=== PATIENT | female | born 1940 | race Caucasian/White ===

== ENCOUNTER 2016-12-06 16:47 | Inpatient (IN) | payer OTHER ==
[~2016-12-06] VITALS: Ht 152.4 cm; Wt 56.4 kg
[~2016-12-06 16:47] MED LIST: AMLO5TAB2 PO; AMLO5TAB4 PO; ASPI81TA28 PO; B-CO1CAP17 PO; CHOL2000 PO; CLON0.5T3 PO; DONE10TA12 PO; EZET10TA47 PO; FURO-85 PO; LAMO100T PO; LINA1CAP PO; OMEG5CAP PO; SNM/25100 PO; SRQ/100 PO; VITA400C3 PO; [UNRECOGNIZED DRUG - CODE] PO
[2016-12-06] MEDS ORDERED: SODIUM CHLORIDE 0.9% 500ML 500 ML IV STA (17:18)
--- NOTE | 2016-12-06 17:20 | EMERGENCY ROOM VISIT NOTE ---
History Report prepared by Sarah: Ky Lugo Under the Supervision of: Dr. Mathew Ramey M.D. First contact with patient: 16:59 Chief Complaint: RECTAL BLEEDING Stated Complaint: RECTAL BLEED History of Present Illness The patient is a 76 year old white female with a past medical history of a rectal prolapse surgery a couple of months ago, Parkinson's, hyperlipidemia, hypertension, and dementia who presents to the ED with a cc of rectal beginning this morning. Positive hematochezia. Negative falls, trauma, loss of consciousness, vomiting, lightheadedness, and dizziness. She had a small amount of bleeding this morning, but it worsened throughout the day. She does not take any blood thinners. She also had a colonoscopy in the past. She denies any recent medication changes. Dr. Forde is her colorectal surgeon. Source of History: patient Onset: this morning Position: other (Rectum) Symptom Intensity: moderate Quality: other (Bleeding) Timing: intermittent Modifying Factors (Worsening): other (Bowel movement) Associated Symptoms: No LOC, No vomiting Review of Systems See HPI for pertinent positives and negatives. A total of ten systems were reviewed and were otherwise negative. Past Medical & Surgical Medical Problems: (1) Anemia (2) Bipolar 1 disorder (3) Hemorrhoids (4) Hypertension (5) Rectal bleeding (6) Stomach problems Family History Hypertension Lung disease Social History Smoking Status: Never Smoker Smokeless Tobacco Use: No Alcohol Use: none Drug Use: none Marital Status: Housing Status: lives with family Occupation Status: retired Current/Historical Medications Scheduled Amlodipine Besylate (Norvasc), 5 MG PO QAM Bimatoprost (Lumigan), 1 DROP OPB HS Brimonidine Tartrate (Alphagan P Oph), 1 DROP OPB BID Carvedilol (Carvedilol), 1 TAB PO BID Clonazepam (Klonopin), 0.5 MG PO AMPM Donepezil Hydrochloride (Aricept), 10 MG PO HS Ezetimibe (Zetia), 10 MG PO HS Furosemide (Lasix), 1 TAB PO DAILY Lamotrigine (Lamictal), 200 MG PO DAILY Levodopa/Carbidopa (Sinemet 25MG/100MG), 1 TAB PO TID Potassium Chloride Microencaps (Klor-Con M15), 30 MEQ PO DAILY Quetiapine Fumarate (Seroquel), 100 MG PO HS Allergies Coded Allergies: [place] (Verified Allergy, Severe, SYSTEM TOXICITY, 03/26/16) Uncoded Allergies: YELLOW SQUASH (Allergy, Severe, ANAPHYLAXIS, 03/13/15) Physical Exam Vital Signs Date Time Temp Pulse Resp B/P (MAP) Pulse Ox O2 Delivery O2 Flow Rate FiO2 12/06/16 19:22 69 18 166/83 98 12/06/16 17:58 65 22 150/87 98 Room Air 12/06/16 17:06 96 Room Air 12/06/16 16:55 36.9 68 20 168/85 98 Room Air 12/06/16 16:53 66 Physical Exam GENERAL: Awake, alert, well-appearing, NAD, no pallor noted HENT: Normocephalic, atraumatic. EYES: Normal conjunctiva. Sclera non-icteric. NECK: Supple. No nuchal rigidity. FROM. RESPIRATORY: CTAB, no rhonchi, wheezing, crackles CARDIAC: RRR, no MRG ABDOMEN: Soft but harness felt over the anterior abdomen consistent with previous hernia repair, NTND, BS+, no guarding or rebound. RECTAL: Single hemorrhoid, no gross blood, no masses, tracely positive Hemoccult. MSK: No chest wall TTP, no LE edema NEURO: GCS 15, CN 2-12 intact, moves all 4s on command SKIN: No rash or jaundice noted. Medical Decision & Procedures Laboratory Results 12/06/16 17:00 Red Blood Count 4.30, Mean Corpuscular Volume 79.1, Mean Corpuscular Hemoglobin 25.6, Mean Corpuscular Hemoglobin Concent 32.4, Mean Platelet Volume 8.9, Neutrophils (%) (Auto) 63.9, Lymphocytes (%) (Auto) 25.9, Monocytes (%) (Auto) 7.9, Eosinophils (%) (Auto) 1.9, Basophils (%) (Auto) 0.3, Neutrophils # (Auto) 4.42, Lymphocytes # (Auto) 1.79, Monocytes # (Auto) 0.55, Eosinophils # (Auto) 0.13, Basophils # (Auto) 0.02 12/06/16 17:00 Test 12/06/16 17:00 12/06/16 17:39 12/06/16 18:45 White Blood Count 6.92 K/uL (4.8-10.8) Red Blood Count 4.30 M/uL (4.2-5.4) Hemoglobin 11.0 g/dL (12.0-16.0) Hematocrit 34.0 % (37-47) Mean Corpuscular Volume 79.1 fL (80-100) Mean Corpuscular Hemoglobin 25.6 pg (25-34) Mean Corpuscular Hemoglobin Concent 32.4 g/dl (32-36) Platelet Count 314 K/uL (130-400) Mean Platelet Volume 8.9 fL (7.4-10.4) Neutrophils (%) (Auto) 63.9 % Lymphocytes (%) (Auto) 25.9 % Monocytes (%) (Auto) 7.9 % Eosinophils (%) (Auto) 1.9 % Basophils (%) (Auto) 0.3 % Neutrophils # (Auto) 4.42 K/uL (1.4-6.5) Lymphocytes # (Auto) 1.79 K/uL (1.2-3.4) Monocytes # (Auto) 0.55 K/uL (0.11-0.59) Eosinophils # (Auto) 0.13 K/uL (0-0.5) Basophils # (Auto) 0.02 K/uL (0-0.2) RDW Standard Deviation 48.4 fL (36.4-46.3) RDW Coefficient of Variation 16.8 % (11.5-14.5) Immature Granulocyte % (Auto) 0.1 % Immature Granulocyte # (Auto) 0.01 K/uL (0.00-0.02) Anion Gap 5.0 mmol/L (3-11) Estimated GFR () 64.8 Estimated GFR (Non- 55.9 BUN/Creatinine Ratio 24.0 (10-20) Calcium Level 8.7 mg/dl (8.5-10.1) Total Bilirubin 0.3 mg/dl (0.2-1) Direct Bilirubin < 0.1 mg/dl (0-0.2) Aspartate Amino Transf (AST/SGOT) 13 U/L (15-37) Alanine Aminotransferase (ALT/SGPT) 14 U/L (12-78) Alkaline Phosphatase 100 U/L (45-117) Total Protein 6.8 gm/dl (6.4-8.2) Albumin 3.1 gm/dl (3.4-5.0) Lipase 160 U/L (73-393) Prothrombin Time 10.0 SECONDS (9.0-12.0) Prothromb Time International Ratio 0.9 (0.9-1.1) Activated Partial Thromboplast Time 23.6 SECONDS (21.0-31.0) Partial Thromboplastin Ratio 0.9 Venous Blood pH 7.39 (7.36-7.41) Venous Blood Partial Pressure CO2 45 mmHg (38.0-50.0) Venous Blood Partial Pressure O2 37 mmHg Venous Blood HCO3 26 mmol/L Venous Blood Oxygen Saturation 67.5 % Venous Blood Base Excess 0.9 mEq/L Urine Color YELLOW Urine Appearance CLEAR (CLEAR) Urine pH 7.0 (4.5-7.5) Urine Specific [place] 1.017 (1.000-1.030) Urine Protein NEG (NEG) Urine Glucose (UA) NEG (NEG) Urine Ketones NEG (NEG) Urine Occult Blood NEG (NEG) Urine Nitrite POS (NEG) Urine Bilirubin NEG (NEG) Urine Urobilinogen NEG (NEG) Urine Leukocyte Esterase SMALL (NEG) Urine WBC (Auto) 10-30 /hpf (0-5) Urine RBC (Auto) 0-4 /hpf (0-4) Urine Hyaline Casts (Auto) 0 /lpf (0-5) Urine Epithelial Cells (Auto) 10-20 /lpf (0-5) Urine Bacteria (Auto) 2+ (NEG) Laboratory results reviewed by me Medications Administered Medications (Trade) Dose Ordered Sig/Naeem Route Start Time Stop Time Status Last Admin Dose Admin Sodium Chloride 500 ml @ 500 mls/hr Q1H STAT IV 12/06/16 17:18 12/06/16 18:17 DC 12/06/16 17:18 500 MLS/HR ECG Indication: other (Rectal bleeding) Rate (beats per minute): 62 Rhythm: sinus rhythm Findings: 1st degree AV block, other (Prolonged ND, normal QRS, no STS changes or t-wave inversions) ED Course 1658: The patient was evaluated in room B04B. A complete history and physical exam was performed. 1811: I spoke with Dr. Duran of the [facility] at this time. They will be evaluating the patient for further management and care. Medical Decision The patient is a 76 year old white female with a past medical history of a rectal prolapse surgery a couple of months ago, Parkinson's, hyperlipidemia, hypertension, and dementia who presents to the ED with a cc of rectal beginning this morning. Positive hematochezia. Negative falls, trauma, loss of consciousness, vomiting, lightheadedness, and dizziness. Triage Nursing notes reviewed. The patient's presentation and history were concerning for diverticulosis, AVM, coagulopathy, colitis, inflammatory bowel disease, malignancy, Martha-Fl[place] tear, esophagitis, peptic ulcer disease, variceal bleed, gastritis, epistaxis, fissure, hemorrhoids, as well as others were entertained.. Patient was feeling fairly well however they were concerned given the worsening bleeding over the last day. It was more scant this morning and worsened throughout the day. Patient denies any presyncope or syncopal type symptoms. No dizziness. She does not take any aspirin, Plavix, or Coumadin. She denies taking any blood thinning medications. Patient denies any trauma. Patient does see a colorectal surgeon Dr. Weems with [facility]. She states that she may be able to see him next week. Patient's blood work was fairly unremarkable although she has had a 2 g hemoglobin drop in the last 8 months. She has had mild microcytic anemia. Patient does not take any iron. I spoke with the family made her more comfortable having her worked up as an inpatient. Given her age even with lacking her symptoms is appropriate especially given her 2 g drop in hemoglobin. I spoke with the medicine team and agreed and the patient was admitted. Medication Reconcilliation Current Medication List: was personally reviewed by me Blood Pressure Screening Patient's blood pressure: Elevated blood pressure Blood pressure disposition: Referred to PCP Consults Time Called: 1809 Consulting Physician: Dr. Renee HANSON Returned Call: 1811 Discussed the patient's case. The patient will be evaluated for further treatment and disposition. Impression Primary Impression: Lower GI bleed Additional Impressions: Rectal bleed Microcytic anemia Scribe Attestation The scribe's documentation has been prepared under my direction and personally reviewed by me in its entirety. I confirm that the note above accurately reflects all work, treatment, procedures, and medical decision making performed by me. Departure Information Dispostion Being Evaluated By Hospitalist Referrals Anais Bullard D.O. (PCP) Patient Instructions My [facility] Problem Qualifiers
[2016-12-06 17:31] LABS: BASO % 0.3 %; BASO ABS # 0.02 K/uL (0-0.2); COMPLETE YES; EOS % 1.9 %; IG% 0.1 %; LYMPH % 25.9 %; LYMPH ABS # 1.79 K/uL (1.2-3.4); MEAN CELL VOLUME 79.1 fL (80-100); MEAN CORPUSCULAR HEMOGLOBIN 25.6 pg (25-34); MEAN CORPUSCULAR HGB CONC 32.4 g/dl (32-36); MEAN PLATELET VOLUME 8.9 fL (7.4-10.4); MONO % 7.9 %; NEUT % 63.9 %; PLATELET COUNT 314 K/uL (130-400); WHITE BLOOD COUNT 6.92 K/uL (4.8-10.8)
[2016-12-06 17:38] LABS: ALT/SGPT 14 U/L (12-78); AST/SGOT 13 U/L (15-37); BLOOD UREA NITROGEN 23 mg/dl (7-18); CALCIUM 8.7 mg/dl (8.5-10.1); CARBON DIOXIDE 25 mmol/L (21-32); CHLORIDE 111 mmol/L (98-107); CREATININE 0.97 mg/dl (0.60-1.20); GLUCOSE 101 mg/dl (70-99); POTASSIUM 4.1 mmol/L (3.5-5.1); SODIUM 141 mmol/L (136-145)
[2016-12-06 17:41] LABS: ALKALINE PHOSPHATASE 100 U/L (45-117)
[2016-12-06 17:54] LABS: VEN BLD GAS O2 SATURATION 67.5 %; VEN BLOOD GAS BASE EXCESS 0.9 mEq/L
[2016-12-06 18:02] LABS: INR 0.9 (0.9-1.1); PARTIAL THROMBOPLASTIN RATIO 0.9
[2016-12-06] MEDS ORDERED: BIMA0.01 OPB (18:07)
[2016-12-06] MEDS ORDERED: BRIM0.1S OPB (18:07)
[2016-12-06] MEDS ORDERED: FURO40TA3 PO (18:07)
[2016-12-06] MEDS ORDERED: CRG3125 PO (18:07)
[2016-12-06] MEDS ORDERED: ONDANSETRON INJ 2 MG/ML 2 ML VIAL IV PRN (18:45)
[2016-12-06] MEDS ORDERED: POLYETHYLENE (MIRALAX) 17 GM PACK PO PRN (18:45)
[2016-12-06] MEDS ORDERED: ACETAMINOPHEN 325 MG TAB PO PRN (18:45)
[2016-12-06] MEDS ORDERED: MAGNESIUM HYDROXIDE SUSP 30 ML UDC PO PRN (18:45)
[2016-12-06] MEDS ORDERED: ALUMINUM/MAGNESIUM/SIMETH (MAALOX MAX) 30 ML UDC PO PRN (18:45)
--- NOTE | 2016-12-06 19:09 | History and Physical ---
History & Physical Date & Time of Service: Dec 06, 2016 at 18:47 Chief Complaint: Rectal Bleed Primary Care Physician: Anais Bullard D.O. History of Present Illness Source: patient, family (daughter and at bedside), clinic records, hospital records Patient is a pleasant 76 y/o female, with PMHx of rectal prolapse s/p repair in April 2016, h/o hemorrhoids, Parkinson's disease, dementia, bipolar disorder, and HTN, who presented to the ED because of complaints of rectal bleeding beginning around 11AM on 12/06. History largely came from /daughter present secondary to patient's dementia. According to patient, bright red bleeding occurred this AM with a movement. Bleeding continued throughout the day w/out BMs. Per , bleeding has been on/off since last week. Patient saw her colorectal surgeon today, Dr. Weems, who recommended she come to ED for further workup. Per daughter, prior to her surgery in April, she experienced frequent rectal bleeding. She has had colonoscopies in the past- patient/family cannot recall when- per daughter, she thinks it was prior to the surgery; only recalls benign polyps. Per , has had an unremarkable EGD in the past. Denies h/o PUD. Denies excessive coffee use, NSAID use, or the use of blood thinners. Patient was on Nexium in the past, but states this was for difficulty with swallowing and not GERD. Patient was Hemoccult positive in ED. + diffuse abdominal pain- per /daughter, this has been an ongoing issue for 3+ years. Patient denies any fever, chills, sweats, lightheadedness, dizziness, vision changes, CP, palpitations, edema, SOB, wheezing, cough, nausea , vomiting, diarrhea, urinary symptoms, melena, numbness/tingling, weakness, muscle/joint pain, anxiety/depression, or new skin discoloration/changes. Past Medical/Surgical History Medical Problems: rectal prolapse s/p repair in April 2016 h/o hemorrhoids Parkinson's disease dementia bipolar disorder HTN Surgical history: rectal prolapse surgery hernia repair tonsillectomy hysterectomy colonoscopy EGD Family History Hypertension Lung disease Social History Smoking Status: Never Smoker Smokeless Tobacco Use: No Alcohol Use: none Drug Use: none Marital Status: Housing status: lives with significant other Occupational Status: retired Allergies Coded Allergies: [place] (Verified Allergy, Severe, SYSTEM TOXICITY, 03/26/16) Uncoded Allergies: YELLOW SQUASH (Allergy, Severe, ANAPHYLAXIS, 03/13/15) Home Medications Scheduled Amlodipine Besylate (Norvasc), 5 MG PO QAM Bimatoprost (Lumigan), 1 DROP OPB HS Brimonidine Tartrate (Alphagan P Oph), 1 DROP OPB BID Carvedilol (Carvedilol), 1 TAB PO BID Clonazepam (Klonopin), 0.5 MG PO AMPM Donepezil Hydrochloride (Aricept), 10 MG PO HS Ezetimibe (Zetia), 10 MG PO HS Furosemide (Lasix), 1 TAB PO DAILY Lamotrigine (Lamictal), 200 MG PO DAILY Levodopa/Carbidopa (Sinemet 25MG/100MG), 1 TAB PO TID Potassium Chloride Microencaps (Klor-Con M15), 30 MEQ PO DAILY Quetiapine Fumarate (Seroquel), 100 MG PO HS Physical Exam Vital Signs Date Time Temp Pulse Resp B/P (MAP) Pulse Ox O2 Delivery O2 Flow Rate FiO2 12/06/16 17:58 65 22 150/87 98 Room Air 12/06/16 17:06 96 Room Air 12/06/16 16:55 36.9 68 20 168/85 98 Room Air General Appearance: no apparent distress Eyes: normal inspection, PERRL ENT: hearing grossly normal Neck: supple Respiratory/Chest: lungs clear, no respiratory distress, no accessory muscle use Cardiovascular: regular rate, rhythm, + systolic murmur Abdomen/GI: normal bowel sounds, non tender, soft Back: normal inspection Extremities/Musculoskelatal: no calf tenderness, no pedal edema Neurologic/Psych: alert, normal mood/affect Skin: warm/dry, no rash, + pallor Diagnostics Laboratory Results Results Past 24 Hours Test 12/06/16 17:00 12/06/16 17:39 Range/Units White Blood Count 6.92 4.8-10.8 K/uL Red Blood Count 4.30 4.2-5.4 M/uL Hemoglobin 11.0 12.0-16.0 g/dL Hematocrit 34.0 37-47 % Mean Corpuscular Volume 79.1 80-100 fL Mean Corpuscular Hemoglobin 25.6 25-34 pg Mean Corpuscular Hemoglobin Concent 32.4 32-36 g/dl Platelet Count 314 130-400 K/uL Mean Platelet Volume 8.9 7.4-10.4 fL Neutrophils (%) (Auto) 63.9 % Lymphocytes (%) (Auto) 25.9 % Monocytes (%) (Auto) 7.9 % Eosinophils (%) (Auto) 1.9 % Basophils (%) (Auto) 0.3 % Neutrophils # (Auto) 4.42 1.4-6.5 K/uL Lymphocytes # (Auto) 1.79 1.2-3.4 K/uL Monocytes # (Auto) 0.55 0.11-0.59 K/uL Eosinophils # (Auto) 0.13 0-0.5 K/uL Basophils # (Auto) 0.02 0-0.2 K/uL RDW Standard Deviation 48.4 36.4-46.3 fL RDW Coefficient of Variation 16.8 11.5-14.5 % Immature Granulocyte % (Auto) 0.1 % Immature Granulocyte # (Auto) 0.01 0.00-0.02 K/uL Sodium Level 141 136-145 mmol/L Potassium Level 4.1 3.5-5.1 mmol/L Chloride Level 111 98-107 mmol/L Carbon Dioxide Level 25 21-32 mmol/L Anion Gap 5.0 3-11 mmol/L Blood Urea Nitrogen 23 7-18 mg/dl Creatinine 0.97 0.60-1.20 mg/dl Estimated GFR () 64.8 Estimated GFR (Non- 55.9 BUN/Creatinine Ratio 24.0 10-20 Random Glucose 101 70-99 mg/dl Calcium Level 8.7 8.5-10.1 mg/dl Total Bilirubin 0.3 0.2-1 mg/dl Direct Bilirubin < 0.1 0-0.2 mg/dl Aspartate Amino Transf (AST/SGOT) 13 15-37 U/L Alanine Aminotransferase (ALT/SGPT) 14 12-78 U/L Alkaline Phosphatase 100 45-117 U/L Total Protein 6.8 6.4-8.2 gm/dl Albumin 3.1 3.4-5.0 gm/dl Lipase 160 73-393 U/L Prothrombin Time 10.0 9.0-12.0 SECONDS Prothromb Time International Ratio 0.9 0.9-1.1 Activated Partial Thromboplast Time 23.6 21.0-31.0 SECONDS Partial Thromboplastin Ratio 0.9 Venous Blood pH 7.39 7.36-7.41 Venous Blood Partial Pressure CO2 45 38.0-50.0 mmHg Venous Blood Partial Pressure O2 37 mmHg Venous Blood HCO3 26 mmol/L Venous Blood Oxygen Saturation 67.5 % Venous Blood Base Excess 0.9 mEq/L EKG [place] ID:[id number] 06-DEC-2016 16:58:11 [facility] Sinus rhythm with 1st degree A-V block Otherwise normal ECG No previous ECGs available 25mm/s 10mm/mV 150Hz 8.0 SP2 12SL 241 NATALIA: 0 Referred by: ED Unconfirmed Vent. rate 62 BPM MT interval 212 ms QRS duration 88 ms QT/QTc 410/416 ms P-R-T axes 54 -27 46 1940 (76 yr) Female Room:[facility] Loc:15 Site Administrator:DUY Venegas ind: Impression Assessment and Plan Patient is a pleasant 76 y/o female, with PMHx of rectal prolapse s/p repair in April 2016, h/o hemorrhoids, Parkinson's disease, dementia, bipolar disorder, dyslipidemia, and HTN, who presented to the ED because of complaints of rectal bleeding beginning around 11AM on 12/06. Microcytic anemia w/ rectal bleeding, h/o rectal prolapse s/p repair in April 2016, hemorrhoids: - Admit to med/surg - Follow H&H q6 hrs- initial hgb stable at 11.0 - IV Protonix BID - IV NSS @ 100 ml/hr - NPO after midnight pending GI consultation and ?procedure - Type & screen - Iron panel - Consult GI, appreciate recommendations HTN: Norvasc 5 mg QAM, Carvedilol 3.125 mg BID Dyslipidemia: Zetia 10 mg HS Bilateral lower extremity swelling: Hold Lasix due to acute anemia w/ rectal bleeding and IVF Parkinson disease, dementia: Aricept 10 mg HS, Sinemet 1 tab TID Bipolar disorder: Lamictal 200 mg daily, Seroquel 100 mg HS, Klonopin 0.5 mg BID Difficulty w/ swallowing- ongoing issue: - Aspiration precautions - Mechanical soft diet - Crush pills GI Prophylaxis: Protonix DVT prophylaxis: TEDs/SCDs; chemical anticoagulation contraindicated secondary to rectal bleeding/anemia Code Status: LEVEL V, DNR Dispo: From home, lives w/ - PT/OT and group social worker consulted i personally examined pt and verified all hammond points w Zoila Granados PAC rectal bleeding - ongoing for a few days then worsened - came to ER. not lightheaded/weak/dizzy. confirms DNR vitals noted nad breathing unlabored no pallor or icterus rectal bleeding -anemia likely more chronic from ongoing blood loss than acute blood loss related but will have to continue to follow -not on anticoagulant or antiplatelet. -follow Hgb -GI eval otherwise as above Level of Care Med/Surg Resuscitation Status DO NOT RESUSCITATE VTE Prophylaxis VTE Risk Assessment Done? Y/N: Yes Risk Level: Moderate Given or contraindicated: T.E.D. Stockings, SCD's, Contraindicated
[2016-12-06 19:10] LABS: URINE APPEARANCE CLEAR (CLEAR); URINE BILIRUBIN NEG (NEG); URINE COLOR YELLOW; URINE NITRITE POS (NEG); URINE SPECIFIC GRAVITY 1.017 (1.000-1.030); UROBILINOGEN NEG (NEG); ZZUR CULT IF INDIC CLEAN CATCH YES
[2016-12-06 19:12] LABS: MANUAL MICROSCOPIC REQUIRED? NO; REVIEW REQ? NO
[2016-12-06 20:00] VITALS: BP 186/90; PULSE 74; TEMP 36.9; O2SAT 96; Ht 152.4 cm; Wt 56.4 kg
[2016-12-06 21:28] VITALS: BP 157/79
[2016-12-06] MEDS: SODIUM CHLORIDE 0.9% 1000ML 1,000 ML IV SCH (22:37)
[2016-12-06] MEDS: PANTOprazole INJ 40 MG in SYRINGE 0 ML IV SCH (22:38)
[2016-12-06] MEDS: BIMATOPROST 0.01% OP SOLN 2.5 ML BTL OPB SCH (22:41)
[2016-12-06] MEDS: CLONAZEPAM 0.5 MG TAB PO SCH (22:44)
[2016-12-06] MEDS: DONEPEZIL HCL 10 MG TAB PO SCH (22:44)
[2016-12-06] MEDS: CARVEDILOL 3.125 MG TAB PO SCH (22:44)
[2016-12-06] MEDS: CARBIDOPA/LEVODOPA 25/100MG TAB PO SCH (22:45)
[2016-12-06] MEDS: QUETIAPINE FUMARATE 100 MG TAB PO SCH (22:45)
[2016-12-06] MEDS: EZETIMIBE 10MG TAB PO SCH (22:45)
[2016-12-06 22:58] VITALS: BP 165/80; PULSE 75; TEMP 36.5; O2SAT 97
[2016-12-07] VITALS (9 sets, daily range): BP systolic 102–169; BP diastolic 51–82; PULSE 58–64; TEMP 36.3–36.8; O2SAT 93–97
[2016-12-07] MEDS: SODIUM CHLORIDE 0.9% 1000ML 1,000 ML IV SCH ×3 (05:53→23:48)
[2016-12-07 07:44] LABS: HEMATOCRIT 35.4 % (37-47); MEAN CELL VOLUME 80.3 fL (80-100); MEAN CORPUSCULAR HEMOGLOBIN 25.6 pg (25-34); MEAN CORPUSCULAR HGB CONC 31.9 g/dl (32-36); MEAN PLATELET VOLUME 8.9 fL (7.4-10.4); PLATELET COUNT 282 K/uL (130-400); RED BLOOD COUNT 4.41 M/uL (4.2-5.4); WHITE BLOOD COUNT 5.74 K/uL (4.8-10.8)
[2016-12-07 08:23] LABS: BUN/CREATININE RATIO 19.4 (10-20); CALCIUM 8.8 mg/dl (8.5-10.1); CREATININE 0.8 mg/dl (0.60-1.20); FERRITIN 7.5 ng/ml (8.0-388.0); POTASSIUM 3.9 mmol/L (3.5-5.1)
[2016-12-07] MEDS ORDERED: FUROSEMIDE 40 MG TAB PO SCH (09:00)
[2016-12-07] MEDS: PANTOprazole INJ 40 MG in SYRINGE 0 ML IV SCH ×2 (09:21→21:46)
[2016-12-07] MEDS: CARVEDILOL 3.125 MG TAB PO SCH ×2 (09:21→20:25)
[2016-12-07] MEDS: POTASSIUM CHLORIDE 10 MEQ TABCR PO SCH (09:23)
[2016-12-07] MEDS: CLONAZEPAM 0.5 MG TAB PO SCH ×2 (09:23→20:25)
[2016-12-07] MEDS: CARBIDOPA/LEVODOPA 25/100MG TAB PO SCH ×3 (09:24→20:25)
[2016-12-07] MEDS: AMLODIPINE BESYLATE 5 MG TAB PO SCH (09:24)
[2016-12-07] MEDS ORDERED: CEFTRIAXONE SOD INJ 1 GM in DEXTROSE 5% ADD-VANTAGE 50ML 50 ML IV SCH (10:00)
[2016-12-07 12:28] LABS: HEMATOCRIT 31.8 % (37-47)
--- NOTE | 2016-12-07 13:59 | Gastrointestinal Consultation ---
Gastrointestinal Consultation Date of Consultation: Dec 07, 2016 Attending Physician: Zoltan Wells Consulting Physician: Jorge Parra Reason for Consultation: GI bleeding, anemia History of Present Illness Patient is a 76 year old female with chief complaint of abdominal pain. History mainly from as patient has dementia. Pt apparently with chronic generalized abdominal pain for 3 or more years. Also with chronic rectal bleeding thought from rectal prolapse improved post surgery 04/2016. Over the last few weeks will have up to a couple days of rectal bleeding. Yesterday had bleeding and apparently told the colorectal surgeon at an appointment so directed to ER. In ER patient had no gross blood but trace heme positive on rectal. Hgb 11 on admit with last 10.3 at 1217 today. Scant amounts of brown stool overnight and this am with trace red blood mixed. Also patient unable to swallow anything but beyond soft foods. Apparently had EGD and colonoscopy in [place] couple years ago with [place] results. No n/v, no wt change, no fever, no gerd. Past Medical/Surgical History Medical Problems: (1) Abdominal pain Status: Acute (2) Bleeding internal hemorrhoids Status: Acute (3) Lower GI bleed Status: Acute (4) Microcytic anemia Status: Acute (5) Rectal bleed Status: Acute (6) Rectal prolapse Status: Acute Family History Hypertension Lung disease Social History Smoking Status: Never Smoker Alcohol Use: none Drug Use: none Marital Status: Housing Status: lives with family Occupation Status: retired Allergies Coded Allergies: [place] (Verified Allergy, Severe, SYSTEM TOXICITY, 03/26/16) Uncoded Allergies: YELLOW [place]QU[place] (Allergy, Severe, ANAPHYLAXIS, 03/13/15) Current Medications Home Meds and Scripts Medications Dose Route/Sig Max Daily Dose Days Date Category Carvedilol 3.125 Mg Tab 1 Tab PO BID 12/06/16 Reported Lumigan (Bimatoprost) 0.01 % Krysta 1 Drop OPB HS 12/06/16 Reported Alphagan P Oph (Brimonidine Tartrate) 0.1 % Krysta 1 Drop OPB BID 12/06/16 Reported Lasix (Furosemide) 40 Mg Tab 1 Tab PO DAILY 30 12/06/16 Reported Lamictal (Lamotrigine) 100 Mg Tab 200 Mg PO DAILY 03/13/15 Reported Zetia (Ezetimibe) 10 Mg Tab 10 Mg PO HS 11/28/15 Reported Sinemet 25MG/100MG (Carbidopa/Levodopa) 1 Ea Tab 1 Tab PO TID 03/13/15 Reported Klor-Con M15 (Potassium Chloride Microencaps) 15 Meq Tab 30 Meq PO DAILY 03/13/15 Reported Klonopin (Clonazepam) 0.5 Mg Tab 0.5 Mg PO AMPM 03/13/15 Reported Seroquel (Quetiapine Fumarate) 100 Mg Tab 100 Mg PO HS 03/13/15 Reported Norvasc (Amlodipine Besylate) 5 Mg Tab 5 Mg PO QAM 03/13/15 Reported Aricept (Donepezil Hydrochloride) 10 Mg Tab 10 Mg PO HS 03/13/15 Reported Review of Systems 10 point review of systems negative. Physical Exam Date Time Temp Pulse Resp B/P (MAP) Pulse Ox O2 Delivery O2 Flow Rate FiO2 12/07/16 09:19 64 12/07/16 08:19 36.5 58 20 161/78 (105) 97 Room Air 12/07/16 08:15 97 Room Air 12/07/16 06:43 36.8 62 16 169/71 (103) 93 Room Air 12/07/16 01:00 102/51 (68) 12/07/16 01:00 Room Air 12/06/16 22:58 36.5 75 16 165/80 (108) 97 Room Air 12/06/16 21:28 157/79 (105) 12/06/16 20:00 36.9 74 16 186/90 96 Room Air 12/06/16 19:22 69 18 166/83 98 12/06/16 17:58 65 22 150/87 98 Room Air 12/06/16 17:06 96 Room Air 12/06/16 16:55 36.9 68 20 168/85 98 Room Air 12/06/16 16:53 66 General Appearance: WD/WN, no apparent distress Eyes: normal inspection, PERRL ENT: normal ENT inspection, hearing grossly normal Neck: supple, no adenopathy Respiratory/Chest: lungs clear, normal breath sounds Cardiovascular: regular rate, rhythm, no edema Abdomen: normal bowel sounds, non tender, soft, no organomegaly, + pertinent finding (complains of diffuse pain but soft with no guarding nor rebound. 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, no motor/sensory deficits, alert Skin: normal color, no jaundice Laboratory Results Last 24 Hours Test 12/06/16 17:00 12/06/16 17:39 12/06/16 18:45 12/06/16 22:42 White Blood Count 6.92 K/uL Red Blood Count 4.30 M/uL Hemoglobin 11.0 g/dL 10.9 g/dL Hematocrit 34.0 % 33.0 % Mean Corpuscular Volume 79.1 fL Mean Corpuscular Hemoglobin 25.6 pg Mean Corpuscular Hemoglobin Concent 32.4 g/dl Platelet Count 314 K/uL Mean Platelet Volume 8.9 fL Neutrophils (%) (Auto) 63.9 % Lymphocytes (%) (Auto) 25.9 % Monocytes (%) (Auto) 7.9 % Eosinophils (%) (Auto) 1.9 % Basophils (%) (Auto) 0.3 % Neutrophils # (Auto) 4.42 K/uL Lymphocytes # (Auto) 1.79 K/uL Monocytes # (Auto) 0.55 K/uL Eosinophils # (Auto) 0.13 K/uL Basophils # (Auto) 0.02 K/uL RDW Standard Deviation 48.4 fL RDW Coefficient of Variation 16.8 % Immature Granulocyte % (Auto) 0.1 % Immature Granulocyte # (Auto) 0.01 K/uL Sodium Level 141 mmol/L Potassium Level 4.1 mmol/L Chloride Level 111 mmol/L Carbon Dioxide Level 25 mmol/L Anion Gap 5.0 mmol/L Blood Urea Nitrogen 23 mg/dl Creatinine 0.97 mg/dl Estimated GFR () 64.8 Estimated GFR (Non- 55.9 BUN/Creatinine Ratio 24.0 Random Glucose 101 mg/dl Calcium Level 8.7 mg/dl Total Bilirubin 0.3 mg/dl Direct Bilirubin < 0.1 mg/dl Aspartate Amino Transf (AST/SGOT) 13 U/L Alanine Aminotransferase (ALT/SGPT) 14 U/L Alkaline Phosphatase 100 U/L Total Protein 6.8 gm/dl Albumin 3.1 gm/dl Lipase 160 U/L Prothrombin Time 10.0 SECONDS Prothromb Time International Ratio 0.9 Activated Partial Thromboplast Time 23.6 SECONDS Partial Thromboplastin Ratio 0.9 Venous Blood pH 7.39 Venous Blood Partial Pressure CO2 45 mmHg Venous Blood Partial Pressure O2 37 mmHg Venous Blood HCO3 26 mmol/L Venous Blood Oxygen Saturation 67.5 % Venous Blood Base Excess 0.9 mEq/L Urine Color YELLOW Urine Appearance CLEAR Urine pH 7.0 Urine Specific [place] 1.017 Urine Protein NEG Urine Glucose (UA) NEG Urine Ketones NEG Urine Occult Blood NEG Urine Nitrite POS Urine Bilirubin NEG Urine Urobilinogen NEG Urine Leukocyte Esterase SMALL Urine WBC (Auto) 10-30 /hpf Urine RBC (Auto) 0-4 /hpf Urine Hyaline Casts (Auto) 0 /lpf Urine Epithelial Cells (Auto) 10-20 /lpf Urine Bacteria (Auto) 2+ Test 12/07/16 07:15 12/07/16 12:17 White Blood Count 5.74 K/uL Red Blood Count 4.41 M/uL Hemoglobin 11.3 g/dL 10.3 g/dL Hematocrit 35.4 % 31.8 % Mean Corpuscular Volume 80.3 fL Mean Corpuscular Hemoglobin 25.6 pg Mean Corpuscular Hemoglobin Concent 31.9 g/dl RDW Standard Deviation 49.5 fL RDW Coefficient of Variation 16.9 % Platelet Count 282 K/uL Mean Platelet Volume 8.9 fL Sodium Level 142 mmol/L Potassium Level 3.9 mmol/L Chloride Level 111 mmol/L Carbon Dioxide Level 25 mmol/L Anion Gap 6.0 mmol/L Blood Urea Nitrogen 16 mg/dl Creatinine 0.80 mg/dl Est Creatinine Clear Calc Drug Dose 45.6 ml/min Estimated GFR () 81.8 Estimated GFR (Non- 70.6 BUN/Creatinine Ratio 19.4 Random Glucose 75 mg/dl Calcium Level 8.8 mg/dl Iron Level 53 mcg/dl Total Iron Binding Capacity 424 mcg/dl Transferrin 321 mg/dl Transferrin % Saturation 12 % Ferritin 7.5 ng/ml Impression A/P Rectal bleeding-- desires colonoscopy for evaluation. Dysphagia-- would like this evaluated also so plan EGD with prn dilation abdominal pain--- check A/P CT Tentative EGD with dilatation and colonoscopy tomorrow by DR Ortega. Procedures and risks explained to patients which include but not limited to medication reaction, bleeding, perforation, aspiration, and missed lesions. Clear liquids today then NPO post MN.
--- NOTE | 2016-12-07 14:56 | Hospitalist Progress Note ---
Hospitalist Progress Note Date of Service Dec 07, 2016. (Hetal Latham ., IMER) Subjective Pt evaluation today including: conversation w/ patient, physical exam, chart review, lab review, review of inpatient medication list Unable to obtain reliable ROS from patient due to dementia. No family at bedside. In between ramblings, patient does complain of trouble swallowing and abdominal pain. Upon review of admission H&P, these are chronic issues. Additional Comments: Unable to obtain reliable ROS from patient due to dementia. (Hetal Latham PA-C) Objective Vital Signs Date Time Temp Pulse Resp B/P (MAP) Pulse Ox O2 Delivery O2 Flow Rate FiO2 12/07/16 09:19 64 12/07/16 08:19 36.5 58 20 161/78 (105) 97 Room Air 12/07/16 08:15 97 Room Air 12/07/16 06:43 36.8 62 16 169/71 (103) 93 Room Air 12/07/16 01:00 102/51 (68) 12/07/16 01:00 Room Air 12/06/16 22:58 36.5 75 16 165/80 (108) 97 Room Air 12/06/16 21:28 157/79 (105) 12/06/16 20:00 36.9 74 16 186/90 96 Room Air 12/06/16 19:22 69 18 166/83 98 12/06/16 17:58 65 22 150/87 98 Room Air 12/06/16 17:06 96 Room Air 12/06/16 16:55 36.9 68 20 168/85 98 Room Air 12/06/16 16:53 66 (Hetal Latham PA-C) Physical Exam Notes: General appearance: Well-developed, well-nourished, no apparent distress Head: Normocephalic, atraumatic Eyes: Normal inspection, PERRL, EOMI ENT: Normal ENT inspection, hearing grossly normal, pharynx normal Neck: Supple, no JVD, trachea midline Respiratory/Chest: Lungs clear to auscultation, normal breath sounds, no respiratory distress Cardiovascular: +Systolic murmur. Regular rate & rhythm, no gallop Abdomen/GI: +Mild diffuse tenderness. Normal bowel sounds, soft Extremities/Musculoskeletal: Normal inspection, no calf tenderness, no pedal edema Neurological/Psych: +Dementia. Pt fixated on her eye drops during visit, could not obtain reliable ROS. Pt began to ramble nonsensical things but did answer orientation questions appropriately. Alert, normal mood/affect, oriented x 3 Skin: Normal color, warm/dry, no rash (Hetal Latham ., IMER) Laboratory Results Last 24 Hours Test 12/06/16 17:00 12/06/16 17:39 12/06/16 18:45 12/06/16 22:42 White Blood Count 6.92 K/uL Red Blood Count 4.30 M/uL Hemoglobin 11.0 g/dL 10.9 g/dL Hematocrit 34.0 % 33.0 % Mean Corpuscular Volume 79.1 fL Mean Corpuscular Hemoglobin 25.6 pg Mean Corpuscular Hemoglobin Concent 32.4 g/dl Platelet Count 314 K/uL Mean Platelet Volume 8.9 fL Neutrophils (%) (Auto) 63.9 % Lymphocytes (%) (Auto) 25.9 % Monocytes (%) (Auto) 7.9 % Eosinophils (%) (Auto) 1.9 % Basophils (%) (Auto) 0.3 % Neutrophils # (Auto) 4.42 K/uL Lymphocytes # (Auto) 1.79 K/uL Monocytes # (Auto) 0.55 K/uL Eosinophils # (Auto) 0.13 K/uL Basophils # (Auto) 0.02 K/uL RDW Standard Deviation 48.4 fL RDW Coefficient of Variation 16.8 % Immature Granulocyte % (Auto) 0.1 % Immature Granulocyte # (Auto) 0.01 K/uL Sodium Level 141 mmol/L Potassium Level 4.1 mmol/L Chloride Level 111 mmol/L Carbon Dioxide Level 25 mmol/L Anion Gap 5.0 mmol/L Blood Urea Nitrogen 23 mg/dl Creatinine 0.97 mg/dl Estimated GFR () 64.8 Estimated GFR (Non- 55.9 BUN/Creatinine Ratio 24.0 Random Glucose 101 mg/dl Calcium Level 8.7 mg/dl Total Bilirubin 0.3 mg/dl Direct Bilirubin < 0.1 mg/dl Aspartate Amino Transf (AST/SGOT) 13 U/L Alanine Aminotransferase (ALT/SGPT) 14 U/L Alkaline Phosphatase 100 U/L Total Protein 6.8 gm/dl Albumin 3.1 gm/dl Lipase 160 U/L Prothrombin Time 10.0 SECONDS Prothromb Time International Ratio 0.9 Activated Partial Thromboplast Time 23.6 SECONDS Partial Thromboplastin Ratio 0.9 Venous Blood pH 7.39 Venous Blood Partial Pressure CO2 45 mmHg Venous Blood Partial Pressure O2 37 mmHg Venous Blood HCO3 26 mmol/L Venous Blood Oxygen Saturation 67.5 % Venous Blood Base Excess 0.9 mEq/L Urine Color YELLOW Urine Appearance CLEAR Urine pH 7.0 Urine Specific [place] 1.017 Urine Protein NEG Urine Glucose (UA) NEG Urine Ketones NEG Urine Occult Blood NEG Urine Nitrite POS Urine Bilirubin NEG Urine Urobilinogen NEG Urine Leukocyte Esterase SMALL Urine WBC (Auto) 10-30 /hpf Urine RBC (Auto) 0-4 /hpf Urine Hyaline Casts (Auto) 0 /lpf Urine Epithelial Cells (Auto) 10-20 /lpf Urine Bacteria (Auto) 2+ Test 12/07/16 07:15 12/07/16 12:17 White Blood Count 5.74 K/uL Red Blood Count 4.41 M/uL Hemoglobin 11.3 g/dL 10.3 g/dL Hematocrit 35.4 % 31.8 % Mean Corpuscular Volume 80.3 fL Mean Corpuscular Hemoglobin 25.6 pg Mean Corpuscular Hemoglobin Concent 31.9 g/dl RDW Standard Deviation 49.5 fL RDW Coefficient of Variation 16.9 % Platelet Count 282 K/uL Mean Platelet Volume 8.9 fL Sodium Level 142 mmol/L Potassium Level 3.9 mmol/L Chloride Level 111 mmol/L Carbon Dioxide Level 25 mmol/L Anion Gap 6.0 mmol/L Blood Urea Nitrogen 16 mg/dl Creatinine 0.80 mg/dl Est Creatinine Clear Calc Drug Dose 45.6 ml/min Estimated GFR () 81.8 Estimated GFR (Non- 70.6 BUN/Creatinine Ratio 19.4 Random Glucose 75 mg/dl Calcium Level 8.8 mg/dl Iron Level 53 mcg/dl Total Iron Binding Capacity 424 mcg/dl Transferrin 321 mg/dl Transferrin % Saturation 12 % Ferritin 7.5 ng/ml (Hetal Latham ., FREDERICC) Assessment and Plan 76 y/o female with a history of rectal prolapse s/p repair in April 2016, h/o hemorrhoids, Parkinson's disease, dementia, bipolar disorder, dyslipidemia, and HTN who presented to the ED because of complaints of rectal bleeding beginning around 11AM on 12/06. Microcytic anemia w/ rectal bleeding, h/o rectal prolapse s/p repair in April 2016, hemorrhoids--stable - Admit to med/surg - Hgb has largely remained stable around 11; however, last hgb down to 10.3 - Transfuse prn Hgb <8 - IV Protonix BID - IV NSS @ 100 ml/hr - GI consulted, appreciate recs: EGD with dilation and colonoscopy tomorrow with Dr. Ortega. Clear liquid diet today w/bowel prep. NPO after midnight. Obtain CT of abdomen/pelvis - Iron studies show low ferritin and transferrin % sat. Will start iron supplementation after procedures tomorrow. HTN--stable -Continue Norvasc 5 mg PO QAM, Carvedilol 3.125 mg PO BID Dyslipidemia -Continue Zetia 10 mg PO HS Bilateral lower extremity swelling -Hold Lasix due to acute anemia w/ rectal bleeding and IVF Parkinson disease, dementia -Continue Aricept 10 mg PO HS, Sinemet 25/100 mg PO TID Bipolar disorder -Continue Lamictal 200 mg PO qd, Seroquel 100 mg PO HS, Klonopin 0.5 mg PO BID Difficulty w/ swallowing- ongoing issue: - Aspiration precautions - Mechanical soft diet - Crush pills - EGD with possible dilation tomorrow DVT prophylaxis -Hold chemical prophylaxis due to bleeding and procedure tomorrow Code Status -Level V, DO NOT RESUSCITATE (Hetal Latham ., PATulioC) Attending Attestation: Pt seen/examined, chart reviewed, care plan d/w GERDA Latham. I agree w/ the hammond components of her documentation. at bedside during my visit. He confirms that she had NOT been taking any iron supplementation in the last year. I explained that her ferritin was <10 suggesting chronic Fe Deficiency. He reports her abdominal pain is chronic, and that she has suffered from alternating constipation/diarrhea "for years". VSS, no fever gen - nad heart - RRR lungs - CTA b/l abd - soft, NT, mild distension, appears to have a hernia vs simple protuberance upper abdomen, BS+ ext - no edema, pulses 2+ b/l A/P: 1. probable chronic iron deficiency 2. acute blood loss anemia 2nd to rectal bleeding 3. chronic abdominal pain 4. h/o rectal prolapse s/p surgery 04/[address] abd/pelvis today with severe constipation and diverticulosis certainly #2 could be diverticular in origin EGD/colonoscopy tomorrow will need Fe replacement at time of d/c rose WELLS MD (Zoltan Wells MD)
[2016-12-07] MEDS: LAVAGE SOLUTION 4000ML PO SCH (16:25)
--- NOTE | 2016-12-07 16:26 | DIAGNOSTIC IMAGING REPORT ---
CT SCAN OF THE ABDOMEN AND PELVIS WITHOUT IV CONTRAST CLINICAL HISTORY: Generalized abdominal pain. Hematochezia. COMPARISON STUDY: Abdominal radiograph dated 03/26/2016. TECHNIQUE: CT scan of the abdomen and pelvis is performed from the lung bases to the proximal femora. Images are reviewed in the axial, sagittal, and coronal planes. IV contrast was not administered for this examination as per the referring clinician. Note that the examination was performed in suboptimal fashion without IV contrast. Oral contrast was utilized. Automated dose control exposure was utilized. A dose lowering technique was utilized adhering to the principles of ALARA. CT DOSE: 248.19 mGy.cm FINDINGS: Lung bases: The heart is normal in size and without pericardial effusion. The lung bases are clear. There is a small hiatal hernia. Liver: The unenhanced liver is normal in size, contour, and attenuation. There is no intrahepatic biliary ductal dilatation. Gallbladder: Unremarkable. Spleen: Normal in size and attenuation. Pancreas: Atrophic and grossly unremarkable. Adrenal glands: Unremarkable. Kidneys: The unenhanced kidneys are atrophic and without hydronephrosis. There are no renal calculi identified. A 2.2 cm cyst is noted on the left. Abdominal vasculature: The abdominal aorta is normal in course and caliber noting advanced atherosclerotic calcification. Bowel: No bowel obstruction is seen. There is advanced diverticulosis of the left colon without CT evidence of acute diverticulitis. Moderate to severe constipation is observed. The appendix is well-visualized and normal. Peritoneum: There is no intraperitoneal free air or abdominal ascites. There is diastases of the rectus musculature. Lymphadenopathy: None. Pelvic viscera: The bladder is normal as visualized. The uterus is surgically absent. No adnexal lesion is seen. Findings suggest pelvic floor prolapse. Skeletal structures: The skeletal structures are osteopenic. There is moderate lumbosacral spondylosis as well as scoliosis. Mild age indeterminant superior end plate compression deformity is noted in L1 and L3. No lytic or blastic lesions are seen. Scattered bone islands are present in the pelvis. IMPRESSION: 1. Suboptimal examination without IV contrast 2. There are no acute infectious or inflammatory findings in the abdomen or pelvis. 3. Moderate to severe constipation. No bowel obstruction is seen. 4. Advanced diverticulosis of the left colon without CT evidence of acute diverticulitis. 5. Additional findings as above. Electronically signed by: Sreedhar Goff M.D. 12/07/2016 4:25 PM Dictated Date/Time: 12/07/2016 4:16 PM
[2016-12-07] MEDS: BRIMONIDINE TARTRATE 0.1% OPH SOLN OPB SCH ×2 (17:32→20:24)
[2016-12-07] MEDS: DONEPEZIL HCL 10 MG TAB PO SCH (20:24)
[2016-12-07] MEDS: BIMATOPROST 0.01% OP SOLN 2.5 ML BTL OPB SCH (20:24)
[2016-12-07] MEDS: EZETIMIBE 10MG TAB PO SCH (20:24)
[2016-12-07] MEDS: QUETIAPINE FUMARATE 100 MG TAB PO SCH (20:25)
[2016-12-08] MEDS: LAVAGE SOLUTION 4000ML PO SCH (04:50)
[2016-12-08 06:58] VITALS: BP 165/89; PULSE 62; TEMP 36.4; O2SAT 98
[2016-12-08 07:52] LABS: HEMATOCRIT 34.3 % (37-47); MEAN CELL VOLUME 79.8 fL (80-100); MEAN CORPUSCULAR HEMOGLOBIN 25.3 pg (25-34); MEAN CORPUSCULAR HGB CONC 31.8 g/dl (32-36); PLATELET COUNT 271 K/uL (130-400)
--- NOTE | 2016-12-08 08:11 | Gastroenterology Progress Note ---
Progress Note Date of Service: Dec 08, 2016 Subjective Pt evaluation today including: conversation w/ patient, physical exam, chart review, lab review, review of studies, review of inpatient medication list CC f/u gi bleed, abd pain HPI--Per nursing patient drank all of prep last pm. There is a small volume of golyteley left in jug. Per nursing good stool output and stool just witnessed mostly clear with some yellow. When asked about abd pain she states she hurts "everywhere" but cannot be more specific. Review of Systems Respiratory: No shortness of breath Cardiac: No chest pain Medications Current Inpatient Medications Medications (Trade) Dose Ordered Sig/Naeem Route Start Time Stop Time Status Last Admin Dose Admin Acetaminophen (Tylenol Tab) 650 mg Q4H PRN PO 12/06/16 18:45 01/05/17 18:44 Al Hydrox/Mg Hydrox/Simethicone (Maalox Max Susp) 15 ml Q4H PRN PO 12/06/16 18:45 01/05/17 18:44 Magnesium Hydroxide (Milk Of Magnesia Susp) 30 ml Q6H PRN PO 12/06/16 18:45 01/05/17 18:44 Polyethylene (Miralax Powder Packet) 17 gm DAILY PRN PO 12/06/16 18:45 01/05/17 18:44 Ondansetron HCl (Zofran Inj) 4 mg Q6H PRN IV 12/06/16 18:45 01/05/17 18:44 Sodium Chloride 1,000 ml @ 100 mls/hr Q10H IV 12/06/16 18:45 01/05/17 18:44 12/07/16 23:48 100 MLS/HR Amlodipine Besylate (Norvasc Tab) 5 mg QAM PO 12/07/16 09:00 01/06/17 08:59 12/07/16 09:24 5 MG Carvedilol (Coreg Tab) 3.125 mg BID PO 12/06/16 21:00 01/05/17 20:59 12/07/16 20:25 3.125 MG Clonazepam (Klonopin Tab) 0.5 mg BID PO 12/06/16 21:00 01/05/17 20:59 12/07/16 20:25 0.5 MG Donepezil HCl (Aricept Tab) 10 mg HS PO 12/06/16 21:00 01/05/17 20:59 12/07/16 20:24 10 MG EZETIMIBE (Zetia Tab) 10 mg HS PO 12/06/16 21:00 01/05/17 20:59 12/07/16 20:24 10 MG Lamotrigine (Lamictal Tab) 200 mg DAILY PO 12/07/16 09:00 01/06/17 08:59 12/07/16 09:24 200 MG Carbidopa/Levodopa (Sinemet 25/ 100MG Tab) 1 tab TID PO 12/06/16 21:00 01/05/17 20:59 12/07/16 20:25 1 TAB Quetiapine Fumarate (seroQUEL TAB) 100 mg HS PO 12/06/16 21:00 01/05/17 20:59 12/07/16 20:25 100 MG Bimatoprost (Lumigan 0.01%) 1 drops HS OPB 12/06/16 21:00 01/05/17 20:59 12/07/16 20:24 1 DROPS Potassium Chloride (Klor-Con M10) 30 meq DAILY PO 12/07/16 09:00 01/06/17 08:59 12/07/16 09:23 30 MEQ Pantoprazole Sodium 40 mg/ Syringe 10 ml @ 5 mls/min DAILY@ IV 12/06/16 21:00 01/05/17 20:59 12/07/16 21:46 5 MLS/MIN Ceftriaxone Sodium 1 gm/ Dextrose 50 ml @ 100 mls/hr Q24H IV 12/07/16 10:00 12/12/16 09:59 12/07/16 10:35 100 MLS/HR Brimonidine Tartrate (Alphagan-P 0.1% Oph Solution) 1 drop BID OPB 12/07/16 21:00 01/06/17 20:59 12/07/16 20:24 1 DROP Objective Vital Signs Date Time Temp Pulse Resp B/P (MAP) Pulse Ox O2 Delivery O2 Flow Rate FiO2 12/08/16 06:58 36.4 62 18 165/89 (114) 98 Room Air 12/07/16 23:59 Room Air 12/07/16 23:00 36.3 58 14 110/59 (76) 95 Room Air 12/07/16 20:08 64 162/82 (108) 97 Room Air 12/07/16 15:45 97 Room Air 12/07/16 15:21 36.6 60 16 165/78 (107) 97 Room Air 12/07/16 09:19 64 12/07/16 08:19 36.5 58 20 161/78 (105) 97 Room Air 12/07/16 08:15 97 Room Air Physical Exam General Appearance: WD/WN, no apparent distress Respiratory/Chest: lungs clear, no respiratory distress Cardiovascular: no murmur Abdomen: normal bowel sounds, soft, no organomegaly, + pertinent finding (no guarding nor rebound) Laboratory Results Last 24 Hours Test 12/07/16 12:17 12/08/16 07:23 Hemoglobin 10.3 g/dL 10.9 g/dL Hematocrit 31.8 % 34.3 % White Blood Count 5.20 K/uL Red Blood Count 4.30 M/uL Mean Corpuscular Volume 79.8 fL Mean Corpuscular Hemoglobin 25.3 pg Mean Corpuscular Hemoglobin Concent 31.8 g/dl RDW Standard Deviation 48.8 fL RDW Coefficient of Variation 16.8 % Platelet Count 271 K/uL Mean Platelet Volume 9.0 fL Assessment and Plan Rectal bleeding--colonoscopy today by DR Ortega Dysphagia--EGD with prn dilatation today by DR Ortega Anemia--stable constipation on CT Diverticulosis on CT abdominal pain--- no acute process on A/P CT--perhaps from constipation
[2016-12-08 08:18] LABS: BUN/CREATININE RATIO 11.2 (10-20); CALCIUM 8.6 mg/dl (8.5-10.1); CREATININE 0.69 mg/dl (0.60-1.20); POTASSIUM 3.6 mmol/L (3.5-5.1)
[2016-12-08 08:21] LABS: ALB/GLOB RATIO 0.9 (0.9-2)
[2016-12-08] MEDS: CLONAZEPAM 0.5 MG TAB PO SCH ×2 (09:00→20:58)
[2016-12-08] MEDS: AMOXICILLIN 500 MG CAP PO SCH ×3 (09:00→20:54)
[2016-12-08] MEDS: BRIMONIDINE TARTRATE 0.1% OPH SOLN OPB SCH ×2 (09:38→20:54)
[2016-12-08] MEDS: PANTOprazole INJ 40 MG in SYRINGE 0 ML IV SCH (09:38)
[2016-12-08] MEDS: AMLODIPINE BESYLATE 5 MG TAB PO SCH (09:44)
[2016-12-08] MEDS: CARVEDILOL 3.125 MG TAB PO SCH ×2 (09:44→20:54)
[2016-12-08] MEDS: CARBIDOPA/LEVODOPA 25/100MG TAB PO SCH ×3 (10:13→20:54)
[2016-12-08] MEDS: SODIUM CHLORIDE 0.9% 1000ML 1,000 ML IV SCH (10:28)
--- NOTE | 2016-12-08 11:15 | Hospitalist Progress Note ---
Hospitalist Progress Note Date of Service Dec 08, 2016. (Hetal Latham ., FREDERICC) Subjective Pt evaluation today including: conversation w/ patient, conversation w/ family ( at bedside), physical exam, chart review, lab review, review of inpatient medication list Unable to obtain reliable ROS from patient due to dementia. Additional Comments: Unable to obtain reliable ROS from patient due to dementia. (Hetal Latham, IMER) Objective Vital Signs Date Time Temp Pulse Resp B/P (MAP) Pulse Ox O2 Delivery O2 Flow Rate FiO2 12/08/16 07:25 Room Air 12/08/16 06:58 36.4 62 18 165/89 (114) 98 Room Air 12/07/16 23:59 Room Air 12/07/16 23:00 36.3 58 14 110/59 (76) 95 Room Air 12/07/16 20:08 64 162/82 (108) 97 Room Air 12/07/16 15:45 97 Room Air 12/07/16 15:21 36.6 60 16 165/78 (107) 97 Room Air (Hetal Latham, GERDA-Keke) Physical Exam Notes: General appearance: Well-developed, well-nourished, no apparent distress Head: Normocephalic, atraumatic Eyes: Normal inspection, PERRL, EOMI ENT: Normal ENT inspection, hearing grossly normal, pharynx normal Neck: Supple, no JVD, trachea midline Respiratory/Chest: Lungs clear to auscultation, normal breath sounds, no respiratory distress Cardiovascular: +Systolic murmur. Regular rate & rhythm, no gallop Abdomen/GI: Normal bowel sounds, non-tender, soft Extremities/Musculoskeletal: Normal inspection, no calf tenderness, no pedal edema Neurological/Psych: +Dementia. Pt still fixated on her eye drops, could not obtain reliable ROS. Pt began to ramble nonsensical things but did answer orientation questions appropriately. Alert, normal mood/affect, oriented x 3 Skin: Normal color, warm/dry, no rash (Hetal Latham, GERDA-C) Laboratory Results Last 24 Hours Test 12/07/16 12:17 12/08/16 07:23 Hemoglobin 10.3 g/dL 10.9 g/dL Hematocrit 31.8 % 34.3 % White Blood Count 5.20 K/uL Red Blood Count 4.30 M/uL Mean Corpuscular Volume 79.8 fL Mean Corpuscular Hemoglobin 25.3 pg Mean Corpuscular Hemoglobin Concent 31.8 g/dl RDW Standard Deviation 48.8 fL RDW Coefficient of Variation 16.8 % Platelet Count 271 K/uL Mean Platelet Volume 9.0 fL Sodium Level 143 mmol/L Potassium Level 3.6 mmol/L Chloride Level 110 mmol/L Carbon Dioxide Level 26 mmol/L Anion Gap 7.0 mmol/L Blood Urea Nitrogen 8 mg/dl Creatinine 0.69 mg/dl Est Creatinine Clear Calc Drug Dose 52.9 ml/min Estimated GFR () 96.6 Estimated GFR (Non- 83.4 BUN/Creatinine Ratio 11.2 Random Glucose 74 mg/dl Calcium Level 8.6 mg/dl Total Bilirubin 0.4 mg/dl Aspartate Amino Transf (AST/SGOT) 15 U/L Alanine Aminotransferase (ALT/SGPT) 7 U/L Alkaline Phosphatase 88 U/L Total Protein 6.1 gm/dl Albumin 2.9 gm/dl Globulin 3.2 gm/dl Albumin/Globulin Ratio 0.9 (Hetal Latham PA-C) Diagnostic Results Reviewed the following studies and agree with interpretation as follows: Patient Name: CASA MOON Unit Number: [id number] Dictated: 12/07/161615 Transcribed: 12/07/161615 EV Printed Date/Time: [~ rep prt dt]/[~ rep prt tm] [~ rep ct labl] - [~ rep ct ivnm] [facility] [place] [address] Dictated: 12/07/161615 Transcribed: 12/07/161615 EV Printed Date/Time: [~ rep prt dt]/[~ rep prt tm] [~ rep ct labl] - [~ rep ct ivnm] Patient: CASA MOON Address1: [address] [place] [address] Rec: [id number] Address2: [place] [address] Acct ID: [id number] [facility] Zip: [place] [address] Date: 1940 Sex: F Room/Bed: [facility] Ref Phy: Anais Bullard D.O. SC: C.MSN Att Phy: Zoltan Wells MD Report #: [id number] Yolanda Phy: Anais Bullard D.O. Test: APWOR Admit Phy: Michael Duran D.O. Manager Analysis: PRASHANTH Interpreting Phy: Sreedhar Goff M.D. Diagnosis: ANEMIA, RECTAL BLEED Ordering Phy: Jorge Parra M.D. Service Date: 12/07/16 Admit Date: 12/07/1707/23/17 MNE: [id number] CONF: DICTATED BY: Sreedhar Goff M.D.]] CC: Jorge Parra M.D. Ignatius, Nicole D. D.O. Siuta, Jonathan R., MD Endcc: [~ rep ct add3]] CT SCAN OF THE ABDOMEN AND PELVIS WITHOUT IV CONTRAST CLINICAL HISTORY: Generalized abdominal pain. Hematochezia. COMPARISON STUDY: Abdominal radiograph dated 03/26/2016. TECHNIQUE: CT scan of the abdomen and pelvis is performed from the lung bases to the proximal femora. Images are reviewed in the axial, sagittal, and coronal planes. IV contrast was not administered for this examination as per the referring clinician. Note that the examination was performed in suboptimal fashion without IV contrast. Oral contrast was utilized. Automated dose control exposure was utilized. A dose lowering technique was utilized adhering to the principles of ALARA. CT DOSE: 248.19 mGy.cm FINDINGS: Lung bases: The heart is normal in size and without pericardial effusion. The lung bases are clear. There is a small hiatal hernia. Liver: The unenhanced liver is normal in size, contour, and attenuation. There is no intrahepatic biliary ductal dilatation. Gallbladder: Unremarkable. Spleen: Normal in size and attenuation. Pancreas: Atrophic and grossly unremarkable. Adrenal glands: Unremarkable. Kidneys: The unenhanced kidneys are atrophic and without hydronephrosis. There are no renal calculi identified. A 2.2 cm cyst is noted on the left. Abdominal vasculature: The abdominal aorta is normal in course and caliber noting advanced atherosclerotic calcification. Bowel: No bowel obstruction is seen. There is advanced diverticulosis of the left colon without CT evidence of acute diverticulitis. Moderate to severe constipation is observed. The appendix is well-visualized and normal. Peritoneum: There is no intraperitoneal free air or abdominal ascites. There is diastases of the rectus musculature. Lymphadenopathy: None. Pelvic viscera: The bladder is normal as visualized. The uterus is surgically absent. No adnexal lesion is seen. Findings suggest pelvic floor prolapse. Skeletal structures: The skeletal structures are osteopenic. There is moderate lumbosacral spondylosis as well as scoliosis. Mild age indeterminant superior end plate compression deformity is noted in L1 and L3. No lytic or blastic lesions are seen. Scattered bone islands are present in the pelvis. IMPRESSION: 1. Suboptimal examination without IV contrast 2. There are no acute infectious or inflammatory findings in the abdomen or pelvis. 3. Moderate to severe constipation. No bowel obstruction is seen. 4. Advanced diverticulosis of the left colon without CT evidence of acute diverticulitis. 5. Additional findings as above. Electronically signed by: Sreedhar Goff M.D. 12/07/2016 4:25 PM Dictated Date/Time: 12/07/2016 4:16 PM The status of this report is Signed. Draft = Not yet reviewed or approved by Radiologist. Signed = Reviewed and approved by Radiologist. <AttendingPhy>Zoltan Wells MD</AttendingPhy> <FamilyPhy>Anais uBllard D.O.</FamilyPhy> <PrimaryPhy>nAais Bullard D.O.</PrimaryPhy> <UnitNumber >[id number]</UnitNumber> <VisitNumber>[id number]</VisitNumber> <PatientName> CASA MOON Ruslan</PatientName> <DateOfBirth>1940</DateOfBirth> <Location> [facility]</Location> <ServiceDate>12/06/16</ServiceDate> <MNE>ESINDI</MNE> < OrderingPhy>Jorge Parra M.D.</OrderingPhy> <OrderingPhyMNE>f rep ord dr wesley </OrderingPhyMNE> <DictatingPhyMNE>f rep dict dr wesley</DictatingPhyMNE> < CCListMNE>f rep ct mne</CCListMNE> <AdmittingPhyMNE>f pt admit dr wesley</ AdmittingPhyMNE> <AttendingPhyMNE>f pt attend dr wesley</AttendingPhyMNE> <ConsultingPhyMNE>f pt consult dr wesley</ConsultingPhyMNE> <FamilyPhyMNE>f pt fam dr wesley</FamilyPhyMNE> <OtherPhyMNE>f pt other dr wesley</OtherPhyMNE> < PrimaryPhyMNE>f pt prim care dr wesley</PrimaryPhyMNE> <ReferringPhyMNE>f pt referring dr wesley</ReferringPhyMNE> (Hetal Latham ., PAKimberly) Assessment and Plan 76 y/o female with a history of rectal prolapse s/p repair in April 2016, h/o hemorrhoids, Parkinson's disease, dementia, bipolar disorder, dyslipidemia, and HTN who presented to the ED because of complaints of rectal bleeding beginning around 11AM on 12/06. Microcytic anemia w/ rectal bleeding, h/o rectal prolapse s/p repair in April 2016, hemorrhoids--stable - Admit to med/surg - Hgb remains stable at 10.9 on 12/08 - Transfuse prn Hgb <8 - IV Protonix BID - IV NSS @ 100 ml/hr - GI consulted, appreciate recs: EGD with dilation and colonoscopy today - Iron studies show low ferritin and transferrin % sat. Will start iron supplementation after procedures - CT abdomen/pelvis shows no acute infection or inflammation. Moderate to severe constipation. Diverticulosis. Pelvic floor prolapse. UTI POA -Urine culture positive for villalba-sensitive E. coli -Rocephin d/c'd -Amoxicillin 500 mg PO TID HTN--stable -Continue Norvasc 5 mg PO QAM, Carvedilol 3.125 mg PO BID Dyslipidemia -Continue Zetia 10 mg PO HS Bilateral lower extremity swelling -Hold Lasix due to acute anemia w/ rectal bleeding and IVF Parkinson disease, dementia -Continue Aricept 10 mg PO HS, Sinemet 25/100 mg PO TID Bipolar disorder -Continue Lamictal 200 mg PO qd, Seroquel 100 mg PO HS, Klonopin 0.5 mg PO BID Difficulty w/ swallowing- ongoing issue: - Aspiration precautions - Mechanical soft diet - Crush pills - EGD with prn dilation DVT prophylaxis -Hold chemical prophylaxis due to bleeding and procedure Code Status -Level V, DO NOT RESUSCITATE (Hetal Latham ., PAKimberly) Attending Attestation: Pt seen/examined, chart reviewed, care plan d/w GERDA Latham. I agree w/ the hammond components of her documentation. at bedside during my visit once again. I saw her following her EGD/colonoscopy and she was resting comfortably w/o complaints. I went over EGD/colon results with . VSS, no fever gen - nad heart - RRR lungs - CTA b/l abd - soft, NT, ND, BS+ ext - no edema, pulses 2+ b/l A/P: 1. probable chronic iron deficiency 2. acute blood loss anemia 2nd to rectal bleeding - latter felt to be from an area of irritation found in the rectum itself (see Dr. gu's procedure note) ; biopsies taken 3. chronic abdominal pain - likely from chronic constipation (CT abd/pelvis with severe constipation) 4. h/o rectal prolapse s/p surgery 04/2016 5. dementia 6. sigmoid diverticulosis as seen on colonoscopy today but felt not to be source of bleeding 7. hiatal hernia - asymptomatic d/c fluids allow diet CBC in am if cbc is stable and PT/OT clear for home she can d/c home with on Sunday await biopsies from colonoscopy - these will be back next week at d/c recommend iron twice daily, fiber supplement with miralax every day for diverticulosis/constipation, f/u with PCP next week and GI within 1-2 weeks Luis Eduardo WELLS MD (Zoltan Wells MD)
[2016-12-08] MEDS ORDERED: PROPOFOL IV EMULSION 10 MG/ML 20 ML VIAL IV ONE (12:22)
[2016-12-08] MEDS ORDERED: LIDOCAINE HCL 2% 2 ML VIAL (20MG/ML) ONE (12:22)
--- NOTE | 2016-12-08 13:30 | Endo History and Physical ---
History & Physical Date of Service: Dec 08, 2016. Chief Complaint: rectal bleeding Referring Physician: Dr Grimm History of Present Illness For EGD and colonoscopy Past Surgical History Hx Cardiac Surgery: No Hx Abdominal Surgery: Yes Hx Post-Op Nausea and Vomiting: No Hx Cancer Surgery: No Hx Thoracic Surgery: No Hx Orthopedic: No Hx Urinary Tract Surgery: No Social History Smoking Status: Never Smoker Smokeless Tobacco Use: No Hx Substance Use: No Hx Alcohol Use: No Allergies Coded Allergies: [place] (Verified Allergy, Severe, SYSTEM TOXICITY, 03/26/16) Uncoded Allergies: YELLOW SQUASH (Allergy, Severe, ANAPHYLAXIS, 03/13/15) Current Medications Reported Home Medications Medications Dose Route/Sig Max Daily Dose Days Date Category Carvedilol 3.125 Mg Tab 1 Tab PO BID 12/06/16 Reported Lumigan (Bimatoprost) 0.01 % Krysta 1 Drop OPB HS 12/06/16 Reported Alphagan P Oph (Brimonidine Tartrate) 0.1 % Krysta 1 Drop OPB BID 12/06/16 Reported Lasix (Furosemide) 40 Mg Tab 1 Tab PO DAILY 30 12/06/16 Reported Lamictal (Lamotrigine) 100 Mg Tab 200 Mg PO DAILY 03/13/15 Reported Zetia (Ezetimibe) 10 Mg Tab 10 Mg PO HS 03/13/15 Reported Sinemet 25MG/100MG (Carbidopa/Levodopa) 1 Ea Tab 1 Tab PO TID 03/13/15 Reported Klor-Con M15 (Potassium Chloride Microencaps) 15 Meq Tab 30 Meq PO DAILY 03/13/15 Reported Klonopin (Clonazepam) 0.5 Mg Tab 0.5 Mg PO AMPM 03/13/15 Reported Seroquel (Quetiapine Fumarate) 100 Mg Tab 100 Mg PO HS 03/13/15 Reported Norvasc (Amlodipine Besylate) 5 Mg Tab 5 Mg PO QAM 03/13/15 Reported Aricept (Donepezil Hydrochloride) 10 Mg Tab 10 Mg PO HS 03/13/15 Reported Vital Signs Weight (Kilograms): 56.400 Height (Feet): 5 Height (Inches): 0.00 Date Time Temp Pulse Resp B/P (MAP) Pulse Ox O2 Delivery O2 Flow Rate FiO2 12/08/16 12:26 36.8 59 20 155/75 (101) 99 Room Air 12/08/16 07:25 Room Air 12/08/16 06:58 36.4 62 18 165/89 (114) 98 Room Air 12/07/16 23:59 Room Air 12/07/16 23:00 36.3 58 14 110/59 (76) 95 Room Air 12/07/16 20:08 64 162/82 (108) 97 Room Air 12/07/16 15:45 97 Room Air 12/07/16 15:21 36.6 60 16 165/78 (107) 97 Room Air Physical Exam General Appearance: WD/WN, + pertinent finding (mild dementia) Respiratory/Chest: Respiratory effort: no dyspnea Cardiovascular: Heart Auscultation: RRR Abdomen: Inspection & Palpation: soft Assessment and Plan Rectal bleeding for EGD and colonoscopy
--- NOTE | 2016-12-08 13:59 | Discharge Instructions ---
Endoscopy Patient Instructions Date / Procedure(s) Performed Dec 08, 2016. Colonoscopy, EGD Allergy Information Coded Allergies: [place] (Verified Allergy, Severe, SYSTEM TOXICITY, 03/26/16) Uncoded Allergies: YELLOW SQUASH (Allergy, Severe, ANAPHYLAXIS, 03/13/15) Discharge Date / Findings Dec 08, 2016. polyps, diverticulosis, rectal erythema Medication Instructions Restart Stopped Medication(s): resume meds Current Inpatient Medications Medications (Trade) Dose Ordered Sig/Naeem Route Start Time Stop Time Status Last Admin Dose Admin Acetaminophen (Tylenol Tab) 650 mg Q4H PRN PO 12/06/16 18:45 01/05/17 18:44 Al Hydrox/Mg Hydrox/Simethicone (Maalox Max Susp) 15 ml Q4H PRN PO 12/06/16 18:45 01/05/17 18:44 Magnesium Hydroxide (Milk Of Magnesia Susp) 30 ml Q6H PRN PO 12/06/16 18:45 01/05/17 18:44 Polyethylene (Miralax Powder Packet) 17 gm DAILY PRN PO 12/06/16 18:45 01/05/17 18:44 Ondansetron HCl (Zofran Inj) 4 mg Q6H PRN IV 12/06/16 18:45 01/05/17 18:44 Sodium Chloride 1,000 ml @ 100 mls/hr Q10H IV 12/06/16 18:45 01/05/17 18:44 12/08/16 10:28 100 MLS/HR Amlodipine Besylate (Norvasc Tab) 5 mg QAM PO 12/07/16 09:00 01/06/17 08:59 12/08/16 09:44 5 MG Carvedilol (Coreg Tab) 3.125 mg BID PO 12/06/16 21:00 01/05/17 20:59 12/08/16 09:44 3.125 MG Clonazepam (Klonopin Tab) 0.5 mg BID PO 12/06/16 21:00 01/05/17 20:59 12/07/16 20:25 0.5 MG Donepezil HCl (Aricept Tab) 10 mg HS PO 12/06/16 21:00 01/05/17 20:59 12/07/16 20:24 10 MG EZETIMIBE (Zetia Tab) 10 mg HS PO 12/06/16 21:00 01/05/17 20:59 12/07/16 20:24 10 MG Lamotrigine (Lamictal Tab) 200 mg DAILY PO 12/07/16 09:00 01/06/17 08:59 12/08/16 10:13 200 MG Carbidopa/Levodopa (Sinemet 25/ 100MG Tab) 1 tab TID PO 12/06/16 21:00 01/05/17 20:59 12/08/16 10:13 1 TAB Quetiapine Fumarate (seroQUEL TAB) 100 mg HS PO 12/06/16 21:00 01/05/17 20:59 12/07/16 20:25 100 MG Bimatoprost (Lumigan 0.01%) 1 drops HS OPB 12/06/16 21:00 01/05/17 20:59 12/07/16 20:24 1 DROPS Potassium Chloride (Klor-Con M10) 30 meq DAILY PO 12/07/16 09:00 01/06/17 08:59 12/07/16 09:23 30 MEQ Pantoprazole Sodium 40 mg/ Syringe 10 ml @ 5 mls/min DAILY@,21 IV 12/06/16 21:00 01/05/17 20:59 12/08/16 09:38 5 MLS/MIN Brimonidine Tartrate (Alphagan-P 0.1% Oph Solution) 1 drop BID OPB 12/07/16 21:00 01/06/17 20:59 12/08/16 09:38 1 DROP Amoxicillin (Amoxil Cap) 500 mg TID PO 12/08/16 09:00 12/13/16 08:59 Provider Instructions Activity Restrictions - No exercising or heavy lifting for 24 hours. - Do not drink alcohol the day of the procedure. - Do not drive a car or operate machinery until the day after the procedure. - Do not make any important decisions or sign important papers in 24 hours after the procedure. Following Day: - Return to full activity which may include returning to work/school. Diet Start your diet with liquids and light foods (jello, soup, juice, toast). Then eat your usual diet if not nauseated. Treatment For Common After Affects For mild abdominal pain, bloating, or excessive gas: - Rest - Eat lightly - Lie on right side Follow-Up Information Follow-up with as scheduled Anesthesia Information What You Should Know You have had a procedure that required some medicine to reduce anxiety and discomfort. This treatment is called moderate sedation. After receiving the treatment, you may be sleepy, but you will be able to breathe on your own. The effects of the treatment may last for several hours. Follow these instructions along with Activity/Diet recommendations noted above: * Do NOT do anything where dizziness or clumsiness would be dangerous. * Rest quietly at home today, then you can be up and about tomorrow. * Have a responsible person stay with you the rest of today. * You may have had an I.V. today. If so, you may take the dressing off later today. Recommendations Call your doctor if: * Trouble breathing * Continuous vomiting for more than 24 hours * Temperature above 101 degrees * Severe abdominal pain or bloating * Pain not relieved by pain medicine ordered * There is increased drainage or redness from any incision * A large amount of rectal bleeding greater than 2-3 tablespoons. (If you had a polyp/s removed or have hemorrhoids, a small amount of blood - from the rectum is to be expected.) * You have any unanswered questions or concerns. IN THE EVENT OF A SERIOUS EMERGENCY, GO TO THE NEAREST EMERGENCY ROOM Your discharge instructions were prepared by provider Alf Ortega. Patient Instructions Signature Page Shari Urbina Patient (or Guardian) Signature/Date: I have read and understand the instructions given to me by my caregivers. Caregiver/RN/Doctor Signature/Date: The above-named patient and/or guardian has received patient instructions on this date. + Original Patient Signature Page (only) stays with chart. Please make copy for patient.
--- NOTE | 2016-12-08 14:13 | Anesthesiology Progress Note ---
Anesthesia Post Op Note Date & Time Dec 08, 2016 at 14:12 Vital Signs Pain Intensity: 0 Vital Signs Past 12 Hours Date Time Temp Pulse Resp B/P (MAP) Pulse Ox O2 Delivery O2 Flow Rate FiO2 12/08/16 14:01 56 20 132/69 (90) 98 Room Air 12/08/16 12:26 36.8 59 20 155/75 (101) 99 Room Air 12/08/16 07:25 Room Air 12/08/16 06:58 36.4 62 18 165/89 (114) 98 Room Air Notes Mental Status: alert / awake / arousable, participated in evaluation Pt Amnestic to Procedure: Yes Nausea / Vomiting: adequately controlled Pain: adequately controlled Airway Patency, RR, SpO2: stable & adequate BP & HR: stable & adequate Hydration State: stable & adequate Anesthetic Complications: no major complications apparent
--- NOTE | 2016-12-08 14:33 | GASTROENTEROLOGY PROGRESS NOTE ---
DATE: 12/08/2016 DATE: 12/08/2016 The patient presented for EGD and colonoscopy today for rectal bleeding, previously had a rectal prolapse repair in April 2016. Her upper endoscopy was negative except for a moderate sized hiatal hernia. Colonoscopy was carried into the terminal ileum. There was no blood seen throughout the GI tract. She had multiple sigmoid diverticula. There was a small transverse colon polyp that was not removed and a 10 mm semi-pedunculated polyp at 30 cm in the sigmoid which was removed with hot cautery. She also had in the mid rectum a band of erythematous tissue, probably in the area where her rectal prolapse repair was performed, this is most likely the source of her bleeding and biopsies from this area were obtained for pathology.
[2016-12-08 15:06] VITALS: BP 153/79; PULSE 57; TEMP 36.6; O2SAT 97
[2016-12-08] MEDS: POTASSIUM CHLORIDE 10 MEQ TABCR PO SCH (15:27)
[2016-12-08 15:45] VITALS: O2SAT 97
--- NOTE | 2016-12-08 16:09 | GI REPORT ---
Procedure Date: 12/08/2016 1:03 PM Procedure: Upper GI endoscopy Indications: Recent gastrointestinal bleeding Medicines: Propofol total dose 100 mg IV, Lidocaine 40 mg IV Complications: No immediate complications. Estimated Blood Loss: Estimated blood loss: none. Estimated blood loss: none. Procedure: Pre-Anesthesia Assessment: - Prior to the procedure, a History and Physical was performed, and patient medications, allergies and sensitivities were reviewed. The patient's tolerance of previous anesthesia was reviewed. - The risks and benefits of the procedure and the sedation options and risks were discussed with the patient. All questions were answered and informed consent was obtained. After obtaining informed consent, the endoscope was passed under direct vision. Throughout the procedure, the patient's blood pressure, pulse, and oxygen saturations were monitored continuously. The scope was introduced through the mouth, and advanced to the second part of duodenum. The upper GI endoscopy was accomplished without difficulty. The patient tolerated the procedure well. Findings: The esophagus was normal. The stomach was normal. The examined duodenum was normal. A medium-sized hiatus hernia was present. Impression: - Normal esophagus. - Normal stomach. - Normal examined duodenum. - No specimens collected. - Hiatus hernia. Recommendation: - [facility]. - Continue present medications. Alf Ortega M.D. Alf Ortega MD 12/08/2016 2:03:00 PM This report has been signed electronically. Note Initiated On: 12/08/2016 1:03 PM I attest to the content of the Intraoperative Record and orders documented therein, exceptions below
--- NOTE | 2016-12-08 16:09 | GI REPORT ---
Procedure Date: 12/08/2016 1:02 PM Procedure: Colonoscopy Indications: Rectal bleeding Medicines: Propofol total dose 100 mg IV, Lidocaine 40 mg IV Complications: No immediate complications. Estimated Blood Loss: Estimated blood loss: none. Procedure: Pre-Anesthesia Assessment: - Prior to the procedure, a History and Physical was performed, and patient medications, allergies and sensitivities were reviewed. The patient's tolerance of previous anesthesia was reviewed. - The risks and benefits of the procedure and the sedation options and risks were discussed with the patient. All questions were answered and informed consent was obtained. After I obtained informed consent, the scope was passed under direct vision. Throughout the procedure, the patient's blood pressure, pulse, and oxygen saturations were monitored continuously. The On-site loaner was introduced through the anus and advanced to the terminal ileum. The colonoscopy was performed without difficulty. The patient tolerated the procedure well. The quality of the bowel preparation was good. Findings: Multiple diverticula were found in the sigmoid colon. A 4 mm polyp was found in the transverse colon. The polyp was sessile. A 10 mm polyp was found in the sigmoid colon. The polyp was semi-pedunculated. The polyp was removed with a hot snare. Resection and retrieval were complete. Estimated blood loss: none. A localized area of moderately erythematous mucosa was found in the mid rectum. This was biopsied with a cold forceps for histology. Estimated blood loss was minimal. Impression: - Diverticulosis in the sigmoid colon. - One 4 mm polyp in the transverse colon. - One 10 mm polyp in the sigmoid colon, removed with a hot snare. Resected and retrieved. - Erythematous mucosa in the mid rectum. Biopsied. Recommendation: - [facility]. - Await pathology results. Alf Ortega M.D. Alf Ortega MD 12/08/2016 2:06:11 PM This report has been signed electronically. Note Initiated On: 12/08/2016 1:02 PM I attest to the content of the Intraoperative Record and orders documented therein, exceptions below
[2016-12-08] MEDS: FERROUS SULFATE 325 MG TAB PO SCH (17:56)
[2016-12-08] MEDS: EZETIMIBE 10MG TAB PO SCH (20:54)
[2016-12-08] MEDS: BIMATOPROST 0.01% OP SOLN 2.5 ML BTL OPB SCH (20:54)
[2016-12-08] MEDS: DONEPEZIL HCL 10 MG TAB PO SCH (20:54)
[2016-12-08] MEDS: QUETIAPINE FUMARATE 100 MG TAB PO SCH (20:54)
[2016-12-08 23:23] VITALS: BP 119/69; PULSE 56; TEMP 36.4; O2SAT 95
[2016-12-09 03:39] VITALS: BP 168/78; PULSE 56; TEMP 36.4; O2SAT 98
[2016-12-09 07:11] VITALS: BP 180/86; PULSE 62; TEMP 36.4; O2SAT 95
[2016-12-09 08:02] LABS: HEMATOCRIT 35.3 % (37-47); MEAN CELL VOLUME 79.1 fL (80-100); MEAN CORPUSCULAR HEMOGLOBIN 24.9 pg (25-34); MEAN CORPUSCULAR HGB CONC 31.4 g/dl (32-36); MEAN PLATELET VOLUME 8.6 fL (7.4-10.4); PLATELET COUNT 279 K/uL (130-400); RED BLOOD COUNT 4.46 M/uL (4.2-5.4)
[2016-12-09 08:35] LABS: BUN/CREATININE RATIO 7.7 (10-20); CALCIUM 9.2 mg/dl (8.5-10.1); CREATININE 0.75 mg/dl (0.60-1.20); POTASSIUM 3.6 mmol/L (3.5-5.1)
[2016-12-09 08:42] VITALS: BP 202/91
[2016-12-09] MEDS: AMOXICILLIN 500 MG CAP PO SCH ×2 (08:51→15:43)
[2016-12-09] MEDS: FERROUS SULFATE 325 MG TAB PO SCH (08:51)
[2016-12-09] MEDS: AMLODIPINE BESYLATE 5 MG TAB PO SCH (08:52)
[2016-12-09] MEDS: CARVEDILOL 3.125 MG TAB PO SCH (08:52)
[2016-12-09] MEDS: CARBIDOPA/LEVODOPA 25/100MG TAB PO SCH ×2 (08:52→15:42)
[2016-12-09 09:45] VITALS: BP 127/74; PULSE 73
[2016-12-09] MEDS: CLONAZEPAM 0.5 MG TAB PO SCH (10:38)
[2016-12-09] MEDS: POTASSIUM CHLORIDE 10 MEQ TABCR PO SCH (10:39)
[2016-12-09] MEDS: BRIMONIDINE TARTRATE 0.1% OPH SOLN OPB SCH (10:41)
--- NOTE | 2016-12-09 14:02 | Gastroenterology Progress Note ---
Progress Note Date of Service: Dec 09, 2016 Subjective Pt evaluation today including: conversation w/ patient, conversation w/ family () CC f/u rectal bleeding HPI No mention of rectal bleeding in care trends. Pt with chronic abd pain per pts . Tolerating liquid diet Review of Systems Respiratory: No shortness of breath Cardiac: No chest pain Medications Current Inpatient Medications Medications (Trade) Dose Ordered Sig/Naeem Route Start Time Stop Time Status Last Admin Dose Admin Acetaminophen (Tylenol Tab) 650 mg Q4H PRN PO 12/06/16 18:45 01/05/17 18:44 Al Hydrox/Mg Hydrox/Simethicone (Maalox Max Susp) 15 ml Q4H PRN PO 12/06/16 18:45 01/05/17 18:44 Magnesium Hydroxide (Milk Of Magnesia Susp) 30 ml Q6H PRN PO 12/06/16 18:45 01/05/17 18:44 12/09/16 06:13 30 ML Polyethylene (Miralax Powder Packet) 17 gm DAILY PRN PO 12/06/16 18:45 01/05/17 18:44 Ondansetron HCl (Zofran Inj) 4 mg Q6H PRN IV 12/06/16 18:45 01/05/17 18:44 Amlodipine Besylate (Norvasc Tab) 5 mg QAM PO 12/07/16 09:00 01/06/17 08:59 12/09/16 08:52 5 MG Carvedilol (Coreg Tab) 3.125 mg BID PO 12/06/16 21:00 01/05/17 20:59 12/09/16 08:52 3.125 MG Clonazepam (Klonopin Tab) 0.5 mg BID PO 12/06/16 21:00 01/05/17 20:59 12/09/16 10:38 0.5 MG Donepezil HCl (Aricept Tab) 10 mg HS PO 12/06/16 21:00 01/05/17 20:59 12/08/16 20:54 10 MG EZETIMIBE (Zetia Tab) 10 mg HS PO 12/06/16 21:00 01/05/17 20:59 12/08/16 20:54 10 MG Lamotrigine (Lamictal Tab) 200 mg DAILY PO 12/07/16 09:00 01/06/17 08:59 12/09/16 08:53 200 MG Carbidopa/Levodopa (Sinemet 25/ 100MG Tab) 1 tab TID PO 12/06/16 21:00 01/05/17 20:59 12/09/16 08:52 1 TAB Quetiapine Fumarate (seroQUEL TAB) 100 mg HS PO 12/06/16 21:00 01/05/17 20:59 12/08/16 20:54 100 MG Bimatoprost (Lumigan 0.01%) 1 drops HS OPB 12/06/16 21:00 01/05/17 20:59 12/08/16 20:54 1 DROPS Potassium Chloride (Klor-Con M10) 30 meq DAILY PO 12/07/16 09:00 01/06/17 08:59 12/09/16 10:39 30 MEQ Brimonidine Tartrate (Alphagan-P 0.1% Oph Solution) 1 drop BID OPB 12/07/16 21:00 01/06/17 20:59 12/09/16 10:41 1 DROP Amoxicillin (Amoxil Cap) 500 mg TID PO 12/08/16 09:00 12/13/16 08:59 12/09/16 08:51 500 MG Ferrous Sulfate (Feosol Tab) 325 mg BIDM PO 12/08/16 17:45 01/07/17 17:44 12/09/16 08:51 325 MG Objective Vital Signs Date Time Temp Pulse Resp B/P (MAP) Pulse Ox O2 Delivery O2 Flow Rate FiO2 12/09/16 09:45 73 127/74 (91) 12/09/16 08:42 202/91 (128) 12/09/16 07:11 36.4 62 16 180/86 (117) 95 Room Air 12/09/16 03:39 36.4 56 16 168/78 (108) 98 Room Air 12/08/16 23:25 Room Air 12/08/16 23:23 36.4 56 16 119/69 (86) 95 Room Air 12/08/16 15:45 97 Room Air 12/08/16 15:06 36.6 57 16 153/79 (103) 97 Room Air 12/08/16 14:31 58 20 145/79 (101) 97 Room Air 12/08/16 14:16 62 20 139/72 (94) 97 Room Air 12/08/16 14:01 56 20 132/69 (90) 98 Room Air Physical Exam General Appearance: WD/WN, no apparent distress Cardiovascular: regular rate, rhythm, no murmur Abdomen: normal bowel sounds, non tender, soft, no organomegaly Laboratory Results Last 24 Hours Test 12/09/16 07:44 White Blood Count 4.70 K/uL Red Blood Count 4.46 M/uL Hemoglobin 11.1 g/dL Hematocrit 35.3 % Mean Corpuscular Volume 79.1 fL Mean Corpuscular Hemoglobin 24.9 pg Mean Corpuscular Hemoglobin Concent 31.4 g/dl RDW Standard Deviation 47.9 fL RDW Coefficient of Variation 16.5 % Platelet Count 279 K/uL Mean Platelet Volume 8.6 fL Sodium Level 141 mmol/L Potassium Level 3.6 mmol/L Chloride Level 108 mmol/L Carbon Dioxide Level 27 mmol/L Anion Gap 6.0 mmol/L Blood Urea Nitrogen 6 mg/dl Creatinine 0.75 mg/dl Est Creatinine Clear Calc Drug Dose 48.7 ml/min Estimated GFR () 88.5 Estimated GFR (Non- 76.3 BUN/Creatinine Ratio 7.7 Random Glucose 98 mg/dl Calcium Level 9.2 mg/dl Magnesium Level 2.0 mg/dl Assessment and Plan Rectal bleeding--colonoscopy showing erythema at surgical site likely source, resolved Dysphagia--EGD no obstruction, 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 Anemia--stable constipation on CT Diverticulosis on CT abdominal pain--- no acute process on A/P CT--perhaps from constipation recommend miralax daily Ok for DC from GI standpoint. Will sign off.
[2016-12-09 15:00] VITALS: BP 143/66; PULSE 77; TEMP 36.6; O2SAT 92
[2016-12-09] MEDS ORDERED: FRRS300 PO (16:41)
[2016-12-09] MEDS ORDERED: AMPI250C11 PO (16:41)
--- NOTE | 2016-12-09 16:48 | Discharge Instructions ---
Discharge Instructions Date of Service Dec 09, 2016. Admission Reason for Admission: 1. Lower GI bleed at surgical site of rectal prolapse repair. 2. Iron deficiency anemia. Discharge Discharge Diagnosis / Problem: 1. Lower GI bleed at surgical site of rectal prolapse repair. Discharge Goals Goal(s): Decrease discomfort, Improve function, Improve disease control, Therapeutic intervention, Prevent Disease Progression Activity Recommendations Activity Limitations: resume your previous activity Lifting Limitations: none Exercise/Sports Limitations: none May Resume Sexual Activity: when tolerated Shower/Bathe: no limitations . Instructions / Follow-Up Instructions / Follow-Up -- Follow up with your primary care physician in the next 1 to 2 weeks. -- Recheck CBC with differential and Iron studies in 2 - 3 months. Current Hospital Diet Patient's current hospital diet: AHA Diet (Heart Healthy) Discharge Diet Recommended Diet: Regular Diet Fluid Restriction: None Procedures Procedures Performed: EGD, Colonoscopy with polypectomy and biopsy Pending Studies Studies pending at discharge: no Laboratory Results Test 12/06/16 17:00 12/06/16 17:39 12/06/16 18:45 12/07/16 07:15 Immature Granulocyte % (Auto) 0.1 White Blood Count 6.92 Red Blood Count 4.30 Hemoglobin 11.0 Hematocrit 34.0 Mean Corpuscular Volume 79.1 Mean Corpuscular Hemoglobin 25.6 Mean Corpuscular Hemoglobin Concent 32.4 Platelet Count 314 Mean Platelet Volume 8.9 Neutrophils (%) (Auto) 63.9 Lymphocytes (%) (Auto) 25.9 Monocytes (%) (Auto) 7.9 Eosinophils (%) (Auto) 1.9 Basophils (%) (Auto) 0.3 Neutrophils # (Auto) 4.42 Lymphocytes # (Auto) 1.79 Monocytes # (Auto) 0.55 Eosinophils # (Auto) 0.13 Basophils # (Auto) 0.02 Immature Granulocyte # (Auto) 0.01 Total Bilirubin 0.3 Direct Bilirubin < 0.1 Aspartate Amino Transferase (AST) 13 Alanine Aminotransferase (ALT) 14 Alkaline Phosphatase 100 Total Protein 6.8 Albumin 3.1 Lipase 160 Prothrombin Time 10.0 Prothrombin Time INR 0.9 PTT 23.6 Partial Thromboplastin Ratio 0.9 Venous Blood pH 7.39 Venous Blood Partial Pressure CO2 45 Venous Blood Partial Pressure O2 37 Venous Blood HCO3 26 Venous Blood Oxygen Saturation 67.5 Venous Blood Base Excess 0.9 Urine Color YELLOW Urine Appearance CLEAR Urine pH 7.0 Urine Specific [place] 1.017 Urine Protein NEG Urine Glucose (UA) NEG Urine Ketones NEG Urine Occult Blood NEG Urine Nitrite POS Urine Bilirubin NEG Urine Urobilinogen NEG Urine Leukocyte Esterase SMALL Urine WBC (Auto) 10-30 Urine RBC (Auto) 0-4 Urine Hyaline Casts (Auto) 0 Urine Epithelial Cells (Auto) 10-20 Urine Bacteria (Auto) 2+ Iron Level 53 Total Iron Binding Capacity 424 Transferrin 321 Transferrin % Saturation 12 Ferritin 7.5 Test 12/08/16 07:23 12/09/16 07:44 White Blood Count 5.20 4.70 Red Blood Count 4.30 4.46 Hemoglobin 10.9 11.1 Hematocrit 34.3 35.3 Mean Corpuscular Volume 79.8 79.1 Mean Corpuscular Hemoglobin 25.3 24.9 Mean Corpuscular Hemoglobin Concent 31.8 31.4 RDW Standard Deviation 48.8 47.9 RDW Coefficient of Variation 16.8 16.5 Platelet Count 271 279 Mean Platelet Volume 9.0 8.6 Sodium Level 143 141 Potassium Level 3.6 3.6 Chloride Level 110 108 Carbon Dioxide Level 26 27 Anion Gap 7.0 6.0 Blood Urea Nitrogen 8 6 Creatinine 0.69 0.75 Est Creatinine Clear Calc Drug Dose 52.9 48.7 Estimated GFR () 96.6 88.5 Estimated GFR (Non- 83.4 76.3 BUN/Creatinine Ratio 11.2 7.7 Random Glucose 74 98 Calcium Level 8.6 9.2 Total Bilirubin 0.4 Aspartate Amino Transferase (AST) 15 Alanine Aminotransferase (ALT) 7 Alkaline Phosphatase 88 Total Protein 6.1 Albumin 2.9 Globulin 3.2 Albumin/Globulin Ratio 0.9 Magnesium Level 2.0 Work Instructions Lifting Limitations: none Medical Emergencies . Who to Call and When: Medical Emergencies: If at any time you feel your situation is an emergency, please call 911 immediately. . Non-Emergent Contact Non-Emergency issues call your: Primary Care Provider Call Non-Emergent contact if: you have a fever, you have any medication questions Any recurrent bleeding. . . "Provider Documentation" section prepared by Fitz Herrera. . VTE Core Measure Inpt VTE Proph given/why not?: T.E.D. Stockings, SCD's, Contraindicated
[2016-12-09 16:58] VITALS: BP 143/66; PULSE 77; TEMP 36.6; O2SAT 92
[2016-12-10] MEDS ORDERED: POLYETHYLENE (MIRALAX) 17 GM PACK PO SCH (09:00)
--- NOTE | 2016-12-19 17:11 | EDITING REQUIRED CODING QUERY ---
ANEMIA Dear Dr. Wells, To promote full compliance with coding requirements relating to patient care, physician participation is requested in all cases of blocker metal base uncertainty. Please assist us with the question(s) below: Coding Question(s): Type of anemia Please specify the known or suspected type of anemia by placing an "X" within the parenthesis (x). If other, please document type. Examples are: (x ) Acute blood loss anemia (x ) Present on admission ( ) Not present on admission ( ) Unable to determine ( ) Acute Postoperative blood loss anemia ( ) Present on admission ( ) Not present on admission ( ) Unable to determine ( ) Acute postoperative anemia due to dilutional fluids ( ) Present on admission ( ) Not present on admission ( ) Unable to determine ( ) Chronic blood loss anemia ( ) Present on admission ( ) Not present on admission ( ) Unable to determine ( ) Anemia of chronic disease ( ) Present on admission ( ) Not present on admission ( ) Unable to determine (x ) Iron deficient anemia ( x ) Present on admission ( ) Not present on admission ( ) Unable to determine ( ) Anemia, unspecified or other ( ) Present on admission ( ) Not present on admission ( ) Unable to determine ( ) Other: (please specify) ( ) Unable to determine Thank you for your time. Cristy Mendoza, TAKE AWAY WORKER
--- NOTE | 2016-12-22 10:29 | Discharge Summary ---
Discharge Summary Date of Service Dec 08, 2016. Discharge Summary Admission Date: Dec 06, 2016 at 18:47 Discharge Date: Dec 09, 2016 Discharge Disposition: Home Principal Diagnosis: acute blood loss anemia in setting of chronic iron deficiency anemia Problems/Secondary Diagnoses: 1. rectal irritation in area of previous rectal prolapse repair as potential cause of rectal bleeding 2. chronic constipation 3. h/o rectal prolapse s/p repair 4. dementia 5. e. coli UTI 6. parkinson's disease 7. bipolar disorder 8. HTN 9. chronic abdominal pain Procedures: 1. EGD - Alf Ortega MD - Normal esophagus. - Normal stomach. - Normal examined duodenum. - No specimens collected. - Hiatus hernia. 2. Colonoscopy - Alf Ortega MD - Diverticulosis in the sigmoid colon. - One 4 mm polyp in the transverse colon. - One 10 mm polyp in the sigmoid colon, removed with a hot snare. Resected and retrieved. - Erythematous mucosa in the mid rectum. Biopsied. 3. CT abd/pelvis - IMPRESSION: 1. Suboptimal examination without IV contrast 2. There are no acute infectious or inflammatory findings in the abdomen or pelvis. 3. Moderate to severe constipation. No bowel obstruction is seen. 4. Advanced diverticulosis of the left colon without CT evidence of acute diverticulitis. Consultations: gastroenterology - Alf Ortega MD / Paulino Mobley MD PT, OT Medication Reconciliation New Medications: Ferrous Sulfate (Ferrous Sulfate) 325 Mg Tab 325 MG PO BIDM for 30 Days, #60 TAB 11 Refills Continued Medications: Amlodipine Besylate (Norvasc) 5 Mg Tab 5 MG PO QAM, TAB Bimatoprost (Lumigan) 0.01 % Krysta 1 DROP OPB HS, #13 Brimonidine Tartrate (Alphagan P Oph) 0.1 % Krysta 1 DROP OPB BID, #30 Carvedilol (Carvedilol) 3.125 Mg Tab 1 TAB PO BID, #180 Clonazepam (Klonopin) 0.5 Mg Tab 0.5 MG PO AMPM, TAB Donepezil Hydrochloride (Aricept) 10 Mg Tab 10 MG PO HS, TAB Ezetimibe (Zetia) 10 Mg Tab 10 MG PO HS, TAB Furosemide (Lasix) 40 Mg Tab 1 TAB PO DAILY for 30 Days, #30 TAB 5 Refills Lamotrigine (Lamictal) 100 Mg Tab 200 MG PO DAILY, TAB Levodopa/Carbidopa (Sinemet 25MG/100MG) 1 Ea Tab 1 TAB PO TID, TAB Potassium Chloride Microencaps (Klor-Con M15) 15 Meq Tab 30 MEQ PO DAILY Quetiapine Fumarate (Seroquel) 100 Mg Tab 100 MG PO HS, TAB Discharge Exam Physical Exam: General Appearance: no apparent distress ENT: pharynx normal Neck: no JVD Respiratory/Chest: lungs clear, no respiratory distress, no accessory muscle use Cardiovascular: regular rate, rhythm, no gallop, no murmur, normal peripheral pulses Abdomen / GI: normal bowel sounds, non tender, soft, no organomegaly Extremities: no pedal edema Neurologic/Psychiatric: alert, + disoriented Skin: no rash Hospital Course HISTORY OF PRESENT ILLNESS: Patient is a pleasant 76 y/o female, with PMHx of rectal prolapse s/p repair in April 2016, h/o hemorrhoids, Parkinson's disease, dementia, bipolar disorder, and HTN, who presented to the ED because of complaints of rectal bleeding beginning around 11AM on 12/06. History largely came from /daughter present secondary to patient's dementia. According to patient, bright red bleeding occurred this AM with a movement. Bleeding continued throughout the day w/out BMs. Per , bleeding has been on/off since last week. Patient saw her colorectal surgeon today, Dr. Weems, who recommended she come to ED for further workup. Per daughter, prior to her surgery in April, she experienced frequent rectal bleeding. She has had colonoscopies in the past- patient/family cannot recall when- per daughter, she thinks it was prior to the surgery; only recalls benign polyps. Per , has had an unremarkable EGD in the past. Denies h/o PUD. Denies excessive coffee use, NSAID use, or the use of blood thinners. Patient was on Nexium in the past, but states this was for difficulty with swallowing and not GERD. Patient was Hemoccult positive in ED. + diffuse abdominal pain- per /daughter, this has been an ongoing issue for 3+ years. Patient denies any fever, chills, sweats, lightheadedness, dizziness, vision changes, CP, palpitations, edema, SOB, wheezing, cough, nausea , vomiting, diarrhea, urinary symptoms, melena, numbness/tingling, weakness, muscle/joint pain, anxiety/depression, or new skin discoloration/changes. HOSPITAL COURSE: Following admission the patient had no further rectal bleeding. Hemoglobin remained relatively stable in the 10-11 hemoglobin range. Iron studies were suggestive of iron deficiency. Thus, some of her anemia was chronic in nature. She underwent CT abd/pelvis due to intermittent complaints of abdominal pain. This was normal except for evidence of significant constipation as well as diverticulosis. Due to the iron deficiency as well as acute blood loss anemia from rectal bleeding she underwent EGD & colonoscopy by Dr. Alf Ortega. The EGD was entirely normal. The colonoscopy showed several polyps, diverticulosis (nonbleeding), as well as an area of rectal irritation/erythema in the region of her previous rectal prolapse repair. Biopsy was taken to exclude proctitis and other pathology. She was also treated for e. coli UTI during her stay. Following her EGD/colonoscopy she was placed back on a diet and tolerated such without difficulty. She was seen by PT/OT who cleared her for home with her . At discharge she will need several months of iron replacement as well as an aggressive bowel regimen for her chronic constipation. She should follow-up with her PCP and [facility] for ongoing surveillance of the anemia and other medical issues. Total Time Spent: Greater than 30 minutes This includes examination of the patient, discharge planning, medication reconciliation, and communication with other providers. Discharge Instructions Please refer to the electronic Patient Visit Report (Discharge Instructions) for additional information. Follow-Up 1. see PCP within 1-2 weeks 2. see [facility] within 1-2 weeks Additional Copies To Terrance Weems D.O.; Alf Ortega M.D.; Anais Bullard D.O.
== END 2016-12-09 17:05 | disposition home or self-care (01) | DRG 378 ==
LOC: EDBD 16:47 → C.EDB 16:50 → C.MSN 18:47 → ENRESERV 19:03 → C.MSN 12-08 19:49
PROVIDERS: ADMIT Family Medicine; ATTEND Internal Medicine
PROC: 0DJ08ZZ Inspection of Upper Intestinal Tract, Via Natural or Artificial Opening Endoscopic (ICD-10-PCS; principal; 2016-12-08 12:18)
PROC: 0DBP8ZX Excision of Rectum, Via Natural or Artificial Opening Endoscopic, Diagnostic (ICD-10-PCS; 2016-12-08 12:18)
PROC: 0DBN8ZX Excision of Sigmoid Colon, Via Natural or Artificial Opening Endoscopic, Diagnostic (ICD-10-PCS; 2016-12-08 12:18)
DX: K62.5 Hemorrhage of anus and rectum (principal); D62 Acute posthemorrhagic anemia; N39.0 Urinary tract infection, site not specified; I10 Essential (primary) hypertension; R13.10 Dysphagia, unspecified; D50.9 Iron deficiency anemia, unspecified; K59.00 Constipation, unspecified; B96.20 Unspecified Escherichia coli [E. coli] as the cause of diseases classified elsewhere; E78.5 Hyperlipidemia, unspecified; G20 Parkinson's disease; F03.90 Unspecified dementia, unspecified severity, without behavioral disturbance, psychotic disturbance, mood disturbance, and anxiety; F31.9 Bipolar disorder, unspecified; Z66 Do not resuscitate; R01.1 Cardiac murmur, unspecified; K57.31 Diverticulosis of large intestine without perforation or abscess with bleeding; K64.9 Unspecified hemorrhoids; R01.2 Other cardiac sounds; K44.9 Diaphragmatic hernia without obstruction or gangrene; Z90.49 Acquired absence of other specified parts of digestive tract; Z79.899 Other long term (current) drug therapy

== ENCOUNTER 2017-01-16 18:31 | Observation (INO) | payer OTHER ==
[~2017-01-16] VITALS: Ht 152.4 cm; Wt 53.0 kg
[~2017-01-16 18:31] MED LIST changes: -AMLO5TAB2 PO; -ASPI81TA28 PO; -B-CO1CAP17 PO; +BIMA0.01 OPB; +BRIM0.1S OPB; -CHOL2000 PO; +CRG3125 PO; +FRRS300 PO; -FURO-85 PO; +FURO40TA3 PO; -LINA1CAP PO; -OMEG5CAP PO; -VITA400C3 PO
[2017-01-16] MEDS ORDERED: SODIUM CHLORIDE 0.9% 1000ML 1,000 ML IV STA (19:41)
[2017-01-16 20:13] LABS: BASO % 0.7 %; BASO ABS # 0.05 K/uL (0-0.2); COMPLETE YES; EOS % 2.6 %; HEMATOCRIT 39.1 % (37-47); IG% 0.3 %; LYMPH % 30.8 %; LYMPH ABS # 2.16 K/uL (1.2-3.4); MEAN CELL VOLUME 85.6 fL (80-100); MEAN CORPUSCULAR HEMOGLOBIN 28.4 pg (25-34); MEAN CORPUSCULAR HGB CONC 33.2 g/dl (32-36); MEAN PLATELET VOLUME 8.7 fL (7.4-10.4); MONO % 7.4 %; NEUT % 58.2 %; PLATELET COUNT 306 K/uL (130-400); RED BLOOD COUNT 4.57 M/uL (4.2-5.4); WHITE BLOOD COUNT 7.02 K/uL (4.8-10.8)
[2017-01-16 20:17] LABS: INR 0.9 (0.9-1.1); PROTHROMBIN TIME (PATIENT) 9.5 SECONDS (9.0-12.0)
--- NOTE | 2017-01-16 20:28 | DIAGNOSTIC IMAGING REPORT ---
SINGLE VIEW CHEST CLINICAL HISTORY: Syncope. FINDINGS: An AP, portable, upright chest radiograph is compared to study dated 03/26/2016. The examination is degraded by portable technique and patient rotation. The heart is top normal for projection and there is atherosclerotic calcification of the thoracic aorta. The pulmonary vasculature is noncongested. There is left basilar atelectasis. No airspace consolidation is seen typical for pneumonia and there is no large pleural effusion. No pneumothorax is seen. The skeletal structures are osteopenic. Degenerative change and scoliosis are noted in the thoracic spine. Advanced arthritic change is seen in the shoulders. IMPRESSION: No acute cardiopulmonary abnormality. Electronically signed by: Sreedhar Goff M.D. 01/16/2017 8:27 PM Dictated Date/Time: 01/16/2017 8:26 PM
[2017-01-16 20:31] LABS: ALT/SGPT 7 U/L (12-78); BLOOD UREA NITROGEN 13 mg/dl (7-18); BUN/CREATININE RATIO 15.8 (10-20); CALCIUM 9.1 mg/dl (8.5-10.1); CARBON DIOXIDE 22 mmol/L (21-32); CHLORIDE 111 mmol/L (98-107); CREATININE 0.79 mg/dl (0.60-1.20); GLUCOSE 92 mg/dl (70-99); SODIUM 142 mmol/L (136-145)
[2017-01-16 20:37] LABS: ALKALINE PHOSPHATASE 95 U/L (45-117); AST/SGOT 18 U/L (15-37)
[2017-01-16] MEDS ORDERED: OPTIRAY 320 IV PRN (21:00)
--- NOTE | 2017-01-16 22:10 | DIAGNOSTIC IMAGING REPORT ---
CT SCAN OF THE ABDOMEN AND PELVIS WITH IV CONTRAST CLINICAL HISTORY: Generalized abdominal pain. GI bleeding. COMPARISON STUDY: Abdominal CT dated 12/07/2016. TECHNIQUE: Following the IV administration of 117 cc of Optiray 320, CT scan of the abdomen and pelvis is performed from the lung bases to the proximal femora. Images are reviewed in the axial, sagittal, and coronal planes. IV contrast was administered without complication. The examination is degraded by motion artifact, as well as by streak artifact from the patient's arms which could not be elevated above the chest. A dose lowering technique was utilized adhering to the principles of ALARA. CT DOSE: 300.62 mGy.cm FINDINGS: Lung bases: The heart is normal in size and without pericardial effusion. The lung bases appear clear. There is a small hiatal hernia. Liver: The contrast-enhanced liver is normal in size, contour, and attenuation. There is no intrahepatic biliary ductal dilatation. The hepatic veins and portal veins are patent. Gallbladder: Unremarkable. Spleen: Normal in size and attenuation. Pancreas: Markedly atrophic and grossly unremarkable. Adrenal glands: Unremarkable. Kidneys: The contrast-enhanced kidneys are atrophic and without hydronephrosis. . The kidneys enhance symmetrically A 2.2 cm cyst is again noted in the left kidney. Additional subcentimeter cortical hypodensities also likely represent cysts but are too small for definitive characterization. Abdominal vasculature: The abdominal aorta is normal in course and caliber noting advanced atherosclerotic calcification. Bowel: No bowel obstruction is seen. A right inguinal hernia contains a nonobstructed segment of small bowel. There is advanced diverticulosis of the left colon without CT evidence of acute diverticulitis. Moderate to severe constipation is observed. The appendix is well-visualized and normal. Mild rectal wall thickening hyperemia is questioned but not well assessed. Peritoneum: There is no intraperitoneal free air or abdominal ascites. There is diastases of the rectus musculature. Lymphadenopathy: None. Pelvic viscera: The bladder is normal as visualized. The uterus is surgically absent. No adnexal lesion is seen. Findings suggest pelvic floor prolapse. Skeletal structures: The skeletal structures are osteopenic. There is moderate lumbosacral spondylosis as well as scoliosis. Mild superior endplate compression deformities of L1 and L3 are unchanged. No lytic or blastic lesions are seen. Scattered bone islands are present in the pelvis. IMPRESSION: 1. Motion degraded examination. 2. Mild rectal wall thickening and hyperemia are questioned but not well evaluated. Correlate clinically for evidence of proctitis. Consider follow-up with outpatient colonoscopy. 3. Moderate to severe constipation. No bowel obstruction is seen. 4. Advanced diverticulosis of the left colon without CT evidence of acute diverticulitis. 5. Additional findings as above. Electronically signed by: Sreedhar Goff M.D. 01/16/2017 10:09 PM Dictated Date/Time: 01/16/2017 10:02 PM
[2017-01-17] VITALS (7 sets, daily range): BP systolic 93–197; BP diastolic 59–89; PULSE 57–76; TEMP 36.7–37; O2SAT 94–98; Ht 152.4 cm; Wt 53.0 kg
--- NOTE | 2017-01-17 00:19 | EMERGENCY ROOM VISIT NOTE ---
History Report prepared by Sarah: Natasha Dillon Under the Supervision of: Dr. Maxwell Devlin M.D. First contact with patient: 19:26 Chief Complaint: RECTAL BLEEDING Stated Complaint: RECTAL BLEEDING Nursing Triage Summary: rectal bleeding starting last pm worsening today pt has hx of rectal prolapse sugery since surgery pt has intermittent bleeding surgery done at [facility] pt to see doctor on January 24 History of Present Illness The patient is a 77 year old female who presents to the Emergency Room with complaints of persistent rectal bleeding starting last night. The patient had rectal prolapse surgery around 1 year ago. She has had intermittent rectal bleeding since then. She is to see her surgeon next week. Today, she had 2 episodes of syncope while in the ED waiting room. She did not feel dizzy before passing out. She has been feeling weak for the past couple of weeks. She reports abdominal pain. She denies any fever, chills, cough, or congestion. She notes that her stool is black because she is on iron pills. She denies any history of CHF. She is not on any blood thinners. Source of History: patient, spouse/significant other Onset: last night Position: other (rectal) Quality: other (bleeding) Timing: other (persistent) Associated Symptoms: + LOC, + abdominal pain, + weakness, No fevers, No chills, No cough Note: Pt denies congestion, dizziness. Review of Systems See HPI for pertinent positives and negatives. A total of ten systems were reviewed and were otherwise negative. Past Medical & Surgical Medical Problems: (1) Anemia (2) Bipolar 1 disorder (3) Hemorrhoids (4) Hypertension (5) Rectal bleeding (6) Stomach problems Family History Hypertension Lung disease Social History Smoking Status: Never Smoker Alcohol Use: none Drug Use: none Marital Status: Housing Status: lives with family Occupation Status: retired Current/Historical Medications Scheduled Amlodipine Besylate (Norvasc), 5 MG PO QAM Bimatoprost (Lumigan), 1 DROP OPB HS Brimonidine Tartrate (Alphagan P Oph), 1 DROP OPB BID Carvedilol (Carvedilol), 1 TAB PO BID Clonazepam (Klonopin), 0.5 MG PO AMPM Donepezil Hydrochloride (Aricept), 10 MG PO HS Ezetimibe (Zetia), 10 MG PO HS Ferrous Sulfate (Ferrous Sulfate), 325 MG PO BIDM Furosemide (Lasix), 1 TAB PO DAILY Lamotrigine (Lamictal), 200 MG PO DAILY Levodopa/Carbidopa (Sinemet 25MG/100MG), 1 TAB PO TID Potassium Chloride Microencaps (Klor-Con M15), 30 MEQ PO DAILY Quetiapine Fumarate (Seroquel), 100 MG PO HS Allergies Coded Allergies: [place] (Verified Allergy, Severe, SYSTEM TOXICITY, 01/16/17) Uncoded Allergies: YELLOW SQUASH (Allergy, Severe, ANAPHYLAXIS, 03/13/15) Physical Exam Vital Signs Date Time Temp Pulse Resp B/P (MAP) Pulse Ox O2 Delivery O2 Flow Rate FiO2 01/17/17 00:30 64 18 159/84 97 Room Air 01/16/17 23:17 58 01/16/17 22:24 69 18 166/90 100 Room Air 01/16/17 20:12 55 16 174/89 99 Room Air 01/16/17 19:37 58 18 165/94 98 Room Air 01/16/17 19:19 59 01/16/17 19:16 63 21 188/101 99 Room Air 01/16/17 18:36 36.5 63 20 164/86 99 Room Air Physical Exam GENERAL: Awake, alert, chronically ill-appearing, fatigued but in no distress HENT: Normocephalic, atraumatic. Dry mucous membranes. EYES: Normal conjunctiva. Sclera non-icteric. NECK: Supple. No nuchal rigidity. FROM. No JVD. RESPIRATORY: Diminished at the bases. CARDIAC: Regular rate, normal rhythm. Extremities warm and well perfused. Pulses equal. ABDOMEN: Soft, non-distended. Mild lower abdominal tenderness to palpation. No peritoneal signs. No rebound or guarding. No masses. RECTAL: Serosanguineous discharge that is strongly guaiac positive. MUSCULOSKELETAL: Chest examination reveals no tenderness. The back is symmetrical on inspection without obvious abnormality. There is no CVA tenderness to palpation. No joint edema. LOWER EXTREMITIES: Calves are equal size bilaterally and non-tender. No edema. No discoloration. NEURO: Normal sensorium. No sensory or motor deficits noted. SKIN: No rash or jaundice noted. Medical Decision & Procedures ER Provider Diagnostic Interpretation: Radiology results as stated below per my review and radiologist interpretation: SINGLE VIEW CHEST CLINICAL HISTORY: Syncope. FINDINGS: An AP, portable, upright chest radiograph is compared to study dated 03/26/2016. The examination is degraded by portable technique and patient rotation. The heart is top normal for projection and there is atherosclerotic calcification of the thoracic aorta. The pulmonary vasculature is noncongested. There is left basilar atelectasis. No airspace consolidation is seen typical for pneumonia and there is no large pleural effusion. No pneumothorax is seen. The skeletal structures are osteopenic. Degenerative change and scoliosis are noted in the thoracic spine. Advanced arthritic change is seen in the shoulders. IMPRESSION: No acute cardiopulmonary abnormality. Electronically signed by: Sreedhar Goff M.D. 01/16/2017 8:27 PM Dictated Date/Time: 01/16/2017 8:[address] SCAN OF THE ABDOMEN AND PELVIS WITH IV CONTRAST CLINICAL HISTORY: Generalized abdominal pain. GI bleeding. COMPARISON STUDY: Abdominal CT dated 12/07/2016. TECHNIQUE: Following the IV administration of 117 cc of Optiray 320, CT scan of the abdomen and pelvis is performed from the lung bases to the proximal femora. Images are reviewed in the axial, sagittal, and coronal planes. IV contrast was administered without complication. The examination is degraded by motion artifact, as well as by streak artifact from the patient's arms which could not be elevated above the chest. A dose lowering technique was utilized adhering to the principles of ALARA. CT DOSE: 300.62 mGy.cm FINDINGS: Lung bases: The heart is normal in size and without pericardial effusion. The lung bases appear clear. There is a small hiatal hernia. Liver: The contrast-enhanced liver is normal in size, contour, and attenuation. There is no intrahepatic biliary ductal dilatation. The hepatic veins and portal veins are patent. Gallbladder: Unremarkable. Spleen: Normal in size and attenuation. Pancreas: Markedly atrophic and grossly unremarkable. Adrenal glands: Unremarkable. Kidneys: The contrast-enhanced kidneys are atrophic and without hydronephrosis. . The kidneys enhance symmetrically A 2.2 cm cyst is again noted in the left kidney. Additional subcentimeter cortical hypodensities also likely represent cysts but are too small for definitive characterization. Abdominal vasculature: The abdominal aorta is normal in course and caliber noting advanced atherosclerotic calcification. Bowel: No bowel obstruction is seen. A right inguinal hernia contains a nonobstructed segment of small bowel. There is advanced diverticulosis of the left colon without CT evidence of acute diverticulitis. Moderate to severe constipation is observed. The appendix is well-visualized and normal. Mild rectal wall thickening hyperemia is questioned but not well assessed. Peritoneum: There is no intraperitoneal free air or abdominal ascites. There is diastases of the rectus musculature. Lymphadenopathy: None. Pelvic viscera: The bladder is normal as visualized. The uterus is surgically absent. No adnexal lesion is seen. Findings suggest pelvic floor prolapse. Skeletal structures: The skeletal structures are osteopenic. There is moderate lumbosacral spondylosis as well as scoliosis. Mild superior endplate compression deformities of L1 and L3 are unchanged. No lytic or blastic lesions are seen. Scattered bone islands are present in the pelvis. IMPRESSION: 1. Motion degraded examination. 2. Mild rectal wall thickening and hyperemia are questioned but not well evaluated. Correlate clinically for evidence of proctitis. Consider follow-up with outpatient colonoscopy. 3. Moderate to severe constipation. No bowel obstruction is seen. 4. Advanced diverticulosis of the left colon without CT evidence of acute diverticulitis. 5. Additional findings as above. Electronically signed by: Sreedhar Goff M.D. 01/16/2017 10:09 PM Dictated Date/Time: 01/16/2017 10:02 PM Laboratory Results Test 01/16/17 19:24 01/16/17 21:30 Immature Granulocyte % (Auto) 0.3 % White Blood Count 7.02 K/uL (4.8-10.8) Red Blood Count 4.57 M/uL (4.2-5.4) Hemoglobin 13.0 g/dL (12.0-16.0) Hematocrit 39.1 % (37-47) Mean Corpuscular Volume 85.6 fL (80-100) Mean Corpuscular Hemoglobin 28.4 pg (25-34) Mean Corpuscular Hemoglobin Concent 33.2 g/dl (32-36) Platelet Count 306 K/uL (130-400) Mean Platelet Volume 8.7 fL (7.4-10.4) Neutrophils (%) (Auto) 58.2 % Lymphocytes (%) (Auto) 30.8 % Monocytes (%) (Auto) 7.4 % Eosinophils (%) (Auto) 2.6 % Basophils (%) (Auto) 0.7 % Neutrophils # (Auto) 4.09 K/uL (1.4-6.5) Lymphocytes # (Auto) 2.16 K/uL (1.2-3.4) Monocytes # (Auto) 0.52 K/uL (0.11-0.59) Eosinophils # (Auto) 0.18 K/uL (0-0.5) Basophils # (Auto) 0.05 K/uL (0-0.2) Immature Granulocyte # (Auto) 0.02 K/uL (0.00-0.02) Prothrombin Time 9.5 SECONDS (9.0-12.0) Prothromb Time International Ratio 0.9 (0.9-1.1) Activated Partial Thromboplast Time 24.7 SECONDS (21.0-31.0) Partial Thromboplastin Ratio 1.0 Total Bilirubin 0.3 mg/dl (0.2-1) Direct Bilirubin < 0.1 mg/dl (0-0.2) Aspartate Amino Transf (AST/SGOT) 18 U/L (15-37) Alanine Aminotransferase (ALT/SGPT) 7 U/L (12-78) Alkaline Phosphatase 95 U/L (45-117) Troponin I < 0.015 ng/ml (0-0.045) Total Protein 6.7 gm/dl (6.4-8.2) Albumin 3.3 gm/dl (3.4-5.0) Lipase 128 U/L (73-393) Lactic Acid Level 1.4 mmol/L (0.4-2.0) Laboratory results reviewed by me Medications Administered Medications (Trade) Dose Ordered Sig/Naeem Route Start Time Stop Time Status Last Admin Dose Admin Sodium Chloride 1,000 ml @ 999 mls/hr Q1H1M STAT IV 01/16/17 19:41 01/16/17 20:41 DC 01/16/17 19:48 999 MLS/HR ED Course 1926: The patient was evaluated in room B1. A complete history and physical exam was performed. 1: NSS 1000 ml @ 999 mls/hr IV. 2316: Upon reexamination, the patient was feeling better. I discussed the test results and treatment plan with her. The patient will be evaluated for further management. 2330: I discussed the patient's case with Dr. Mack, [facility] hospitalist. The patient will be evaluated for further treatment and disposition. Medical Decision I reviewed the patient's past medical history, medications, and the nursing notes as described above. Differential diagnosis: diverticulosis, post op bleeding, rectal prolapse surgery, obstruction, peptic ulcer. The patient is a 77-year-old woman with a past medical history of Parkinsons, rectal prolapse surgery with subsequent complications of rectal bleeding presents emergency Department with rectal bleeding again, complicated by 2 episodes of syncope in the waiting room per history of present illness. On arrival the patient is chronically ill-appearing, clinically dry, neuro intact at baseline per . Rectal exam demonstrates red blood with mucus that was strongly guaiac positive. Otherwise, the patient is afebrile and vital signs are stable. Patient feeling improved after IVF hydration. H&H unremarkable. BUN within normal limits. CT of abdomen and pelvis demonstrates proctitis. The patient had 2 syncopal episodes in the setting of GI bleed thus will admit for further management. Case discussed with Dr. Mack [facility] hospitalist who will admit the patient for further management. Medication Reconcilliation Current Medication List: was personally reviewed by me Blood Pressure Screening Patient's blood pressure: Elevated blood pressure Blood pressure disposition: Elevated BP felt to be situational Consults Time Called: 2320 Consulting Physician: Dr. Mack [facility] hospitalist Returned Call: 2330 Discussed the patient's case. The patient will be evaluated for further treatment and disposition. Impression Primary Impression: Proctitis Additional Impression: GI bleed Scribe Attestation The scribe's documentation has been prepared under my direction and personally reviewed by me in its entirety. I confirm that the note above accurately reflects all work, treatment, procedures, and medical decision making performed by me. Departure Information Dispostion Being Evaluated By Hospitalist Referrals No Doctor, Assigned (PCP) Patient Instructions My [facility] Problem Qualifiers
[2017-01-17] MEDS ORDERED: ONDANSETRON INJ 2 MG/ML 2 ML VIAL IV PRN (01:30)
[2017-01-17] MEDS ORDERED: MAGNESIUM HYDROXIDE SUSP 30 ML UDC PO PRN (01:30)
[2017-01-17] MEDS ORDERED: ALUMINUM/MAGNESIUM/SIMETH (MAALOX MAX) 30 ML UDC PO PRN (01:30)
[2017-01-17] MEDS ORDERED: ACETAMINOPHEN 325 MG TAB PO PRN (01:30)
[2017-01-17] MEDS ORDERED: POLYETHYLENE (MIRALAX) 17 GM PACK PO PRN (01:30)
[2017-01-17] MEDS ORDERED: DICYCLOMINE HCL 10 MG CAP PO PRN (01:45)
--- NOTE | 2017-01-17 01:52 | History and Physical ---
History & Physical Date & Time of Service: Jan 17, 2017 at 01:36 Chief Complaint: Rectal Bleeding Primary Care Physician: Anais Bullard D.O. History of Present Illness Source: patient, hospital records The patient is a 77 year old female with a past history Parkinson's HTN, HLD, rectal prolapse with surgical repair, who presents with rectal bleeding. The patient is overall a poor historian and who brought in is no longer present. The patient reports feeling very weak for several months. States that brought her in today because he could not longer look after her. She is insistent that she will be going home. She also reports an anterior abdominal discomfort on and off for the past 1 year. She cannot time it with anything. She cannot rate the pain. She reports that today she noticed rectal bleeding. She states that has been an on and off issue as well but cannot elaborate any further. She does state that she often has difficulty having a bowel movement. She denies any fevers, chills or sweats. She has not had nausea or vomiting. She denies urinary symptoms. She denies chest pain, shortness of breath, coughing or wheezing. In the ED a rectal examination was done by the ED physician who noted blood in the stool. She apparently also syncopated twice in the waiting area. She is being admitted for further evaluation. Of note she was admitted 1 month ago for rectal bleeding. She had an EGD done at this time which did note that she had a 4 mm and 10 mm polyp. She also had erythematous mucosa int he mid-rectum which was the site of a previous repair surgery for rectal prolapse. Past Medical/Surgical History Medical Problems: (1) Bipolar 1 disorder Status: Chronic (2) Hemorrhoids Status: Chronic (3) Hypertension Status: Chronic (4) Stomach problems Status: Chronic Family History Hypertension Lung disease Social History Smoking Status: Never Smoker Smokeless Tobacco Use: No Alcohol Use: none Drug Use: none Marital Status: Housing status: lives with significant other Occupational Status: retired Immunizations History of Tetanus Vaccine?: Unknown History of Pneumococcal: Unknown History of Hepatitis B Vaccine: Unknown Multi-Drug Resistant Organisms History of MDRO: No Allergies Coded Allergies: [place] (Verified Allergy, Severe, SYSTEM TOXICITY, 01/16/17) Uncoded Allergies: YELLOW SQUASH (Allergy, Severe, ANAPHYLAXIS, 03/13/15) Home Medications Scheduled Amlodipine Besylate (Norvasc), 5 MG PO QAM Bimatoprost (Lumigan), 1 DROP OPB HS Brimonidine Tartrate (Alphagan P Oph), 1 DROP OPB BID Carvedilol (Carvedilol), 1 TAB PO BID Clonazepam (Klonopin), 0.5 MG PO AMPM Donepezil Hydrochloride (Aricept), 10 MG PO HS Ezetimibe (Zetia), 10 MG PO HS Ferrous Sulfate (Ferrous Sulfate), 325 MG PO BIDM Furosemide (Lasix), 1 TAB PO DAILY Lamotrigine (Lamictal), 200 MG PO DAILY Levodopa/Carbidopa (Sinemet 25MG/100MG), 1 TAB PO TID Potassium Chloride Microencaps (Klor-Con M15), 30 MEQ PO DAILY Quetiapine Fumarate (Seroquel), 100 MG PO HS Review of Systems A 10 point review of systems was negative unless stated above. Physical Exam Vital Signs Date Time Temp Pulse Resp B/P (MAP) Pulse Ox O2 Delivery O2 Flow Rate FiO2 01/17/17 00:30 64 18 159/84 97 Room Air 01/16/17 23:17 58 01/16/17 22:24 69 18 166/90 100 Room Air 01/16/17 20:12 55 16 174/89 99 Room Air 01/16/17 19:37 58 18 165/94 98 Room Air 01/16/17 19:19 59 01/16/17 19:16 63 21 188/101 99 Room Air 01/16/17 18:36 36.5 63 20 164/86 99 Room Air General Appearance: WD/WN, no apparent distress, + pertinent finding (very nervous) Head: normocephalic, atraumatic Eyes: normal inspection, EOMI ENT: hearing grossly normal, pharynx normal Neck: supple, no adenopathy, no JVD Respiratory/Chest: lungs clear, no respiratory distress Cardiovascular: regular rate, rhythm, no gallop, no murmur Abdomen/GI: normal bowel sounds, non tender, soft, + pertinent finding ( midline laparotomy scar) Back: no CVA tenderness, no muscle spasm Extremities/Musculoskelatal: no calf tenderness, no pedal edema Neurologic/Psych: alert Skin: normal color, warm/dry, no rash Diagnostics Laboratory Results Results Past 24 Hours Test 01/16/17 19:24 01/16/17 21:30 Range/Units White Blood Count 7.02 4.8-10.8 K/uL Red Blood Count 4.57 4.2-5.4 M/uL Hemoglobin 13.0 12.0-16.0 g/dL Hematocrit 39.1 37-47 % Mean Corpuscular Volume 85.6 80-100 fL Mean Corpuscular Hemoglobin 28.4 25-34 pg Mean Corpuscular Hemoglobin Concent 33.2 32-36 g/dl Platelet Count 306 130-400 K/uL Mean Platelet Volume 8.7 7.4-10.4 fL Neutrophils (%) (Auto) 58.2 % Lymphocytes (%) (Auto) 30.8 % Monocytes (%) (Auto) 7.4 % Eosinophils (%) (Auto) 2.6 % Basophils (%) (Auto) 0.7 % Neutrophils # (Auto) 4.09 1.4-6.5 K/uL Lymphocytes # (Auto) 2.16 1.2-3.4 K/uL Monocytes # (Auto) 0.52 0.11-0.59 K/uL Eosinophils # (Auto) 0.18 0-0.5 K/uL Basophils # (Auto) 0.05 0-0.2 K/uL RDW Standard Deviation 53.7 36.4-46.3 fL RDW Coefficient of Variation 17.1 11.5-14.5 % Immature Granulocyte % (Auto) 0.3 % Immature Granulocyte # (Auto) 0.02 0.00-0.02 K/uL Prothrombin Time 9.5 9.0-12.0 SECONDS Prothromb Time International Ratio 0.9 0.9-1.1 Activated Partial Thromboplast Time 24.7 21.0-31.0 SECONDS Partial Thromboplastin Ratio 1.0 Sodium Level 142 136-145 mmol/L Potassium Level 4.0 3.5-5.1 mmol/L Chloride Level 111 98-107 mmol/L Carbon Dioxide Level 22 21-32 mmol/L Anion Gap 9.0 3-11 mmol/L Blood Urea Nitrogen 13 7-18 mg/dl Creatinine 0.79 0.60-1.20 mg/dl Est Creatinine Clear Calc Drug Dose 41.5 ml/min Estimated GFR () 82.5 Estimated GFR (Non- 71.2 BUN/Creatinine Ratio 15.8 10-20 Random Glucose 92 70-99 mg/dl Calcium Level 9.1 8.5-10.1 mg/dl Total Bilirubin 0.3 0.2-1 mg/dl Direct Bilirubin < 0.1 0-0.2 mg/dl Aspartate Amino Transf (AST/SGOT) 18 15-37 U/L Alanine Aminotransferase (ALT/SGPT) 7 12-78 U/L Alkaline Phosphatase 95 45-117 U/L Troponin I < 0.015 0-0.045 ng/ml Total Protein 6.7 6.4-8.2 gm/dl Albumin 3.3 3.4-5.0 gm/dl Lipase 128 73-393 U/L Lactic Acid Level 1.4 0.4-2.0 mmol/L Microbiology Results 01/16/17 Blood Culture, Received Pending 01/16/17 Blood Culture, Received Pending Diagnostic Radiology [~ rep ct add3]] CT SCAN OF THE ABDOMEN AND PELVIS WITH IV CONTRAST CLINICAL HISTORY: Generalized abdominal pain. GI bleeding. COMPARISON STUDY: Abdominal CT dated 12/07/2016. TECHNIQUE: Following the IV administration of 117 cc of Optiray 320, CT scan of the abdomen and pelvis is performed from the lung bases to the proximal femora. Images are reviewed in the axial, sagittal, and coronal planes. IV contrast was administered without complication. The examination is degraded by motion artifact, as well as by streak artifact from the patient's arms which could not be elevated above the chest. A dose lowering technique was utilized adhering to the principles of ALARA. CT DOSE: 300.62 mGy.cm FINDINGS: Lung bases: The heart is normal in size and without pericardial effusion. The lung bases appear clear. There is a small hiatal hernia. Liver: The contrast-enhanced liver is normal in size, contour, and attenuation. There is no intrahepatic biliary ductal dilatation. The hepatic veins and portal veins are patent. Gallbladder: Unremarkable. Spleen: Normal in size and attenuation. Pancreas: Markedly atrophic and grossly unremarkable. Adrenal glands: Unremarkable. Kidneys: The contrast-enhanced kidneys are atrophic and without hydronephrosis. . The kidneys enhance symmetrically A 2.2 cm cyst is again noted in the left kidney. Additional subcentimeter cortical hypodensities also likely represent cysts but are too small for definitive characterization. Abdominal vasculature: The abdominal aorta is normal in course and caliber noting advanced atherosclerotic calcification. Bowel: No bowel obstruction is seen. A right inguinal hernia contains a nonobstructed segment of small bowel. There is advanced diverticulosis of the left colon without CT evidence of acute diverticulitis. Moderate to severe constipation is observed. The appendix is well-visualized and normal. Mild rectal wall thickening hyperemia is questioned but not well assessed. Peritoneum: There is no intraperitoneal free air or abdominal ascites. There is diastases of the rectus musculature. Lymphadenopathy: None. Pelvic viscera: The bladder is normal as visualized. The uterus is surgically absent. No adnexal lesion is seen. Findings suggest pelvic floor prolapse. Skeletal structures: The skeletal structures are osteopenic. There is moderate lumbosacral spondylosis as well as scoliosis. Mild superior endplate compression deformities of L1 and L3 are unchanged. No lytic or blastic lesions are seen. Scattered bone islands are present in the pelvis. IMPRESSION: 1. Motion degraded examination. 2. Mild rectal wall thickening and hyperemia are questioned but not well evaluated. Correlate clinically for evidence of proctitis. Consider follow-up with outpatient colonoscopy. 3. Moderate to severe constipation. No bowel obstruction is seen. 4. Advanced diverticulosis of the left colon without CT evidence of acute diverticulitis. 5. Additional findings as above Impression Assessment and Plan 77 year old female with rectal bleeding. Evaluation by colonoscopy 1 month prior suspected it was related to previous surgical site from rectal prolapse repair. In the ED vitals signs were normal with normal labs. She is not anemic at this time. There no over derangements in her metabolic profile. She will be admitted for observation of rectal bleeding: Rectal Bleeding - Hb normal - Repeat with AM labs - Consult GI - NPO in case procedure is planned - NSS at 125 ml/hr Parkinson's - Continue Sinemet HTN - Continue Coreg - Continue Amlodipine HLD - Continue Ezetimibe Dementia - Continue Donepezil - Continue Seroquel - Klonipin BID for anxiety DVT Prophylaxis - SCD Knee, MIKE Hose - Pharmacological means contraindicated in the setting of bleeding Code Status - Level V Full Code Disposition - Med/Surg - OT and PT evaluations Attending Addendum: I have physically seen and examined this patient, have directed the resident's medical activities, and agree with the H&P as noted above with the following exceptions as noted. The patient is awake, alert and oriented 3, well-developed and well-nourished , normocephalic and atraumatic, lying in bed and in no acute distress. HEENT--PERRL, EOMI, mucous membranes and oropharynx dry. Neck--supple, no JVD or bruits, thyroid normal, trachea midline, no adenopathy. Heart--normal S1 and S2, no extra beats, no murmurs, rubs or gallops. Lungs--clear bilaterally with good air movement, no respiratory distress, no accessory muscle use. Abdomen--normal bowel sounds and soft, nontender and nondistended, no hernias or masses, no organomegaly. Extremities--no cyanosis, clubbing or edema. There are good distal pulses b/l. Dermatologic--normal skin turgor, normal color, warm and dry, no abnormal lymph nodes, midline laparotomy scar. Neurologic--cranial nerves II through XII grossly intact. Rheumatologic--normal range of motion, nontender, muscles and joints. Psychiatric--somewhat anxious. Assessment and Plan: Rectal bleeding-- Dr. Ortega performed an EGD which was normal, and a colonoscopy showed a tubular adenoma, no signs of proctitis, and presumptive source of bleeding was at the site rectal prolapse repair. Patient does have a history of hemorrhoids, and I suspect her bleeding may possibly be from that site, since CT reports again severe constipation. Work on improved bowel prep. Normal saline at 125 ML's per hour. Nothing by mouth except medications for now. Hypertension--continue Coreg and amlodipine. Parkinson's--continue Sinemet. Dementia--continue donepezil, Seroquel and Klonopin. Level of Care Med/Surg Advanced Directives Existing Advance Directive: Yes Existing Living Will: Yes Existing Power of Locum Tenens: Yes Resuscitation Status DO NOT RESUSCITATE VTE Prophylaxis VTE Risk Assessment Done? Y/N: Yes Risk Level: Moderate Given or contraindicated: Other Anticoagulation
[2017-01-17 02:41] LABS: URINE APPEARANCE CLEAR (CLEAR); URINE BILIRUBIN NEG (NEG); URINE COLOR YELLOW; URINE NITRITE NEG (NEG); URINE PH 7.5 (4.5-7.5); URINE SPECIFIC GRAVITY 1.025 (1.000-1.030); UROBILINOGEN NEG (NEG); ZZURINE CULT IF INDIC CATH NO
[2017-01-17 02:46] LABS: MANUAL MICROSCOPIC REQUIRED? NO; REVIEW REQ? NO
[2017-01-17] MEDS ORDERED: IV FLUIDS COMPLETED PRN (03:00)
[2017-01-17] MEDS: SODIUM CHLORIDE 0.9% 1000ML 1,000 ML IV SCH ×3 (03:14→17:18)
[2017-01-17 06:56] LABS: HEMATOCRIT 44.9 % (37-47); MEAN CELL VOLUME 85.2 fL (80-100); MEAN CORPUSCULAR HEMOGLOBIN 28.1 pg (25-34); MEAN PLATELET VOLUME 8.8 fL (7.4-10.4); PLATELET COUNT 302 K/uL (130-400); RED BLOOD COUNT 5.27 M/uL (4.2-5.4); WHITE BLOOD COUNT 7.39 K/uL (4.8-10.8)
[2017-01-17 07:31] LABS: CALCIUM 9.6 mg/dl (8.5-10.1); CREATININE 0.77 mg/dl (0.60-1.20); POTASSIUM 3.6 mmol/L (3.5-5.1)
[2017-01-17] MEDS ORDERED: ALPHAGAN~ORDER AWAITING ACTION SCH (08:00)
[2017-01-17] MEDS ORDERED: INFLUENZA ADMINISTRATION CHARGE ONE (08:00)
[2017-01-17] MEDS ORDERED: INFLUENZA VACCINE HIGH DOSE 65+ 0.5 ML SYR IM. ONE (08:00)
[2017-01-17] MEDS ORDERED: PNEUMOCOCCAL ADMINISTRATION CHARGE ONE (08:00)
[2017-01-17] MEDS ORDERED: PNEUMOCOCCAL POLYSACCHARIDES 25 MCG/0.5 ML VIAL/SYR IM. ONE (08:00)
[2017-01-17] MEDS: CARVEDILOL 3.125 MG TAB PO SCH ×2 (09:19→20:31)
[2017-01-17] MEDS: POTASSIUM CHLORIDE 10 MEQ TABCR PO SCH (09:20)
[2017-01-17] MEDS: FUROSEMIDE 40 MG TAB PO SCH (09:21)
[2017-01-17] MEDS: AMLODIPINE BESYLATE 5 MG TAB PO SCH (09:22)
[2017-01-17] MEDS: CARBIDOPA/LEVODOPA 25/100MG TAB PO SCH ×3 (09:22→20:30)
[2017-01-17] MEDS: CLONAZEPAM 0.5 MG TAB PO SCH ×2 (09:41→20:32)
[2017-01-17] MEDS: POLYETHYLENE (MIRALAX) 17 GM PACK PO SCH (09:46)
--- NOTE | 2017-01-17 09:46 | Medical Consult ---
Consultation Date of Consultation: Jan 17, 2017. Attending Physician: Greg High D.O. History of Present Illness 77 y/o female admitted overnight for rectal prolapse/bleeding and syncope/near syncope while in the ED. She had some rectal bleeding yesterday, more than usual for her, and was brought to the ED by her . She was admitted 5 weeks ago for bleeding, had colonoscopy which showed some rectal changes likely related to recent surgery for prolapse. She had transanal procedure at [facility] in June 2016, and is scheduled for another procedure next week, Jan 24. Apparently she had increasing prolapse this morning when she was not taken to the bathroom. Past Medical/Surgical History Past Medical/Surgical History Medical Problems: (1) Bipolar 1 disorder Status: Chronic (2) Hemorrhoids Status: Chronic (3) Hypertension Status: Chronic (4) Stomach problems Status: Chronic 5) Parkinson's 6) Dementia Surgical: multiple incisional hernia repairs transanal repair of prolapse Family History Hypertension Lung disease Social History Smoking Status: Never Smoker Smokeless Tobacco Use: No Alcohol Use: none Drug Use: none Marital Status: Housing Status: lives with family Occupation Status: retired Allergies Coded Allergies: [place] (Verified Allergy, Severe, SYSTEM TOXICITY, 01/16/17) Uncoded Allergies: YELLOW SQUASH (Allergy, Severe, ANAPHYLAXIS, 03/13/15) Current Inpatient Medications Current Inpatient Medications Medications (Trade) Dose Ordered Sig/Naeem Route Start Time Stop Time Status Last Admin Dose Admin Ioversol (Optiray 320) 111 ml UD PRN IV 01/16/17 21:00 01/20/17 20:59 Acetaminophen (Tylenol Tab) 650 mg Q4H PRN PO 01/17/17 01:30 02/16/17 01:29 Al Hydrox/Mg Hydrox/Simethicone (Maalox Max Susp) 15 ml Q4H PRN PO 01/17/17 01:30 02/16/17 01:29 Magnesium Hydroxide (Milk Of Magnesia Susp) 30 ml Q6H PRN PO 01/17/17 01:30 02/16/17 01:29 Polyethylene (Miralax Powder Packet) 17 gm DAILY PRN PO 01/17/17 01:30 02/16/17 01:29 Ondansetron HCl (Zofran Inj) 4 mg Q6H PRN IV 01/17/17 01:30 02/16/17 01:29 Sodium Chloride 1,000 ml @ 125 mls/hr Q8H IV 01/17/17 01:30 02/16/17 01:29 01/17/17 03:14 125 MLS/HR Amlodipine Besylate (Norvasc Tab) 5 mg QAM PO 01/17/17 09:00 02/16/17 08:59 Carvedilol (Coreg Tab) 3.125 mg BID PO 01/17/17 09:00 02/16/17 08:59 Clonazepam (Klonopin Tab) 0.5 mg BID PO 01/17/17 09:00 02/16/17 08:59 Donepezil HCl (Aricept Tab) 10 mg HS PO 01/17/17 21:00 02/16/17 20:59 EZETIMIBE (Zetia Tab) 10 mg HS PO 01/17/17 21:00 02/16/17 20:59 Furosemide (Lasix Tab) 40 mg DAILY PO 01/17/17 09:00 02/16/17 08:59 Lamotrigine (Lamictal Tab) 200 mg DAILY PO 01/17/17 09:00 02/16/17 08:59 Carbidopa/Levodopa (Sinemet 25/ 100MG Tab) 1 tab TID PO 01/17/17 09:00 02/16/17 08:59 Quetiapine Fumarate (seroQUEL TAB) 100 mg HS PO 01/17/17 21:00 02/16/17 20:59 Bimatoprost (Lumigan 0.01%) 1 drops HS OPB 01/17/17 21:00 02/16/17 20:59 Miscellaneous Information (Order Awaiting Action) 1 ea QS N/A 01/17/17 08:00 02/16/17 07:59 Potassium Chloride (Klor-Con M10) 30 meq DAILY PO 01/17/17 09:00 02/16/17 08:59 Polyethylene (Miralax Powder Packet) 17 gm DAILY PO 01/17/17 09:00 02/16/17 08:59 Dicyclomine HCl (Bentyl Cap) 10 mg DAILY PRN PO 01/17/17 01:45 02/16/17 01:44 Miscellaneous (Iv Fluids Completed) 1 ea PRN PRN N/A 01/17/17 03:00 01/17/18 02:59 Review of Systems Abdomen: + GI bleeding, No pain, No nausea, No vomiting, No constipation Physical Exam Date Time Temp Pulse Resp B/P (MAP) Pulse Ox O2 Delivery O2 Flow Rate FiO2 01/17/17 07:10 Room Air 01/17/17 07:05 36.7 69 20 197/80 (119) 98 Room Air 01/17/17 03:39 181/84 (116) 01/17/17 03:13 Room Air 01/17/17 02:30 69 18 172/84 97 01/17/17 02:30 Room Air 01/17/17 02:30 37.0 57 18 193/89 (123) 98 Room Air 01/17/17 00:30 64 18 159/84 97 Room Air 01/16/17 23:17 58 01/16/17 22:24 69 18 166/90 100 Room Air 01/16/17 20:12 55 16 174/89 99 Room Air 01/16/17 19:37 58 18 165/94 98 Room Air 01/16/17 19:19 59 01/16/17 19:16 63 21 188/101 99 Room Air 01/16/17 18:36 36.5 63 20 164/86 99 Room Air General Appearance: + mild distress Respiratory/Chest: normal breath sounds, no respiratory distress Cardiovascular: regular rate, rhythm, no edema Abdomen/GI: non tender, soft, + pertinent finding (midline scar, palpable abdominal wall mesh, moderate partial rectal prolapse) Laboratory Results Last 24 Hours Test 01/16/17 19:24 01/16/17 21:30 01/17/17 02:24 01/17/17 06:32 White Blood Count 7.02 K/uL 7.39 K/uL Red Blood Count 4.57 M/uL 5.27 M/uL Hemoglobin 13.0 g/dL 14.8 g/dL Hematocrit 39.1 % 44.9 % Mean Corpuscular Volume 85.6 fL 85.2 fL Mean Corpuscular Hemoglobin 28.4 pg 28.1 pg Mean Corpuscular Hemoglobin Concent 33.2 g/dl 33.0 g/dl Platelet Count 306 K/uL 302 K/uL Mean Platelet Volume 8.7 fL 8.8 fL Neutrophils (%) (Auto) 58.2 % Lymphocytes (%) (Auto) 30.8 % Monocytes (%) (Auto) 7.4 % Eosinophils (%) (Auto) 2.6 % Basophils (%) (Auto) 0.7 % Neutrophils # (Auto) 4.09 K/uL Lymphocytes # (Auto) 2.16 K/uL Monocytes # (Auto) 0.52 K/uL Eosinophils # (Auto) 0.18 K/uL Basophils # (Auto) 0.05 K/uL RDW Standard Deviation 53.7 fL 52.8 fL RDW Coefficient of Variation 17.1 % 16.8 % Immature Granulocyte % (Auto) 0.3 % Immature Granulocyte # (Auto) 0.02 K/uL Prothrombin Time 9.5 SECONDS Prothromb Time International Ratio 0.9 Activated Partial Thromboplast Time 24.7 SECONDS Partial Thromboplastin Ratio 1.0 Sodium Level 142 mmol/L 140 mmol/L Potassium Level 4.0 mmol/L 3.6 mmol/L Chloride Level 111 mmol/L 106 mmol/L Carbon Dioxide Level 22 mmol/L 25 mmol/L Anion Gap 9.0 mmol/L 9.0 mmol/L Blood Urea Nitrogen 13 mg/dl 8 mg/dl Creatinine 0.79 mg/dl 0.77 mg/dl Est Creatinine Clear Calc Drug Dose 41.5 ml/min 42.6 ml/min Estimated GFR () 82.5 85.1 Estimated GFR (Non- 71.2 73.4 BUN/Creatinine Ratio 15.8 10.0 Random Glucose 92 mg/dl 84 mg/dl Calcium Level 9.1 mg/dl 9.6 mg/dl Total Bilirubin 0.3 mg/dl Direct Bilirubin < 0.1 mg/dl Aspartate Amino Transf (AST/SGOT) 18 U/L Alanine Aminotransferase (ALT/SGPT) 7 U/L Alkaline Phosphatase 95 U/L Troponin I < 0.015 ng/ml Total Protein 6.7 gm/dl Albumin 3.3 gm/dl Lipase 128 U/L Lactic Acid Level 1.4 mmol/L Urine Color YELLOW Urine Appearance CLEAR Urine pH 7.5 Urine Specific [place] 1.025 Urine Protein NEG Urine Glucose (UA) NEG Urine Ketones NEG Urine Occult Blood NEG Urine Nitrite NEG Urine Bilirubin NEG Urine Urobilinogen NEG Urine Leukocyte Esterase NEG Assessment & Plan rectal prolapse partial prolapse was easily reduced, unless this recurs would plan for surgery next week at [facility] as scheduled H&H stable, no further bleeding today can resume diet will follow 01/17/17- see Edin Rangel's consult above- currently observation for near syncope. h/o rectal prolapse with bleeding- H/H stable and improved from adm 11/2016. No acute bleeding currently- had surgical procedure in [place] 06/2016 per daughter and now scheduled for addnl surgery 02/2017 because of cont prolapse. No plan or need for urgent surgery- d/c when medically stable. will follow with you
[2017-01-17] MEDS ORDERED: HydrALAZINE HCL 20 MG/ML VIAL IV. PRN (14:30)
--- NOTE | 2017-01-17 15:00 | Medical Student: [facility] ---
Med Student Progress Note Date of Service Jan 17, 2017. Subjective Pt evaluation today including: conversation w/ patient, conversation w/ family (daughter. is technical sales support specialist but was not present), physical exam, chart review, lab review, review of studies, conversation w/ cloud consultant, review of inpatient medication list Pain: diffuse abdominal pain 8/10 Voiding: no voiding problems This is 77 year-old female with hx of Parkinson, dementia, HTN, hypercholesterolemia, rectal prolapse, bipolar, and glaucoma was brought to the hospital by 01/16 after having rectal bleed. Of note, in Apr 2016 pt had rectal prolapse repair by Dr. Weems at [facility]. Patient started having rectal bleed 5 weeks ago and was admitted on 12/06 with similar symptoms. Pt had colonoscopy and EGD during previous admission and showed erythematous mucosa near surgical site. This time, pt also has the same symptoms. She also states that she had a complete black-out while in the ER. Today, patient is still feeling the same. She states that she did not go to the bathroom in time to have a bowel movement this morning and the retained stool caused her to have abdominal pain, rated 8/10. She said that usually it gets better after a bm. Patient denies NEVAREZ, fever, chills but feeling cold, N/V, CP, or SOB. Pt also complains of difficulty swallowing. No further hx was obtained as patient tends to repeat information. Daughter who is in the room said that this morning, patient has a partial rectal prolapse, which were reduced by the surgical PA. Per daughter, pt is going to an appointment with Dr. Weems to look at the rectal prolapse. She relays the concern of not knowing if her mother's prolapse will be done here at [facility] or by Dr. Weems on Jan 24. Pt's is the main caregiver for patient and was not in the room at the time. Review of Systems Constitutional: No fever, No chills ENT: No hearing loss Respiratory: No shortness of breath Cardiac: No chest pain Abdomen: + pain, + constipation, No nausea Female : No dysuria Notes: ROS is limited Objective Vital Signs Date Time Temp Pulse Resp B/P (MAP) Pulse Ox O2 Delivery O2 Flow Rate FiO2 01/17/17 07:10 Room Air 01/17/17 07:05 36.7 69 20 197/80 (119) 98 Room Air 10/4/17 03:39 181/84 (116) 01/17/17 03:13 Room Air 01/17/17 02:30 69 18 172/84 97 01/17/17 02:30 Room Air 01/17/17 02:30 37.0 57 18 193/89 (123) 98 Room Air 01/17/17 00:30 64 18 159/84 97 Room Air 01/16/17 23:17 58 01/16/17 22:24 69 18 166/90 100 Room Air 01/16/17 20:12 55 16 174/89 99 Room Air 01/16/17 19:37 58 18 165/94 98 Room Air 01/16/17 19:19 59 01/16/17 19:16 63 21 188/101 99 Room Air 01/16/17 18:36 36.5 63 20 164/86 99 Room Air Physical Exam General Appearance: + moderate distress Eyes: bilateral eyes normal inspection ENT: hearing grossly normal Respiratory/Chest: lungs clear, normal breath sounds, no respiratory distress Cardiovascular: regular rate, rhythm, no murmur Abdomen: soft, + abnormal bowel sounds (hyperactive bowel sounds), + distended , + tenderness (diffusely across the abdomen) Extremities: no pedal edema Neurologic/Psychiatric: + pertinent finding (confused, tend to repeat information. Know that pt is in the hospital and orientate to person) Laboratory Results Last 24 Hours Test 01/16/17 19:24 01/16/17 21:30 01/17/17 02:24 01/17/17 06:32 White Blood Count 7.02 K/uL 7.39 K/uL Red Blood Count 4.57 M/uL 5.27 M/uL Hemoglobin 13.0 g/dL 14.8 g/dL Hematocrit 39.1 % 44.9 % Mean Corpuscular Volume 85.6 fL 85.2 fL Mean Corpuscular Hemoglobin 28.4 pg 28.1 pg Mean Corpuscular Hemoglobin Concent 33.2 g/dl 33.0 g/dl Platelet Count 306 K/uL 302 K/uL Mean Platelet Volume 8.7 fL 8.8 fL Neutrophils (%) (Auto) 58.2 % Lymphocytes (%) (Auto) 30.8 % Monocytes (%) (Auto) 7.4 % Eosinophils (%) (Auto) 2.6 % Basophils (%) (Auto) 0.7 % Neutrophils # (Auto) 4.09 K/uL Lymphocytes # (Auto) 2.16 K/uL Monocytes # (Auto) 0.52 K/uL Eosinophils # (Auto) 0.18 K/uL Basophils # (Auto) 0.05 K/uL RDW Standard Deviation 53.7 fL 52.8 fL RDW Coefficient of Variation 17.1 % 16.8 % Immature Granulocyte % (Auto) 0.3 % Immature Granulocyte # (Auto) 0.02 K/uL Prothrombin Time 9.5 SECONDS Prothromb Time International Ratio 0.9 Activated Partial Thromboplast Time 24.7 SECONDS Partial Thromboplastin Ratio 1.0 Sodium Level 142 mmol/L 140 mmol/L Potassium Level 4.0 mmol/L 3.6 mmol/L Chloride Level 111 mmol/L 106 mmol/L Carbon Dioxide Level 22 mmol/L 25 mmol/L Anion Gap 9.0 mmol/L 9.0 mmol/L Blood Urea Nitrogen 13 mg/dl 8 mg/dl Creatinine 0.79 mg/dl 0.77 mg/dl Est Creatinine Clear Calc Drug Dose 41.5 ml/min 42.6 ml/min Estimated GFR () 82.5 85.1 Estimated GFR (Non- 71.2 73.4 BUN/Creatinine Ratio 15.8 10.0 Random Glucose 92 mg/dl 84 mg/dl Calcium Level 9.1 mg/dl 9.6 mg/dl Total Bilirubin 0.3 mg/dl Direct Bilirubin < 0.1 mg/dl Aspartate Amino Transf (AST/SGOT) 18 U/L Alanine Aminotransferase (ALT/SGPT) 7 U/L Alkaline Phosphatase 95 U/L Troponin I < 0.015 ng/ml Total Protein 6.7 gm/dl Albumin 3.3 gm/dl Lipase 128 U/L Lactic Acid Level 1.4 mmol/L Urine Color YELLOW Urine Appearance CLEAR Urine pH 7.5 Urine Specific [place] 1.025 Urine Protein NEG Urine Glucose (UA) NEG Urine Ketones NEG Urine Occult Blood NEG Urine Nitrite NEG Urine Bilirubin NEG Urine Urobilinogen NEG Urine Leukocyte Esterase NEG Medications Current Inpatient Medications Medications (Trade) Dose Ordered Sig/Naeem Route Start Time Stop Time Status Last Admin Dose Admin Ioversol (Optiray 320) 111 ml UD PRN IV 01/16/17 21:00 01/20/17 20:59 Acetaminophen (Tylenol Tab) 650 mg Q4H PRN PO 01/17/17 01:30 02/16/17 01:29 Al Hydrox/Mg Hydrox/Simethicone (Maalox Max Susp) 15 ml Q4H PRN PO 01/17/17 01:30 02/16/17 01:29 Magnesium Hydroxide (Milk Of Magnesia Susp) 30 ml Q6H PRN PO 01/17/17 01:30 02/16/17 01:29 Polyethylene (Miralax Powder Packet) 17 gm DAILY PRN PO 01/17/17 01:30 02/16/17 01:29 Ondansetron HCl (Zofran Inj) 4 mg Q6H PRN IV 01/17/17 01:30 02/16/17 01:29 Sodium Chloride 1,000 ml @ 125 mls/hr Q8H IV 01/17/17 01:30 02/16/17 01:29 01/17/17 09:49 125 MLS/HR Amlodipine Besylate (Norvasc Tab) 5 mg QAM PO 01/17/17 09:00 02/16/17 08:59 01/17/17 09:22 5 MG Carvedilol (Coreg Tab) 3.125 mg BID PO 01/17/17 09:00 02/16/17 08:59 01/17/17 09:19 3.125 MG Clonazepam (Klonopin Tab) 0.5 mg BID PO 01/17/17 09:00 02/16/17 08:59 01/17/17 09:41 0.5 MG Donepezil HCl (Aricept Tab) 10 mg HS PO 01/17/17 21:00 02/16/17 20:59 EZETIMIBE (Zetia Tab) 10 mg HS PO 01/17/17 21:00 02/16/17 20:59 Furosemide (Lasix Tab) 40 mg DAILY PO 01/17/17 09:00 02/16/17 08:59 01/17/17 09:21 40 MG Lamotrigine (Lamictal Tab) 200 mg DAILY PO 01/17/17 09:00 02/16/17 08:59 01/17/17 09:21 200 MG Carbidopa/Levodopa (Sinemet 25/ 100MG Tab) 1 tab TID PO 01/17/17 09:00 02/16/17 08:59 10/4/17 09:22 1 TAB Quetiapine Fumarate (seroQUEL TAB) 100 mg HS PO 01/17/17 21:00 02/16/17 20:59 Bimatoprost (Lumigan 0.01%) 1 drops HS OPB 01/17/17 21:00 02/16/17 20:59 Potassium Chloride (Klor-Con M10) 30 meq DAILY PO 01/17/17 09:00 02/16/17 08:59 01/17/17 09:20 30 MEQ Polyethylene (Miralax Powder Packet) 17 gm DAILY PO 01/17/17 09:00 02/16/17 08:59 01/17/17 09:46 17 GM Dicyclomine HCl (Bentyl Cap) 10 mg DAILY PRN PO 01/17/17 01:45 02/16/17 01:44 Miscellaneous (Iv Fluids Completed) 1 ea PRN PRN N/A 01/17/17 03:00 01/17/18 02:59 Brimonidine Tartrate (Alphagan-P 0.1% Oph Solution) 1 drop BID OPB 01/17/17 21:00 02/16/17 20:59 Assessment and Plan Assessment and Plan: This is 77 year-old female with hx of Parkinson, dementia, HTN, hypercholesterolemia, rectal prolapse, bipolar, and glaucoma was brought to the hospital by 01/16 after having rectal bleed. Of note, in Apr 2016 pt had rectal prolapse repair by Dr. Weems at [facility]. Patient started having rectal bleed 5 weeks ago and was admitted on 12/06 with similar symptoms. Pt had colonoscopy and EGD during previous admission and showed erythematous mucosa near surgical site. This time, pt also has the same symptoms. She also states that she had a complete black-out while in the ER. Ddx: hemorrhoids, rectal prolapse, GI bleed CXR - cardiomegaly Abd CT - mild rectal wall thickening and hyperemia, suspecting proctitis, recommend colonoscopy as outpt. Rectal bleeding. Hgb is stable at 14.8. VS is stable except for elevated BP, could be due to pain but can also from uncontrolled HTN. Colonoscopy recently 12/06 showed hyperemia at the site of rectal surgery and a 4 and 10mm polyps which were resected. EGD 12/06 - normal anatomy with hiatus hernia - General Surgery consulted - Patient will have appointment with Dr. Weems on Jan.24 for additional repair, no emergent surgical intervention for now. - IVF - Miralax scheduled to reduce constipation, which can also be caused due to dehydration and iron supplements. HTN Uncontrolled. BP this morning is 197/80. With hx of Parkinson disease, autonomic function is impaired and she could have labile HTN. - Continue home med - amlodipine and carvedilol - Hydralazine prn Syncope Ddx: Dehydration, vaso-vagal. With hx of Parkinson disease, autonomic function could be impaired Parkinson - Continue Levodopa/carbidopa - Follow with neurologist as outpt Dementia - Continue Klonopin, Aricept, Lamictal, and Seroquel - Follow with neurologist or PCP as outpatient. DVT prophylaxis - SCDs
--- NOTE | 2017-01-17 15:31 | Progress Note ---
Progress Note Date of Service Jan 17, 2017. Progress Note Asked to see again for feeling of prolapse No evidence of recurrent prolapse at this time
[2017-01-17] MEDS: BRIMONIDINE TARTRATE 0.1% OPH SOLN OPB SCH (20:29)
[2017-01-17] MEDS ORDERED: BIMATOPROST 0.01% OP SOLN 2.5 ML BTL OPB SCH (21:00)
[2017-01-17] MEDS ORDERED: QUETIAPINE FUMARATE 100 MG TAB PO SCH (21:00)
[2017-01-17] MEDS ORDERED: EZETIMIBE 10MG TAB PO SCH (21:00)
[2017-01-17] MEDS ORDERED: DONEPEZIL HCL 10 MG TAB PO SCH (21:00)
--- NOTE | 2017-01-17 22:52 | GASTROINTESTINAL CONSULTATION ---
DATE OF CONSULTATION: 01/17/2017 REASON FOR EVALUATION: Rectal bleeding. HISTORY OF PRESENT ILLNESS: The patient is a 77-year-old whom I saw in November for rectal bleeding. At that time, she underwent an EGD and colonoscopy. She had a couple of small polyps removed from her colon but also had ring of erythematous tissue in the rectum which was reminiscent of a rectal prolapse. The biopsies of this tissue; however, did not show any significant pathology. Since being discharged then, she has had recurrent intermittent rectal bleeding and has had witnessed rectal prolapse despite having it repaired in April. She was scheduled to have a minor surgery a week from today to have this tacked in, but I think it may require more extensive operation. According to the daughters, one of those prolapses had to be manually reduced by an aide, but then had another one that was able to be reduced spontaneously. Currently, her blood count is normal. She is not having any abdominal pain. PAST MEDICAL HISTORY: Remarkable for hypertension, hemorrhoids, bipolar disorder, rectal prolapse repair. MEDICATIONS: Per list. ALLERGIES: LITHIUM. FAMILY HISTORY: Remarkable for lung disease and hypertension. SOCIAL HISTORY: The patient lives with her significant other, . She is retired, does not smoke, no alcohol. REVIEW OF SYSTEMS: Negative other than as described. PHYSICAL EXAMINATION: GENERAL: The patient is thin, but in no acute distress. VITAL SIGNS: Blood pressure is 160/80, pulse 64. ABDOMEN: Shows a midline scar which is well healed. There are no masses or tenderness. LABORATORY DATA: CBC shows a white count of 7, hemoglobin 13, platelet count 306,000. IMPRESSION: The patient has recurrent rectal prolapse despite repair in April. She had a colonoscopy approximately a month ago that showed no other significant pathology. As she has had witnessed recurrent prolapse that had to be manually reduced, I suspect that this is the source of her bleeding. She does have an appointment a week from now to see a surgeon in [facility], but I think that he may need to do a more extensive repair than anticipated and hopefully these records can be referred to him prior to that visit, so it can be appropriately managed at the time that she is there.
[2017-01-18] MEDS: SODIUM CHLORIDE 0.9% 1000ML 1,000 ML IV SCH (01:06)
[2017-01-18 07:10] VITALS: BP 149/87; PULSE 70; O2SAT 96
[2017-01-18] MEDS: CLONAZEPAM 0.5 MG TAB PO SCH (09:27)
[2017-01-18] MEDS: CARBIDOPA/LEVODOPA 25/100MG TAB PO SCH (09:27)
[2017-01-18] MEDS: AMLODIPINE BESYLATE 5 MG TAB PO SCH (09:28)
[2017-01-18] MEDS: FUROSEMIDE 40 MG TAB PO SCH (09:28)
[2017-01-18] MEDS: CARVEDILOL 3.125 MG TAB PO SCH (09:28)
[2017-01-18] MEDS: POLYETHYLENE (MIRALAX) 17 GM PACK PO SCH (09:29)
[2017-01-18] MEDS: POTASSIUM CHLORIDE 10 MEQ TABCR PO SCH (09:29)
[2017-01-18 09:30] VITALS: TEMP 37.1
[2017-01-18] MEDS: BRIMONIDINE TARTRATE 0.1% OPH SOLN OPB SCH (09:34)
--- NOTE | 2017-01-18 10:57 | Medical Student: [facility] ---
Med Student Progress Note Date of Service Jan 18, 2017. Subjective Pt evaluation today including: conversation w/ patient, physical exam, chart review, lab review, review of studies, review of inpatient medication list Pain: abdominal pain Voiding: no voiding problems This is 77 year-old female with hx of Parkinson, dementia, HTN, hypercholesterolemia, rectal prolapse, bipolar, and glaucoma was brought to the hospital by 01/16 after having rectal bleed. Of note, in Apr 2016 pt had rectal prolapse repair by Dr. Weems at [facility]. Patient started having rectal bleed 5 weeks ago and was admitted on 12/06 with similar symptoms. Pt had colonoscopy and EGD during previous admission and showed erythematous mucosa near surgical site. This time, pt also has the same symptoms. She also states that she had a complete black-out while in the ER. Today, patient still feels the same. She complains of diffuse, constant abdominal pain, which her at bedside said it has been a chronic problem for her. She had 1smal bm this morning, still severe constipated. Pt is currently taking miralax. Pt also complains of diffuse pain everywhere. Also complains of NEVAREZ but is never taking any pain medications for it. No fever, chills, N/V, CP, SOB, or dysuria Review of Systems Constitutional: + sweats (chronic), No fever, No chills Eyes: No worsening of vision ENT: No hearing loss Respiratory: No cough, No sputum, No shortness of breath Cardiac: No chest pain Abdomen: + constipation, No pain, No nausea, No vomiting, No diarrhea Musculoskeletal: + muscle pain Female : No dysuria Neurologic: No memory loss Heme: No abnormal bleeding/bruising Objective Vital Signs Date Time Temp Pulse Resp B/P (MAP) Pulse Ox O2 Delivery O2 Flow Rate FiO2 01/18/17 09:30 37.1 01/18/17 07:20 Room Air 01/18/17 07:10 70 14 149/87 (107) 96 Room Air 01/17/17 23:01 37.0 69 22 93/59 (70) 94 Room Air 01/17/17 22:30 Room Air 01/17/17 20:20 76 137/87 (104) 01/17/17 15:40 Room Air 01/17/17 15:14 36.8 66 16 159/89 (112) 97 Room Air 01/17/17 14:36 132/80 (97) Physical Exam General Appearance: + mild distress, + thin Eyes: bilateral eyes normal inspection ENT: hearing grossly normal Respiratory/Chest: lungs clear, no respiratory distress, + decreased breath sounds Cardiovascular: regular rate, rhythm, no murmur Abdomen: normal bowel sounds, soft, + distended Extremities: normal inspection, no pedal edema Neurologic/Psychiatric: alert, oriented x 3 Skin: no rash Medications Current Inpatient Medications Medications (Trade) Dose Ordered Sig/Naeem Route Start Time Stop Time Status Last Admin Dose Admin Ioversol (Optiray 320) 111 ml UD PRN IV 01/16/17 21:00 01/20/17 20:59 Acetaminophen (Tylenol Tab) 650 mg Q4H PRN PO 01/17/17 01:30 02/16/17 01:29 Al Hydrox/Mg Hydrox/Simethicone (Maalox Max Susp) 15 ml Q4H PRN PO 01/17/17 01:30 02/16/17 01:29 Magnesium Hydroxide (Milk Of Magnesia Susp) 30 ml Q6H PRN PO 01/17/17 01:30 02/16/17 01:29 01/17/17 17:25 30 ML Polyethylene (Miralax Powder Packet) 17 gm DAILY PRN PO 01/17/17 01:30 02/16/17 01:29 Ondansetron HCl (Zofran Inj) 4 mg Q6H PRN IV 01/17/17 01:30 02/16/17 01:29 Sodium Chloride 1,000 ml @ 125 mls/hr Q8H IV 01/17/17 01:30 02/16/17 01:29 01/18/17 01:06 125 MLS/HR Amlodipine Besylate (Norvasc Tab) 5 mg QAM PO 01/17/17 09:00 02/16/17 08:59 01/18/17 09:28 5 MG Carvedilol (Coreg Tab) 3.125 mg BID PO 01/17/17 09:00 02/16/17 08:59 01/18/17 09:28 3.125 MG Clonazepam (Klonopin Tab) 0.5 mg BID PO 01/17/17 09:00 02/16/17 08:59 01/18/17 09:27 0.5 MG Donepezil HCl (Aricept Tab) 10 mg HS PO 01/17/17 21:00 02/16/17 20:59 01/17/17 20:30 10 MG EZETIMIBE (Zetia Tab) 10 mg HS PO 01/17/17 21:00 02/16/17 20:59 01/17/17 20:29 10 MG Furosemide (Lasix Tab) 40 mg DAILY PO 01/17/17 09:00 02/16/17 08:59 01/18/17 09:28 40 MG Lamotrigine (Lamictal Tab) 200 mg DAILY PO 01/17/17 09:00 02/16/17 08:59 01/18/17 09:27 200 MG Carbidopa/Levodopa (Sinemet 25/ 100MG Tab) 1 tab TID PO 01/17/17 09:00 02/16/17 08:59 01/18/17 09:27 1 TAB Quetiapine Fumarate (seroQUEL TAB) 100 mg HS PO 01/17/17 21:00 02/16/17 20:59 01/17/17 20:31 100 MG Bimatoprost (Lumigan 0.01%) 1 drops HS OPB 01/17/17 21:00 02/16/17 20:59 01/17/17 20:29 1 DROPS Potassium Chloride (Klor-Con M10) 30 meq DAILY PO 01/17/17 09:00 02/16/17 08:59 01/18/17 09:29 30 MEQ Polyethylene (Miralax Powder Packet) 17 gm DAILY PO 01/17/17 09:00 02/16/17 08:59 01/18/17 09:29 17 GM Dicyclomine HCl (Bentyl Cap) 10 mg DAILY PRN PO 01/17/17 01:45 02/16/17 01:44 Miscellaneous (Iv Fluids Completed) 1 ea PRN PRN N/A 01/17/17 03:00 01/17/18 02:59 Brimonidine Tartrate (Alphagan-P 0.1% Oph Solution) 1 drop BID OPB 01/17/17 21:00 02/16/17 20:59 01/18/17 09:34 1 DROP Hydralazine HCl (HydrALAZINE INJ) 10 mg Q4 PRN IV. 01/17/17 14:30 02/16/17 14:29 Assessment and Plan Assessment and Plan: This is 77 year-old female with hx of Parkinson, dementia, HTN, hypercholesterolemia, rectal prolapse, bipolar, and glaucoma was brought to the hospital by 01/16 after having rectal bleed. Of note, in Apr 2016 pt had rectal prolapse repair by Dr. Weems at [facility]. Patient started having rectal bleed 5 weeks ago and was admitted on 12/06 with similar symptoms. Pt had colonoscopy and EGD during previous admission and showed erythematous mucosa near surgical site. This time, pt also has the same symptoms. She also states that she had a complete black-out while in the ER. Ddx: hemorrhoids, rectal prolapse, GI bleed CXR - cardiomegaly Abd CT - mild rectal wall thickening and hyperemia, suspecting proctitis, recommend colonoscopy as outpt. Rectal bleeding. Hgb was stable at 14.8. VS is stable except for elevated BP, could be due to pain but can also from uncontrolled HTN. Colonoscopy recently 12/06 showed hyperemia at the site of rectal surgery and a 4 and 10mm polyps which were resected. EGD 12/06 - normal anatomy with hiatus hernia - General Surgery consulted - Patient will have appointment with Dr. Weems on Jan.24 for additional repair, no emergent surgical intervention for now. - IVF - Miralax daily to reduce constipation and decrease the need to strain. Fe is held. HTN Uncontrolled. BP this morning is 149/87. With hx of Parkinson disease, autonomic function is impaired and she could have labile HTN. - Continue home med - amlodipine and carvedilol - Hydralazine prn - Follow with PCP as outpt Syncope Ddx: Dehydration, vaso-vagal. With hx of Parkinson disease, autonomic function could be impaired, vaso-vagal is very likely. Parkinson - Continue Levodopa/carbidopa - Follow with neurologist as outpt Dementia - Continue Klonopin, Aricept, Lamictal, and Seroquel - Follow with neurologist or PCP as outpatient. DVT prophylaxis - SCDs Discharge planning: home
--- NOTE | 2017-01-18 11:02 | Discharge Instructions ---
Discharge Instructions Date of Service Jan 18, 2017. Admission Reason for Admission: Rectal Bleeding Discharge Discharge Diagnosis / Problem: Rectal bleeding, rectal prolapse Discharge Goals Goal(s): Decrease discomfort, Improve function, Increase independence, Improve disease control, Learn about illness, Diagnostic testing, Therapeutic intervention, Prevent Disease Progression Activity Recommendations Activity Limitations: resume your previous activity Exercise/Sports Limitations: as tolerated . Instructions / Follow-Up Instructions / Follow-Up Patient to be discharged home No new changes in medications Please follow up with appointment for rectal prolapse as scheduled Follow up with Dr Bullard in 1-2 weeks Script will be provided for walker If worsening weakness, falls, chest pain, shortness of breath or blood in stools please report to ER Current Hospital Diet Patient's current hospital diet: Low Sodium Diet (2gm Na) Discharge Diet Recommended Diet: Low Sodium Diet (2gm Na) Pending Studies Studies pending at discharge: no Medical Emergencies . Who to Call and When: Medical Emergencies: If at any time you feel your situation is an emergency, please call 911 immediately. . Non-Emergent Contact Non-Emergency issues call your: Primary Care Provider Call Non-Emergent contact if: you have a fever, you have any medication questions . . "Provider Documentation" section prepared by Greg High. . VTE Core Measure Inpt VTE Proph given/why not?: Other Anticoagulation
[2017-01-18 11:15] VITALS: BP 149/87; PULSE 70; TEMP 37.1; O2SAT 96
--- NOTE | 2017-01-18 15:26 | Discharge Summary ---
Discharge Summary Date of Service Jan 18, 2017. Discharge Summary Admission Date: Jan 17, 2017 at 01:29 Discharge Date: Jan 18, 2017 Discharge Disposition: Home Principal Diagnosis: Rectal bleeding, rectal prolapse Immunizations: History of Tetanus Vaccine?: Unknown History of Pneumococcal: Unknown History of Hepatitis B Vaccine: Unknown Consultations: General surgery Medication Reconciliation Continued Medications: Amlodipine Besylate (Norvasc) 5 Mg Tab 5 MG PO QAM, TAB Bimatoprost (Lumigan) 0.01 % Krysta 1 DROP OPB HS, #13 Brimonidine Tartrate (Alphagan P Oph) 0.1 % Krysta 1 DROP OPB BID, #30 Carvedilol (Carvedilol) 3.125 Mg Tab 1 TAB PO BID, #180 Clonazepam (Klonopin) 0.5 Mg Tab 0.5 MG PO AMPM, TAB Donepezil Hydrochloride (Aricept) 10 Mg Tab 10 MG PO HS, TAB Ezetimibe (Zetia) 10 Mg Tab 10 MG PO HS, TAB Ferrous Sulfate (Ferrous Sulfate) 325 Mg Tab 325 MG PO BIDM for 30 Days, #60 TAB 11 Refills Furosemide (Lasix) 40 Mg Tab 1 TAB PO DAILY for 30 Days, #30 TAB 5 Refills Lamotrigine (Lamictal) 100 Mg Tab 200 MG PO DAILY, TAB Levodopa/Carbidopa (Sinemet 25MG/100MG) 1 Ea Tab 1 TAB PO TID, TAB Potassium Chloride Microencaps (Klor-Con M15) 15 Meq Tab 30 MEQ PO DAILY Quetiapine Fumarate (Seroquel) 100 Mg Tab 100 MG PO HS, TAB Discharge Exam Review of Systems: Constitutional: + weakness, + fatigue, No fever, No chills, No sweats Eyes: No worsening of vision, No eye pain, No redness, No discharge, No diplopia ENT: No hearing loss, No unusual epistaxis Respiratory: No cough, No sputum, No wheezing, No shortness of breath, No dyspnea on exertion Cardiovascular: No chest pain, No orthopnea, No PND, No edema Abdomen: No pain, No nausea, No vomiting, No diarrhea Musculoskeletal: + joint pain, + muscle pain, No swelling, No calf pain Genitourinary - Female: No dysuria, No urinary frequency, No urinary urgency , No urinary incontinence Neurologic: No memory loss, No paralysis, No weakness, No numbness/tingling Psychiatric: No depression symptoms, No anhedonism, No anxiety, No insomnia Endocrine: No fatigue, No excessive thirst Integumentary: No rash, No itch Physical Exam: General Appearance: WD/WN, no apparent distress Eyes: normal inspection, PERRL, EOMI, sclerae normal Neck: supple, no adenopathy, thyroid normal, no JVD Respiratory/Chest: chest non-tender, lungs clear, normal breath sounds, no respiratory distress Cardiovascular: regular rate, rhythm, no edema, no gallop, no JVD Abdomen / GI: normal bowel sounds, non tender, soft, no organomegaly Extremities: normal inspection, no calf tenderness, normal capillary refill , no pedal edema Neurologic/Psychiatric: no motor/sensory deficits, alert, normal mood/affect , normal reflexes Skin: normal color, warm/dry, no rash Lymphatic: no adenopathy Hospital Course 77 year old female with rectal bleeding. Evaluation by colonoscopy 1 month prior suspected it was related to previous surgical site from rectal prolapse repair. In the ED vitals signs were normal with normal labs. She is not anemic at this time. There no over derangements in her metabolic profile. She will be admitted for observation of rectal bleeding: Rectal Bleeding likely from from rectal prolapse and constipatiob - H/H stable through hospital course - Consult GI, rectal prolapse reduced, follow up with [facility] next week as scheduled Parkinson's - Continue Sinemet, stable HTN - Continue Coreg - Continue Amlodipine HLD - Continue Ezetimibe Dementia - Continue Donepezil - Continue Seroquel - Klonipin BID for anxiety DVT Prophylaxis - SCD Knee, MIKE Hose - Pharmacological means contraindicated in the setting of bleeding Code Status - Level V Full Code Disposition - Med/Surg - OT and PT evaluations Total Time Spent: Greater than 30 minutes This includes examination of the patient, discharge planning, medication reconciliation, and communication with other providers. Discharge Instructions Please refer to the electronic Patient Visit Report (Discharge Instructions) for additional information. Additional Copies To Anais Bullard D.O.
== END 2017-01-18 12:00 | disposition home or self-care (01) ==
LOC: C.EDB 18:32 → C.MSN 01-17 01:29 → EDBEDREQ 01-17 01:34 → ENRESERV 01-17 01:48
PROVIDERS: ADMIT Student in an Organized Health Care Education/Training Program; ATTEND Hospitalist
DX: K62.5 Hemorrhage of anus and rectum (principal); K62.3 Rectal prolapse; G20 Parkinson's disease; F02.80 Dementia in other diseases classified elsewhere, unspecified severity, without behavioral disturbance, psychotic disturbance, mood disturbance, and anxiety; I10 Essential (primary) hypertension; E78.5 Hyperlipidemia, unspecified; D64.9 Anemia, unspecified; F31.9 Bipolar disorder, unspecified; Z79.899 Other long term (current) drug therapy

== ENCOUNTER 2017-01-20 19:02 | Emergency (ER) | payer OTHER ==
[~2017-01-20] VITALS: Ht 152.4 cm; Wt 51.4 kg
[2017-01-20 19:07] VITALS: TEMP 36.8; Ht 152.4 cm; Wt 51.4 kg
[2017-01-20] MEDS ORDERED: SODIUM CHLORIDE 0.9% 1000ML 1,000 ML IV STA (19:25)
[2017-01-20 20:07] LABS: BASO % 0.7 %; BASO ABS # 0.05 K/uL (0-0.2); COMPLETE YES; EOS % 2.8 %; HEMATOCRIT 38.2 % (37-47); IG% 0.3 %; LYMPH % 28.2 %; MEAN CELL VOLUME 86.2 fL (80-100); MEAN CORPUSCULAR HEMOGLOBIN 28.9 pg (25-34); MEAN CORPUSCULAR HGB CONC 33.5 g/dl (32-36); MEAN PLATELET VOLUME 8.7 fL (7.4-10.4); MONO % 7.5 %; NEUT % 60.5 %; PLATELET COUNT 288 K/uL (130-400); RED BLOOD COUNT 4.43 M/uL (4.2-5.4); WHITE BLOOD COUNT 7.45 K/uL (4.8-10.8)
[2017-01-20 20:24] LABS: BLOOD UREA NITROGEN 17 mg/dl (7-18); CREATININE 0.83 mg/dl (0.60-1.20); GLUCOSE 78 mg/dl (70-99); INR 0.9 (0.9-1.1); PROTHROMBIN TIME (PATIENT) 10.1 SECONDS (9.0-12.0)
[2017-01-20 20:25] LABS: ALT/SGPT 8 U/L (12-78); AST/SGOT 15 U/L (15-37); BUN/CREATININE RATIO 20.4 (10-20); CALCIUM 8.9 mg/dl (8.5-10.1); CARBON DIOXIDE 26 mmol/L (21-32); CHLORIDE 107 mmol/L (98-107); POTASSIUM 4.3 mmol/L (3.5-5.1); SODIUM 140 mmol/L (136-145)
[2017-01-20 20:30] LABS: ALKALINE PHOSPHATASE 97 U/L (45-117)
[2017-01-20 20:58] VITALS: O2SAT 98
--- NOTE | 2017-01-20 22:11 | EMERGENCY ROOM VISIT NOTE ---
History Report prepared by Sarah: Sarah Bravo Under the Supervision of: Dr. Michael Matthews D.O. First contact with patient: 19:10 Chief Complaint: GI ASSESSMENT Stated Complaint: COLON PROLAPSE History of Present Illness The patient is a 77 year old female who presents to the Emergency Room with complaints of an episode of rectal prolapse beginning today. The patient states that she has a history of Parkinson's and rectal prolapse that she had a repair earlier this year. Her reports that the patient was seen here 1 week ago for rectal bleeding and when she arrived to the ED she had a recurrence of prolapsed rectum. He notes that she is scheduled for surgery next week and there is concern that the rectal bleeding is from the anastomosis site. The states that the patient was not scoped during her last admission. Today , the patient reports that her rectum has prolapsed again and she was not able to get it back in. She complains of continued rectal bleeding and states that she is not on any blood thinners. She denies any new black stool, cough, runny nose, chest pain, shortness of breath, nausea, vomiting, diarrhea, pain with urination. Source of History: patient, spouse/significant other Onset: today Position: other (rectal) Quality: other (prolapse) Timing: other (episode) Associated Symptoms: No cough, No chest pain, No SOB, No nausea, No vomiting , No diarrhea, No urinary symptoms Note: Pt complains of bright red rectal bleeding. She denies any new black stool, runny nose. Review of Systems See HPI for pertinent positives & negatives. A total of 10 systems reviewed and were otherwise negative. Past Medical & Surgical Medical Problems: (1) Anemia (2) Bipolar 1 disorder (3) Hemorrhoids (4) Hypertension (5) Rectal bleeding (6) Stomach problems Family History Hypertension Lung disease Social History Smoking Status: Never Smoker Alcohol Use: none Drug Use: none Marital Status: Housing Status: lives with family Occupation Status: retired Current/Historical Medications Scheduled Amlodipine Besylate (Norvasc), 5 MG PO QAM Bimatoprost (Lumigan), 1 DROP OPB HS Brimonidine Tartrate (Alphagan P Oph), 1 DROP OPB BID Carvedilol (Carvedilol), 1 TAB PO BID Clonazepam (Klonopin), 0.5 MG PO AMPM Donepezil Hydrochloride (Aricept), 10 MG PO HS Ezetimibe (Zetia), 10 MG PO HS Ferrous Sulfate (Ferrous Sulfate), 325 MG PO BIDM Furosemide (Lasix), 1 TAB PO DAILY Lamotrigine (Lamictal), 200 MG PO DAILY Levodopa/Carbidopa (Sinemet 25MG/100MG), 1 TAB PO TID Potassium Chloride Microencaps (Klor-Con M15), 30 MEQ PO DAILY Quetiapine Fumarate (Seroquel), 100 MG PO HS Allergies Coded Allergies: [place] (Verified Allergy, Severe, SYSTEM TOXICITY, 01/20/17) Uncoded Allergies: YELLOW SQUASH (Allergy, Severe, ANAPHYLAXIS, 03/13/15) Physical Exam Vital Signs Date Time Temp Pulse Resp B/P (MAP) Pulse Ox O2 Delivery O2 Flow Rate FiO2 01/20/17 20:58 98 Room Air 01/20/17 20:52 60 18 164/77 98 Room Air 01/20/17 19:07 36.8 65 18 152/77 97 Room Air Physical Exam GENERAL: laying in bed, disheveled, chronically ill appearing EYE EXAM: normal conjunctiva OROPHARYNX: no exudate, no erythema, lips, buccal mucosa, and tongue normal and mucous membranes are moist NECK: supple, no nuchal rigidity, no adenopathy, non-tender LUNGS: Clear to auscultation. Normal chest wall mechanics HEART: no murmurs, S1 normal and S2 normal ABDOMEN: abdomen soft, non-tender, normo-active bowel sounds, no masses, no rebound or guarding. BACK: Back is symmetrical on inspection and there is no deformity, no midline tenderness, no CVA tenderness. SKIN: no rashes and no bruising UPPER EXTREMITIES: upper extremities are grossly normal. LOWER EXTREMITIES: No pitting edema. NEURO EXAM: Normal sensorium, cranial nerves II-XII grossly intact, normal speech, no gross weakness of arms, no gross weakness of legs. RECTAL: Bright red blood around anus, small hemorrhoids, no prolapse. Medical Decision & Procedures Laboratory Results 01/20/17 19:32 Red Blood Count 4.43, Mean Corpuscular Volume 86.2, Mean Corpuscular Hemoglobin 28.9, Mean Corpuscular Hemoglobin Concent 33.5, Mean Platelet Volume 8.7, Neutrophils (%) (Auto) 60.5, Lymphocytes (%) (Auto) 28.2, Monocytes (%) (Auto) 7.5, Eosinophils (%) (Auto) 2.8, Basophils (%) (Auto) 0.7, Neutrophils # (Auto) 4.51, Lymphocytes # (Auto) 2.10, Monocytes # (Auto) 0.56, Eosinophils # (Auto) 0.21, Basophils # (Auto) 0.05 01/20/17 19:32 Test 01/20/17 19:32 White Blood Count 7.45 K/uL (4.8-10.8) Red Blood Count 4.43 M/uL (4.2-5.4) Hemoglobin 12.8 g/dL (12.0-16.0) Hematocrit 38.2 % (37-47) Mean Corpuscular Volume 86.2 fL (80-100) Mean Corpuscular Hemoglobin 28.9 pg (25-34) Mean Corpuscular Hemoglobin Concent 33.5 g/dl (32-36) Platelet Count 288 K/uL (130-400) Mean Platelet Volume 8.7 fL (7.4-10.4) Neutrophils (%) (Auto) 60.5 % Lymphocytes (%) (Auto) 28.2 % Monocytes (%) (Auto) 7.5 % Eosinophils (%) (Auto) 2.8 % Basophils (%) (Auto) 0.7 % Neutrophils # (Auto) 4.51 K/uL (1.4-6.5) Lymphocytes # (Auto) 2.10 K/uL (1.2-3.4) Monocytes # (Auto) 0.56 K/uL (0.11-0.59) Eosinophils # (Auto) 0.21 K/uL (0-0.5) Basophils # (Auto) 0.05 K/uL (0-0.2) RDW Standard Deviation 52.9 fL (36.4-46.3) RDW Coefficient of Variation 16.6 % (11.5-14.5) Immature Granulocyte % (Auto) 0.3 % Immature Granulocyte # (Auto) 0.02 K/uL (0.00-0.02) Prothrombin Time 10.1 SECONDS (9.0-12.0) Prothromb Time International Ratio 0.9 (0.9-1.1) Activated Partial Thromboplast Time 25.7 SECONDS (21.0-31.0) Partial Thromboplastin Ratio 1.0 Anion Gap 7.0 mmol/L (3-11) Est Creatinine Clear Calc Drug Dose 39.5 ml/min Estimated GFR () 77.7 Estimated GFR (Non- 67.1 BUN/Creatinine Ratio 20.4 (10-20) Calcium Level 8.9 mg/dl (8.5-10.1) Total Bilirubin 0.4 mg/dl (0.2-1) Direct Bilirubin 0.1 mg/dl (0-0.2) Aspartate Amino Transf (AST/SGOT) 15 U/L (15-37) Alanine Aminotransferase (ALT/SGPT) 8 U/L (12-78) Alkaline Phosphatase 97 U/L (45-117) Troponin I < 0.015 ng/ml (0-0.045) Total Protein 6.7 gm/dl (6.4-8.2) Albumin 3.3 gm/dl (3.4-5.0) Lipase 104 U/L (73-393) Laboratory results per my review. Medications Administered Medications (Trade) Dose Ordered Sig/Naeem Route Start Time Stop Time Status Last Admin Dose Admin Sodium Chloride 1,000 ml @ 999 mls/hr Q1H1M STAT IV 01/20/17 19:25 01/20/17 20:25 DC 01/20/17 20:18 999 MLS/HR ECG Indication: other (rectal bleeding) Rate (beats per minute): 60 Rhythm: sinus rhythm Findings: left axis deviation, no ectopy, other (poor baseline) ED Course ED COURSE: Vital signs were reviewed and showed hypertension The patients medical record was reviewed The above diagnostic studies were performed and reviewed. ED treatments and interventions as stated above. 1910: The patient was evaluated in room A11. A complete history and physical examination was performed. 1924: Sodium Chloride 1000 ml @ 999 mls/hr IV. 2101: I spoke to Dr. Mack. He recommends discussing with surgery at [facility]. 2110: I spoke to Dr. Loomis of [facility]. He will evaluate the patient for further management at [facility]. 2115: I updated the family. They are agreeable and excited to go [facility]. 2122: Upon reevaluation, the patient is doing well.I discussed my findings with the patient and she understands and agrees with the treatment plan. Based on the patients age, coexisting illnesses, exam and lab findings the decision to treat as an inpatient was made. The patient remained stable while under my care. The patient will be evaluated for further management. Medical Decision Differential diagnoses includes but is not limited to gastritis, peptic ulcer disease, GERD, gallbladder disease, pancreatitis, small bowel obstruction, acute coronary syndrome, pericarditis, ischemic bowel, irritable bowel disease, irritable bowel syndrome, appendicitis, diverticulitis, malignancy, hernia, urinary tract infection, torsion, perforation, trauma, infectious. Patient is a 77-year-old female who presents to the ER for a rectal prolapse and bright red blood per rectum which started earlier today. This is her third visit for this same issue. Recently admitted and discharged this past . Colonoscopy was within 1 month following which they favored bleeding was likely secondary to anastomosis but was not certain. Patient has been followed up with general surgery at [facility]/Dr. Tran. Initially upon presentation patient did pass out at bedside. Patient was lowered to the bed by . CBC shows a hemoglobin of 12.8. BMP all LFTs, bilirubin, troponin and lipase is unremarkable. INR was normal. No blood thinners. EKG was nondiagnostic. Discussed case with internal medicine and they recommended assessing with [facility] as she is scheduled to have surgery on Sunday. Patient was accepted to [facility] via colorectal surgery. Patient family were updated at bedside. Patient was transferred with syncope, GI bleed and a previous colorectal surgery for rectal prolapse around a year ago with intermittent GI bleed. Medication Reconcilliation Current Medication List: was personally reviewed by me Blood Pressure Screening Patient's blood pressure: Elevated blood pressure Blood pressure disposition: Elevated BP felt to be situational Consults Time Called: 2099 Consulting Physician: Dr. Frederick Antunez [facility] [place]ed Call: [address] Mack. He recommends discussing with surgery at [facility]. Additional Consults: Time Called: 2106 Consulted Physician: Dr. Vladislav Oneil Returned Call: 2110 Additional Comments: I spoke to Dr. Loomis of [facility]. He will evaluate the patient for further management at [facility]. Impression Primary Impression: GI bleed Additional Impressions: Rectal prolapse Syncope Scribe Attestation The scribe's documentation has been prepared under my direction and personally reviewed by me in its entirety. I confirm that the note above accurately reflects all work, treatment, procedures, and medical decision making performed by me. Departure Information Dispostion Transfer Acute Care Facility Referrals No Doctor, Assigned (PCP) Patient Instructions My [facility] Problem Qualifiers Primary Impression: GI bleed GI bleed type/associated pathology: unspecified gastrointestinal hemorrhage type Qualified Codes: K92.2 - Gastrointestinal hemorrhage, unspecified Additional Impressions: Syncope Syncope type: unspecified Qualified Codes: R55 - Syncope and collapse
[2017-01-20 22:39] VITALS: BP 158/79; PULSE 64; O2SAT 97
== END 2017-01-20 22:50 | disposition short-term general hospital (02) ==
LOC: C.EDB 19:03 → C.EDA 22:50
DX: K62.3 Rectal prolapse (principal); K92.2 Gastrointestinal hemorrhage, unspecified; R55 Syncope and collapse; G20 Parkinson's disease; F02.80 Dementia in other diseases classified elsewhere, unspecified severity, without behavioral disturbance, psychotic disturbance, mood disturbance, and anxiety; I10 Essential (primary) hypertension; D64.9 Anemia, unspecified; F31.9 Bipolar disorder, unspecified; Z79.899 Other long term (current) drug therapy

== ENCOUNTER 2017-02-12 20:56 | Inpatient (IN) | payer OTHER ==
[~2017-02-12] VITALS: Ht 152.4 cm; Wt 55.2 kg
--- NOTE | 2017-02-12 21:31 | EMERGENCY ROOM VISIT NOTE ---
History Report prepared by Sarah: Iza Jerry Under the Supervision of: Dr. Maxwell Devlin M.D. First contact with patient: 21:09 Chief Complaint: RECTAL PAIN Stated Complaint: RECTAL PROLAPSE History of Present Illness The patient is a 77 year old female who presents to the Emergency Room with complaints of persistent rectal pain that started earlier today. The patient rates her pain a 7/10 in severity. The patient has a history of a prolapsed rectum. She reports that she was here 1 month ago for similar symptoms and was sent to [facility] for further evaluation. She notes she had surgery in April 2016 but it only worked for a little while. Per the patient's daughter, the prolapsed rectum occurs almost every week. She notes that it has been happening persistently today. The patient's daughter reports that her stool was very black and solid today. Her last bowel movement was before coming to the ED. The patient states that her legs feel stiff and she is having a hard time moving them. The patient has a history of hernias. She states that she is experiencing abdominal pain. The patient denies any chills, vomiting, or fever. The patient is scheduled to see Dr. Ortega on Sunday. Source of History: patient, family Onset: earlier today Position: other (rectum) Symptom Intensity: 7/10 Timing: other (persistent) Associated Symptoms: + abdominal pain, No fevers, No chills, No vomiting Review of Systems See HPI for pertinent positives and negatives. A total of ten systems were reviewed and were otherwise negative. Past Medical & Surgical Medical Problems: (1) Anemia (2) Bipolar 1 disorder (3) Hemorrhoids (4) Hypertension (5) Rectal bleeding (6) Stomach problems Family History Hypertension Lung disease Social History Smoking Status: Never Smoker Alcohol Use: none Drug Use: none Marital Status: Housing Status: lives with family Occupation Status: retired Current/Historical Medications Scheduled Amlodipine Besylate (Norvasc), 5 MG PO QAM Bimatoprost (Lumigan), 1 DROP OPB HS Brimonidine Tartrate (Alphagan P Oph), 1 DROP OPB BID Carvedilol (Carvedilol), 1 TAB PO BID Clonazepam (Klonopin), 0.5 MG PO AMPM Docusate Sodium (Colace), 1 CAP PO BID Donepezil Hydrochloride (Aricept), 10 MG PO HS Ezetimibe (Zetia), 10 MG PO HS Ferrous Sulfate (Ferrous Sulfate), 325 MG PO BIDM Furosemide (Lasix), 1 TAB PO DAILY Lamotrigine (Lamictal), 200 MG PO DAILY Levodopa/Carbidopa (Sinemet 25MG/100MG), 1 TAB PO TID Potassium Chloride Microencaps (Klor-Con M15), 30 MEQ PO DAILY Quetiapine Fumarate (Seroquel), 100 MG PO HS Allergies Coded Allergies: [place] (Verified Allergy, Severe, SYSTEM TOXICITY, 02/12/17) Uncoded Allergies: YELLOW SQUASH (Allergy, Severe, ANAPHYLAXIS, 03/13/15) Physical Exam Vital Signs Date Time Temp Pulse Resp B/P (MAP) Pulse Ox O2 Delivery O2 Flow Rate FiO2 02/12/17 23:02 68 18 134/67 98 Room Air 02/12/17 21:04 36.5 71 18 129/77 95 Room Air Physical Exam GENERAL: Awake, alert, fatigued appearing, in no distress HENT: Normocephalic, atraumatic. Oropharynx unremarkable. EYES: Normal conjunctiva. Sclera non-icteric. NECK: Supple. No nuchal rigidity. FROM. No JVD. RESPIRATORY: Clear to auscultation. CARDIAC: Regular rate, normal rhythm. Extremities warm and well perfused. Pulses equal. ABDOMEN: Soft, non-distended. No tenderness to palpation. No rebound or guarding. No masses. RECTAL: No evidence of prolapse at this time, no tenderness to perianal area. No blood or melena. MUSCULOSKELETAL: Chest examination reveals no tenderness. The back is symmetrical on inspection without obvious abnormality. There is no CVA tenderness to palpation. No joint edema. LOWER EXTREMITIES: Calves are equal size bilaterally and non-tender. No edema. No discoloration. NEURO: Normal sensorium. No sensory or motor deficits noted. SKIN: No rash or jaundice noted. Medical Decision & Procedures ER Provider Diagnostic Interpretation: KUB X-RAY: Moderate stool burden, nonobstructive bowel gas pattern. Laboratory Results 02/12/17 23:50 Red Blood Count 4.42, Mean Corpuscular Volume 86.9, Mean Corpuscular Hemoglobin 29.0, Mean Corpuscular Hemoglobin Concent 33.3, Mean Platelet Volume 8.4, Neutrophils (%) (Auto) 61.2, Lymphocytes (%) (Auto) 28.1, Monocytes (%) (Auto) 8.7, Eosinophils (%) (Auto) 1.6, Basophils (%) (Auto) 0.3, Neutrophils # (Auto) 4.23, Lymphocytes # (Auto) 1.94, Monocytes # (Auto) 0.60, Eosinophils # (Auto) 0.11, Basophils # (Auto) 0.02 02/12/17 23:50 Test 02/12/17 23:50 White Blood Count 6.91 K/uL (4.8-10.8) Red Blood Count 4.42 M/uL (4.2-5.4) Hemoglobin 12.8 g/dL (12.0-16.0) Hematocrit 38.4 % (37-47) Mean Corpuscular Volume 86.9 fL (80-100) Mean Corpuscular Hemoglobin 29.0 pg (25-34) Mean Corpuscular Hemoglobin Concent 33.3 g/dl (32-36) Platelet Count 285 K/uL (130-400) Mean Platelet Volume 8.4 fL (7.4-10.4) Neutrophils (%) (Auto) 61.2 % Lymphocytes (%) (Auto) 28.1 % Monocytes (%) (Auto) 8.7 % Eosinophils (%) (Auto) 1.6 % Basophils (%) (Auto) 0.3 % Neutrophils # (Auto) 4.23 K/uL (1.4-6.5) Lymphocytes # (Auto) 1.94 K/uL (1.2-3.4) Monocytes # (Auto) 0.60 K/uL (0.11-0.59) Eosinophils # (Auto) 0.11 K/uL (0-0.5) Basophils # (Auto) 0.02 K/uL (0-0.2) RDW Standard Deviation 49.9 fL (36.4-46.3) RDW Coefficient of Variation 15.5 % (11.5-14.5) Immature Granulocyte % (Auto) 0.1 % Immature Granulocyte # (Auto) 0.01 K/uL (0.00-0.02) Anion Gap 8.0 mmol/L (3-11) Est Creatinine Clear Calc Drug Dose 41.0 ml/min Estimated GFR () 81.3 Estimated GFR (Non- 70.1 BUN/Creatinine Ratio 20.3 (10-20) Lactic Acid Level 0.9 mmol/L (0.4-2.0) Calcium Level 9.0 mg/dl (8.5-10.1) Total Bilirubin 0.3 mg/dl (0.2-1) Direct Bilirubin < 0.1 mg/dl (0-0.2) Aspartate Amino Transf (AST/SGOT) 11 U/L (15-37) Alanine Aminotransferase (ALT/SGPT) 7 U/L (12-78) Alkaline Phosphatase 86 U/L (45-117) Total Protein 6.6 gm/dl (6.4-8.2) Albumin 3.4 gm/dl (3.4-5.0) Lipase 167 U/L (73-393) Laboratory results reviewed by me Procedure Rectal prolapse reduction: Verbal consent obtained. 7cm prolapsed rectum successfully reduced with slow, symmetric gentle constant pressure. Patient tolerated well. No complications. ED Course 2108: The patient was evaluated in room A4B. A complete history and physical exam was performed. 2139: I reevaluated the patient. Discussed discharge instructions: She verbalized understanding and agreement. The patient is ready for discharge. 5: The patient was discharged but went to the bathroom and her rectum prolapsed. She was given an hour to see if it would reduce itself but it did not reduce. She will be evaluated for further treatment. 2355: The patient will be evaluated for further management [place] [facility] 0140: Lactate is normal. Medical Decision I reviewed the patient's past medical history, medications, and the nursing notes as described above. Differential diagnosis includes but is not limited to: rectal prolapse, constipation, hemorrhoids. Patient is a 77-year-old woman with a past medical history of rectal prolapse status post failure of repair in April it's emergency Department with report of persistent prolapse all day so is brought to emergency department. Upon arrival after sitting in the car on her way her prolapse is resolved. No tenderness in the perianal area and patient is at her current baseline. Initial plan was to follow up with GI, Dr. Ortega, as scheduled on Sunday. However, patient attempted to have BM and then and recurrence of her prolapse. Patient was given opportunity for spontaneous reduction when sitting but unsuccessful. Patient was re-evaluated and patient has 7cm prolapse of her rectum. Prolapse easily reduced with slow constant pressure. Given the ease of patient's signficant recurrent prolapse concern for safe discharge given risk of incarceration considering prolapse persistent all day today. Thus, patient admitted to medicine for further management and likely surgery/GI consultation. Case d/[place] with [place] Pimentel, [facility] [place] who admitted patient. Otherwise , labs unremarkable including lactate wnl. KUB preliminary interpretation with non-obstructive bowel gas pattern. Medication Reconcilliation Current Medication List: was personally reviewed by me Blood Pressure Screening Patient's blood pressure: Normal blood pressure Impression Primary Impression: Rectal prolapse Scribe Attestation The scribe's documentation has been prepared under my direction and personally reviewed by me in its entirety. I confirm that the note above accurately reflects all work, treatment, procedures, and medical decision making performed by me. Departure Information Dispostion Home / Self-Care Prescriptions Docusate Sodium (COLACE) 100 Mg Cap 1 CAP PO BID for 15 Days, #30 CAP Prov: Maxwell Devlin M.D. 02/12/17 Referrals No Doctor, Assigned (PCP) Alf Ortega M.D. Patient Instructions ED Prolapse Rectal, My [facility] Additional Instructions Please follow up with your GI specialist on Sunday as scheduled for re- evaluation. Otherwise, your exam did not show signs of an emergent condition at this time. Take Colace as directed for goal of soft stools to minimize straining with bowel movements. Return to the emergency department for worsening symptoms as described in the accompanying instructions.
[2017-02-12] MEDS ORDERED: DOCU-94 PO (21:39)
[2017-02-12] MEDS ORDERED: KLOR-CON PO (23:00)
[2017-02-13] VITALS (8 sets, daily range): BP systolic 58–174; BP diastolic 36–94; PULSE 59–92; TEMP 36.4–36.9; O2SAT 92–97; Ht 152.4 cm; Wt 55.2 kg
[2017-02-13 00:05] LABS: BASO % 0.3 %; BASO ABS # 0.02 K/uL (0-0.2); COMPLETE YES; EOS % 1.6 %; HEMATOCRIT 38.4 % (37-47); IG% 0.1 %; LYMPH % 28.1 %; LYMPH ABS # 1.94 K/uL (1.2-3.4); MEAN CELL VOLUME 86.9 fL (80-100); MEAN CORPUSCULAR HGB CONC 33.3 g/dl (32-36); MEAN PLATELET VOLUME 8.4 fL (7.4-10.4); MONO % 8.7 %; NEUT % 61.2 %; PLATELET COUNT 285 K/uL (130-400); RED BLOOD COUNT 4.42 M/uL (4.2-5.4); WHITE BLOOD COUNT 6.91 K/uL (4.8-10.8)
[2017-02-13] MEDS ORDERED: ONDANSETRON INJ 2 MG/ML 2 ML VIAL IV PRN (00:15)
[2017-02-13] MEDS ORDERED: CLONAZEPAM 0.5 MG TAB PO PRN (00:15)
[2017-02-13] MEDS ORDERED: POLYETHYLENE (MIRALAX) 17 GM PACK PO PRN (00:15)
[2017-02-13] MEDS ORDERED: MAGNESIUM HYDROXIDE SUSP 30 ML UDC PO PRN (00:15)
[2017-02-13] MEDS ORDERED: ALUMINUM/MAGNESIUM/SIMETH (MAALOX MAX) 30 ML UDC PO PRN (00:15)
[2017-02-13 00:30] LABS: ALT/SGPT 7 U/L (12-78); BLOOD UREA NITROGEN 16 mg/dl (7-18); BUN/CREATININE RATIO 20.3 (10-20); CARBON DIOXIDE 25 mmol/L (21-32); CHLORIDE 105 mmol/L (98-107); GLUCOSE 94 mg/dl (70-99); POTASSIUM 3.8 mmol/L (3.5-5.1); SODIUM 138 mmol/L (136-145)
[2017-02-13 00:32] LABS: ALKALINE PHOSPHATASE 86 U/L (45-117); AST/SGOT 11 U/L (15-37)
[2017-02-13] MEDS ORDERED: IV FLUIDS COMPLETED PRN (00:45)
--- NOTE | 2017-02-13 01:14 | History and Physical ---
History & Physical Date & Time of Service: Feb 13, 2017 at 01:04 Chief Complaint: Rectal Prolapse Primary Care Physician: Anais Bullard D.O. History of Present Illness Source: patient This is a 77 y/o F who presents with recurrent rectal prolapse, minor rectal bleeding and constipation. She has a history of rectal prolapse s/p repair in Apr 2016, hemorrhoids, Parkinson, dementia, bipolar and HTN. She was admitted in November for rectal bleeding. She underwent an EGD that was normal and a colonoscopy that showed polyps, diverticulosis and irritation around the previous rectal repair site. She was essentially sent home with aggressive bowel regimen and close follow up with GI. She returns today for the same and reports that she does not want to go back to [facility] to have surgical revision for the prolapse. She says that she has not been on any bowel regimen. Her daughters report that she can be a little confused at times due to her Parkinsons and can be tangential due to her bipolar Dz She has abdominal pain, minor rectal bleeding, constipation currently ROS otherwise negative. Past Medical/Surgical History Medical Problems: (1) Bipolar 1 disorder Status: Chronic (2) Hemorrhoids Status: Chronic (3) Hypertension Status: Chronic (4) Stomach problems Status: Chronic Family History Hypertension Lung disease Social History Smoking Status: Never Smoker Alcohol Use: none Drug Use: none Marital Status: Housing status: lives with significant other Occupational Status: retired Immunizations History of Influenza Vaccine: Unknown History of Tetanus Vaccine?: Unknown History of Pneumococcal: Unknown History of Hepatitis B Vaccine: Unknown Multi-Drug Resistant Organisms History of MDRO: No Allergies Coded Allergies: [place] (Verified Allergy, Severe, SYSTEM TOXICITY, 02/12/17) Uncoded Allergies: YELLOW SQUASH (Allergy, Severe, ANAPHYLAXIS, 03/13/15) Home Medications Scheduled Amlodipine Besylate (Norvasc), 5 MG PO QAM Bimatoprost (Lumigan), 1 DROP OPB HS Brimonidine Tartrate (Alphagan P Oph), 1 DROP OPB BID Carvedilol (Carvedilol), 1 TAB PO BID Clonazepam (Klonopin), 0.5 MG PO AMPM Docusate Sodium (Colace), 1 CAP PO BID Donepezil Hydrochloride (Aricept), 10 MG PO HS Ezetimibe (Zetia), 10 MG PO HS Ferrous Sulfate (Ferrous Sulfate), 325 MG PO BIDM Furosemide (Lasix), 1 TAB PO DAILY Lamotrigine (Lamictal), 200 MG PO DAILY Levodopa/Carbidopa (Sinemet 25MG/100MG), 1 TAB PO TID Potassium Chloride Microencaps (Klor-Con M15), 30 MEQ PO DAILY Quetiapine Fumarate (Seroquel), 100 MG PO HS Review of Systems Constitutional: + weakness, + fatigue, No fever, No chills, No sweats Respiratory: No cough, No sputum, No wheezing, No shortness of breath, No dyspnea on exertion, No dyspnea at rest Cardiovascular: No chest pain Abdomen: + pain, + constipation, + GI bleeding, + problem reported (rectal proplapse), No nausea, No vomiting, No diarrhea Genitourinary - Female: No dysuria, No urinary frequency, No urinary urgency Physical Exam Vital Signs Date Time Temp Pulse Resp B/P (MAP) Pulse Ox O2 Delivery O2 Flow Rate FiO2 02/12/17 23:02 68 18 134/67 98 Room Air 02/12/17 21:04 36.5 71 18 129/77 95 Room Air General Appearance: no apparent distress Eyes: PERRL, EOMI ENT: hearing grossly normal Neck: supple, thyroid normal Respiratory/Chest: lungs clear, normal breath sounds, no respiratory distress, no accessory muscle use Cardiovascular: regular rate, rhythm, no edema, no murmur, normal peripheral pulses Abdomen/GI: normal bowel sounds, + tenderness, + pertinent finding (No evidence of rectal prolapse during my exam. 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, no motor/sensory deficits, alert, oriented x 3 Diagnostics Laboratory Results Results Past 24 Hours Test 02/12/17 23:50 Range/Units White Blood Count 6.91 4.8-10.8 K/uL Red Blood Count 4.42 4.2-5.4 M/uL Hemoglobin 12.8 12.0-16.0 g/dL Hematocrit 38.4 37-47 % Mean Corpuscular Volume 86.9 80-100 fL Mean Corpuscular Hemoglobin 29.0 25-34 pg Mean Corpuscular Hemoglobin Concent 33.3 32-36 g/dl Platelet Count 285 130-400 K/uL Mean Platelet Volume 8.4 7.4-10.4 fL Neutrophils (%) (Auto) 61.2 % Lymphocytes (%) (Auto) 28.1 % Monocytes (%) (Auto) 8.7 % Eosinophils (%) (Auto) 1.6 % Basophils (%) (Auto) 0.3 % Neutrophils # (Auto) 4.23 1.4-6.5 K/uL Lymphocytes # (Auto) 1.94 1.2-3.4 K/uL Monocytes # (Auto) 0.60 0.11-0.59 K/uL Eosinophils # (Auto) 0.11 0-0.5 K/uL Basophils # (Auto) 0.02 0-0.2 K/uL RDW Standard Deviation 49.9 36.4-46.3 fL RDW Coefficient of Variation 15.5 11.5-14.5 % Immature Granulocyte % (Auto) 0.1 % Immature Granulocyte # (Auto) 0.01 0.00-0.02 K/uL Sodium Level 138 136-145 mmol/L Potassium Level 3.8 3.5-5.1 mmol/L Chloride Level 105 98-107 mmol/L Carbon Dioxide Level 25 21-32 mmol/L Anion Gap 8.0 3-11 mmol/L Blood Urea Nitrogen 16 7-18 mg/dl Creatinine 0.80 0.60-1.20 mg/dl Est Creatinine Clear Calc Drug Dose 41.0 ml/min Estimated GFR () 81.3 Estimated GFR (Non- 70.1 BUN/Creatinine Ratio 20.3 10-20 Random Glucose 94 70-99 mg/dl Lactic Acid Level 0.9 0.4-2.0 mmol/L Calcium Level 9.0 8.5-10.1 mg/dl Total Bilirubin 0.3 0.2-1 mg/dl Direct Bilirubin < 0.1 0-0.2 mg/dl Aspartate Amino Transf (AST/SGOT) 11 15-37 U/L Alanine Aminotransferase (ALT/SGPT) 7 12-78 U/L Alkaline Phosphatase 86 45-117 U/L Total Protein 6.6 6.4-8.2 gm/dl Albumin 3.4 3.4-5.0 gm/dl Lipase 167 73-393 U/L Impression Assessment and Plan This is a 77 y/o F who presents with recurrent rectal prolapse and chronic constipation Rectal prolapse/ Chronic Constipation. Needs repeat surgical repair- can be done at [facility] if patient does not want [facility] Consult GI / Dr. Ortega whom she sees outpatient Fecal retention as seen on KUB Senokot + miralax Rectal Bleeding. H/H stable on admission- will repeat AM HTN Norvasc 5 mg Carvedilol 3.125 bid Parkinson's dementia Carbidopa/levodopa Donepezil Bipolar Dz Lamotrigine Seroquel DVT proph Held due to rectal bleeding MIKE, SCD Code: FUll Attending Addendum: I have physically seen and examined this patient, have directed the resident's medical activities, and agree with the H&P as noted above with the following exceptions as noted. The patient is awake, alert and oriented 3, well-developed and well-nourished , normocephalic and atraumatic, lying in bed and in no acute distress. HEENT--PERRL, EOMI, mucous membranes and oropharynx dry. Neck--supple, no JVD or bruits, thyroid normal, trachea midline, no adenopathy. Heart--normal S1 and S2, no extra beats, no murmurs, rubs or gallops. Lungs--clear bilaterally with good air movement, no respiratory distress, no accessory muscle use. Abdomen--normal bowel sounds and soft. Mild lower quadrant tenderness. nondistended. Rectal prolapse had already been reduced by ED. Extremities--no cyanosis, clubbing or edema. There are good distal pulses b/l. Dermatologic--normal skin turgor, normal color, warm and dry, no abnormal lymph nodes, no rash. Neurologic--cranial nerves II through XII grossly intact. Rheumatologic--normal range of motion. Psychiatric--normal affect. Assessment and Plan: Recurrent rectal prolapse/chronic constipation-- Initial surgical repair performed at [facility], but now patient prefers another facility, such as [facility]. Consult her can vacuum tester Dr. Ortega. Improve bowel regimen with Senokot and MiraLAX. Hypertension-- Continue Norvasc 5 mg by mouth daily and carvedilol 3.125 mg by mouth twice a day with hold parameters. Parkinson's-- Continue carbidopa/levodopa and donepezil at current doses. Bipolar disorder-- Continue lamotrigine and Seroquel at current dosages. Level of Care Med/Surg Advanced Directives Existing Advance Directive: No Existing Living Will: No Existing Power of Weight Tester: No Resuscitation Status FULL RESUSCITATION VTE Prophylaxis VTE Risk Assessment Done? Y/N: Yes Risk Level: Moderate Given or contraindicated: SCD's Social Service Consult None Apply
[2017-02-13 06:14] LABS: HEMATOCRIT 37.3 % (37-47)
--- NOTE | 2017-02-13 06:39 | DIAGNOSTIC IMAGING REPORT ---
KUB CLINICAL HISTORY: rectal prolapse pain COMPARISON STUDY: No previous studies for comparison. FINDINGS: Increased fecal load throughout the colon consistent with fecal stasis. No evidence of bowel distention or obstructive change. No secondary signs of free air. IMPRESSION: Increased fecal load throughout the colon consistent with fecal stasis. The above report was generated using voice recognition software. It may contain grammatical, syntax or spelling errors. Electronically signed by: Ronny Jasso M.D. 02/13/2017 6:38 AM Dictated Date/Time: 02/13/2017 6:37 AM
[2017-02-13] MEDS: FERROUS SULFATE 325 MG TAB PO SCH ×2 (08:57→18:24)
[2017-02-13] MEDS: FUROSEMIDE 40 MG TAB PO SCH (08:58)
[2017-02-13] MEDS: CARBIDOPA/LEVODOPA 25/100MG TAB PO SCH ×3 (08:59→21:22)
[2017-02-13] MEDS: SENNA 8.6 MG TAB PO SCH (09:00)
[2017-02-13] MEDS: AMLODIPINE BESYLATE 5 MG TAB PO SCH (09:00)
[2017-02-13] MEDS: CARVEDILOL 3.125 MG TAB PO SCH ×2 (09:01→21:22)
[2017-02-13] MEDS: BRIMONIDINE TARTRATE 0.1% OPH SOLN OPB SCH ×2 (09:02→21:21)
[2017-02-13] MEDS: POTASSIUM CHLORIDE 10 MEQ TABCR PO SCH (09:02)
[2017-02-13 11:29] LABS: URINE APPEARANCE CLEAR (CLEAR); URINE BILIRUBIN NEG (NEG); URINE COLOR YELLOW; URINE NITRITE NEG (NEG); UROBILINOGEN NEG (NEG); ZZUR CULT IF INDIC CLEAN CATCH NO
[2017-02-13 11:35] LABS: MANUAL MICROSCOPIC REQUIRED? NO; REVIEW REQ? NO
--- NOTE | 2017-02-13 14:23 | Family Medicine Progress Note ---
Progress Note Date of Service Feb 13, 2017. Subjective Pt evaluation today including: conversation w/ patient Pain: mild abdominal pain 77-year-old female with a history of rectal prolapse status post repair in April 2016, Parkinson's, dementia, bipolar disorder, hypertension presented with recurrent rectal prolapse. Complains of mild abdominal pain and straining this morning have a bowel movement Constitutional: No fever, No chills Eyes: No worsening of vision Respiratory: No cough Cardiovascular: No chest pain Abdomen: + pain (mild), + constipation, No vomiting Musculoskeletal: No joint pain Female : No dysuria Neurologic: No memory loss Medications Current Inpatient Medications Medications (Trade) Dose Ordered Sig/Naeem Route Start Time Stop Time Status Last Admin Dose Admin Acetaminophen (Tylenol Tab) 650 mg Q4H PRN PO 02/13/17 00:15 03/15/17 00:14 Al Hydrox/Mg Hydrox/Simethicone (Maalox Max Susp) 15 ml Q4H PRN PO 02/13/17 00:15 03/15/17 00:14 Magnesium Hydroxide (Milk Of Magnesia Susp) 30 ml Q6H PRN PO 02/13/17 00:15 03/15/17 00:14 Polyethylene (Miralax Powder Packet) 17 gm DAILY PRN PO 02/13/17 00:15 03/15/17 00:14 Ondansetron HCl (Zofran Inj) 4 mg Q6H PRN IV 02/13/17 00:15 03/15/17 00:14 Amlodipine Besylate (Norvasc Tab) 5 mg QAM PO 02/13/17 09:00 03/15/17 08:59 02/13/17 09:00 5 MG Carvedilol (Coreg Tab) 3.125 mg BID PO 02/13/17 09:00 03/15/17 08:59 02/13/17 09:01 3.125 MG Clonazepam (Klonopin Tab) 0.5 mg HS PRN PO 02/13/17 00:15 03/15/17 00:14 Docusate Sodium (coLACE CAP) 100 mg BID PO 02/13/17 09:00 03/15/17 08:59 Future Hold Donepezil HCl (Aricept Tab) 10 mg HS PO 02/13/17 21:00 03/15/17 20:59 EZETIMIBE (Zetia Tab) 10 mg HS PO 02/13/17 21:00 03/15/17 20:59 Ferrous Sulfate (Feosol Tab) 325 mg BIDM PO 02/13/17 08:00 03/15/17 07:59 02/13/17 08:57 325 MG Furosemide (Lasix Tab) 40 mg DAILY PO 02/13/17 09:00 03/15/17 08:59 02/13/17 08:58 40 MG Lamotrigine (Lamictal Tab) 200 mg DAILY PO 02/13/17 09:00 03/15/17 08:59 02/13/17 09:01 200 MG Carbidopa/Levodopa (Sinemet 25/ 100MG Tab) 1 tab TID PO 02/13/17 09:00 03/15/17 08:59 02/13/17 13:28 1 TAB Quetiapine Fumarate (seroQUEL TAB) 100 mg HS PO 02/13/17 21:00 03/15/17 20:59 Potassium Chloride (Klor-Con M10) 30 meq DAILY PO 02/13/17 09:00 03/15/17 08:59 02/13/17 09:02 30 MEQ Miscellaneous (Iv Fluids Completed) 1 ea PRN PRN N/A 02/13/17 00:45 02/13/18 00:44 Senna (Senokot Tab) 8.6 mg QAM PO 02/13/17 09:00 03/15/17 08:59 02/13/17 09:00 8.6 MG Bimatoprost (Lumigan 0.01%) 1 drops HS OPB 02/13/17 21:00 03/15/17 20:59 Brimonidine Tartrate (Alphagan-P 0.1% Oph Solution) 1 drop BID OPB 02/13/17 09:00 03/15/17 08:59 02/13/17 09:02 1 DROP Objective Vital Signs Date Time Temp Pulse Resp B/P (MAP) Pulse Ox O2 Delivery O2 Flow Rate FiO2 02/13/17 13:26 147/76 (99) 02/13/17 08:58 20 02/13/17 08:56 36.9 61 170/88 (115) 97 Room Air 02/13/17 07:45 Room Air 02/13/17 03:20 Room Air 02/13/17 01:45 62 20 102/66 95 02/13/17 01:34 62 20 102/66 95 Room Air 02/13/17 01:27 36.5 59 18 133/66 97 Room Air 02/12/17 23:02 68 18 134/67 98 Room Air 02/12/17 21:04 36.5 71 18 129/77 95 Room Air Physical Exam General Appearance: WD/WN Neck: supple Respiratory/Chest: lungs clear, normal breath sounds Cardiovascular: regular rate, rhythm Abdomen: + tenderness Extremities: no pedal edema Neurologic/Psychiatric: alert, normal mood/affect, oriented x 3 Laboratory Results 02/12/17 23:50 Red Blood Count 4.42, Mean Corpuscular Volume 86.9, Mean Corpuscular Hemoglobin 29.0, Mean Corpuscular Hemoglobin Concent 33.3, Mean Platelet Volume 8.4, Neutrophils (%) (Auto) 61.2, Lymphocytes (%) (Auto) 28.1, Monocytes (%) (Auto) 8.7, Eosinophils (%) (Auto) 1.6, Basophils (%) (Auto) 0.3, Neutrophils # (Auto) 4.23, Lymphocytes # (Auto) 1.94, Monocytes # (Auto) 0.60, Eosinophils # (Auto) 0.11, Basophils # (Auto) 0.02 02/13/17 05:56 02/12/17 23:50 Test 02/12/17 23:50 02/13/17 11:20 White Blood Count 6.91 K/uL (4.8-10.8) Red Blood Count 4.42 M/uL (4.2-5.4) Hemoglobin 12.8 g/dL (12.0-16.0) Hematocrit 38.4 % (37-47) Mean Corpuscular Volume 86.9 fL (80-100) Mean Corpuscular Hemoglobin 29.0 pg (25-34) Mean Corpuscular Hemoglobin Concent 33.3 g/dl (32-36) Platelet Count 285 K/uL (130-400) Mean Platelet Volume 8.4 fL (7.4-10.4) Neutrophils (%) (Auto) 61.2 % Lymphocytes (%) (Auto) 28.1 % Monocytes (%) (Auto) 8.7 % Eosinophils (%) (Auto) 1.6 % Basophils (%) (Auto) 0.3 % Neutrophils # (Auto) 4.23 K/uL (1.4-6.5) Lymphocytes # (Auto) 1.94 K/uL (1.2-3.4) Monocytes # (Auto) 0.60 K/uL (0.11-0.59) Eosinophils # (Auto) 0.11 K/uL (0-0.5) Basophils # (Auto) 0.02 K/uL (0-0.2) RDW Standard Deviation 49.9 fL (36.4-46.3) RDW Coefficient of Variation 15.5 % (11.5-14.5) Immature Granulocyte % (Auto) 0.1 % Immature Granulocyte # (Auto) 0.01 K/uL (0.00-0.02) Anion Gap 8.0 mmol/L (3-11) Est Creatinine Clear Calc Drug Dose 41.0 ml/min Estimated GFR () 81.3 Estimated GFR (Non- 70.1 BUN/Creatinine Ratio 20.3 (10-20) Lactic Acid Level 0.9 mmol/L (0.4-2.0) Calcium Level 9.0 mg/dl (8.5-10.1) Total Bilirubin 0.3 mg/dl (0.2-1) Direct Bilirubin < 0.1 mg/dl (0-0.2) Aspartate Amino Transf (AST/SGOT) 11 U/L (15-37) Alanine Aminotransferase (ALT/SGPT) 7 U/L (12-78) Alkaline Phosphatase 86 U/L (45-117) Total Protein 6.6 gm/dl (6.4-8.2) Albumin 3.4 gm/dl (3.4-5.0) Lipase 167 U/L (73-393) Urine Color YELLOW Urine Appearance CLEAR (CLEAR) Urine pH 6.0 (4.5-7.5) Urine Specific Luther 1.010 (1.000-1.030) Urine Protein NEG (NEG) Urine Glucose (UA) NEG (NEG) Urine Ketones NEG (NEG) Urine Occult Blood NEG (NEG) Urine Nitrite NEG (NEG) Urine Bilirubin NEG (NEG) Urine Urobilinogen NEG (NEG) Urine Leukocyte Esterase NEG (NEG) Assessment and Plan This is a 77 y/o F who presents with recurrent rectal prolapse and chronic constipation History of rectal prolapse status post repair/chronic constipation - KUB suggestive of fecal retention - Bowel regimen initiated - GI consult pending currently - She will need to follow up with [facility] for repeat surgical repair as she has declined going to [facility] where she had her original surgery. - Hemoglobin stable Hypertension - Continue Norvasc 5 mg and Carvedilol 3.125 bid Parkinson's dementia Continue Sinemet and Donepezil Bipolar disorder: - Continue Lamictal and Seroquel DVT prophylaxis MIKE, SCD Code: FUll Resident Physician Supervision Note: I was present with Dr. Patel during the history and exam. I discussed the case with the resident and agree with the findings and plan as documented in the note. Upon my examination might this morning, patient had some mild lower abdominal tenderness bilaterally without rebound or guarding. Upon inspection of the rectal area, a significant prolapse was not appreciated but there was considerable amount of stool in her underwear and her rectal area. Additionally , there is no family present at time to confirm the history the patient relays. Will await gastroenterology input, and attempted to confirm history, and continue a bowel regimen. Documented By: Jose Sagastume Resident Tracking Resident Involvement: Resident Care Provided Care Provided: Adult Hospital Medicine
--- NOTE | 2017-02-13 17:44 | GASTROINTESTINAL CONSULTATION ---
DATE OF CONSULTATION: 02/13/2017 The patient presents to the hospital with recurrent rectal prolapse. HISTORY OF PRESENT ILLNESS: The patient is a 77-year-old, who has had a recurrent rectal prolapse. She has had 2 operations at [facility] in [place] to correct the problem, last one being in April 2016. Despite these surgeries and revisions, she has recurrent prolapse, particularly after moving her bowels. She presented to the hospital early this morning with recurrent rectal prolapse. It did not spontaneously reduce and the patient is afraid to manually reduce it and subsequently was admitted to the hospital. Since then, her prolapse has abated and she has had a couple of soft bowel movements since being in the hospital without recurrence of the acute prolapse. She did have an appointment to see me tomorrow in the office to arrange for surgical intervention. I offered her the opportunity to go back to [facility], where the surgeons operated on her previously, but she is not willing to do that. She would prefer to go to [place], but does want to go on an ambulance. As a compromise, I offered to arrange for her to be seen in the outpatient clinic by one of the [facility] colorectal surgeons to do an initial evaluation and then arrange for surgery at [facility] at a later date. PAST MEDICAL HISTORY: Remarkable for hypertension, hemorrhoids, rectal prolapse and bipolar disorder. MEDICATIONS: Include Norvasc, Lumigan, Alphagan, carvedilol, Klonopin, Colace, Aricept, Zetia, iron, Lasix, Lamictal, Sinemet, Klor-Con, and Seroquel. ALLERGIES: LITHIUM AND YELLOW SQUASH. FAMILY HISTORY: Positive for lung disease and hypertension. SOCIAL HISTORY: The patient is . She does not smoke. Apparently, her is hospitalized at this time and usually signs for her. She is retired. REVIEW OF SYSTEMS: Positive for confusion and weakness. Remainder is negative. PHYSICAL EXAMINATION: GENERAL: The patient appears somewhat disheveled, but in no acute distress. VITAL SIGNS: Normal. She is afebrile. ABDOMEN: Shows no masses or tenderness. PERIANAL: Exam shows no perianal disease and no obvious prolapse at this point in time. IMPRESSION: The patient has recurrent rectal prolapse. I instructed her and techniques for manually decompressing the prolapsed rectum if it recurs. Since this is not an acute problem, we can probably arrange for her to have an outpatient evaluation and surgical repair of recurrent prolapse as she is unwilling to be transferred to hospital, where the colorectal surgeon at this time.
[2017-02-13] MEDS ORDERED: BIMATOPROST 0.01% OP SOLN 2.5 ML BTL OPB SCH (21:00)
[2017-02-13] MEDS: BIMATOPROST 0.01% OP SOLN 2.5 ML BTL OPB SCH (21:21)
[2017-02-13] MEDS: DONEPEZIL HCL 10 MG TAB PO SCH (21:21)
[2017-02-13] MEDS: EZETIMIBE 10MG TAB PO SCH (21:22)
[2017-02-13] MEDS: QUETIAPINE FUMARATE 100 MG TAB PO SCH (21:22)
[2017-02-14] VITALS (10 sets, daily range): BP systolic 65–156; BP diastolic 43–82; PULSE 51–68; TEMP 36.3–36.6; O2SAT 93–97
[2017-02-14] MEDS ORDERED: SODIUM CHLORIDE 0.9% 10ML FLUSH IV ONE (07:23)
[2017-02-14] MEDS ORDERED: METOPROLOL TARTRATE 1 MG/ML VIAL IV. ONE (07:23)
[2017-02-14 08:50] LABS: CALCIUM 8.9 mg/dl (8.5-10.1); CREATININE 1.11 mg/dl (0.60-1.20); POTASSIUM 3.6 mmol/L (3.5-5.1)
[2017-02-14] MEDS: CARBIDOPA/LEVODOPA 25/100MG TAB PO SCH ×3 (08:59→20:48)
[2017-02-14] MEDS: FUROSEMIDE 40 MG TAB PO SCH (08:59)
[2017-02-14] MEDS: POTASSIUM CHLORIDE 10 MEQ TABCR PO SCH (09:00)
[2017-02-14] MEDS: CARVEDILOL 3.125 MG TAB PO SCH ×2 (09:00→20:47)
[2017-02-14] MEDS: SENNA 8.6 MG TAB PO SCH (09:01)
[2017-02-14] MEDS: AMLODIPINE BESYLATE 5 MG TAB PO SCH (09:01)
[2017-02-14] MEDS: BRIMONIDINE TARTRATE 0.1% OPH SOLN OPB SCH ×2 (09:02→20:46)
[2017-02-14] MEDS: FERROUS SULFATE 325 MG TAB PO SCH ×2 (09:02→18:23)
--- NOTE | 2017-02-14 12:57 | Family Medicine Progress Note ---
Progress Note Date of Service Feb 14, 2017. Subjective Pt evaluation today including: conversation w/ patient, physical exam, chart review, lab review Pain: mild abdominal pain PO Intake: good Constitutional: No fever Eyes: No worsening of vision ENT: No hearing loss Respiratory: No cough, No sputum Cardiovascular: No chest pain Abdomen: + constipation, + problem reported (rectal prolapse) Female : No dysuria, No urinary frequency Psychiatric: No depression symptoms Endo: No fatigue Medications Current Inpatient Medications Medications (Trade) Dose Ordered Sig/Naeem Route Start Time Stop Time Status Last Admin Dose Admin Acetaminophen (Tylenol Tab) 650 mg Q4H PRN PO 02/13/17 00:15 03/15/17 00:14 Al Hydrox/Mg Hydrox/Simethicone (Maalox Max Susp) 15 ml Q4H PRN PO 02/13/17 00:15 03/15/17 00:14 Magnesium Hydroxide (Milk Of Magnesia Susp) 30 ml Q6H PRN PO 02/13/17 00:15 03/15/17 00:14 Polyethylene (Miralax Powder Packet) 17 gm DAILY PRN PO 02/13/17 00:15 03/15/17 00:14 Ondansetron HCl (Zofran Inj) 4 mg Q6H PRN IV 02/13/17 00:15 03/15/17 00:14 Amlodipine Besylate (Norvasc Tab) 5 mg QAM PO 02/13/17 09:00 03/15/17 08:59 02/14/17 09:01 5 MG Carvedilol (Coreg Tab) 3.125 mg BID PO 02/13/17 09:00 03/15/17 08:59 02/14/17 09:00 3.125 MG Clonazepam (Klonopin Tab) 0.5 mg HS PRN PO 02/13/17 00:15 03/15/17 00:14 Docusate Sodium (coLACE CAP) 100 mg BID PO 02/13/17 09:00 03/15/17 08:59 Future Hold Donepezil HCl (Aricept Tab) 10 mg HS PO 02/13/17 21:00 03/15/17 20:59 02/13/17 21:21 10 MG EZETIMIBE (Zetia Tab) 10 mg HS PO 02/13/17 21:00 03/15/17 20:59 02/13/17 21:22 10 MG Ferrous Sulfate (Feosol Tab) 325 mg BIDM PO 02/13/17 08:00 03/15/17 07:59 02/14/17 09:02 325 MG Furosemide (Lasix Tab) 40 mg DAILY PO 02/13/17 09:00 03/15/17 08:59 02/14/17 08:59 40 MG Lamotrigine (Lamictal Tab) 200 mg DAILY PO 02/13/17 09:00 03/15/17 08:59 02/14/17 09:01 200 MG Carbidopa/Levodopa (Sinemet 25/ 100MG Tab) 1 tab TID PO 02/13/17 09:00 03/15/17 08:59 02/14/17 08:59 1 TAB Quetiapine Fumarate (seroQUEL TAB) 100 mg HS PO 02/13/17 21:00 03/15/17 20:59 02/13/17 21:22 100 MG Potassium Chloride (Klor-Con M10) 30 meq DAILY PO 02/13/17 09:00 03/15/17 08:59 02/14/17 09:00 30 MEQ Miscellaneous (Iv Fluids Completed) 1 ea PRN PRN N/A 02/13/17 00:45 02/13/18 00:44 Senna (Senokot Tab) 8.6 mg QAM PO 02/13/17 09:00 03/15/17 08:59 02/14/17 09:01 8.6 MG Bimatoprost (Lumigan 0.01%) 1 drops HS OPB 02/13/17 21:00 03/15/17 20:59 02/13/17 21:21 1 DROPS Brimonidine Tartrate (Alphagan-P 0.1% Oph Solution) 1 drop BID OPB 02/13/17 09:00 03/15/17 08:59 02/14/17 09:02 1 DROP Objective Vital Signs Date Time Temp Pulse Resp B/P (MAP) Pulse Ox O2 Delivery O2 Flow Rate FiO2 02/14/17 09:00 68 02/14/17 07:45 Room Air 02/14/17 06:51 36.3 55 16 137/72 (93) 95 Room Air 02/14/17 03:13 64 101/60 (74) 02/14/17 00:15 82/46 (58) 02/13/17 23:50 86/46 (59) 75/41 (52) 02/13/17 23:40 Room Air 02/13/17 22:45 36.4 60 16 58/36 (43) 92 Room Air 61 72/40 (51) 02/13/17 21:17 92 160/93 (115) 95 Room Air 02/13/17 15:30 Room Air 02/13/17 15:29 151/90 (110) 02/13/17 14:57 36.6 65 18 174/94 (120) 93 Room Air 02/13/17 13:26 147/76 (99) Physical Exam General Appearance: WD/WN, no apparent distress ENT: hearing grossly normal Neck: supple Respiratory/Chest: lungs clear, normal breath sounds Cardiovascular: regular rate, rhythm Abdomen: soft, + pertinent finding (prolapsed rectum , healthy looking. covered in stool) Laboratory Results 02/14/17 07:40 Test 02/14/17 07:40 Anion Gap 9.0 mmol/L (3-11) Est Creatinine Clear Calc Drug Dose 29.5 ml/min Estimated GFR () 54.7 Estimated GFR (Non- 47.2 BUN/Creatinine Ratio 21.0 (10-20) Calcium Level 8.9 mg/dl (8.5-10.1) Assessment and Plan This is a 77 y/o F who presents with recurrent rectal prolapse and chronic constipation. The prolapse was reduced today. Spoke to the daughter, Vivian about getting an outpatient consultation with colorectal surgery for repair of rectal prolapse. History of rectal prolapse status post repair/chronic constipation - KUB suggestive of fecal retention - Bowel regimen initiated - GI consult- recommends OP colorectal surgery consult - She will need to follow up with [facility] for repeat surgical repair as she has declined going to [facility] where she had her original surgery. - Hemoglobin stable Hypertension - Continue Norvasc 5 mg and Carvedilol 3.125 bid Parkinson's dementia Continue Sinemet and Donepezil Bipolar disorder: - Continue Lamictal and Seroquel DVT prophylaxis MIKE, SCD Code: FUll Social: the patient's is scheduled for bypass surgery and family is concerned about providing care to her (in regards to reducing the rectal prolapse) if discharged home. discussed about short term correction option until Father's surgery done. CM following. Resident Physician Supervision Note: I was present with Dr. Patel during the history and exam. I discussed the case with the resident and agree with the findings and plan as documented in the note. Any exceptions or clarifications are listed here: Upon my examination this morning, there was a moderate rectal prolapse. I was able to manually reduce, with some difficulty, and minimal patient discomfort. The patient's youngest daughter was present today and we discussed the logistical possibilities regarding discharge. Unfortunately this patient's primary caregiver is to undergo cardiac vascular surgery next few days and is not clear at this time if she would've appropriate care at home. One possibility would be correction placement, although the daughter did think she would be able to get another family at home to care for the patient. Ultimately, she needs an outpatient appointment with colorectal surgery for evaluation and possible scheduling of surgery at [facility]. Documented By: Jose Sagastume Resident Tracking Resident Involvement: Resident Care Provided Care Provided: Adult Hospital Medicine
--- NOTE | 2017-02-14 13:21 | GASTROENTEROLOGY PROGRESS NOTE ---
DATE: 02/14/2017 DATE: 02/14/2017 SUBJECTIVE: The patient has rectal prolapse, recurrent after 2 operations at [facility]. After I talked to her yesterday, she was unwilling to go back to [employer] and wanted to be evaluated at [facility]. I talked to her about getting an outpatient evaluation set up in the [place] area and then if surgery is needed she could go to [facility]. Since I spoke to her it has come to light that her is in need of having bypass surgery and she may need to be in respite care until he recovers. IMPRESSION: The patient has recurrent rectal prolapse. I agree with short term respite care while her is recovering from heart surgery. We can arrange for outpatient evaluation for her rectal prolapse at our [place] office in [place] with one of the colorectal surgeons from [facility] after she is discharged from the hospital.
[2017-02-14] MEDS: ACETAMINOPHEN 325 MG TAB PO PRN (16:03)
[2017-02-14] MEDS: BIMATOPROST 0.01% OP SOLN 2.5 ML BTL OPB SCH (20:46)
[2017-02-14] MEDS: DONEPEZIL HCL 10 MG TAB PO SCH (20:47)
[2017-02-14] MEDS: EZETIMIBE 10MG TAB PO SCH (20:47)
[2017-02-14] MEDS: QUETIAPINE FUMARATE 100 MG TAB PO SCH (20:47)
[2017-02-14] MEDS ORDERED: NURSING VERBAL MED ORDER ONE (22:30)
[2017-02-14] MEDS ORDERED: SODIUM CHLORIDE 0.9% 500ML 500 ML IV ONE (22:45)
[2017-02-15 07:32] VITALS: BP 161/75; PULSE 55; TEMP 36.4; O2SAT 97
[2017-02-15 07:46] LABS: BUN/CREATININE RATIO 19.2 (10-20); CALCIUM 8.7 mg/dl (8.5-10.1); CREATININE 0.94 mg/dl (0.60-1.20); POTASSIUM 3.4 mmol/L (3.5-5.1)
[2017-02-15] MEDS: POTASSIUM CHLORIDE 10 MEQ TABCR PO SCH (08:53)
[2017-02-15] MEDS: CARBIDOPA/LEVODOPA 25/100MG TAB PO SCH ×3 (08:53→20:33)
[2017-02-15] MEDS: AMLODIPINE BESYLATE 5 MG TAB PO SCH (08:54)
[2017-02-15] MEDS: FERROUS SULFATE 325 MG TAB PO SCH ×2 (08:54→17:45)
[2017-02-15] MEDS: BRIMONIDINE TARTRATE 0.1% OPH SOLN OPB SCH ×2 (08:54→20:34)
[2017-02-15] MEDS: FUROSEMIDE 40 MG TAB PO SCH (08:54)
[2017-02-15] MEDS: CARVEDILOL 3.125 MG TAB PO SCH ×2 (08:54→20:34)
[2017-02-15] MEDS: SENNA 8.6 MG TAB PO SCH (08:54)
--- NOTE | 2017-02-15 10:34 | Family Medicine Progress Note ---
Progress Note Date of Service Feb 15, 2017. Subjective Pt evaluation today including: conversation w/ patient, physical exam, chart review, review of studies has had several BM in the last couple days. denies abdominal pain, rectal bleeding Constitutional: No fever, No chills ENT: No hearing loss Respiratory: No cough Cardiovascular: No chest pain Abdomen: + constipation, No pain, No nausea Female : No dysuria Neurologic: No memory loss Psychiatric: No depression symptoms Heme: No abnormal bleeding/bruising Medications Current Inpatient Medications Medications (Trade) Dose Ordered Sig/Naeem Route Start Time Stop Time Status Last Admin Dose Admin Acetaminophen (Tylenol Tab) 650 mg Q4H PRN PO 02/13/17 00:15 03/15/17 00:14 02/14/17 16:03 650 MG Al Hydrox/Mg Hydrox/Simethicone (Maalox Max Susp) 15 ml Q4H PRN PO 02/13/17 00:15 03/15/17 00:14 Magnesium Hydroxide (Milk Of Magnesia Susp) 30 ml Q6H PRN PO 02/13/17 00:15 03/15/17 00:14 Polyethylene (Miralax Powder Packet) 17 gm DAILY PRN PO 02/13/17 00:15 03/15/17 00:14 Ondansetron HCl (Zofran Inj) 4 mg Q6H PRN IV 02/13/17 00:15 03/15/17 00:14 Amlodipine Besylate (Norvasc Tab) 5 mg QAM PO 02/13/17 09:00 03/15/17 08:59 02/15/17 08:54 5 MG Carvedilol (Coreg Tab) 3.125 mg BID PO 02/13/17 09:00 03/15/17 08:59 02/15/17 08:54 3.125 MG Clonazepam (Klonopin Tab) 0.5 mg HS PRN PO 02/13/17 00:15 03/15/17 00:14 Docusate Sodium (coLACE CAP) 100 mg BID PO 02/13/17 09:00 03/15/17 08:59 Future Hold Donepezil HCl (Aricept Tab) 10 mg HS PO 02/13/17 21:00 03/15/17 20:59 02/14/17 20:47 10 MG EZETIMIBE (Zetia Tab) 10 mg HS PO 02/13/17 21:00 03/15/17 20:59 02/14/17 20:47 10 MG Ferrous Sulfate (Feosol Tab) 325 mg BIDM PO 02/13/17 08:00 03/15/17 07:59 02/15/17 08:54 325 MG Furosemide (Lasix Tab) 40 mg DAILY PO 02/13/17 09:00 03/15/17 08:59 02/15/17 08:54 40 MG Lamotrigine (Lamictal Tab) 200 mg DAILY PO 02/13/17 09:00 03/15/17 08:59 02/15/17 08:54 200 MG Carbidopa/Levodopa (Sinemet 25/ 100MG Tab) 1 tab TID PO 02/13/17 09:00 03/15/17 08:59 02/15/17 12:49 1 TAB Quetiapine Fumarate (seroQUEL TAB) 100 mg HS PO 02/13/17 21:00 03/15/17 20:59 02/14/17 20:47 100 MG Potassium Chloride (Klor-Con M10) 30 meq DAILY PO 02/13/17 09:00 03/15/17 08:59 02/15/17 08:53 30 MEQ Miscellaneous (Iv Fluids Completed) 1 ea PRN PRN N/A 02/13/17 00:45 02/13/18 00:44 Senna (Senokot Tab) 8.6 mg QAM PO 02/13/17 09:00 03/15/17 08:59 02/15/17 08:54 8.6 MG Bimatoprost (Lumigan 0.01%) 1 drops HS OPB 02/13/17 21:00 03/15/17 20:59 02/14/17 20:46 1 DROPS Brimonidine Tartrate (Alphagan-P 0.1% Oph Solution) 1 drop BID OPB 02/13/17 09:00 03/15/17 08:59 02/15/17 08:54 1 DROP Enoxaparin Sodium (Lovenox Inj) 40 mg QAM SQ 02/16/17 09:00 03/18/17 08:59 Objective Vital Signs Date Time Temp Pulse Resp B/P (MAP) Pulse Ox O2 Delivery O2 Flow Rate FiO2 11/2/17 15:20 Room Air 02/15/17 07:40 Room Air 02/15/17 07:32 36.4 55 18 161/75 (103) 97 Room Air 02/14/17 23:21 86/52 (63) 02/14/17 23:20 Room Air 02/14/17 22:55 36.6 56 14 65/43 (50) 93 Room Air 02/14/17 22:22 74/44 (54) 02/14/17 22:03 66 91/52 (65) 02/14/17 20:45 64 150/82 (104) Physical Exam General Appearance: WD/WN Eyes: normal inspection ENT: hearing grossly normal Neck: supple Respiratory/Chest: chest non-tender, lungs clear, normal breath sounds Cardiovascular: regular rate, rhythm Abdomen: non tender, soft Extremities: no pedal edema Neurologic/Psychiatric: alert, normal mood/affect, oriented x 3 Skin: normal color Assessment and Plan This is a 77 y/o F who presents with recurrent rectal prolapse and chronic constipation. The prolapse was reduced today. History of rectal prolapse status post repair/chronic constipation - KUB was suggestive of fecal retention- has BMs after - Bowel regimen initiated - GI consult- recommends OP colorectal surgery consult - She will need to follow up with [facility] for repeat surgical repair as she has declined going to [facility] where she had her original surgery. - Hemoglobin stable Hypertension - Continue Norvasc 5 mg and Carvedilol 3.125 bid Parkinson's dementia Continue Sinemet and Donepezil Bipolar disorder: - Continue Lamictal and Seroquel DVT prophylaxis MIKE, SCD Code: FUll Resident Physician Supervision Note: I was present with Dr. Patel during the history and exam. I discussed the case with the resident and agree with the findings and plan as documented in the note. The patient without complaints this morning; rectal prolapse was reduced a second time (by nursing) after I had reduced it earlier in the day. The patient denies any rectal pain this morning. Efforts underway with case management to look for placement. Her - her primary caregiver - is undergoing cardiac surgery today at another facility. Documented By: Jose Sagastume Resident Tracking Resident Involvement: Resident Care Provided Care Provided: Adult Hospital Medicine
[2017-02-15 11:17] LABS: PROTHROMBIN TIME (PATIENT) 10.7 SECONDS (9.0-12.0)
[2017-02-15] MEDS ORDERED: ENOXAPARIN 40 MG/0.4 ML SYR SQ ONE (12:00)
[2017-02-15] MEDS ORDERED: LORAZEPAM 2 MG/ML 1 ML VIAL **EMERGENCY USE ONE (17:34)
[2017-02-15] MEDS ORDERED: AMPICILLIN SOD/SULBACTAM SOD 3 GM VIAL IV STA (17:44)
[2017-02-15] MEDS ORDERED: ALBUT/IPRATROP 3MG/0.5MG NEB 3 ML VIAL INH ONE (17:45)
[2017-02-15 17:50] VITALS: PULSE 81; O2SAT 95
[2017-02-15 17:54] LABS: MEAN CELL VOLUME 89.8 fL (80-100); MEAN CORPUSCULAR HEMOGLOBIN 29.6 pg (25-34); MEAN PLATELET VOLUME 8.9 fL (7.4-10.4); PLATELET COUNT 352 K/uL (130-400); RED BLOOD COUNT 4.79 M/uL (4.2-5.4); WHITE BLOOD COUNT 12.66 K/uL (4.8-10.8)
--- NOTE | 2017-02-15 18:01 | DIAGNOSTIC IMAGING REPORT ---
CHEST ONE VIEW PORTABLE CLINICAL HISTORY: Aspiration. Right-sided rhonchi. COMPARISON STUDY: 01/16/2017 FINDINGS: There is a prominent scoliosis. The heart is the upper limits of normal in size. There are equivocal minimal airspace opacities in the retrocardiac portion of the left chest. The right lung appears generally clear. There are no significant pleural effusions.[ Arthritic changes are present within the shoulders. IMPRESSION: 1. AP portable chest 2. Prominent scoliosis 3. Equivocal minimal airspace opacities at the left medial lung base Electronically signed by: Roman Madrid M.D. 02/15/2017 6:00 PM Dictated Date/Time: 02/15/2017 5:58 PM
--- NOTE | 2017-02-15 18:05 | DIAGNOSTIC IMAGING REPORT ---
CT HEAD WITHOUT CONTRAST (CT) CLINICAL HISTORY: new onset seizure COMPARISON STUDY: No previous studies for comparison. TECHNIQUE: Axial CT of the brain is performed from the vertex to the skull base. IV contrast was not administered for this examination. A dose lowering technique was utilized adhering to the principles of ALARA. CT DOSE: 614.27 mGy.cm FINDINGS: No intra or extra-axial mass lesions are visualized. There is no CT evidence of acute cortical infarction. There is no evidence of midline shift. There is no acute hemorrhage. No calvarial fractures are visualized. There are moderate white matter hypodensities likely on a small vessel basis. There is no evidence of pathologic ventricular dilatation. There is no evidence of acute sinusitis IMPRESSION: No acute intracranial findings Electronically signed by: Roman Madrid M.D. 02/15/2017 6:03 PM Dictated Date/Time: 02/15/2017 6:03 PM
[2017-02-15 18:11] VITALS: BP 121/73; PULSE 81; TEMP 36.6; O2SAT 93
[2017-02-15 18:14] LABS: BUN/CREATININE RATIO 15.8 (10-20); CALCIUM 8.8 mg/dl (8.5-10.1); CREATININE 1.49 mg/dl (0.60-1.20); MAGNESIUM 1.9 mg/dl (1.8-2.4); POTASSIUM 3.1 mmol/L (3.5-5.1)
[2017-02-15] MEDS: AMPICILLIN/SULBACTAM SOD INJ 1,500 MG in SODIUM CHLORIDE 0.9% 100ML 100 ML IV SCH (18:44)
[2017-02-15] MEDS ORDERED: LORAZEPAM INJ 0.5 MG in SYRINGE 0.25 ML IV PRN (18:45)
[2017-02-15 19:00] LABS: ANISOCYTOSIS PRESENT; BASO % 0.2 %; BASO ABS # 0.03 K/uL (0-0.2); COMPLETE YES; ECHINOCYTES 1+; EOS % 1.2 %; IG% 0.2 %; LYMPH % 41.8 %; LYMPH ABS # 5.29 K/uL (1.2-3.4); MONO % 8.5 %; NEUT % 48.1 %
[2017-02-15 20:32] VITALS: BP 151/80; PULSE 80
[2017-02-15] MEDS: DONEPEZIL HCL 10 MG TAB PO SCH (20:33)
[2017-02-15] MEDS: EZETIMIBE 10MG TAB PO SCH (20:33)
[2017-02-15] MEDS: BIMATOPROST 0.01% OP SOLN 2.5 ML BTL OPB SCH (20:34)
[2017-02-15] MEDS: QUETIAPINE FUMARATE 100 MG TAB PO SCH (20:34)
--- NOTE | 2017-02-15 22:33 | Progress Note ---
Progress Note Date of Service Feb 15, 2017. Progress Note code purple note responded to code purple - pt apparently had seizure for about 1min, then vomited, nursing had pt on side on arrival pt was unresponsive but had breathing/circulation/pulses, vitals stable except for possibly hypoxia, although pulse ox was unreliably on her finger until after O2 had been applied, then vitals all stable had another shorter ~30 second seizure like event - was on back, back somewhat rigid in extension, head extended, turned R, fine amplitude but whole body tonic clonic type movements. post event calm but confused - eyes open but staring blankly. -0.5mg ativan given, pt somewhat sleepy -- then later awakens and loosely nods as i talk but without much true meaningful awareness/movement neurologically intact lungs show faint rhonchi R sided (clear after neb) HR good, good pulses seizure - ?etiology - CT head. ativan given. d/w primary team vomiting w concern on aspiration - nebs, unasyn until no pneumonia evolves over ~24-48hrs, O2/supportive care d/w dr lentz, care assumed again by primary team
[2017-02-15 22:56] VITALS: BP 100/66; PULSE 68; TEMP 36.8; O2SAT 99
[2017-02-16] VITALS (13 sets, daily range): BP systolic 99–156; BP diastolic 58–76; PULSE 69–103; TEMP 36.7–38.4; O2SAT 91–97
[2017-02-16] MEDS: AMPICILLIN/SULBACTAM SOD INJ 1,500 MG in SODIUM CHLORIDE 0.9% 100ML 100 ML IV SCH ×5 (00:24→23:32)
[2017-02-16] MEDS ORDERED: POTASSIUM CHLORIDE 20 MEQ TABCR PO STA (06:52)
[2017-02-16 07:35] LABS: BASO % 0.2 %; BASO ABS # 0.02 K/uL (0-0.2); COMPLETE YES; EOS % 0.4 %; HEMATOCRIT 36.4 % (37-47); IG% 0.2 %; LYMPH % 19.6 %; LYMPH ABS # 1.63 K/uL (1.2-3.4); MEAN CELL VOLUME 87.1 fL (80-100); MEAN CORPUSCULAR HEMOGLOBIN 30.6 pg (25-34); MEAN CORPUSCULAR HGB CONC 35.2 g/dl (32-36); MEAN PLATELET VOLUME 9.1 fL (7.4-10.4); MONO % 11.3 %; NEUT % 68.3 %; PLATELET COUNT 272 K/uL (130-400); RED BLOOD COUNT 4.18 M/uL (4.2-5.4); WHITE BLOOD COUNT 8.33 K/uL (4.8-10.8)
[2017-02-16 08:09] LABS: BUN/CREATININE RATIO 24.4 (10-20); CALCIUM 8.9 mg/dl (8.5-10.1); CREATININE 0.76 mg/dl (0.60-1.20); POTASSIUM 3.3 mmol/L (3.5-5.1)
[2017-02-16] MEDS: FERROUS SULFATE 325 MG TAB PO SCH ×3 (08:30→17:26)
[2017-02-16] MEDS: SENNA 8.6 MG TAB PO SCH ×2 (09:00→09:19)
[2017-02-16] MEDS: BRIMONIDINE TARTRATE 0.1% OPH SOLN OPB SCH ×3 (09:00→21:15)
[2017-02-16] MEDS: AMLODIPINE BESYLATE 5 MG TAB PO SCH ×2 (09:00→09:16)
[2017-02-16] MEDS: CARVEDILOL 3.125 MG TAB PO SCH ×3 (09:00→21:16)
[2017-02-16] MEDS: CARBIDOPA/LEVODOPA 25/100MG TAB PO SCH ×4 (09:00→21:21)
[2017-02-16] MEDS: ENOXAPARIN 40 MG/0.4 ML SYR SQ SCH ×2 (09:00→09:20)
[2017-02-16] MEDS: FUROSEMIDE 40 MG TAB PO SCH ×2 (09:00→09:17)
[2017-02-16] MEDS: POTASSIUM CHLORIDE 10 MEQ TABCR PO SCH ×2 (09:00→09:18)
[2017-02-16] MEDS: NSS + 20MEQ KCL 1000ML 1,000 ML IV SCH ×2 (09:15→20:20)
--- NOTE | 2017-02-16 10:59 | Progress Note ---
Subjective Date of Service: Feb 16, 2017. Subjective Pt evaluation today including: conversation w/ patient, physical exam, chart review, lab review, review of studies, conversation w/ automobile sales consultant, review of inpatient medication list Pain: Denies PO Intake: Good Called to he patient's room today after what sounds to be a second seizure. Patient reported to be pale in appearance, awake, but not responsive to verbal commands. She was also noted to have a small amount of blood from he mouth. Upon my arrival, she appeared post-ictal and would reply with one word answers. She had a similar episode yesterday late afternoon. Subsequent labs were unremarkable. Neurology was consulted. 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 I discussed this morning's events with neurology. An EEG was completed just prior to he event this morning, although results pending. Problem List Medical Problems: (1) Abdominal pain Status: Acute (2) Bleeding internal hemorrhoids Status: Acute (3) GI bleed Status: Acute (4) Lower GI bleed Status: Acute (5) Microcytic anemia Status: Acute (6) Proctitis Status: Acute (7) Rectal bleed Status: Acute (8) Rectal prolapse Status: Acute (9) Rectal prolapse Status: Acute Review of Systems Constitutional: No fever, No chills Eyes: No problem reported ENT: No problem reported Respiratory: No problem reported Cardiac: No problem reported Musculoskeletal: No problem reported Neurologic: + memory loss, + problem reported (seizures) Psychiatric: No problem reported Medications Current Inpatient Medications Medications (Trade) Dose Ordered Sig/Naeem Route Start Time Stop Time Status Last Admin Dose Admin Acetaminophen (Tylenol Tab) 650 mg Q4H PRN PO 02/13/17 00:15 03/15/17 00:14 02/14/17 16:03 650 MG Al Hydrox/Mg Hydrox/Simethicone (Maalox Max Susp) 15 ml Q4H PRN PO 02/13/17 00:15 03/15/17 00:14 Magnesium Hydroxide (Milk Of Magnesia Susp) 30 ml Q6H PRN PO 02/13/17 00:15 03/15/17 00:14 Polyethylene (Miralax Powder Packet) 17 gm DAILY PRN PO 02/13/17 00:15 03/15/17 00:14 Ondansetron HCl (Zofran Inj) 4 mg Q6H PRN IV 02/13/17 00:15 03/15/17 00:14 Amlodipine Besylate (Norvasc Tab) 5 mg QAM PO 02/13/17 09:00 03/15/17 08:59 02/15/17 08:54 5 MG Carvedilol (Coreg Tab) 3.125 mg BID PO 02/13/17 09:00 03/15/17 08:59 02/15/17 20:34 3.125 MG Clonazepam (Klonopin Tab) 0.5 mg HS PRN PO 02/13/17 00:15 03/15/17 00:14 Docusate Sodium (coLACE CAP) 100 mg BID PO 02/13/17 09:00 03/15/17 08:59 Future Hold Donepezil HCl (Aricept Tab) 10 mg HS PO 02/13/17 21:00 03/15/17 20:59 02/15/17 20:33 10 MG EZETIMIBE (Zetia Tab) 10 mg HS PO 02/13/17 21:00 03/15/17 20:59 02/15/17 20:33 10 MG Ferrous Sulfate (Feosol Tab) 325 mg BIDM PO 02/13/17 08:00 03/15/17 07:59 02/15/17 08:54 325 MG Furosemide (Lasix Tab) 40 mg DAILY PO 02/13/17 09:00 03/15/17 08:59 02/15/17 08:54 40 MG Lamotrigine (Lamictal Tab) 200 mg DAILY PO 02/13/17 09:00 03/15/17 08:59 02/15/17 08:54 200 MG Carbidopa/Levodopa (Sinemet 25/ 100MG Tab) 1 tab TID PO 02/13/17 09:00 03/15/17 08:59 02/15/17 20:33 1 TAB Quetiapine Fumarate (seroQUEL TAB) 100 mg HS PO 02/13/17 21:00 03/15/17 20:59 02/15/17 20:34 100 MG Potassium Chloride (Klor-Con M10) 30 meq DAILY PO 02/13/17 09:00 03/15/17 08:59 02/15/17 08:53 30 MEQ Miscellaneous (Iv Fluids Completed) 1 ea PRN PRN N/A 02/13/17 00:45 02/13/18 00:44 Senna (Senokot Tab) 8.6 mg QAM PO 02/13/17 09:00 03/15/17 08:59 02/15/17 08:54 8.6 MG Bimatoprost (Lumigan 0.01%) 1 drops HS OPB 02/13/17 21:00 03/15/17 20:59 02/15/17 20:34 1 DROPS Brimonidine Tartrate (Alphagan-P 0.1% Oph Solution) 1 drop BID OPB 02/13/17 09:00 03/15/17 08:59 02/15/17 20:34 1 DROP Enoxaparin Sodium (Lovenox Inj) 40 mg QAM SQ 02/16/17 09:00 03/18/17 08:59 Ampicillin Sodium/ Sulbactam Sodium 1500 mg/Sodium Chloride 104 ml @ 200 mls/hr Q6H IV 02/15/17 18:00 02/22/17 17:59 02/16/17 05:57 200 MLS/HR Lorazepam 0.5 mg/ Syringe 0.5 ml @ 0.5 mls/min ONE PRN IV 02/15/17 18:45 03/17/17 18:44 Potassium Chloride/Sodium Chloride 1,000 ml @ 100 mls/hr Q10H IV 02/16/17 09:00 03/18/17 08:29 02/16/17 09:15 100 MLS/HR Objective Vital Signs Date Time Temp Pulse Resp B/P (MAP) Pulse Ox O2 Delivery O2 Flow Rate FiO2 02/16/17 09:43 94 Room Air 02/16/17 06:56 36.7 69 16 138/72 (94) 93 Room Air 02/16/17 06:11 95 Room Air 02/16/17 00:10 Nasal Cannula 3.0 02/15/17 22:56 36.8 68 20 100/66 (77) 99 Nasal Cannula 3.0 02/15/17 20:32 80 151/80 (103) 02/15/17 18:11 36.6 81 18 121/73 (89) 93 Nasal Cannula 3.0 02/15/17 17:50 81 18 95 Nasal Cannula 3.0 02/15/17 15:20 Room Air Physical Exam General Appearance: + mild distress (post ictal) Eyes: PERRL, EOMI ENT: hearing grossly normal (small amount of blood from left corner of mouth, I am unable to see inside to evalaute trauma but bleeding is minimal; will re- assess when she is more awake) Neck: supple, no JVD, trachea midline Respiratory/Chest: chest non-tender, lungs clear Cardiovascular: regular rate, rhythm, no edema Abdomen: non tender, soft Extremities: non-tender Neurologic/Psychiatric: no motor/sensory deficits (post ictal) Skin: normal color, warm/dry, + rash Laboratory Results Last 24 Hours Test 02/15/17 10:45 02/15/17 17:45 02/16/17 06:56 Prothrombin Time 10.7 SECONDS Prothromb Time International Ratio 1.0 White Blood Count 12.66 K/uL 8.33 K/uL Red Blood Count 4.79 M/uL 4.18 M/uL Hemoglobin 14.2 g/dL 12.8 g/dL Hematocrit 43.0 % 36.4 % Mean Corpuscular Volume 89.8 fL 87.1 fL Mean Corpuscular Hemoglobin 29.6 pg 30.6 pg Mean Corpuscular Hemoglobin Concent 33.0 g/dl 35.2 g/dl Platelet Count 352 K/uL 272 K/uL Mean Platelet Volume 8.9 fL 9.1 fL Neutrophils (%) (Auto) 48.1 % 68.3 % Lymphocytes (%) (Auto) 41.8 % 19.6 % Monocytes (%) (Auto) 8.5 % 11.3 % Eosinophils (%) (Auto) 1.2 % 0.4 % Basophils (%) (Auto) 0.2 % 0.2 % Neutrophils # (Auto) 6.09 K/uL 5.69 K/uL Lymphocytes # (Auto) 5.29 K/uL 1.63 K/uL Monocytes # (Auto) 1.08 K/uL 0.94 K/uL Eosinophils # (Auto) 0.15 K/uL 0.03 K/uL Basophils # (Auto) 0.03 K/uL 0.02 K/uL RDW Standard Deviation 50.3 fL 49.1 fL RDW Coefficient of Variation 15.1 % 15.4 % Immature Granulocyte % (Auto) 0.2 % 0.2 % Immature Granulocyte # (Auto) 0.02 K/uL 0.02 K/uL Anisocytosis PRESENT Echinocytes 1+ Sodium Level 136 mmol/L 137 mmol/L Potassium Level 3.1 mmol/L 3.3 mmol/L Chloride Level 100 mmol/L 103 mmol/L Carbon Dioxide Level 13 mmol/L 27 mmol/L Anion Gap 23.0 mmol/L 7.0 mmol/L Blood Urea Nitrogen 23 mg/dl 19 mg/dl Creatinine 1.49 mg/dl 0.76 mg/dl Est Creatinine Clear Calc Drug Dose 22.0 ml/min 43.1 ml/min Estimated GFR () 38.3 86.5 Estimated GFR (Non- 33.1 74.6 BUN/Creatinine Ratio 15.8 24.4 Random Glucose 171 mg/dl 97 mg/dl Calcium Level 8.8 mg/dl 8.9 mg/dl Magnesium Level 1.9 mg/dl Assessment and Plan This is a 77 y/o F who presents with recurrent rectal prolapse and chronic constipation, admitted pending usp placement, now with onset of seizures Seizures 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 Labs and CT head yesterday normal following first episode. EEG, MRI, and neurology consult pending today She was on Lamictal for mood stabilization already, so will just titrate dose instead of adding second medication History of rectal prolapse status post repair/chronic constipation GI consult appreciated Bowel regimen Outpatient evaluation Hypertension Continue Norvasc 5 mg and Carvedilol 3.125 bid Parkinson's dementia Continue Sinemet and Donepezil Bipolar disorder I am not entirely clear if she has bipolar or if it is dementia with behavior disturbance Increase Lamictal Continue Seroquel DVT prophylaxis MIKE, SCD Code: Full Continued [facility] stay due to: abnormal vital signs, multiple IV medications needed, home environment unsafe for pt Discharge planning: uncertain
--- NOTE | 2017-02-16 11:48 | EEG Procedure Note ---
EEG Procedure Note Date of Service Feb 16, 2017. Start / End Times Start Time: 9:52 AM End Time: 10:12 AM Referring Physician Marlena Patel History This is a 77-year-old female with clinical episodes concerning for possible seizures. EEG for further evaluation of seizure etiology Pertinent medications include Lamictal and Klonopin Home Medication List Scheduled Amlodipine Besylate (Norvasc), 5 MG PO QAM Bimatoprost (Lumigan), 1 DROP OPB HS Brimonidine Tartrate (Alphagan P Oph), 1 DROP OPB BID Carvedilol (Carvedilol), 1 TAB PO BID Clonazepam (Klonopin), 0.5 MG PO AMPM Docusate Sodium (Colace), 1 CAP PO BID Donepezil Hydrochloride (Aricept), 10 MG PO HS Ezetimibe (Zetia), 10 MG PO HS Ferrous Sulfate (Ferrous Sulfate), 325 MG PO BIDM Furosemide (Lasix), 1 TAB PO DAILY Lamotrigine (Lamictal), 200 MG PO DAILY Levodopa/Carbidopa (Sinemet 25MG/100MG), 1 TAB PO TID Potassium Chloride Microencaps (Klor-Con M15), 30 MEQ PO DAILY Quetiapine Fumarate (Seroquel), 100 MG PO HS Inpatient Medication List Current Inpatient Medications Medications (Trade) Dose Ordered Sig/Naeem Route Start Time Stop Time Status Last Admin Dose Admin Acetaminophen (Tylenol Tab) 650 mg Q4H PRN PO 02/13/17 00:15 03/15/17 00:14 02/14/17 16:03 650 MG Al Hydrox/Mg Hydrox/Simethicone (Maalox Max Susp) 15 ml Q4H PRN PO 02/13/17 00:15 03/15/17 00:14 Magnesium Hydroxide (Milk Of Magnesia Susp) 30 ml Q6H PRN PO 02/13/17 00:15 03/15/17 00:14 Polyethylene (Miralax Powder Packet) 17 gm DAILY PRN PO 02/13/17 00:15 03/15/17 00:14 Ondansetron HCl (Zofran Inj) 4 mg Q6H PRN IV 02/13/17 00:15 03/15/17 00:14 Amlodipine Besylate (Norvasc Tab) 5 mg QAM PO 02/13/17 09:00 03/15/17 08:59 02/15/17 08:54 5 MG Carvedilol (Coreg Tab) 3.125 mg BID PO 02/13/17 09:00 03/15/17 08:59 02/15/17 20:34 3.125 MG Clonazepam (Klonopin Tab) 0.5 mg HS PRN PO 02/13/17 00:15 03/15/17 00:14 Docusate Sodium (coLACE CAP) 100 mg BID PO 02/13/17 09:00 03/15/17 08:59 Future Hold Donepezil HCl (Aricept Tab) 10 mg HS PO 02/13/17 21:00 03/15/17 20:59 02/15/17 20:33 10 MG EZETIMIBE (Zetia Tab) 10 mg HS PO 02/13/17 21:00 03/15/17 20:59 02/15/17 20:33 10 MG Ferrous Sulfate (Feosol Tab) 325 mg BIDM PO 02/13/17 08:00 03/15/17 07:59 02/15/17 08:54 325 MG Furosemide (Lasix Tab) 40 mg DAILY PO 02/13/17 09:00 03/15/17 08:59 02/15/17 08:54 40 MG Lamotrigine (Lamictal Tab) 200 mg DAILY PO 02/13/17 09:00 03/15/17 08:59 02/15/17 08:54 200 MG Carbidopa/Levodopa (Sinemet 25/ 100MG Tab) 1 tab TID PO 02/13/17 09:00 03/15/17 08:59 02/15/17 20:33 1 TAB Quetiapine Fumarate (seroQUEL TAB) 100 mg HS PO 02/13/17 21:00 03/15/17 20:59 02/15/17 20:34 100 MG Potassium Chloride (Klor-Con M10) 30 meq DAILY PO 02/13/17 09:00 03/15/17 08:59 02/15/17 08:53 30 MEQ Miscellaneous (Iv Fluids Completed) 1 ea PRN PRN N/A 02/13/17 00:45 02/13/18 00:44 Senna (Senokot Tab) 8.6 mg QAM PO 02/13/17 09:00 11/30/17 08:59 02/15/17 08:54 8.6 MG Bimatoprost (Lumigan 0.01%) 1 drops HS OPB 02/13/17 21:00 03/15/17 20:59 02/15/17 20:34 1 DROPS Brimonidine Tartrate (Alphagan-P 0.1% Oph Solution) 1 drop BID OPB 02/13/17 09:00 03/15/17 08:59 02/15/17 20:34 1 DROP Enoxaparin Sodium (Lovenox Inj) 40 mg QAM SQ 02/16/17 09:00 03/18/17 08:59 Ampicillin Sodium/ Sulbactam Sodium 1500 mg/Sodium Chloride 104 ml @ 200 mls/hr Q6H IV 02/15/17 18:00 02/22/17 17:59 02/16/17 05:57 200 MLS/HR Lorazepam 0.5 mg/ Syringe 0.5 ml @ 0.5 mls/min ONE PRN IV 02/15/17 18:45 03/17/17 18:44 Potassium Chloride/Sodium Chloride 1,000 ml @ 100 mls/hr Q10H IV 02/16/17 09:00 03/18/17 08:29 02/16/17 09:15 100 MLS/HR Description This is a 21 electrode video EEG with a single channel dedicated to limited EKG. The electrodes were placed in accordance with the International 10-20 system. At the start of this recording the patient was an awake state but confused. Background was well organized with a mix of alpha and beta frequencies. There was a symmetric moderate amplitude posterior dominant rhythm of 8-9 Hz that was reactive to eye opening and closure. Hyperventilation and photic stimulation were not done. There was no state changes or sleep transients. There was mild to moderate intermittent movement artifact. Video was reviewed and the patient was at times tremulous and moving around. Interpretation This is a normal awake only routine EEG. There was no epileptiform discharges or electrographic seizures. Clinical Correlation A normal EEG does not rule out epilepsy if there is a strong clinical suspicion.
[2017-02-16] MEDS ORDERED: NURSING DECISION MEDICATION ORDER SCH (12:15)
[2017-02-16] MEDS ORDERED: LORAZEPAM INJ 0.5 MG in SYRINGE 0.25 ML IV PRN (12:30)
[2017-02-16] MEDS ORDERED: LORAZEPAM INJ 1 MG in SYRINGE 0.5 ML IV PRN (12:30)
[2017-02-16] MEDS: LEVETIRACETAM IV 1,000 MG in DEXTROSE 5% 100ML 100 ML IV SCH ×2 (12:47→21:14)
--- NOTE | 2017-02-16 13:04 | Neurology Consultation ---
Neurology Consultation Date of Consultation: Feb 16, 2017. Attending Physician: Jose Sagastume D.O. Primary Care Physician: Anais Bullard D.O. Reason for Consultation: Consultation for seizure History of Present Illness Source: patient, hospital records This is a 77-year-old female who presents for care of rectal prolapse. This today had an event concerning for seizure. Again today has had a total of 3 events concerning for clinical seizures. Description of eyes going up and getting stiff all over, arms flexed. One episode of bowel incontinence with these events. Did appear to bite inside of her cheek or tongue bilaterally with one of the events. His never had any events concerning for seizures in the past. Family does report that sometimes she would shake or flap or hands but this was determined to be nonepileptic. They report that these episodes are completely different from the shaking episodes that she's been evaluated for in the past. Denies any recent illnesses or fever. Patient did vomit once during this admission. Only elevated temperatures have been immediately after seizure. Patient has been having a lot of issues with rectal prolapse. No abnormal headaches recently. No change in mentation and is reportedly alert and oriented 3 in between the seizures. Does have a post ictal period. There have been reports of her being pale and the past although this may be partially secondary to dehydration. Family history significant for daughter with febrile seizures as a child. Also another daughter who is worked up for seizure-like events but was never given the diagnosis of epilepsy. On review of systems the family does report that on admission the patient was complaining that she couldn't move her legs him until we can see that she was moving her legs. Past Medical/Surgical History Medical Problems: (1) Abdominal pain Status: Acute (2) Bleeding internal hemorrhoids Status: Acute (3) GI bleed Status: Acute (4) Lower GI bleed Status: Acute (5) Microcytic anemia Status: Acute (6) Proctitis Status: Acute (7) Rectal bleed Status: Acute (8) Rectal prolapse Status: Acute (9) Rectal prolapse Status: Acute Past medical history significant for hypertension, hemorrhoids, rectal prolapse , bipolar, Parkinson's with dementia (uncertain if this is true idiopathic Parkinson's versus parkinsonism from psychiatric medications.) Family History Family history significant for daughter with febrile seizures as a child. Also another daughter who is worked up for seizure-like events but was never given the diagnosis of epilepsy. Social History Patient is normally alert and oriented and independent in her activities of daily living. Does appear to occasionally get confused but is normally oriented. Alcohol Use: none Drug Use: none Marital Status: Housing Status: lives with family Occupation Status: retired Allergies Coded Allergies: Shafer (Verified Allergy, Severe, SYSTEM TOXICITY, 02/12/17) Uncoded Allergies: YELLOW SQUASH (Allergy, Severe, ANAPHYLAXIS, 03/13/15) Current Inpatient Medications Current Inpatient Medications Medications (Trade) Dose Ordered Sig/Naeem Route Start Time Stop Time Status Last Admin Dose Admin Acetaminophen (Tylenol Tab) 650 mg Q4H PRN PO 02/13/17 00:15 03/15/17 00:14 02/14/17 16:03 650 MG Al Hydrox/Mg Hydrox/Simethicone (Maalox Max Susp) 15 ml Q4H PRN PO 02/13/17 00:15 03/15/17 00:14 Magnesium Hydroxide (Milk Of Magnesia Susp) 30 ml Q6H PRN PO 02/13/17 00:15 03/15/17 00:14 Polyethylene (Miralax Powder Packet) 17 gm DAILY PRN PO 02/13/17 00:15 03/15/17 00:14 Ondansetron HCl (Zofran Inj) 4 mg Q6H PRN IV 02/13/17 00:15 03/15/17 00:14 Amlodipine Besylate (Norvasc Tab) 5 mg QAM PO 02/13/17 09:00 03/15/17 08:59 02/15/17 08:54 5 MG Carvedilol (Coreg Tab) 3.125 mg BID PO 02/13/17 09:00 03/15/17 08:59 02/15/17 20:34 3.125 MG Clonazepam (Klonopin Tab) 0.5 mg HS PRN PO 02/13/17 00:15 03/15/17 00:14 Docusate Sodium (coLACE CAP) 100 mg BID PO 02/13/17 09:00 03/15/17 08:59 Future Hold Donepezil HCl (Aricept Tab) 10 mg HS PO 02/13/17 21:00 03/15/17 20:59 02/15/17 20:33 10 MG EZETIMIBE (Zetia Tab) 10 mg HS PO 02/13/17 21:00 03/15/17 20:59 02/15/17 20:33 10 MG Ferrous Sulfate (Feosol Tab) 325 mg BIDM PO 02/13/17 08:00 03/15/17 07:59 02/15/17 08:54 325 MG Furosemide (Lasix Tab) 40 mg DAILY PO 02/13/17 09:00 03/15/17 08:59 02/15/17 08:54 40 MG Lamotrigine (Lamictal Tab) 200 mg DAILY PO 02/13/17 09:00 03/15/17 08:59 02/15/17 08:54 200 MG Carbidopa/Levodopa (Sinemet 25/ 100MG Tab) 1 tab TID PO 02/13/17 09:00 03/15/17 08:59 02/15/17 20:33 1 TAB Quetiapine Fumarate (seroQUEL TAB) 100 mg HS PO 02/13/17 21:00 03/15/17 20:59 02/15/17 20:34 100 MG Potassium Chloride (Klor-Con M10) 30 meq DAILY PO 02/13/17 09:00 03/15/17 08:59 02/15/17 08:53 30 MEQ Miscellaneous (Iv Fluids Completed) 1 ea PRN PRN N/A 02/13/17 00:45 02/13/18 00:44 Senna (Senokot Tab) 8.6 mg QAM PO 02/13/17 09:00 03/15/17 08:59 02/15/17 08:54 8.6 MG Bimatoprost (Lumigan 0.01%) 1 drops HS OPB 02/13/17 21:00 03/15/17 20:59 02/15/17 20:34 1 DROPS Brimonidine Tartrate (Alphagan-P 0.1% Oph Solution) 1 drop BID OPB 02/13/17 09:00 03/15/17 08:59 02/15/17 20:34 1 DROP Enoxaparin Sodium (Lovenox Inj) 40 mg QAM SQ 02/16/17 09:00 03/18/17 08:59 Ampicillin Sodium/ Sulbactam Sodium 1500 mg/Sodium Chloride 104 ml @ 200 mls/hr Q6H IV 02/15/17 18:00 11/9/17 17:59 02/16/17 05:57 200 MLS/HR Potassium Chloride/Sodium Chloride 1,000 ml @ 100 mls/hr Q10H IV 02/16/17 09:00 03/18/17 08:29 02/16/17 09:15 100 MLS/HR Lorazepam 1 mg/ Syringe 1 ml @ 1 mls/min PRN PRN IV 02/16/17 12:30 03/18/17 12:29 Lorazepam 0.5 mg/ Syringe 0.5 ml @ 0.5 mls/min PRN PRN IV 02/16/17 12:30 03/18/17 12:29 Levetiracetam 1000 mg/Dextrose 110 ml @ 420 mls/hr Q12 IV 02/16/17 12:30 03/18/17 12:29 Review of Systems Review of systems is not obtainable at this time as the patient just had a seizure 10-15 minutes before this examination and is postictal Physical Exam Vital Signs (Past 24 Hrs): Date Time Temp Pulse Resp B/P (MAP) Pulse Ox O2 Delivery O2 Flow Rate FiO2 02/16/17 12:10 38.1 103 16 156/71 (99) 97 Nasal Cannula 2.0 02/16/17 12:03 38.1 02/16/17 11:14 37.8 85 18 155/76 (102) 94 Nasal Cannula 3.0 02/16/17 09:43 94 Room Air 02/16/17 06:56 36.7 69 16 138/72 (94) 93 Room Air 02/16/17 06:11 95 Room Air 02/16/17 00:10 Nasal Cannula 3.0 02/15/17 22:56 36.8 68 20 100/66 (77) 99 Nasal Cannula 3.0 02/15/17 20:32 80 151/80 (103) 02/15/17 18:11 36.6 81 18 121/73 (89) 93 Nasal Cannula 3.0 02/15/17 17:50 81 18 95 Nasal Cannula 3.0 02/15/17 15:20 Room Air Exam was limited secondary to mental status Gen.: Patient is laying in bed, in no acute distress. HEENT: Normocephalic /atraumatic, no scleral icterus. No rigidity of the neck Heart: Regular rate and rhythm Extremities: No gross deformities or rashes noted Neurological examination: Mental status: Patient was extremely lethargic and fairly unresponsive. Would briefly open eyes to voice but often would not follow commands. Formal cognition and memory testing could not be tested secondary mental status. No speech was produced Cranial nerve: Patient would not open up her eyes for funduscopic examination and would forcibly keep them shut. Patient appeared to be able to look in all directions. No facial asymmetry noted. The rest of cranial nerves were unable to be examined due to mental status Strength: Patient was moving all extremities equally. Formal strength examination is unable to be done due to mental status. There is no arm drift. Tone is normal. Sensation: Cannot do formal sensory examination due to mental status Deep tendon reflexes: +1 in bilateral biceps, brachioradialis and patellar. Toes were equivocal to plantar stimulation Coordination: Cannot test coordination or gait due to mental status Laboratory Results Past 24 Hours: 02/16/17 06:56 Red Blood Count 4.18, Mean Corpuscular Volume 87.1, Mean Corpuscular Hemoglobin 30.6, Mean Corpuscular Hemoglobin Concent 35.2, Mean Platelet Volume 9.1, Neutrophils (%) (Auto) 68.3, Lymphocytes (%) (Auto) 19.6, Monocytes (%) (Auto) 11.3, Eosinophils (%) (Auto) 0.4, Basophils (%) (Auto) 0.2, Neutrophils # (Auto ) 5.69, Lymphocytes # (Auto) 1.63, Monocytes # (Auto) 0.94, Eosinophils # (Auto ) 0.03, Basophils # (Auto) 0.02 02/16/17 06:56 Test 02/15/17 17:45 02/16/17 06:56 02/16/17 10:25 Blood Smear Review Anisocytosis PRESENT Echinocytes 1+ Magnesium Level 1.9 mg/dl (1.8-2.4) White Blood Count 8.33 K/uL (4.8-10.8) Red Blood Count 4.18 M/uL (4.2-5.4) Hemoglobin 12.8 g/dL (12.0-16.0) Hematocrit 36.4 % (37-47) Mean Corpuscular Volume 87.1 fL (80-100) Mean Corpuscular Hemoglobin 30.6 pg (25-34) Mean Corpuscular Hemoglobin Concent 35.2 g/dl (32-36) Platelet Count 272 K/uL (130-400) Mean Platelet Volume 9.1 fL (7.4-10.4) Neutrophils (%) (Auto) 68.3 % Lymphocytes (%) (Auto) 19.6 % Monocytes (%) (Auto) 11.3 % Eosinophils (%) (Auto) 0.4 % Basophils (%) (Auto) 0.2 % Neutrophils # (Auto) 5.69 K/uL (1.4-6.5) Lymphocytes # (Auto) 1.63 K/uL (1.2-3.4) Monocytes # (Auto) 0.94 K/uL (0.11-0.59) Eosinophils # (Auto) 0.03 K/uL (0-0.5) Basophils # (Auto) 0.02 K/uL (0-0.2) RDW Standard Deviation 49.1 fL (36.4-46.3) RDW Coefficient of Variation 15.4 % (11.5-14.5) Immature Granulocyte % (Auto) 0.2 % Immature Granulocyte # (Auto) 0.02 K/uL (0.00-0.02) Anion Gap 7.0 mmol/L (3-11) Est Creatinine Clear Calc Drug Dose 43.1 ml/min Estimated GFR () 86.5 Estimated GFR (Non- 74.6 BUN/Creatinine Ratio 24.4 (10-20) Calcium Level 8.9 mg/dl (8.5-10.1) Bedside Glucose 134 mg/dl (70-90) Imaging MRI of the brain is pending Impression This is a 77-year-old female who has had a total of 4 seizure-like events over the past 2 days of uncertain etiology. Plan Since the patient is not able to swallow pills, we will cover her with IV Keppra 1000 mg twice a day until she is able to take oral medications (common side effects are sedation and severe mood irritability). I agree with transferring to a cardiac monitored bed. Rarely cardiac arrhythmias causing ischemia can give a clinical mimic for seizures. Nonurgent MRI of the brain with seizure protocol when able If she has additional seizures, can give IV Ativan up to 2 mg every 15 minutes up to 2 times If she continues to have uncontrolled seizures, not responsive to medications, may need to be transferred to the ICU for further care and monitoring When the patient is able to take oral medications, recommend changing her home Lamictal to 100 mg in the morning and 150 at night for seizure prophylaxis ( patient was originally taking 200 daily for bipolar) Monitor for fever or infection. If any concern or suspicion for infection, need to do further infectious workup and consider a lumbar puncture. If there is any questions or concerns, feel free to call/page me
[2017-02-16] MEDS ORDERED: LORAZEPAM 2 MG/ML 1 ML VIAL IV PRN ×3 (13:30→16:45)
[2017-02-16] MEDS: ACETAMINOPHEN IV 100 ML IV PRN (15:33)
[2017-02-16 16:12] LABS: BASO % 0.2 %; BASO ABS # 0.02 K/uL (0-0.2); COMPLETE YES; HEMATOCRIT 37.1 % (37-47); IG% 0.4 %; LYMPH % 6.2 %; LYMPH ABS # 0.68 K/uL (1.2-3.4); MEAN CELL VOLUME 87.3 fL (80-100); MEAN CORPUSCULAR HEMOGLOBIN 29.2 pg (25-34); MEAN CORPUSCULAR HGB CONC 33.4 g/dl (32-36); NEUT % 88.2 %; PLATELET COUNT 253 K/uL (130-400); RED BLOOD COUNT 4.25 M/uL (4.2-5.4)
--- NOTE | 2017-02-16 16:19 | DIAGNOSTIC IMAGING REPORT ---
CHEST ONE VIEW PORTABLE CLINICAL HISTORY: Seizure, Fever COMPARISON STUDY: February 15, 2017 FINDINGS: There is a moderate scoliosis. The cardiac and mediastinal contours remain stable. There is no failure. There are no significant pleural effusions. Left basal airspace opacities are suspected.[ IMPRESSION: Left basilar airspace opacities, atelectatic versus infectious/inflammatory. Electronically signed by: Roman Madrid M.D. 02/16/2017 4:18 PM Dictated Date/Time: 02/16/2017 4:17 PM
[2017-02-16 18:14] LABS: URINE APPEARANCE CLEAR (CLEAR); URINE BILIRUBIN NEG (NEG); URINE COLOR YELLOW; URINE NITRITE NEG (NEG); URINE SPECIFIC GRAVITY 1.024 (1.000-1.030); UROBILINOGEN NEG (NEG); ZZURINE CULT IF INDIC CATH NO
[2017-02-16 18:18] LABS: MANUAL MICROSCOPIC REQUIRED? NO; REVIEW REQ? NO
[2017-02-16] MEDS: BIMATOPROST 0.01% OP SOLN 2.5 ML BTL OPB SCH (21:15)
[2017-02-16] MEDS: QUETIAPINE FUMARATE 100 MG TAB PO SCH (21:20)
[2017-02-16] MEDS: EZETIMIBE 10MG TAB PO SCH (21:23)
[2017-02-16] MEDS: DONEPEZIL HCL 10 MG TAB PO SCH (21:23)
[2017-02-17] VITALS (8 sets, daily range): BP systolic 119–178; BP diastolic 63–85; PULSE 64–84; TEMP 36.3–37.5; O2SAT 92–100
[2017-02-17] MEDS: AMPICILLIN/SULBACTAM SOD INJ 1,500 MG in SODIUM CHLORIDE 0.9% 100ML 100 ML IV SCH ×4 (05:41→23:39)
[2017-02-17] MEDS ORDERED: LEVETIRACETAM IV 1,000 MG in DEXTROSE 5% 100ML 100 ML IV STA (05:46)
[2017-02-17 06:16] LABS: BASO % 0.1 %; BASO ABS # 0.01 K/uL (0-0.2); COMPLETE YES; HEMATOCRIT 36.5 % (37-47); IG% 0.2 %; LYMPH % 17.5 %; LYMPH ABS # 1.68 K/uL (1.2-3.4); MEAN CELL VOLUME 88.4 fL (80-100); MEAN CORPUSCULAR HEMOGLOBIN 29.5 pg (25-34); MEAN CORPUSCULAR HGB CONC 33.4 g/dl (32-36); MEAN PLATELET VOLUME 8.8 fL (7.4-10.4); MONO % 9.8 %; NEUT % 72.4 %; PLATELET COUNT 250 K/uL (130-400); RED BLOOD COUNT 4.13 M/uL (4.2-5.4)
[2017-02-17 06:51] LABS: ALB/GLOB RATIO 0.9 (0.9-2); BUN/CREATININE RATIO 16.6 (10-20); CALCIUM 8.7 mg/dl (8.5-10.1); CREATININE 0.66 mg/dl (0.60-1.20)
--- NOTE | 2017-02-17 07:03 | DIAGNOSTIC IMAGING REPORT ---
CT HEAD WITHOUT CONTRAST (CT) CLINICAL HISTORY: garbled speech NO ONSET SEIZURE COMPARISON STUDY: 03-02 TECHNIQUE: Axial CT of the brain is performed from the vertex to the skull base. IV contrast was not administered for this examination. A dose lowering technique was utilized adhering to the principles of ALARA. CT DOSE: 1074.96 mGy.cm FINDINGS: No intra or extra-axial mass lesions are visualized. There is no CT evidence of acute cortical infarction. There is no evidence of midline shift. There is no acute hemorrhage. No calvarial fractures are visualized. There are moderate white matter hypodensities likely on a small vessel basis. There is no evidence of pathologic ventricular dilatation. There is no evidence of acute sinusitis IMPRESSION: No acute intracranial findings Electronically signed by: Roman Madrid M.D. 02/17/2017 7:02 AM Dictated Date/Time: 02/17/2017 7:01 AM
[2017-02-17 08:13] LABS: CKMB/CK RATIO 0.2 (0-3.0); MAGNESIUM 1.8 mg/dl (1.8-2.4); PHOSPHORUS 2.3 mg/dl (2.5-4.9)
[2017-02-17] MEDS: NSS + 20MEQ KCL 1000ML 1,000 ML IV SCH (08:20)
[2017-02-17] MEDS ORDERED: POTASSIUM PHOS 3 MMOL/1 ML INFUSION IV STA (08:47)
[2017-02-17] MEDS: ENOXAPARIN 40 MG/0.4 ML SYR SQ SCH (09:00)
[2017-02-17] MEDS: SENNA 8.6 MG TAB PO SCH (09:00)
[2017-02-17] MEDS: BRIMONIDINE TARTRATE 0.1% OPH SOLN OPB SCH ×2 (09:00→20:36)
[2017-02-17] MEDS ORDERED: POTASSIUM PHOSPHATE INJ 15 MMOL in SODIUM CHLORIDE 0.9% 250ML 250 ML IV ONE (09:00)
[2017-02-17] MEDS: LEVETIRACETAM IV 1,000 MG in DEXTROSE 5% 100ML 100 ML IV SCH (09:00)
--- NOTE | 2017-02-17 12:10 | Progress Note ---
Subjective Date of Service: Feb 17, 2017. Subjective Pt evaluation today including: physical exam, chart review, lab review, review of studies, review of inpatient medication list Pain: none apparent PO Intake: none at present secondary to seizure and sedation Voiding: vasques catheter in place She continued seizure activity overnight and early this morning. A nasopharyngeal airway was placed at the time of the cat and dog bather seizure. He is also given a dose of IV Ativan approximately 1 hour prior to my exam. This time I exam she was awake - she has some speech but it was not comprehensible. She is noted to have a fever, MAXIMUM TEMPERATURE 38.4 agree Celsius at 1440 yesterday; her most recent fever was 30.1 at 1906 yesterday; she is been afebrile since then. EKG done this morning does show a prolonged QT interval; this is new in comparison to her EKG at her last admission. Problem List Medical Problems: (1) Abdominal pain Status: Acute (2) Bleeding internal hemorrhoids Status: Acute (3) GI bleed Status: Acute (4) Lower GI bleed Status: Acute (5) Microcytic anemia Status: Acute (6) Proctitis Status: Acute (7) Rectal bleed Status: Acute (8) Rectal prolapse Status: Acute (9) Rectal prolapse Status: Acute Review of Systems Constitutional: + fever Eyes: No problem reported ENT: + problem reported (oral soft tissue injury secondary to seizure) Respiratory: No cough, No sputum Cardiac: No problem reported Abdomen: No problem reported Neurologic: + memory loss, + problem reported (seizure) Skin: No rash Medications Current Inpatient Medications Medications (Trade) Dose Ordered Sig/Naeem Route Start Time Stop Time Status Last Admin Dose Admin Acetaminophen (Tylenol Tab) 650 mg Q4H PRN PO 02/13/17 00:15 03/15/17 00:14 02/14/17 16:03 650 MG Al Hydrox/Mg Hydrox/Simethicone (Maalox Max Susp) 15 ml Q4H PRN PO 02/13/17 00:15 03/15/17 00:14 Magnesium Hydroxide (Milk Of Magnesia Susp) 30 ml Q6H PRN PO 02/13/17 00:15 03/15/17 00:14 Polyethylene (Miralax Powder Packet) 17 gm DAILY PRN PO 02/13/17 00:15 03/15/17 00:14 Ondansetron HCl (Zofran Inj) 4 mg Q6H PRN IV 02/13/17 00:15 03/15/17 00:14 Amlodipine Besylate (Norvasc Tab) 5 mg QAM PO 02/13/17 09:00 03/15/17 08:59 02/15/17 08:54 5 MG Carvedilol (Coreg Tab) 3.125 mg BID PO 02/13/17 09:00 03/15/17 08:59 02/16/17 21:16 3.125 MG Clonazepam (Klonopin Tab) 0.5 mg HS PRN PO 02/13/17 00:15 03/15/17 00:14 Docusate Sodium (coLACE CAP) 100 mg BID PO 02/13/17 09:00 03/15/17 08:59 Future Hold Donepezil HCl (Aricept Tab) 10 mg HS PO 02/13/17 21:00 03/15/17 20:59 02/16/17 21:23 10 MG EZETIMIBE (Zetia Tab) 10 mg HS PO 02/13/17 21:00 03/15/17 20:59 02/16/17 21:23 10 MG Ferrous Sulfate (Feosol Tab) 325 mg BIDM PO 02/13/17 08:00 03/15/17 07:59 02/16/17 17:26 325 MG Furosemide (Lasix Tab) 40 mg DAILY PO 02/13/17 09:00 03/15/17 08:59 02/15/17 08:54 40 MG Lamotrigine (Lamictal Tab) 200 mg DAILY PO 02/13/17 09:00 03/15/17 08:59 02/15/17 08:54 200 MG Carbidopa/Levodopa (Sinemet 25/ 100MG Tab) 1 tab TID PO 02/13/17 09:00 03/15/17 08:59 02/16/17 21:21 1 TAB Quetiapine Fumarate (seroQUEL TAB) 100 mg HS PO 02/13/17 21:00 03/15/17 20:59 02/16/17 21:20 100 MG Potassium Chloride (Klor-Con M10) 30 meq DAILY PO 02/13/17 09:00 03/15/17 08:59 02/15/17 08:53 30 MEQ Senna (Senokot Tab) 8.6 mg QAM PO 02/13/17 09:00 03/15/17 08:59 02/15/17 08:54 8.6 MG Bimatoprost (Lumigan 0.01%) 1 drops HS OPB 02/13/17 21:00 03/15/17 20:59 02/16/17 21:15 1 DROPS Brimonidine Tartrate (Alphagan-P 0.1% Oph Solution) 1 drop BID OPB 02/13/17 09:00 03/15/17 08:59 02/16/17 21:15 1 DROP Enoxaparin Sodium (Lovenox Inj) 40 mg QAM SQ 02/16/17 09:00 03/18/17 08:59 Ampicillin Sodium/ Sulbactam Sodium 1500 mg/Sodium Chloride 104 ml @ 200 mls/hr Q6H IV 02/15/17 18:00 02/22/17 17:59 02/17/17 05:41 200 MLS/HR Potassium Chloride/Sodium Chloride 1,000 ml @ 100 mls/hr Q10H IV 02/16/17 09:00 03/18/17 08:29 02/16/17 20:20 100 MLS/HR Levetiracetam 1000 mg/Dextrose 110 ml @ 420 mls/hr Q12 IV 02/16/17 12:30 03/18/17 12:29 02/16/17 21:14 420 MLS/HR Lorazepam (Ativan Inj) 1 mg PRN PRN IV 02/16/17 13:30 03/18/17 13:29 Lorazepam (Ativan Inj) 0.5 mg PRN PRN IV 02/16/17 13:30 03/18/17 13:29 Acetaminophen 100 ml @ 400 mls/hr Q8H PRN IV 02/16/17 15:15 03/18/17 15:14 02/16/17 15:33 400 MLS/HR Lorazepam (Ativan Inj) 2 mg Q15M PRN IV 02/16/17 16:45 03/02/17 16:44 Objective Vital Signs Date Time Temp Pulse Resp B/P (MAP) Pulse Ox O2 Delivery O2 Flow Rate FiO2 02/17/17 07:30 36.7 84 12 165/76 (105) 98 Mask 6.0 02/17/17 07:30 98 Mask 5.0 02/17/17 05:47 37.1 83 15 178/85 (116) 92 Room Air 02/17/17 04:00 Room Air 02/17/17 02:54 37.5 64 17 136/80 (98) 97 Room Air 02/17/17 00:00 Room Air 02/16/17 23:51 36.7 75 17 99/58 (72) 91 Room Air 02/16/17 20:00 37.5 02/16/17 20:00 Room Air 02/16/17 19:06 38.1 91 20 135/71 (92) 95 Room Air 02/16/17 18:38 37.1 02/16/17 16:00 93 Room Air 02/16/17 14:40 38.4 92 20 156/76 (102) 93 Room Air 02/16/17 12:10 38.1 103 16 156/71 (99) 97 Nasal Cannula 2.0 02/16/17 12:03 38.1 Physical Exam General Appearance: + pertinent finding (sedated post Ativan) Eyes: normal inspection ENT: + pertinent finding (healing injury to left inner cheek, and mid lower lip - no active bleeding - nasopharyngeal airway present in right nare) Neck: supple, thyroid normal, no JVD Respiratory/Chest: chest non-tender, lungs clear (decreased in bases bilaterally, secondary to effort) Cardiovascular: regular rate, rhythm (distant) Abdomen: non tender, soft, no organomegaly Extremities: non-tender Neurologic/Psychiatric: + pertinent finding (see above) Skin: normal color, warm/dry, no rash Laboratory Results Last 24 Hours Test 02/16/17 15:28 02/16/17 17:54 02/16/17 19:30 02/17/17 05:47 White Blood Count 10.90 K/uL 9.60 K/uL Red Blood Count 4.25 M/uL 4.13 M/uL Hemoglobin 12.4 g/dL 12.2 g/dL Hematocrit 37.1 % 36.5 % Mean Corpuscular Volume 87.3 fL 88.4 fL Mean Corpuscular Hemoglobin 29.2 pg 29.5 pg Mean Corpuscular Hemoglobin Concent 33.4 g/dl 33.4 g/dl Platelet Count 253 K/uL 250 K/uL Mean Platelet Volume 9.0 fL 8.8 fL Neutrophils (%) (Auto) 88.2 % 72.4 % Lymphocytes (%) (Auto) 6.2 % 17.5 % Monocytes (%) (Auto) 5.0 % 9.8 % Eosinophils (%) (Auto) 0.0 % 0.0 % Basophils (%) (Auto) 0.2 % 0.1 % Neutrophils # (Auto) 9.62 K/uL 6.95 K/uL Lymphocytes # (Auto) 0.68 K/uL 1.68 K/uL Monocytes # (Auto) 0.54 K/uL 0.94 K/uL Eosinophils # (Auto) 0.00 K/uL 0.00 K/uL Basophils # (Auto) 0.02 K/uL 0.01 K/uL RDW Standard Deviation 49.4 fL 49.3 fL RDW Coefficient of Variation 15.4 % 15.3 % Immature Granulocyte % (Auto) 0.4 % 0.2 % Immature Granulocyte # (Auto) 0.04 K/uL 0.02 K/uL Urine Color YELLOW Urine Appearance CLEAR Urine pH 7.0 Urine Specific [place] 1.024 Urine Protein NEG Urine Glucose (UA) NEG Urine Ketones NEG Urine Occult Blood NEG Urine Nitrite NEG Urine Bilirubin NEG Urine Urobilinogen NEG Urine Leukocyte Esterase NEG Influenza Type A Antigen Neg for Influ A Influenza Type B Antigen Neg for Influ B Sodium Level 139 mmol/L Potassium Level 3.0 mmol/L Chloride Level 106 mmol/L Carbon Dioxide Level 26 mmol/L Anion Gap 7.0 mmol/L Blood Urea Nitrogen 11 mg/dl Creatinine 0.66 mg/dl Est Creatinine Clear Calc Drug Dose 49.6 ml/min Estimated GFR () 97.4 Estimated GFR (Non- 84.0 BUN/Creatinine Ratio 16.6 Random Glucose 132 mg/dl Calcium Level 8.7 mg/dl Total Bilirubin 0.7 mg/dl Aspartate Amino Transf (AST/SGOT) 39 U/L Alanine Aminotransferase (ALT/SGPT) 9 U/L Alkaline Phosphatase 89 U/L Total Protein 6.7 gm/dl Albumin 3.2 gm/dl Globulin 3.5 gm/dl Albumin/Globulin Ratio 0.9 Test 02/17/17 07:08 02/17/17 07:11 Prothrombin Time 11.0 SECONDS Prothromb Time International Ratio 1.0 Activated Partial Thromboplast Time 26.1 SECONDS Partial Thromboplastin Ratio 1.0 Phosphorus Level 2.3 mg/dl Magnesium Level 1.8 mg/dl Total Creatine Kinase 2441 U/L Creatine Kinase MB 3.9 ng/ml Creatine Kinase MB Ratio 0.2 Assessment and Plan This is a 77 y/o F who presents with recurrent rectal prolapse and chronic constipation, admitted pending custodial placement, now with onset of seizures Seizures She continues to have seizures despite increase in Lamictal addition of Keppra CT of head was unremarkable; MRI pending; EEG normal. Elevated CK consistent with seizures Blood cultures pending Neurology consult appreciated 1) we'll discontinue Seroquel - this is not a new medication of though can potentiate seizures, she also has an elevated QT, and circumflex was noted to this as well 2) seizure precautions 3) MRI of the brain when able 4) continue Lamictal and Keppra 5) continue Unasyn 6) check portal chest x-ray today 7) check Lyme antibodies, thiamine, B12 8) Discuss further workup with neurology History of rectal prolapse status post repair/chronic constipation GI consult appreciated; continue bowel regimen; outpatient evaluation for corrective surgery Hypertension Continue Norvasc 5 mg and Carvedilol 3.125 bid Monitor Parkinson's dementia Continue Sinemet and Donepezil 1) decrease her donepezil dose given her prolonged QT Prolonged QT Hold Seroquel Decrease Aricept EKG in a.m. Bipolar disorder I am not entirely clear if she has bipolar or if it is dementia with behavior disturbance Increase Lamictal Discontinue Seroquel (due to QT elongation) DVT prophylaxis MIKE, SCD Code: Full Continued [facility] stay due to: abnormal vital signs, multiple IV medications needed, home environment unsafe for pt Discharge planning: uncertain
[2017-02-17] MEDS: FERROUS SULFATE 325 MG TAB PO SCH ×2 (13:21→13:36)
[2017-02-17] MEDS: POTASSIUM CHLORIDE 10 MEQ TABCR PO SCH (13:23)
[2017-02-17] MEDS: FUROSEMIDE 40 MG TAB PO SCH (13:24)
[2017-02-17] MEDS: CARBIDOPA/LEVODOPA 25/100MG TAB PO SCH ×3 (13:24→20:43)
[2017-02-17] MEDS: AMLODIPINE BESYLATE 5 MG TAB PO SCH (13:24)
--- NOTE | 2017-02-17 13:26 | DIAGNOSTIC IMAGING REPORT ---
CHEST ONE VIEW PORTABLE CLINICAL HISTORY: seizures COMPARISON STUDY: 02/16/2017 FINDINGS: The heart is at the upper limits of normal in size. There is no failure. There is no focal pulmonary consolidation. No pleural effusions are visualized. Arthritic changes are present within the left shoulder with evidence of chronic rotator cuff tear IMPRESSION: No active disease in the chest. Electronically signed by: Roman Madrid M.D. 02/17/2017 1:25 PM Dictated Date/Time: 02/17/2017 1:23 PM
[2017-02-17] MEDS: CARVEDILOL 3.125 MG TAB PO SCH ×2 (13:36→20:42)
--- NOTE | 2017-02-17 13:59 | Neurology Progress Notes ---
Neurology Progress Note Date of Service Feb 17, 2017. Subjective Patient had approximately 3 clinical seizures yesterday and one clinical seizure early this morning described as unresponsiveness and tonic position of her upper extremities. She was given an extra thousand milligrams of Keppra this morning. Daughter thinks that she sometimes hallucinating seems more confused. Is not always certain that she recognizes her Objective Date Time Temp Pulse Resp B/P (MAP) Pulse Ox O2 Delivery O2 Flow Rate FiO2 02/17/17 07:30 36.7 84 12 165/76 (105) 98 Mask 6.0 02/17/17 07:30 98 Mask 5.0 02/17/17 05:47 37.1 83 15 178/85 (116) 92 Room Air 02/17/17 04:00 Room Air 02/17/17 02:54 37.5 64 17 136/80 (98) 97 Room Air 02/17/17 00:00 Room Air 02/16/17 23:51 36.7 75 17 99/58 (72) 91 Room Air 02/16/17 20:00 37.5 02/16/17 20:00 Room Air 02/16/17 19:06 38.1 91 20 135/71 (92) 95 Room Air 02/16/17 18:38 37.1 02/16/17 16:00 93 Room Air 02/16/17 14:40 38.4 92 20 156/76 (102) 93 Room Air Last 24 Hours Test 02/16/17 15:28 02/16/17 17:54 02/16/17 19:30 02/17/17 05:47 White Blood Count 10.90 K/uL 9.60 K/uL Red Blood Count 4.25 M/uL 4.13 M/uL Hemoglobin 12.4 g/dL 12.2 g/dL Hematocrit 37.1 % 36.5 % Mean Corpuscular Volume 87.3 fL 88.4 fL Mean Corpuscular Hemoglobin 29.2 pg 29.5 pg Mean Corpuscular Hemoglobin Concent 33.4 g/dl 33.4 g/dl Platelet Count 253 K/uL 250 K/uL Mean Platelet Volume 9.0 fL 8.8 fL Neutrophils (%) (Auto) 88.2 % 72.4 % Lymphocytes (%) (Auto) 6.2 % 17.5 % Monocytes (%) (Auto) 5.0 % 9.8 % Eosinophils (%) (Auto) 0.0 % 0.0 % Basophils (%) (Auto) 0.2 % 0.1 % Neutrophils # (Auto) 9.62 K/uL 6.95 K/uL Lymphocytes # (Auto) 0.68 K/uL 1.68 K/uL Monocytes # (Auto) 0.54 K/uL 0.94 K/uL Eosinophils # (Auto) 0.00 K/uL 0.00 K/uL Basophils # (Auto) 0.02 K/uL 0.01 K/uL RDW Standard Deviation 49.4 fL 49.3 fL RDW Coefficient of Variation 15.4 % 15.3 % Immature Granulocyte % (Auto) 0.4 % 0.2 % Immature Granulocyte # (Auto) 0.04 K/uL 0.02 K/uL Urine Color YELLOW Urine Appearance CLEAR Urine pH 7.0 Urine Specific [place] 1.024 Urine Protein NEG Urine Glucose (UA) NEG Urine Ketones NEG Urine Occult Blood NEG Urine Nitrite NEG Urine Bilirubin NEG Urine Urobilinogen NEG Urine Leukocyte Esterase NEG Influenza Type A Antigen Neg for Influ A Influenza Type B Antigen Neg for Influ B Sodium Level 139 mmol/L Potassium Level 3.0 mmol/L Chloride Level 106 mmol/L Carbon Dioxide Level 26 mmol/L Anion Gap 7.0 mmol/L Blood Urea Nitrogen 11 mg/dl Creatinine 0.66 mg/dl Est Creatinine Clear Calc Drug Dose 49.6 ml/min Estimated GFR () 97.4 Estimated GFR (Non- 84.0 BUN/Creatinine Ratio 16.6 Random Glucose 132 mg/dl Calcium Level 8.7 mg/dl Total Bilirubin 0.7 mg/dl Aspartate Amino Transf (AST/SGOT) 39 U/L Alanine Aminotransferase (ALT/SGPT) 9 U/L Alkaline Phosphatase 89 U/L Total Protein 6.7 gm/dl Albumin 3.2 gm/dl Globulin 3.5 gm/dl Albumin/Globulin Ratio 0.9 Test 02/17/17 07:08 02/17/17 07:11 Prothrombin Time 11.0 SECONDS Prothromb Time International Ratio 1.0 Activated Partial Thromboplast Time 26.1 SECONDS Partial Thromboplastin Ratio 1.0 Phosphorus Level 2.3 mg/dl Magnesium Level 1.8 mg/dl Total Creatine Kinase 2441 U/L Creatine Kinase MB 3.9 ng/ml Creatine Kinase MB Ratio 0.2 Exam: The patient is awake. When she speaks its nonsensical and I cannot understand it. She does smile at her daughter. Patient is a time tremulous but no rhythmic shaking movements. Is able to look in all directions No facial asymmetry Moving all extremities equally Sensation appears to grossly intact At times looks off to the right, but appears to be distractible Current Inpatient Medications Medications (Trade) Dose Ordered Sig/Naeem Route Start Time Stop Time Status Last Admin Dose Admin Acetaminophen (Tylenol Tab) 650 mg Q4H PRN PO 02/13/17 00:15 03/15/17 00:14 02/14/17 16:03 650 MG Al Hydrox/Mg Hydrox/Simethicone (Maalox Max Susp) 15 ml Q4H PRN PO 02/13/17 00:15 03/15/17 00:14 Magnesium Hydroxide (Milk Of Magnesia Susp) 30 ml Q6H PRN PO 02/13/17 00:15 03/15/17 00:14 Polyethylene (Miralax Powder Packet) 17 gm DAILY PRN PO 02/13/17 00:15 03/15/17 00:14 Ondansetron HCl (Zofran Inj) 4 mg Q6H PRN IV 02/13/17 00:15 03/15/17 00:14 Amlodipine Besylate (Norvasc Tab) 5 mg QAM PO 02/13/17 09:00 03/15/17 08:59 02/17/17 13:24 5 MG Carvedilol (Coreg Tab) 3.125 mg BID PO 02/13/17 09:00 03/15/17 08:59 02/16/17 21:16 3.125 MG Clonazepam (Klonopin Tab) 0.5 mg HS PRN PO 02/13/17 00:15 03/15/17 00:14 Docusate Sodium (coLACE CAP) 100 mg BID PO 02/13/17 09:00 03/15/17 08:59 Future Hold EZETIMIBE (Zetia Tab) 10 mg HS PO 02/13/17 21:00 03/15/17 20:59 02/16/17 21:23 10 MG Ferrous Sulfate (Feosol Tab) 325 mg BIDM PO 02/13/17 08:00 03/15/17 07:59 02/17/17 13:21 325 MG Furosemide (Lasix Tab) 40 mg DAILY PO 02/13/17 09:00 03/15/17 08:59 02/17/17 13:24 40 MG Lamotrigine (Lamictal Tab) 200 mg DAILY PO 02/13/17 09:00 03/15/17 08:59 02/17/17 13:23 200 MG Carbidopa/Levodopa (Sinemet 25/ 100MG Tab) 1 tab TID PO 02/13/17 09:00 03/15/17 08:59 02/17/17 13:24 1 TAB Quetiapine Fumarate (seroQUEL TAB) 100 mg HS PO 02/13/17 21:00 03/15/17 20:59 Future Hold 02/16/17 21:20 100 MG Potassium Chloride (Klor-Con M10) 30 meq DAILY PO 02/13/17 09:00 03/15/17 08:59 02/17/17 13:23 30 MEQ Senna (Senokot Tab) 8.6 mg QAM PO 02/13/17 09:00 03/15/17 08:59 02/15/17 08:54 8.6 MG Bimatoprost (Lumigan 0.01%) 1 drops HS OPB 02/13/17 21:00 03/15/17 20:59 02/16/17 21:15 1 DROPS Brimonidine Tartrate (Alphagan-P 0.1% Oph Solution) 1 drop BID OPB 02/13/17 09:00 03/15/17 08:59 02/17/17 09:00 1 DROP Enoxaparin Sodium (Lovenox Inj) 40 mg QAM SQ 02/16/17 09:00 03/18/17 08:59 02/17/17 09:00 40 MG Ampicillin Sodium/ Sulbactam Sodium 1500 mg/Sodium Chloride 104 ml @ 200 mls/hr Q6H IV 02/15/17 18:00 02/22/17 17:59 02/17/17 05:41 200 MLS/HR Potassium Chloride/Sodium Chloride 1,000 ml @ 100 mls/hr Q10H IV 02/16/17 09:00 03/18/17 08:29 02/16/17 20:20 100 MLS/HR Levetiracetam 1000 mg/Dextrose 110 ml @ 420 mls/hr Q12 IV 02/16/17 12:30 03/18/17 12:29 02/17/17 09:00 420 MLS/HR Lorazepam (Ativan Inj) 1 mg PRN PRN IV 02/16/17 13:30 03/18/17 13:29 Lorazepam (Ativan Inj) 0.5 mg PRN PRN IV 02/16/17 13:30 03/18/17 13:29 Acetaminophen 100 ml @ 400 mls/hr Q8H PRN IV 02/16/17 15:15 03/18/17 15:14 02/16/17 15:33 400 MLS/HR Lorazepam (Ativan Inj) 2 mg Q15M PRN IV 02/16/17 16:45 03/02/17 16:44 Donepezil HCl (Aricept Tab) 5 mg HS PO 02/17/17 21:00 03/15/17 20:59 Impression This is a 77-year-old female who has had a total of multiple tonic seizure-like events over the past 3 days of uncertain etiology. Plan I have increased standing Keppra dose to 1500 mg twice a day for seizure prophylaxis. Continue Lamictal at yesterday's recommended dosing (100mg qAM and 150mg qPM). Unfortunately Lamictal can only be titrated up every 1-2 weeks. I think it is unlikely that Seroquel is causing new onset seizures, but agree with holding dose to see if improved symptoms. Nonurgent MRI of the brain with seizure protocol when able Continue to monitor cardiac status for any arrhythmias that could give seizure mimic Continue to monitor for any infections that could cause seizures. If any concern or suspicion for infection, may need to do further infectious workup and consider a lumbar puncture. If she has additional seizures, can give IV Ativan up to 2 mg every 15 minutes up to 2 times If she continues to have uncontrolled seizures, may need to be transferred to the ICU for further care and continuous EEG monitoring If there is any questions or concerns, feel free to call/page me
[2017-02-17 15:08] LABS: BUN/CREATININE RATIO 14.3 (10-20); CALCIUM 8.4 mg/dl (8.5-10.1); CREATININE 0.71 mg/dl (0.60-1.20); POTASSIUM 3.1 mmol/L (3.5-5.1)
[2017-02-17 15:19] LABS: THYROID STIMULATING HORMONE 0.399 uIu/ml (0.300-4.500)
[2017-02-17 16:40] LABS: LYME DISEASE AB IGG NEG (NEG); LYME DISEASE AB IGM NEG (NEG)
--- NOTE | 2017-02-17 20:23 | DIAGNOSTIC IMAGING REPORT ---
MRI OF THE BRAIN WITHOUT AND WITH IV CONTRAST CLINICAL HISTORY: seizure COMPARISON STUDY: Noncontrast head CT dated 02/17/2017 TECHNIQUE: MRI of the brain was performed from the vertex to the skull base utilizing various T1 and T2 weighted sequences. Following the IV administration of 5.3 mL of Gadavist contrast, additional enhanced images were obtained. FINDINGS: The examination is mildly compromised due to motion artifact. Sagittal T1, axial diffusion, proton density and T2 weighted axial, coronal FLAIR, and pre and post axial T1-weighted images were acquired. These were supplemented with post gadolinium coronal T1 weighted images. No intra or extra-axial mass lesions are visualized. Axial diffusion-weighted images reveal no evidence of acute or subacute infarction. There is mild ventricular prominence which is felt to be secondary to volume loss Proton density T2-weighted and FLAIR images reveal moderate foci of increased T2 signal within the white matter, likely on a small vessel basis. There are no abnormal flow voids. There is no evidence of pathologic enhancement. IMPRESSION: 1. No acute intracranial findings 2. No evidence of acute or subacute infarction 3. No evidence of intracranial mass 4. Moderate foci of increased T2 signal within the white matter likely on a small vessel basis Electronically signed by: Roman Madrid M.D. 02/17/2017 8:21 PM Dictated Date/Time: 02/17/2017 8:19 PM
[2017-02-17] MEDS: LEVETIRACETAM IV 1,500 MG in DEXTROSE 5% 100ML 100 ML IV SCH (20:36)
[2017-02-17] MEDS: BIMATOPROST 0.01% OP SOLN 2.5 ML BTL OPB SCH (20:37)
[2017-02-17] MEDS: DONEPEZIL HCL 10 MG TAB PO SCH (20:38)
[2017-02-17] MEDS: EZETIMIBE 10MG TAB PO SCH (20:44)
[2017-02-18] VITALS (8 sets, daily range): BP systolic 156–185; BP diastolic 74–88; PULSE 66–81; TEMP 36.9–37.4; O2SAT 90–96
[2017-02-18] MEDS: NSS + 20MEQ KCL 1000ML 1,000 ML IV SCH ×3 (01:00→12:00)
[2017-02-18] MEDS: AMPICILLIN/SULBACTAM SOD INJ 1,500 MG in SODIUM CHLORIDE 0.9% 100ML 100 ML IV SCH ×3 (05:52→17:35)
[2017-02-18 06:39] LABS: BASO % 0.1 %; BASO ABS # 0.01 K/uL (0-0.2); COMPLETE YES; HEMATOCRIT 36.9 % (37-47); IG% 0.3 %; LYMPH % 9.4 %; LYMPH ABS # 0.97 K/uL (1.2-3.4); MEAN CORPUSCULAR HEMOGLOBIN 29.7 pg (25-34); MEAN CORPUSCULAR HGB CONC 34.1 g/dl (32-36); MEAN PLATELET VOLUME 8.8 fL (7.4-10.4); MONO % 5.5 %; NEUT % 84.7 %; PLATELET COUNT 296 K/uL (130-400); RED BLOOD COUNT 4.24 M/uL (4.2-5.4); WHITE BLOOD COUNT 10.33 K/uL (4.8-10.8)
[2017-02-18 07:17] LABS: BUN/CREATININE RATIO 16.8 (10-20); CALCIUM 8.7 mg/dl (8.5-10.1); CREATININE 0.66 mg/dl (0.60-1.20)
[2017-02-18 07:20] LABS: ALB/GLOB RATIO 0.9 (0.9-2)
[2017-02-18] MEDS: FUROSEMIDE 40 MG TAB PO SCH (08:33)
[2017-02-18] MEDS: AMLODIPINE BESYLATE 5 MG TAB PO SCH (08:33)
[2017-02-18] MEDS: POTASSIUM CHLORIDE 10 MEQ TABCR PO SCH (08:35)
[2017-02-18] MEDS: CARVEDILOL 3.125 MG TAB PO SCH ×2 (08:36→21:00)
[2017-02-18] MEDS: FERROUS SULFATE 325 MG TAB PO SCH ×2 (08:36→16:45)
[2017-02-18] MEDS: CARBIDOPA/LEVODOPA 25/100MG TAB PO SCH ×3 (08:36→19:48)
[2017-02-18] MEDS: ENOXAPARIN 40 MG/0.4 ML SYR SQ SCH (08:37)
[2017-02-18] MEDS: SENNA 8.6 MG TAB PO SCH (08:37)
[2017-02-18] MEDS: LEVETIRACETAM IV 1,500 MG in DEXTROSE 5% 100ML 100 ML IV SCH ×2 (08:38→19:51)
[2017-02-18] MEDS: BRIMONIDINE TARTRATE 0.1% OPH SOLN OPB SCH ×2 (08:38→19:47)
--- NOTE | 2017-02-18 11:05 | Progress Note ---
Subjective Date of Service: Feb 18, 2017. Subjective Pt evaluation today including: conversation w/ patient, conversation w/ family , physical exam, chart review, lab review PO Intake: Limited Voiding: vasques catheter in place No seizure activity overnight. She is awake, she'll turn to voice. Limited speech. She did appropriately smile for me today. Overall, however, her mental status as a sharp contrast to her admission and she was quite conversational and only minimally confused to certain facts. One of her daughters is bedside during today's examination. Problem List Medical Problems: (1) Abdominal pain Status: Acute (2) Bleeding internal hemorrhoids Status: Acute (3) GI bleed Status: Acute (4) Lower GI bleed Status: Acute (5) Microcytic anemia Status: Acute (6) Proctitis Status: Acute (7) Rectal bleed Status: Acute (8) Rectal prolapse Status: Acute (9) Rectal prolapse Status: Acute Review of Systems Constitutional: No fever, No chills Eyes: No discharge ENT: No problem reported Respiratory: No cough Cardiac: No chest pain Abdomen: No pain, No nausea, No vomiting, No diarrhea Musculoskeletal: No joint pain Neurologic: + memory loss, + problem reported Psychiatric: No anxiety Skin: No bleeding All Other Systems: Reviewed and Negative Objective Vital Signs Date Time Temp Pulse Resp B/P (MAP) Pulse Ox O2 Delivery O2 Flow Rate FiO2 02/18/17 07:39 37.0 81 18 185/82 (116) 90 Room Air 02/18/17 03:30 Room Air 02/18/17 03:30 Room Air 02/18/17 03:30 36.9 70 15 171/78 (109) 93 Room Air 167/88 (114) 02/17/17 23:30 Room Air 02/17/17 22:54 36.7 66 16 134/71 (92) 93 Room Air 02/17/17 19:45 37.4 74 18 146/68 (94) 97 Room Air 02/17/17 19:30 Room Air 02/17/17 16:00 98 Mask 5.0 02/17/17 15:40 36.5 79 15 119/63 (81) 92 Room Air 02/17/17 12:00 98 Mask 5.0 02/17/17 12:00 36.3 70 15 157/77 (103) 100 Oxymask 5.0 Physical Exam General Appearance: WD/WN (awake, turns to voice, minimal communication) Eyes: normal inspection ENT: normal ENT inspection (healing left inner cheek lesion.), hearing grossly normal Neck: supple, no adenopathy Respiratory/Chest: chest non-tender, lungs clear, normal breath sounds Cardiovascular: regular rate, rhythm Abdomen: normal bowel sounds, non tender, soft Extremities: normal range of motion, non-tender Neurologic/Psychiatric: alert (see above) Skin: normal color, warm/dry Laboratory Results Last 24 Hours Test 02/17/17 14:23 02/18/17 06:19 Sodium Level 136 mmol/L 137 mmol/L Potassium Level 3.1 mmol/L 3.0 mmol/L Chloride Level 101 mmol/L 100 mmol/L Carbon Dioxide Level 27 mmol/L 27 mmol/L Anion Gap 8.0 mmol/L 10.0 mmol/L Blood Urea Nitrogen 10 mg/dl 11 mg/dl Creatinine 0.71 mg/dl 0.66 mg/dl Est Creatinine Clear Calc Drug Dose 46.1 ml/min 49.6 ml/min Estimated GFR () 93.9 97.4 Estimated GFR (Non- 81.0 84.0 BUN/Creatinine Ratio 14.3 16.8 Random Glucose 171 mg/dl 134 mg/dl Calcium Level 8.4 mg/dl 8.7 mg/dl Vitamin B12 Level 653 pg/mL Thyroid Stimulating Hormone (TSH) 0.399 uIu/ml Free Thyroxine 1.06 ng/dl Lyme Disease IgG Antibody NEG Lyme Disease IgM Antibody NEG White Blood Count 10.33 K/uL Red Blood Count 4.24 M/uL Hemoglobin 12.6 g/dL Hematocrit 36.9 % Mean Corpuscular Volume 87.0 fL Mean Corpuscular Hemoglobin 29.7 pg Mean Corpuscular Hemoglobin Concent 34.1 g/dl Platelet Count 296 K/uL Mean Platelet Volume 8.8 fL Neutrophils (%) (Auto) 84.7 % Lymphocytes (%) (Auto) 9.4 % Monocytes (%) (Auto) 5.5 % Eosinophils (%) (Auto) 0.0 % Basophils (%) (Auto) 0.1 % Neutrophils # (Auto) 8.75 K/uL Lymphocytes # (Auto) 0.97 K/uL Monocytes # (Auto) 0.57 K/uL Eosinophils # (Auto) 0.00 K/uL Basophils # (Auto) 0.01 K/uL RDW Standard Deviation 46.3 fL RDW Coefficient of Variation 14.6 % Immature Granulocyte % (Auto) 0.3 % Immature Granulocyte # (Auto) 0.03 K/uL Total Bilirubin 0.5 mg/dl Aspartate Amino Transf (AST/SGOT) 34 U/L Alanine Aminotransferase (ALT/SGPT) 12 U/L Alkaline Phosphatase 88 U/L Total Protein 7.1 gm/dl Albumin 3.3 gm/dl Globulin 3.8 gm/dl Albumin/Globulin Ratio 0.9 Assessment and Plan This is a 77 y/o F who presents with recurrent rectal prolapse and chronic constipation, admitted pending half-way placement, now with onset of seizures Seizures No seizures in the last [address] of head was unremarkable; MRI unremarkable; EEG normal. Blood cultures negative Neurology consult appreciated 1) seizure precautions 2) continue Lamictal and Keppra 3) continue Unasyn; if fever returns, we'll need to broaden coverage and consider LP History of rectal prolapse status post repair/chronic constipation Upon exertion today no prolapse is evident Continue bowel regimen; outpatient evaluation for corrective surgery Hypertension Continue Norvasc 5 mg and increase carvedilol to 6.25 mg by mouth twice a day with hold orders Monitor blood pressures and pulse Parkinson's dementia Continue Sinemet and Donepezil 1) decrease her donepezil dose given her prolonged QT 2) Seroquel was discontinued secondary to prolonged QT Prolonged QT Held Seroquel yesterday Decreased Aricept yesterday EKG today pending Bipolar disorder I am not entirely clear if she has bipolar or if it is dementia with behavior disturbance Continue Lamictal Seroquel is being held (due to QT elongation) DVT prophylaxis MIKE, SCD Code: Full Continued [facility] stay due to: abnormal vital signs, multiple IV medications needed, home environment unsafe for pt Discharge planning: uncertain
--- NOTE | 2017-02-18 11:20 | Neurology Progress Notes ---
Neurology Progress Note Date of Service Feb 18, 2017. Subjective Patient remains confused but no seizure since yesterday morning. Family also concerned that she is not sleeping. No fevers in the last 24 hours. Objective Date Time Temp Pulse Resp B/P (MAP) Pulse Ox O2 Delivery O2 Flow Rate FiO2 02/18/17 08:00 Room Air 02/18/17 07:39 37.0 81 18 185/82 (116) 90 Room Air 02/18/17 03:30 Room Air 02/18/17 03:30 Room Air 02/18/17 03:30 36.9 70 15 171/78 (109) 93 Room Air 167/88 (114) 02/17/17 23:30 Room Air 02/17/17 22:54 36.7 66 16 134/71 (92) 93 Room Air 02/17/17 19:45 37.4 74 18 146/68 (94) 97 Room Air 02/17/17 19:30 Room Air 02/17/17 16:00 98 Mask 5.0 02/17/17 15:40 36.5 79 15 119/63 (81) 92 Room Air 02/17/17 12:00 98 Mask 5.0 02/17/17 12:00 36.3 70 15 157/77 (103) 100 Oxymask 5.0 Last 24 Hours Test 02/17/17 14:23 02/18/17 06:19 Sodium Level 136 mmol/L 137 mmol/L Potassium Level 3.1 mmol/L 3.0 mmol/L Chloride Level 101 mmol/L 100 mmol/L Carbon Dioxide Level 27 mmol/L 27 mmol/L Anion Gap 8.0 mmol/L 10.0 mmol/L Blood Urea Nitrogen 10 mg/dl 11 mg/dl Creatinine 0.71 mg/dl 0.66 mg/dl Est Creatinine Clear Calc Drug Dose 46.1 ml/min 49.6 ml/min Estimated GFR () 93.9 97.4 Estimated GFR (Non- 81.0 84.0 BUN/Creatinine Ratio 14.3 16.8 Random Glucose 171 mg/dl 134 mg/dl Calcium Level 8.4 mg/dl 8.7 mg/dl Vitamin B12 Level 653 pg/mL Thyroid Stimulating Hormone (TSH) 0.399 uIu/ml Free Thyroxine 1.06 ng/dl Lyme Disease IgG Antibody NEG Lyme Disease IgM Antibody NEG White Blood Count 10.33 K/uL Red Blood Count 4.24 M/uL Hemoglobin 12.6 g/dL Hematocrit 36.9 % Mean Corpuscular Volume 87.0 fL Mean Corpuscular Hemoglobin 29.7 pg Mean Corpuscular Hemoglobin Concent 34.1 g/dl Platelet Count 296 K/uL Mean Platelet Volume 8.8 fL Neutrophils (%) (Auto) 84.7 % Lymphocytes (%) (Auto) 9.4 % Monocytes (%) (Auto) 5.5 % Eosinophils (%) (Auto) 0.0 % Basophils (%) (Auto) 0.1 % Neutrophils # (Auto) 8.75 K/uL Lymphocytes # (Auto) 0.97 K/uL Monocytes # (Auto) 0.57 K/uL Eosinophils # (Auto) 0.00 K/uL Basophils # (Auto) 0.01 K/uL RDW Standard Deviation 46.3 fL RDW Coefficient of Variation 14.6 % Immature Granulocyte % (Auto) 0.3 % Immature Granulocyte # (Auto) 0.03 K/uL Total Bilirubin 0.5 mg/dl Aspartate Amino Transf (AST/SGOT) 34 U/L Alanine Aminotransferase (ALT/SGPT) 12 U/L Alkaline Phosphatase 88 U/L Total Protein 7.1 gm/dl Albumin 3.3 gm/dl Globulin 3.8 gm/dl Albumin/Globulin Ratio 0.9 Imaging: MRI of the brain report and images were reviewed by myself. No acute process. No acute strokes, inflammation, or masses. The patient does have moderate T2 hyperintensities in the subcortical white matter consistent with small vessel ischemic disease could contribute to a component of vascular dementia. Exam: The patient is awake. When she speech is nonsensical, repetitive and I cannot understand it. She does smile at her daughter. Is able to look in all directions No facial asymmetry Moving all extremities equally Sensation appears to grossly intact Current Inpatient Medications Medications (Trade) Dose Ordered Sig/Naeem Route Start Time Stop Time Status Last Admin Dose Admin Acetaminophen (Tylenol Tab) 650 mg Q4H PRN PO 02/13/17 00:15 03/15/17 00:14 02/14/17 16:03 650 MG Al Hydrox/Mg Hydrox/Simethicone (Maalox Max Susp) 15 ml Q4H PRN PO 02/13/17 00:15 03/15/17 00:14 Magnesium Hydroxide (Milk Of Magnesia Susp) 30 ml Q6H PRN PO 02/13/17 00:15 03/15/17 00:14 Polyethylene (Miralax Powder Packet) 17 gm DAILY PRN PO 02/13/17 00:15 03/15/17 00:14 Ondansetron HCl (Zofran Inj) 4 mg Q6H PRN IV 02/13/17 00:15 03/15/17 00:14 Amlodipine Besylate (Norvasc Tab) 5 mg QAM PO 02/13/17 09:00 03/15/17 08:59 02/18/17 08:33 5 MG Carvedilol (Coreg Tab) 3.125 mg BID PO 02/13/17 09:00 03/15/17 08:59 02/18/17 08:36 3.125 MG Clonazepam (Klonopin Tab) 0.5 mg HS PRN PO 02/13/17 00:15 03/15/17 00:14 Docusate Sodium (coLACE CAP) 100 mg BID PO 02/13/17 09:00 03/15/17 08:59 Future Hold EZETIMIBE (Zetia Tab) 10 mg HS PO 02/13/17 21:00 03/15/17 20:59 02/17/17 20:44 10 MG Ferrous Sulfate (Feosol Tab) 325 mg BIDM PO 02/13/17 08:00 03/15/17 07:59 02/18/17 08:36 325 MG Furosemide (Lasix Tab) 40 mg DAILY PO 02/13/17 09:00 03/15/17 08:59 02/18/17 08:33 40 MG Lamotrigine (Lamictal Tab) 200 mg DAILY PO 02/13/17 09:00 03/15/17 08:59 02/18/17 08:32 200 MG Carbidopa/Levodopa (Sinemet 25/ 100MG Tab) 1 tab TID PO 02/13/17 09:00 03/15/17 08:59 02/18/17 08:36 1 TAB Quetiapine Fumarate (seroQUEL TAB) 100 mg HS PO 02/13/17 21:00 03/15/17 20:59 Future Hold 02/16/17 21:20 100 MG Potassium Chloride (Klor-Con M10) 30 meq DAILY PO 02/13/17 09:00 03/15/17 08:59 02/18/17 08:35 30 MEQ Senna (Senokot Tab) 8.6 mg QAM PO 02/13/17 09:00 03/15/17 08:59 02/18/17 08:37 8.6 MG Bimatoprost (Lumigan 0.01%) 1 drops HS OPB 02/13/17 21:00 03/15/17 20:59 02/17/17 20:37 1 DROPS Brimonidine Tartrate (Alphagan-P 0.1% Oph Solution) 1 drop BID OPB 02/13/17 09:00 03/15/17 08:59 02/18/17 08:38 1 DROP Enoxaparin Sodium (Lovenox Inj) 40 mg QAM SQ 02/16/17 09:00 03/18/17 08:59 02/18/17 08:37 40 MG Ampicillin Sodium/ Sulbactam Sodium 1500 mg/Sodium Chloride 104 ml @ 200 mls/hr Q6H IV 02/15/17 18:00 02/22/17 17:59 02/18/17 05:52 200 MLS/HR Potassium Chloride/Sodium Chloride 1,000 ml @ 100 mls/hr Q10H IV 02/16/17 09:00 03/18/17 08:29 02/18/17 05:53 100 MLS/HR Lorazepam (Ativan Inj) 1 mg PRN PRN IV 02/16/17 13:30 03/18/17 13:29 Lorazepam (Ativan Inj) 0.5 mg PRN PRN IV 02/16/17 13:30 03/18/17 13:29 Acetaminophen 100 ml @ 400 mls/hr Q8H PRN IV 02/16/17 15:15 03/18/17 15:14 02/16/17 15:33 400 MLS/HR Lorazepam (Ativan Inj) 2 mg Q15M PRN IV 02/16/17 16:45 03/02/17 16:44 Donepezil HCl (Aricept Tab) 5 mg HS PO 02/17/17 21:00 03/15/17 20:59 02/17/17 20:38 5 MG Levetiracetam 1500 mg/Dextrose 115 ml @ 420 mls/hr Q12 IV 02/17/17 21:00 03/18/17 12:29 02/18/17 08:38 420 MLS/HR Impression This is a 77-year-old female who has had a total of multiple tonic seizure-like events over 3 days of uncertain etiology. MRI of the brain does not show any acute process. The patient has not had any recent fevers unassociated with seizure. Dementia and cerebral small vessel ischemic disease can place her at increased risk of seizures, and this may be the etiology for her seizures. At this time I do not have a strong suggestion that she has meningitis or encephalitis Persistent increased encephalopathy can be seen in the setting of hospitalist dementia patient in addition to recent prolonged postictal state due to seizures. The addition of Keppra plus the discontinuation of Seroquel could also affect the patient's mentation as well. Plan Continue Keppra 1500 mg twice a day for seizure prophylaxis. Patient is still taking Lamictal 200 mg daily. Recommend Lamictal dosing 100mg qAM and 150mg qPM. Unfortunately Lamictal can only be titrated up every 1-2 weeks. Recommend getting a Lamictal trough level a week after Lamictal dose has been increased for future medication management and to monitor for drug toxicity. I do not think that the patient needs a lumbar puncture at this time, but if any concerns for fever or infectious symptoms in the future, can reconsider. Continue to monitor cardiac status and prolonged QT I'm okay with decrease of Aricept to 5 mg due to concern for prolonged QT. Family reports patient tries to get out of bed and pulled out IVs when they're not around. Likely needs a bedside sitter if family is not around. I have ordered EEG for tomorrow morning to make sure that her continued confusion is not due to subclinical seizures Otherwise gave family the expectation that it could take days to weeks for her mentation did improve after multiple seizures in the setting of dementia. In addition she could continue to have ongoing encephalopathy when in an unfamiliar environment. Try to avoid situations that can increased delirium such as medications (Benadryl, Ativan etc.), Use frequent reorientation, lights on during the day and lights off during the night, ect. Recommend speech/cognitive evaluation. Patient may need inpatient rehabilitation /care home physical therapy before returning home. Follow-up in neurology clinic for further evaluation and management and management. If there is any questions or concerns, feel free to call/page me
[2017-02-18] MEDS: POTASSIUM CHLORIDE 20 MEQ TABCR PO SCH ×2 (12:17→19:49)
[2017-02-18] MEDS: BIMATOPROST 0.01% OP SOLN 2.5 ML BTL OPB SCH (19:47)
[2017-02-18] MEDS: EZETIMIBE 10MG TAB PO SCH (19:47)
[2017-02-18] MEDS: DONEPEZIL HCL 10 MG TAB PO SCH (19:48)
[2017-02-19] VITALS (14 sets, daily range): BP systolic 158–184; BP diastolic 76–84; PULSE 68–75; TEMP 36.4–37.9; O2SAT 93–96
[2017-02-19] MEDS: AMPICILLIN/SULBACTAM SOD INJ 1,500 MG in SODIUM CHLORIDE 0.9% 100ML 100 ML IV SCH ×4 (00:08→18:57)
[2017-02-19] MEDS: NSS + 20MEQ KCL 1000ML 1,000 ML IV SCH ×3 (00:08→22:57)
[2017-02-19] MEDS: ACETAMINOPHEN IV 100 ML IV PRN (03:59)
[2017-02-19 07:49] LABS: BASO % 0.1 %; BASO ABS # 0.01 K/uL (0-0.2); COMPLETE YES; HEMATOCRIT 37.3 % (37-47); IG% 0.6 %; LYMPH % 14.2 %; LYMPH ABS # 1.45 K/uL (1.2-3.4); MEAN CELL VOLUME 86.1 fL (80-100); MEAN CORPUSCULAR HEMOGLOBIN 29.3 pg (25-34); MEAN PLATELET VOLUME 9.2 fL (7.4-10.4); MONO % 7.6 %; NEUT % 77.5 %; PLATELET COUNT 329 K/uL (130-400); RED BLOOD COUNT 4.33 M/uL (4.2-5.4); WHITE BLOOD COUNT 10.23 K/uL (4.8-10.8)
--- NOTE | 2017-02-19 07:59 | Family Medicine Progress Note ---
Progress Note Date of Service Feb 19, 2017. Subjective Pt evaluation today including: conversation w/ family, physical exam, chart review, lab review, conversation w/ admissions consultant, review of inpatient medication list Voiding: vasques catheter in place Patient was non verbal with questioning this morning Stared outside with minimal facial expression. Family was at the bedside and questions were answered appropriately. Patient with questions with regards to LP and advised that it is not medically necessary at the moment unless patient spike fevers or has change in clinical status. Patient did have a tremor/lip smacking episode which resolved at the bedside as a family member stroked her head. Additional Comments: unable to obtain Medications Current Inpatient Medications Medications (Trade) Dose Ordered Sig/Naeem Route Start Time Stop Time Status Last Admin Dose Admin Acetaminophen (Tylenol Tab) 650 mg Q4H PRN PO 02/13/17 00:15 03/15/17 00:14 02/14/17 16:03 650 MG Al Hydrox/Mg Hydrox/Simethicone (Maalox Max Susp) 15 ml Q4H PRN PO 02/13/17 00:15 03/15/17 00:14 Magnesium Hydroxide (Milk Of Magnesia Susp) 30 ml Q6H PRN PO 02/13/17 00:15 03/15/17 00:14 Polyethylene (Miralax Powder Packet) 17 gm DAILY PRN PO 02/13/17 00:15 03/15/17 00:14 Ondansetron HCl (Zofran Inj) 4 mg Q6H PRN IV 02/13/17 00:15 03/15/17 00:14 Amlodipine Besylate (Norvasc Tab) 5 mg QAM PO 02/13/17 09:00 03/15/17 08:59 02/19/17 09:05 5 MG Clonazepam (Klonopin Tab) 0.5 mg HS PRN PO 02/13/17 00:15 03/15/17 00:14 Docusate Sodium (coLACE CAP) 100 mg BID PO 02/13/17 09:00 03/15/17 08:59 Future Hold EZETIMIBE (Zetia Tab) 10 mg HS PO 02/13/17 21:00 03/15/17 20:59 02/18/17 19:47 10 MG Ferrous Sulfate (Feosol Tab) 325 mg BIDM PO 02/13/17 08:00 03/15/17 07:59 02/19/17 13:51 325 MG Furosemide (Lasix Tab) 40 mg DAILY PO 02/13/17 09:00 03/15/17 08:59 02/19/17 09:05 40 MG Lamotrigine (Lamictal Tab) 200 mg DAILY PO 02/13/17 09:00 03/15/17 08:59 02/19/17 09:05 200 MG Carbidopa/Levodopa (Sinemet 25/ 100MG Tab) 1 tab TID PO 02/13/17 09:00 03/15/17 08:59 02/19/17 13:50 1 TAB Quetiapine Fumarate (seroQUEL TAB) 100 mg HS PO 02/13/17 21:00 03/15/17 20:59 Future Hold 02/16/17 21:20 100 MG Senna (Senokot Tab) 8.6 mg QAM PO 02/13/17 09:00 03/15/17 08:59 02/19/17 09:06 8.6 MG Bimatoprost (Lumigan 0.01%) 1 drops HS OPB 02/13/17 21:00 03/15/17 20:59 02/18/17 19:47 1 DROPS Brimonidine Tartrate (Alphagan-P 0.1% Oph Solution) 1 drop BID OPB 02/13/17 09:00 03/15/17 08:59 02/19/17 09:07 1 DROP Enoxaparin Sodium (Lovenox Inj) 40 mg QAM SQ 02/16/17 09:00 03/18/17 08:59 02/19/17 09:07 40 MG Ampicillin Sodium/ Sulbactam Sodium 1500 mg/Sodium Chloride 104 ml @ 200 mls/hr Q6H IV 02/15/17 18:00 02/22/17 17:59 02/19/17 13:52 200 MLS/HR Potassium Chloride/Sodium Chloride 1,000 ml @ 100 mls/hr Q10H IV 02/16/17 09:00 03/18/17 08:29 02/19/17 09:04 100 MLS/HR Lorazepam (Ativan Inj) 1 mg PRN PRN IV 02/16/17 13:30 03/18/17 13:29 Lorazepam (Ativan Inj) 0.5 mg PRN PRN IV 02/16/17 13:30 03/18/17 13:29 Acetaminophen 100 ml @ 400 mls/hr Q8H PRN IV 02/16/17 15:15 03/18/17 15:14 02/19/17 03:59 400 MLS/HR Lorazepam (Ativan Inj) 2 mg Q15M PRN IV 02/16/17 16:45 03/02/17 16:44 Donepezil HCl (Aricept Tab) 5 mg HS PO 02/17/17 21:00 03/15/17 20:59 02/18/17 19:48 5 MG Levetiracetam 1500 mg/Dextrose 115 ml @ 420 mls/hr Q12 IV 02/17/17 21:00 03/18/17 12:29 02/19/17 09:04 420 MLS/HR Potassium Chloride (Klor-Con Tab) 20 meq BID PO 02/18/17 12:00 03/20/17 11:59 02/19/17 13:50 20 MEQ Carvedilol (Coreg Tab) 12.5 mg BID PO 02/19/17 21:00 03/20/17 20:59 Hydralazine HCl (HydrALAZINE INJ) 2.5 mg PRN PRN IV. 02/19/17 16:15 03/21/17 16:14 Objective Vital Signs Date Time Temp Pulse Resp B/P (MAP) Pulse Ox O2 Delivery O2 Flow Rate FiO2 02/19/17 16:30 94 Room Air 02/19/17 15:10 37.9 75 18 166/82 (110) 93 Room Air 02/19/17 12:30 96 Room Air 02/19/17 10:46 36.4 68 18 182/78 (112) 94 02/19/17 08:29 95 Room Air 02/19/17 08:15 95 Room Air 02/19/17 08:09 37.6 70 17 180/84 (116) 94 Room Air 02/19/17 06:56 37.6 69 18 184/82 (116) 95 Room Air 02/19/17 04:59 37.7 02/19/17 04:00 94 Room Air 02/19/17 03:59 37.6 70 17 159/80 (106) 94 Room Air 02/19/17 00:00 94 Room Air 02/19/17 00:00 158/80 (106) 02/18/17 23:52 37.0 67 17 175/74 (107) 93 Room Air 02/18/17 20:00 94 Room Air 02/18/17 19:32 37.4 76 20 160/82 (108) 91 Room Air Physical Exam General Appearance: + pertinent finding (patient appears disheveled and in mild distress, is not making eye contact with head jerked back and looking out window) Eyes: PERRL ENT: pharynx normal Respiratory/Chest: lungs clear, no respiratory distress, no accessory muscle use Cardiovascular: regular rate, rhythm, no edema, no murmur Extremities: non-tender, no pedal edema, normal capillary refill Laboratory Results Results Past 24 Hours Test 02/19/17 07:02 02/19/17 11:35 02/19/17 16:40 Range/Units White Blood Count 10.23 4.8-10.8 K/uL Red Blood Count 4.33 4.2-5.4 M/uL Hemoglobin 12.7 12.0-16.0 g/dL Hematocrit 37.3 37-47 % Mean Corpuscular Volume 86.1 80-100 fL Mean Corpuscular Hemoglobin 29.3 25-34 pg Mean Corpuscular Hemoglobin Concent 34.0 32-36 g/dl Platelet Count 329 130-400 K/uL Mean Platelet Volume 9.2 7.4-10.4 fL Neutrophils (%) (Auto) 77.5 % Lymphocytes (%) (Auto) 14.2 % Monocytes (%) (Auto) 7.6 % Eosinophils (%) (Auto) 0.0 % Basophils (%) (Auto) 0.1 % Neutrophils # (Auto) 7.93 1.4-6.5 K/uL Lymphocytes # (Auto) 1.45 1.2-3.4 K/uL Monocytes # (Auto) 0.78 0.11-0.59 K/uL Eosinophils # (Auto) 0.00 0-0.5 K/uL Basophils # (Auto) 0.01 0-0.2 K/uL RDW Standard Deviation 45.9 36.4-46.3 fL RDW Coefficient of Variation 14.4 11.5-14.5 % Immature Granulocyte % (Auto) 0.6 % Immature Granulocyte # (Auto) 0.06 0.00-0.02 K/uL Sodium Level 132 136-145 mmol/L Potassium Level 3.2 3.5-5.1 mmol/L Chloride Level 95 98-107 mmol/L Carbon Dioxide Level 26 21-32 mmol/L Anion Gap 11.0 3-11 mmol/L Blood Urea Nitrogen 6 7-18 mg/dl Creatinine 0.68 0.60-1.20 mg/dl Est Creatinine Clear Calc Drug Dose 48.2 ml/min Estimated GFR () 96.4 Estimated GFR (Non- 83.2 BUN/Creatinine Ratio 9.5 10-20 Random Glucose 134 70-99 mg/dl Calcium Level 8.8 8.5-10.1 mg/dl Total Bilirubin 0.5 0.2-1 mg/dl Aspartate Amino Transf (AST/SGOT) 25 15-37 U/L Alanine Aminotransferase (ALT/SGPT) 14 12-78 U/L Alkaline Phosphatase 86 45-117 U/L Total Protein 6.8 6.4-8.2 gm/dl Albumin 3.2 3.4-5.0 gm/dl Globulin 3.6 2.5-4.0 gm/dl Albumin/Globulin Ratio 0.9 0.9-2 Magnesium Level 1.5 1.8-2.4 mg/dl Lyme Disease IgG Antibody NEG NEG Prolactin 7.55 ng/mL Assessment and Plan Assessment: This is a 77 y/o F who presents with recurrent rectal prolapse and chronic constipation. During admission had new onset seizures for which she is being treated with keppra. Has had worsening mental status and is no longer answering questions or making eye contact with people. Plan: Seizures neuro and psych on board continue keppra EEG, MRI and CT head normal repeat EEG ordered by neuro continue unasyn for possible aspiration - will stop pending procalcitonin and CXR if patient spikes fever then low threshold for LP procalcitonin ordered if patient has seizure ativan prn ordered Parkinsons dementia continue sinemet and donepezil Bipolar seroquel held due to prolonged qt continue lamictal HTN increase carvedilol to 12.5 bid hydralazine 2.5 IV prn for systolic >180 Rectal prolapse stable senna and milk of mag Prolonged QT improved with qt of 417 this morning will consider restarting seroquel DVT prophylaxis MIKE, SCD Continued [facility] stay due to: voiding difficulties, ambulation difficulties, home environment unsafe for pt Discharge planning: uncertain History Resident Physician Supervision Note: I was present with Dr. Vega during the history and exam. I discussed the case with the resident and agree with the findings and plan as documented in the note. Any exceptions or clarifications are listed here. 77 y/o female h/o Parkinson's disease, bipolar d/o and rectal prolapse now presenting with new onset seizures and a change from baseline mental status. On examination, pt is nonverbal and only partially acknowledges interactions with staff, though somewhat better with family. During examination today, she had an episodic, persistent, tic like movement of the face which resolved with familial soothing. Otherwise no sign of pain or complaint. Unable to follow instructions for neurological examination but S1/S2 nl, RRR, CTAB. Seizures w/ change in baseline mental status - neurology and psychiatry consulted. MRI and EEG unremarkable, BCx neg. Continue lamictal and keppra. Continue unasyn. With episode today, pull prolactin level at time of episode if possible. Would consider LP if fever occurs or other change in status. Prolonged QT - improved - consider restarting seroquel w/ close monitoring of QT for recurrence of changes w/ EKG in AM HTN - continue amlodipine and carvedilol Rectal prolapse w/ chronic constipation - continue bowel regimen, monitor I/Os Parkinson's dementia - continue sinemet and donepezil - consider d/c donepezil in favor of seroquel if QT becomes an issue w/ the latter Bipolar d/o v. dementia related behavior disturbance - continue lamictal, restart seroquel
[2017-02-19 08:20] LABS: BUN/CREATININE RATIO 9.5 (10-20); CALCIUM 8.8 mg/dl (8.5-10.1); CREATININE 0.68 mg/dl (0.60-1.20); POTASSIUM 3.2 mmol/L (3.5-5.1)
[2017-02-19 08:23] LABS: ALB/GLOB RATIO 0.9 (0.9-2)
[2017-02-19] MEDS: LEVETIRACETAM IV 1,500 MG in DEXTROSE 5% 100ML 100 ML IV SCH ×2 (09:04→20:19)
[2017-02-19] MEDS: FERROUS SULFATE 325 MG TAB PO SCH ×2 (09:04→13:51)
[2017-02-19] MEDS: AMLODIPINE BESYLATE 5 MG TAB PO SCH (09:05)
[2017-02-19] MEDS: CARBIDOPA/LEVODOPA 25/100MG TAB PO SCH ×3 (09:05→20:27)
[2017-02-19] MEDS: FUROSEMIDE 40 MG TAB PO SCH (09:05)
[2017-02-19] MEDS: CARVEDILOL 3.125 MG TAB PO SCH (09:06)
[2017-02-19] MEDS: SENNA 8.6 MG TAB PO SCH (09:06)
[2017-02-19] MEDS: BRIMONIDINE TARTRATE 0.1% OPH SOLN OPB SCH ×2 (09:07→20:27)
[2017-02-19] MEDS: ENOXAPARIN 40 MG/0.4 ML SYR SQ SCH (09:07)
--- NOTE | 2017-02-19 10:22 | Neurology Progress Notes ---
Neurology Progress Note Date of Service Feb 19, 2017. Subjective Follow-up for seizures and encephalopathy The patient is a 77-year-old female with a history of dementia who has had several recent seizure-like episodes occurring in the context of rectal prolapse. She is prescribed Aricept and Sinemet as an outpatient. Her Aricept dosage is been reduced. She also is prescribed Lamictal as an outpatient which I would presume this for her history of bipolar disorder. The patient was seen by Dr. Stark and Keppra was started to address her recent seizure-like episodes. An EEG completed on February 16 was normal. A brain MRI completed on February 17 was negative for acute or subacute process. The study did reveal chronic microvascular disease. The patient has continued to exhibit confusion during her hospitalization. A repeat electroencephalogram has been completed this morning. The patient is alert and inattentive. She does not voice any particular complaint and denies experiencing any particular symptoms. She remains confused and is unable to provide any specific information at this time. Objective Date Time Temp Pulse Resp B/P (MAP) Pulse Ox O2 Delivery O2 Flow Rate FiO2 02/19/17 08:29 95 Room Air 02/19/17 08:15 95 Room Air 02/19/17 08:09 37.6 70 17 180/84 (116) 94 Room Air 02/19/17 06:56 37.6 69 18 184/82 (116) 95 Room Air 02/19/17 04:59 37.7 02/19/17 04:00 94 Room Air 02/19/17 03:59 37.6 70 17 159/80 (106) 94 Room Air 02/19/17 00:00 94 Room Air 02/19/17 00:00 158/80 (106) 02/18/17 23:52 37.0 67 17 175/74 (107) 93 Room Air 02/18/17 20:00 94 Room Air 02/18/17 19:32 37.4 76 20 160/82 (108) 91 Room Air 02/18/17 16:35 Room Air 02/18/17 16:00 156/82 (106) 02/18/17 15:08 37.4 70 18 179/78 (111) 96 Room Air 02/18/17 12:00 Room Air 02/18/17 11:40 37.0 66 18 172/80 (110) 93 Room Air Last 24 Hours Test 02/19/17 07:02 White Blood Count 10.23 K/uL Red Blood Count 4.33 M/uL Hemoglobin 12.7 g/dL Hematocrit 37.3 % Mean Corpuscular Volume 86.1 fL Mean Corpuscular Hemoglobin 29.3 pg Mean Corpuscular Hemoglobin Concent 34.0 g/dl Platelet Count 329 K/uL Mean Platelet Volume 9.2 fL Neutrophils (%) (Auto) 77.5 % Lymphocytes (%) (Auto) 14.2 % Monocytes (%) (Auto) 7.6 % Eosinophils (%) (Auto) 0.0 % Basophils (%) (Auto) 0.1 % Neutrophils # (Auto) 7.93 K/uL Lymphocytes # (Auto) 1.45 K/uL Monocytes # (Auto) 0.78 K/uL Eosinophils # (Auto) 0.00 K/uL Basophils # (Auto) 0.01 K/uL RDW Standard Deviation 45.9 fL RDW Coefficient of Variation 14.4 % Immature Granulocyte % (Auto) 0.6 % Immature Granulocyte # (Auto) 0.06 K/uL Sodium Level 132 mmol/L Potassium Level 3.2 mmol/L Chloride Level 95 mmol/L Carbon Dioxide Level 26 mmol/L Anion Gap 11.0 mmol/L Blood Urea Nitrogen 6 mg/dl Creatinine 0.68 mg/dl Est Creatinine Clear Calc Drug Dose 48.2 ml/min Estimated GFR () 96.4 Estimated GFR (Non- 83.2 BUN/Creatinine Ratio 9.5 Random Glucose 134 mg/dl Calcium Level 8.8 mg/dl Total Bilirubin 0.5 mg/dl Aspartate Amino Transf (AST/SGOT) 25 U/L Alanine Aminotransferase (ALT/SGPT) 14 U/L Alkaline Phosphatase 86 U/L Total Protein 6.8 gm/dl Albumin 3.2 gm/dl Globulin 3.6 gm/dl Albumin/Globulin Ratio 0.9 Exam: The patient is an elderly female. She appears mildly agitated and moves about slightly, intermittently grabbing at her sheets and bedclothes. She speaks very softly and gives only simple monosyllabic answers to questions which are not well understood. She exhibits impaired attention and does not really look directly at the examiner for more than a moment and will not respond to questions appropriately or follow commands. I do not observe any involuntary movements or obvious manifestations of seizure activity. The patient will move all 4 limbs fairly symmetrically and does withdraw to noxious stimulation. Muscle tone is normal. Current Inpatient Medications Medications (Trade) Dose Ordered Sig/Naeem Route Start Time Stop Time Status Last Admin Dose Admin Acetaminophen (Tylenol Tab) 650 mg Q4H PRN PO 02/13/17 00:15 03/15/17 00:14 02/14/17 16:03 650 MG Al Hydrox/Mg Hydrox/Simethicone (Maalox Max Susp) 15 ml Q4H PRN PO 02/13/17 00:15 03/15/17 00:14 Magnesium Hydroxide (Milk Of Magnesia Susp) 30 ml Q6H PRN PO 02/13/17 00:15 03/15/17 00:14 Polyethylene (Miralax Powder Packet) 17 gm DAILY PRN PO 02/13/17 00:15 03/15/17 00:14 Ondansetron HCl (Zofran Inj) 4 mg Q6H PRN IV 02/13/17 00:15 03/15/17 00:14 Amlodipine Besylate (Norvasc Tab) 5 mg QAM PO 02/13/17 09:00 03/15/17 08:59 02/19/17 09:05 5 MG Clonazepam (Klonopin Tab) 0.5 mg HS PRN PO 02/13/17 00:15 03/15/17 00:14 Docusate Sodium (coLACE CAP) 100 mg BID PO 02/13/17 09:00 03/15/17 08:59 Future Hold EZETIMIBE (Zetia Tab) 10 mg HS PO 02/13/17 21:00 03/15/17 20:59 02/18/17 19:47 10 MG Ferrous Sulfate (Feosol Tab) 325 mg BIDM PO 02/13/17 08:00 03/15/17 07:59 02/19/17 09:04 325 MG Furosemide (Lasix Tab) 40 mg DAILY PO 02/13/17 09:00 03/15/17 08:59 02/19/17 09:05 40 MG Lamotrigine (Lamictal Tab) 200 mg DAILY PO 02/13/17 09:00 03/15/17 08:59 02/19/17 09:05 200 MG Carbidopa/Levodopa (Sinemet 25/ 100MG Tab) 1 tab TID PO 02/13/17 09:00 03/15/17 08:59 02/19/17 09:05 1 TAB Quetiapine Fumarate (seroQUEL TAB) 100 mg HS PO 02/13/17 21:00 03/15/17 20:59 Future Hold 02/16/17 21:20 100 MG Senna (Senokot Tab) 8.6 mg QAM PO 02/13/17 09:00 03/15/17 08:59 02/19/17 09:06 8.6 MG Bimatoprost (Lumigan 0.01%) 1 drops HS OPB 02/13/17 21:00 03/15/17 20:59 02/18/17 19:47 1 DROPS Brimonidine Tartrate (Alphagan-P 0.1% Oph Solution) 1 drop BID OPB 02/13/17 09:00 03/15/17 08:59 02/19/17 09:07 1 DROP Enoxaparin Sodium (Lovenox Inj) 40 mg QAM SQ 02/16/17 09:00 03/18/17 08:59 02/19/17 09:07 40 MG Ampicillin Sodium/ Sulbactam Sodium 1500 mg/Sodium Chloride 104 ml @ 200 mls/hr Q6H IV 02/15/17 18:00 02/22/17 17:59 02/19/17 06:06 200 MLS/HR Potassium Chloride/Sodium Chloride 1,000 ml @ 100 mls/hr Q10H IV 02/16/17 09:00 03/18/17 08:29 02/19/17 09:04 100 MLS/HR Lorazepam (Ativan Inj) 1 mg PRN PRN IV 02/16/17 13:30 03/18/17 13:29 Lorazepam (Ativan Inj) 0.5 mg PRN PRN IV 02/16/17 13:30 03/18/17 13:29 Acetaminophen 100 ml @ 400 mls/hr Q8H PRN IV 02/16/17 15:15 03/18/17 15:14 02/19/17 03:59 400 MLS/HR Lorazepam (Ativan Inj) 2 mg Q15M PRN IV 02/16/17 16:45 03/02/17 16:44 Donepezil HCl (Aricept Tab) 5 mg HS PO 02/17/17 21:00 03/15/17 20:59 02/18/17 19:48 5 MG Levetiracetam 1500 mg/Dextrose 115 ml @ 420 mls/hr Q12 IV 02/17/17 21:00 03/18/17 12:29 02/19/17 09:04 420 MLS/HR Potassium Chloride (Klor-Con Tab) 20 meq BID PO 02/18/17 12:00 03/20/17 11:59 02/18/17 19:49 20 MEQ Carvedilol (Coreg Tab) 6.25 mg BID PO 02/18/17 21:00 03/20/17 20:59 02/19/17 09:06 6.25 MG Impression Persistent delirium occurring in a 77-year-old female with a history of dementia who has had multiple seizure-like episodes recently occurring in the context of rectal prolapse. In addition to Aricept, this patient is also prescribed Sinemet which I suspect is to address associated parkinsonism. I do not believe either of these medications would be responsible for her encephalopathy or seizure-like episodes. This patient's persistent encephalopathy may in part be explained by recent seizures and may take several days to improve. However, her baseline dementia is also a probable contributing factor and likely impacts her rate and degree of improvement. Plan Continue Aricept and Sinemet at the current dosages. I may consider tapering off this patient's Sinemet, however, if she were to exhibit dose-related dyskinesias. Continue with current dosage of Keppra for suspected seizures. Follow-up with repeat EEG today.
--- NOTE | 2017-02-19 13:03 | Psychiatric Consultation ---
Consultation Date of Consultation Feb 19, 2017. Identifying Data 77-year-old white female with a history of Parkinson's disease, bipolar disorder, dementia, hypertension, and rectal prolapse status post repair who presented with recurrent rectal prolapse and constipation. She is admitted medically, and psychiatry is consulted to review her bipolar medications and make recommendations. Chief Complaint Patient nonverbal History of Present Illness The patient was admitted one week ago for recurrent rectal prolapse, rectal bleeding, and constipation. On admission, she was alert and oriented and able to answer questions about her symptoms appropriately. She was continued on her home psychotropic medications, including clonazepam 0.5 mg twice a day, lamotrigine 200 mg daily, and quetiapine 100 mg daily at bedtime. She was also on Sinemet and Aricept. GI was consulted and recommended outpatient follow-up for surgical evaluation. Neurology was consulted several days ago after she had 4 episodes of seizure-like activity, and she was started on Keppra IV, as she was not taking oral medications at that time, as well as Ativan as needed for seizures. They recommended increasing her lamotrigine to target seizures when she was able to take oral medications. Over the past several days, she's continued to have seizures, and has been progressively more confused, nonsensical in her speech, and now nonverbal. She had an EEG on 02/16/2017 which was normal, and a brain MRI on 02/17/2017 which was negative for acute or subacute processes, but revealed chronic microvascular disease. Her Aricept dose has been decreased, and today neurology recommended consideration of tapering her off Sinemet. She has a follow-up EEG ordered for today. On my assessment, the patient is nonverbal and does not respond to questions. Her granddaughter is at the bedside and provided some background information. She states that at baseline, the patient lives independently with her , and he cares for her and helps her with her medications. They have multiple family members that live close by as well. Her is currently at another hospital, and recently had open-heart surgery. At baseline, she is talkative and interacts with others, but has difficulty ambulating due to her Parkinson's disease. She notes that when she last saw the patient the day prior to admission, she was at her baseline. She does not know any details of her psychiatric background or who her current psychiatrist is. Past Psychiatric History Current OP Treatment: psychiatrist (unknown who prescribes her psychotropic medications currently) Past Medication Trials Unknown Past Medical/Surgical History (1) Seizure disorder (2) Rectal bleeding (3) Rectal prolapse (4) Hypertension (5) Hemorrhoids Allergies Allergies: Coded Allergies: [place] (Verified Allergy, Severe, SYSTEM TOXICITY, 02/12/17) Uncoded Allergies: YELLOW SQUASH (Allergy, Severe, ANAPHYLAXIS, 03/13/15) Home Medications Scheduled Amlodipine Besylate (Norvasc), 5 MG PO QAM Bimatoprost (Lumigan), 1 DROP OPB HS Brimonidine Tartrate (Alphagan P Oph), 1 DROP OPB BID Carvedilol (Carvedilol), 1 TAB PO BID Clonazepam (Klonopin), 0.5 MG PO AMPM Docusate Sodium (Colace), 1 CAP PO BID Donepezil Hydrochloride (Aricept), 10 MG PO HS Ezetimibe (Zetia), 10 MG PO HS Ferrous Sulfate (Ferrous Sulfate), 325 MG PO BIDM Furosemide (Lasix), 1 TAB PO DAILY Lamotrigine (Lamictal), 200 MG PO DAILY Levodopa/Carbidopa (Sinemet 25MG/100MG), 1 TAB PO TID Potassium Chloride Microencaps (Klor-Con M15), 30 MEQ PO DAILY Quetiapine Fumarate (Seroquel), 100 MG PO HS Family History Hypertension Lung disease Unknown Alcohol Use Alcohol Use In Past 12 Months: No (unable to participate in assessment) Smoking Use Smoking Status: Never Smoker Personal History Lives in: [facility] with her Review of Systems Patient nonverbal and unable to participate Examination Vital Signs Vital Signs Past 12 Hours Date Time Temp Pulse Resp B/P (MAP) Pulse Ox O2 Delivery O2 Flow Rate FiO2 02/19/17 10:46 36.4 68 18 182/78 (112) 94 02/19/17 08:29 95 Room Air 02/19/17 08:15 95 Room Air 02/19/17 08:09 37.6 70 17 180/84 (116) 94 Room Air 02/19/17 06:56 37.6 69 18 184/82 (116) 95 Room Air 02/19/17 04:59 37.7 02/19/17 04:00 94 Room Air 02/19/17 03:59 37.6 70 17 159/80 (106) 94 Room Air Laboratory Results Last 24 Hours Test 02/19/17 07:02 02/19/17 11:35 White Blood Count 10.23 K/uL Red Blood Count 4.33 M/uL Hemoglobin 12.7 g/dL Hematocrit 37.3 % Mean Corpuscular Volume 86.1 fL Mean Corpuscular Hemoglobin 29.3 pg Mean Corpuscular Hemoglobin Concent 34.0 g/dl Platelet Count 329 K/uL Mean Platelet Volume 9.2 fL Neutrophils (%) (Auto) 77.5 % Lymphocytes (%) (Auto) 14.2 % Monocytes (%) (Auto) 7.6 % Eosinophils (%) (Auto) 0.0 % Basophils (%) (Auto) 0.1 % Neutrophils # (Auto) 7.93 K/uL Lymphocytes # (Auto) 1.45 K/uL Monocytes # (Auto) 0.78 K/uL Eosinophils # (Auto) 0.00 K/uL Basophils # (Auto) 0.01 K/uL RDW Standard Deviation 45.9 fL RDW Coefficient of Variation 14.4 % Immature Granulocyte % (Auto) 0.6 % Immature Granulocyte # (Auto) 0.06 K/uL Sodium Level 132 mmol/L Potassium Level 3.2 mmol/L Chloride Level 95 mmol/L Carbon Dioxide Level 26 mmol/L Anion Gap 11.0 mmol/L Blood Urea Nitrogen 6 mg/dl Creatinine 0.68 mg/dl Est Creatinine Clear Calc Drug Dose 48.2 ml/min Estimated GFR () 96.4 Estimated GFR (Non- 83.2 BUN/Creatinine Ratio 9.5 Random Glucose 134 mg/dl Calcium Level 8.8 mg/dl Total Bilirubin 0.5 mg/dl Aspartate Amino Transf (AST/SGOT) 25 U/L Alanine Aminotransferase (ALT/SGPT) 14 U/L Alkaline Phosphatase 86 U/L Total Protein 6.8 gm/dl Albumin 3.2 gm/dl Globulin 3.6 gm/dl Albumin/Globulin Ratio 0.9 Magnesium Level 1.5 mg/dl Mental Examination During interview pt is: other (lying in bed, eyes and mouth open, staring at the ceiling, does not respond to voice) Appearance: other (thin, appears stated age) Eye contact is: poor Motor behavior is: psychomotor retardation Speech: mute Impression / Recommendations Impression Shari Whitfield injures a 77-year-old white female with a history of Parkinson's disease, dementia, and bipolar disorder type I, who is admitted for recurrent rectal prolapse, and then developed new onset seizures during this hospitalization. She is encephalopathic, has worsened over the past several days, and psychiatry was consulted for medication recommendations. She is nonverbal and cannot participate in the interview, and we have very little background information. Recommendations (1) Bipolar 1 disorder Her symptoms and course of illness are most consistent with delirium, as she had an acute change in mental status, per family was at her baseline the day prior to admission to the hospital, and has multiple medical conditions contributing to her delirium. I do not have a high suspicion that she is having a mood episode currently. Continue lamotrigine, which has been increased per neurology's recommendations, and can target both mood and seizure disorder. Quetiapine was discontinued several days ago, and sleep has been very poor since; her most recent EKG shows a QTC of 417, so perhaps her home dose of quetiapine can now be resumed. We will attempt to get outpatient records if we can identify who her outpatient psychiatrist is, although her granddaughter did not know. We will continue to follow along while she is here, but at this point I would not recommend any other psychotropic medication changes. She will need to follow-up with her psychiatrist as an outpatient.
[2017-02-19] MEDS: POTASSIUM CHLORIDE 20 MEQ TABCR PO SCH ×2 (13:50→20:30)
[2017-02-19] MEDS ORDERED: HydrALAZINE HCL 20 MG/ML VIAL IV. PRN (16:15)
--- NOTE | 2017-02-19 17:07 | DIAGNOSTIC IMAGING REPORT ---
CHEST ONE VIEW PORTABLE CLINICAL HISTORY: Question aspiration pneumonia pneumonia COMPARISON STUDY: 02/17/2017 FINDINGS: Mild stable cardiomegaly. Lungs are considered clear. Diaphragms are smooth. IMPRESSION: No acute process. The lungs are clear. The above report was generated using voice recognition software. It may contain grammatical, syntax or spelling errors. Electronically signed by: Ronny Jasso M.D. 02/19/2017 5:05 PM Dictated Date/Time: 02/19/2017 5:05 PM
--- NOTE | 2017-02-19 17:29 | EEG Procedure Note ---
EEG Procedure Note Date of Service Feb 19, 2017. Start / End Times Start Time: 8:09am End Time: 8:29am Referring Physician Silvaan Stark History 77 year old female with recent seizures and acute encephalopathy. EEG for further evaluation of seizures and encephalopathy. Home Medication List Scheduled Amlodipine Besylate (Norvasc), 5 MG PO QAM Bimatoprost (Lumigan), 1 DROP OPB HS Brimonidine Tartrate (Alphagan P Oph), 1 DROP OPB BID Carvedilol (Carvedilol), 1 TAB PO BID Clonazepam (Klonopin), 0.5 MG PO AMPM Docusate Sodium (Colace), 1 CAP PO BID Donepezil Hydrochloride (Aricept), 10 MG PO HS Ezetimibe (Zetia), 10 MG PO HS Ferrous Sulfate (Ferrous Sulfate), 325 MG PO BIDM Furosemide (Lasix), 1 TAB PO DAILY Lamotrigine (Lamictal), 200 MG PO DAILY Levodopa/Carbidopa (Sinemet 25MG/100MG), 1 TAB PO TID Potassium Chloride Microencaps (Klor-Con M15), 30 MEQ PO DAILY Quetiapine Fumarate (Seroquel), 100 MG PO HS Inpatient Medication List Current Inpatient Medications Medications (Trade) Dose Ordered Sig/Naeem Route Start Time Stop Time Status Last Admin Dose Admin Acetaminophen (Tylenol Tab) 650 mg Q4H PRN PO 02/13/17 00:15 03/15/17 00:14 02/14/17 16:03 650 MG Al Hydrox/Mg Hydrox/Simethicone (Maalox Max Susp) 15 ml Q4H PRN PO 02/13/17 00:15 03/15/17 00:14 Magnesium Hydroxide (Milk Of Magnesia Susp) 30 ml Q6H PRN PO 02/13/17 00:15 03/15/17 00:14 Polyethylene (Miralax Powder Packet) 17 gm DAILY PRN PO 02/13/17 00:15 03/15/17 00:14 Ondansetron HCl (Zofran Inj) 4 mg Q6H PRN IV 02/13/17 00:15 03/15/17 00:14 Amlodipine Besylate (Norvasc Tab) 5 mg QAM PO 02/13/17 09:00 03/15/17 08:59 02/19/17 09:05 5 MG Clonazepam (Klonopin Tab) 0.5 mg HS PRN PO 02/13/17 00:15 03/15/17 00:14 Docusate Sodium (coLACE CAP) 100 mg BID PO 02/13/17 09:00 03/15/17 08:59 Future Hold EZETIMIBE (Zetia Tab) 10 mg HS PO 02/13/17 21:00 03/15/17 20:59 02/18/17 19:47 10 MG Ferrous Sulfate (Feosol Tab) 325 mg BIDM PO 02/13/17 08:00 03/15/17 07:59 02/19/17 13:51 325 MG Furosemide (Lasix Tab) 40 mg DAILY PO 02/13/17 09:00 03/15/17 08:59 02/19/17 09:05 40 MG Lamotrigine (Lamictal Tab) 200 mg DAILY PO 02/13/17 09:00 03/15/17 08:59 02/19/17 09:05 200 MG Carbidopa/Levodopa (Sinemet 25/ 100MG Tab) 1 tab TID PO 02/13/17 09:00 03/15/17 08:59 02/19/17 13:50 1 TAB Quetiapine Fumarate (seroQUEL TAB) 100 mg HS PO 02/13/17 21:00 03/15/17 20:59 Future Hold 02/16/17 21:20 100 MG Senna (Senokot Tab) 8.6 mg QAM PO 02/13/17 09:00 03/15/17 08:59 02/19/17 09:06 8.6 MG Bimatoprost (Lumigan 0.01%) 1 drops HS OPB 02/13/17 21:00 03/15/17 20:59 02/18/17 19:47 1 DROPS Brimonidine Tartrate (Alphagan-P 0.1% Oph Solution) 1 drop BID OPB 02/13/17 09:00 03/15/17 08:59 02/19/17 09:07 1 DROP Enoxaparin Sodium (Lovenox Inj) 40 mg QAM SQ 02/16/17 09:00 03/18/17 08:59 02/19/17 09:07 40 MG Ampicillin Sodium/ Sulbactam Sodium 1500 mg/Sodium Chloride 104 ml @ 200 mls/hr Q6H IV 02/15/17 18:00 02/22/17 17:59 02/19/17 13:52 200 MLS/HR Potassium Chloride/Sodium Chloride 1,000 ml @ 100 mls/hr Q10H IV 02/16/17 09:00 03/18/17 08:29 02/19/17 09:04 100 MLS/HR Lorazepam (Ativan Inj) 1 mg PRN PRN IV 02/16/17 13:30 03/18/17 13:29 Lorazepam (Ativan Inj) 0.5 mg PRN PRN IV 02/16/17 13:30 03/18/17 13:29 Acetaminophen 100 ml @ 400 mls/hr Q8H PRN IV 02/16/17 15:15 03/18/17 15:14 02/19/17 03:59 400 MLS/HR Lorazepam (Ativan Inj) 2 mg Q15M PRN IV 02/16/17 16:45 03/02/17 16:44 Donepezil HCl (Aricept Tab) 5 mg HS PO 02/17/17 21:00 03/15/17 20:59 02/18/17 19:48 5 MG Levetiracetam 1500 mg/Dextrose 115 ml @ 420 mls/hr Q12 IV 02/17/17 21:00 03/18/17 12:29 02/19/17 09:04 420 MLS/HR Potassium Chloride (Klor-Con Tab) 20 meq BID PO 02/18/17 12:00 03/20/17 11:59 02/19/17 13:50 20 MEQ Carvedilol (Coreg Tab) 12.5 mg BID PO 02/19/17 21:00 03/20/17 20:59 Hydralazine HCl (HydrALAZINE INJ) 2.5 mg PRN PRN IV. 02/19/17 16:15 03/21/17 16:14 Description This is a 21 electrode EEG with a single channel dedicated to limited EKG. The electrodes were placed in accordance with the International 10-20 system. Frequent muscle artifact noted at times limiting the read of this EEG. At the beginning of this EEG the patient was in altered mental status. Background wsa poorly organized with no well formed anterior to posterior gradient. Background was composed of moderate amplatude predominantly 4-5Hz delta and theta frequencies with continuous left hemispheric slowing that was at times sharply countered. Hyperventilation and photic stimulation was not done. There was no state changes or sleep transients. Interpretation This is an abnormal EEG secondary to: 1) Continuous left hemispheric slowing with at times sharply contoured delta waves. 2) Moderate background slowing and disorganization. There was no electrographic seizures or clear epileptiform discharges. Clinical Correlation This EEG indicates: 1) Left hemispheric structural or functional cerebral dysfunction 2) Moderate diffuse encephalopathy of nonspecific etiology. Compared to previous EEG, left hemispheric slowing and encephalopathy are now present.
[2017-02-19] MEDS: BIMATOPROST 0.01% OP SOLN 2.5 ML BTL OPB SCH (20:27)
[2017-02-19] MEDS: CARVEDILOL 12.5 MG TAB PO SCH (20:27)
[2017-02-19] MEDS: DONEPEZIL HCL 10 MG TAB PO SCH (20:28)
[2017-02-19] MEDS: EZETIMIBE 10MG TAB PO SCH (20:30)
[2017-02-20] VITALS (10 sets, daily range): BP systolic 105–166; BP diastolic 51–79; PULSE 54–69; TEMP 36.8–38.6; O2SAT 94–97
[2017-02-20] MEDS: AMPICILLIN/SULBACTAM SOD INJ 1,500 MG in SODIUM CHLORIDE 0.9% 100ML 100 ML IV SCH ×2 (00:28→05:54)
[2017-02-20] MEDS: NSS + 20MEQ KCL 1000ML 1,000 ML IV SCH ×3 (05:55→19:28)
[2017-02-20 06:00] LABS: HEMATOCRIT 36.3 % (37-47); MEAN CELL VOLUME 86.4 fL (80-100); MEAN CORPUSCULAR HEMOGLOBIN 29.5 pg (25-34); MEAN CORPUSCULAR HGB CONC 34.2 g/dl (32-36); MEAN PLATELET VOLUME 8.7 fL (7.4-10.4); PLATELET COUNT 276 K/uL (130-400); WHITE BLOOD COUNT 7.62 K/uL (4.8-10.8)
[2017-02-20 06:36] LABS: CALCIUM 8.4 mg/dl (8.5-10.1); CREATININE 0.73 mg/dl (0.60-1.20); POTASSIUM 3.7 mmol/L (3.5-5.1)
[2017-02-20] MEDS: MAGNESIUM SULFATE 1GM / D5W 1 GM in PREMIXED IN D5W 100 ML IV SCH ×2 (08:08→09:21)
[2017-02-20] MEDS: BRIMONIDINE TARTRATE 0.1% OPH SOLN OPB SCH ×2 (08:08→20:40)
[2017-02-20] MEDS: ENOXAPARIN 40 MG/0.4 ML SYR SQ SCH (08:09)
[2017-02-20] MEDS: SENNA 8.6 MG TAB PO SCH (09:00)
[2017-02-20] MEDS: CARBIDOPA/LEVODOPA 25/100MG TAB PO SCH ×3 (09:42→20:40)
[2017-02-20] MEDS: AMLODIPINE BESYLATE 5 MG TAB PO SCH (09:42)
[2017-02-20] MEDS: FUROSEMIDE 40 MG TAB PO SCH (09:43)
[2017-02-20] MEDS: CARVEDILOL 12.5 MG TAB PO SCH ×2 (09:44→20:39)
[2017-02-20] MEDS: POTASSIUM CHLORIDE 20 MEQ TABCR PO SCH ×2 (09:44→21:00)
[2017-02-20] MEDS: FERROUS SULFATE 325 MG TAB PO SCH ×2 (09:44→16:45)
--- NOTE | 2017-02-20 10:34 | Neurology Progress Notes ---
Neurology Progress Note Date of Service Feb 20, 2017. Subjective Follow-up for seizures This patient's neurological status has not really changed compared with yesterday. She has not had any further seizure-like episodes. Patient continues with Keppra 1500 mg IV every 12 hours. She remains confused and does not provide any spontaneous complaints or reliable history. Electroencephalogram completed yesterday reveals generalized background slowing as well as focal left hemispheric slowing. This finding is different from the previous EEG obtained February 16 which was considered normal. Objective Date Time Temp Pulse Resp B/P (MAP) Pulse Ox O2 Delivery O2 Flow Rate FiO2 02/20/17 09:29 95 Room Air 02/20/17 07:46 38.3 54 20 160/69 (99) 95 02/20/17 04:45 37.1 57 14 135/70 (91) 95 Room Air 02/20/17 04:00 95 Room Air 02/20/17 00:10 37.1 66 17 105/51 (69) 94 Room Air 02/20/17 00:00 94 Room Air 02/19/17 20:00 96 Room Air 02/19/17 19:13 37.1 75 18 162/76 (104) 96 Room Air 02/19/17 16:30 94 Room Air 02/19/17 15:10 37.9 75 18 166/82 (110) 93 Room Air 02/19/17 12:30 96 Room Air 02/19/17 10:46 36.4 68 18 182/78 (112) 94 Last 24 Hours Test 02/19/17 11:35 02/19/17 16:40 02/20/17 05:45 Magnesium Level 1.5 mg/dl Lyme Disease IgG Antibody NEG Prolactin 7.55 ng/mL White Blood Count 7.62 K/uL Red Blood Count 4.20 M/uL Hemoglobin 12.4 g/dL Hematocrit 36.3 % Mean Corpuscular Volume 86.4 fL Mean Corpuscular Hemoglobin 29.5 pg Mean Corpuscular Hemoglobin Concent 34.2 g/dl RDW Standard Deviation 45.1 fL RDW Coefficient of Variation 14.3 % Platelet Count 276 K/uL Mean Platelet Volume 8.7 fL Sodium Level 132 mmol/L Potassium Level 3.7 mmol/L Chloride Level 97 mmol/L Carbon Dioxide Level 29 mmol/L Anion Gap 6.0 mmol/L Blood Urea Nitrogen 12 mg/dl Creatinine 0.73 mg/dl Est Creatinine Clear Calc Drug Dose 44.9 ml/min Estimated GFR () 90.8 Estimated GFR (Non- 78.3 BUN/Creatinine Ratio 16.0 Random Glucose 118 mg/dl Calcium Level 8.4 mg/dl Procalcitonin 0.05 ng/ml Exam: The patient is lethargic. She opens her eyes to voice. She exhibits very poor, fluctuating attention. She does not provide answers to questions and does not follow commands. She occasionally changes her position in bed and will look to either the left or right. She occasionally adjust her sheets with both hands. She appears mildly agitated. No posturing, dystonia, or abnormal movements observed. Current Inpatient Medications Medications (Trade) Dose Ordered Sig/Naeem Route Start Time Stop Time Status Last Admin Dose Admin Acetaminophen (Tylenol Tab) 650 mg Q4H PRN PO 02/13/17 00:15 03/15/17 00:14 02/14/17 16:03 650 MG Al Hydrox/Mg Hydrox/Simethicone (Maalox Max Susp) 15 ml Q4H PRN PO 02/13/17 00:15 03/15/17 00:14 Magnesium Hydroxide (Milk Of Magnesia Susp) 30 ml Q6H PRN PO 02/13/17 00:15 03/15/17 00:14 Polyethylene (Miralax Powder Packet) 17 gm DAILY PRN PO 02/13/17 00:15 03/15/17 00:14 Ondansetron HCl (Zofran Inj) 4 mg Q6H PRN IV 02/13/17 00:15 03/15/17 00:14 Amlodipine Besylate (Norvasc Tab) 5 mg QAM PO 02/13/17 09:00 03/15/17 08:59 02/19/17 09:05 5 MG Clonazepam (Klonopin Tab) 0.5 mg HS PRN PO 02/13/17 00:15 03/15/17 00:14 Docusate Sodium (coLACE CAP) 100 mg BID PO 02/13/17 09:00 03/15/17 08:59 Future Hold EZETIMIBE (Zetia Tab) 10 mg HS PO 02/13/17 21:00 03/15/17 20:59 02/19/17 20:30 10 MG Ferrous Sulfate (Feosol Tab) 325 mg BIDM PO 02/13/17 08:00 03/15/17 07:59 02/19/17 13:51 325 MG Furosemide (Lasix Tab) 40 mg DAILY PO 02/13/17 09:00 03/15/17 08:59 02/19/17 09:05 40 MG Lamotrigine (Lamictal Tab) 200 mg DAILY PO 02/13/17 09:00 03/15/17 08:59 02/19/17 09:05 200 MG Carbidopa/Levodopa (Sinemet 25/ 100MG Tab) 1 tab TID PO 02/13/17 09:00 03/15/17 08:59 02/19/17 20:27 1 TAB Quetiapine Fumarate (seroQUEL TAB) 100 mg HS PO 02/13/17 21:00 03/15/17 20:59 Future Hold 02/16/17 21:20 100 MG Senna (Senokot Tab) 8.6 mg QAM PO 02/13/17 09:00 03/15/17 08:59 02/19/17 09:06 8.6 MG Bimatoprost (Lumigan 0.01%) 1 drops HS OPB 02/13/17 21:00 03/15/17 20:59 02/19/17 20:27 1 DROPS Brimonidine Tartrate (Alphagan-P 0.1% Oph Solution) 1 drop BID OPB 02/13/17 09:00 03/15/17 08:59 02/20/17 08:08 1 DROP Enoxaparin Sodium (Lovenox Inj) 40 mg QAM SQ 02/16/17 09:00 03/18/17 08:59 02/20/17 08:09 40 MG Potassium Chloride/Sodium Chloride 1,000 ml @ 100 mls/hr Q10H IV 02/16/17 09:00 03/18/17 08:29 02/20/17 05:55 100 MLS/HR Lorazepam (Ativan Inj) 1 mg PRN PRN IV 02/16/17 13:30 03/18/17 13:29 Lorazepam (Ativan Inj) 0.5 mg PRN PRN IV 02/16/17 13:30 03/18/17 13:29 Acetaminophen 100 ml @ 400 mls/hr Q8H PRN IV 02/16/17 15:15 03/18/17 15:14 02/19/17 03:59 400 MLS/HR Lorazepam (Ativan Inj) 2 mg Q15M PRN IV 02/16/17 16:45 03/02/17 16:44 Donepezil HCl (Aricept Tab) 5 mg HS PO 02/17/17 21:00 03/15/17 20:59 02/19/17 20:28 5 MG Levetiracetam 1500 mg/Dextrose 115 ml @ 420 mls/hr Q12 IV 02/17/17 21:00 03/18/17 12:29 02/19/17 20:19 420 MLS/HR Potassium Chloride (Klor-Con Tab) 20 meq BID PO 02/18/17 12:00 03/20/17 11:59 02/19/17 20:30 20 MEQ Carvedilol (Coreg Tab) 12.5 mg BID PO 02/19/17 21:00 03/20/17 20:59 02/19/17 20:27 12.5 MG Hydralazine HCl (HydrALAZINE INJ) 2.5 mg PRN PRN IV. 02/19/17 16:15 03/21/17 16:14 Impression Persistent delirium which is probably multifactorial and related to this patient 's underlying dementia, environmental factors (i.e. hospitalization), and prolonged postictal state. The recently completed EEG suggests a generalized encephalopathy with perhaps some superimposed focal left hemispheric slowing. Recently completed brain MRI reveals chronic microvascular ischemic disease. Plan Continue with current dosage of Keppra. I will order a carotid ultrasound given the finding of cerebrovascular disease and focal left hemispheric slowing. Continue with Aricept and Sinemet.
[2017-02-20] MEDS: LEVETIRACETAM IV 1,500 MG in DEXTROSE 5% 100ML 100 ML IV SCH ×2 (10:45→21:26)
--- NOTE | 2017-02-20 12:22 | Family Medicine Progress Note ---
Progress Note Date of Service Feb 20, 2017. Subjective Patient remains unresponsive to questioning and is in a similar state to yesterday She had no further seizure activity overnight. EEG yesterday showed left hemispheric slowing but did not show any focal epileptiform activity. Patient did have decreased urine output overnight of only 100ml despite being on IV fluids Nurse did not give patient some of her morning meds as he is scared she might aspirate these Additional Comments: unable to obtain Objective Vital Signs Date Time Temp Pulse Resp B/P (MAP) Pulse Ox O2 Delivery O2 Flow Rate FiO2 02/20/17 11:06 37.2 61 20 158/79 (105) 96 Room Air 02/20/17 09:29 95 Room Air 02/20/17 08:00 Room Air 02/20/17 07:46 38.3 54 20 160/69 (99) 95 02/20/17 04:45 37.1 57 14 135/70 (91) 95 Room Air 02/20/17 04:00 95 Room Air 02/20/17 00:10 37.1 66 17 105/51 (69) 94 Room Air 02/20/17 00:00 94 Room Air 02/19/17 20:00 96 Room Air 02/19/17 19:13 37.1 75 18 162/76 (104) 96 Room Air 02/19/17 16:30 94 Room Air 02/19/17 15:10 37.9 75 18 166/82 (110) 93 Room Air 02/19/17 12:30 96 Room Air Physical Exam Notes: General Appearance: + pertinent finding (patient appears disheveled and in mild distress, is not making eye contact with head jerked back and looking out window) Eyes: PERRL ENT: pharynx normal Respiratory/Chest: lungs clear, no respiratory distress, no accessory muscle use Cardiovascular: regular rate, rhythm, no edema, possible gallop? no murmur Extremities: non-tender, no pedal edema, normal capillary refill Laboratory Results Results Past 24 Hours Test 02/19/17 16:40 02/20/17 05:45 Range/Units Prolactin 7.55 ng/mL White Blood Count 7.62 4.8-10.8 K/uL Red Blood Count 4.20 4.2-5.4 M/uL Hemoglobin 12.4 12.0-16.0 g/dL Hematocrit 36.3 37-47 % Mean Corpuscular Volume 86.4 80-100 fL Mean Corpuscular Hemoglobin 29.5 25-34 pg Mean Corpuscular Hemoglobin Concent 34.2 32-36 g/dl RDW Standard Deviation 45.1 36.4-46.3 fL RDW Coefficient of Variation 14.3 11.5-14.5 % Platelet Count 276 130-400 K/uL Mean Platelet Volume 8.7 7.4-10.4 fL Sodium Level 132 136-145 mmol/L Potassium Level 3.7 3.5-5.1 mmol/L Chloride Level 97 98-107 mmol/L Carbon Dioxide Level 29 21-32 mmol/L Anion Gap 6.0 3-11 mmol/L Blood Urea Nitrogen 12 7-18 mg/dl Creatinine 0.73 0.60-1.20 mg/dl Est Creatinine Clear Calc Drug Dose 44.9 ml/min Estimated GFR () 90.8 Estimated GFR (Non- 78.3 BUN/Creatinine Ratio 16.0 10-20 Random Glucose 118 70-99 mg/dl Calcium Level 8.4 8.5-10.1 mg/dl Procalcitonin 0.05 0-0.5 ng/ml Assessment and Plan Assessment: This is a 77 y/o F who presents with recurrent rectal prolapse and chronic constipation. During admission had new onset seizures for which she is being treated with keppra. Has had worsening mental status and is no longer answering questions or making eye contact with people. Plan: Seizures/Altered mental status neuro and psych on board continue keppra EEG, MRI and CT head normal repeat EEG showed left sided slowing and generalized moderate encephalopathy carotid ultrasound ordered by neuro for possibility of stroke due to microvascular disease seen on MRI stopped unasyn as procalcitonin was negative and CXR clear if patient spikes fever then low threshold for LP prolactin ordered during seizure and wnl ativan prn ordered Decreased urine output 100ml overnight negative bladder scan patient receiving IV fluids 100ml/hr creatinine normal Hypomagnesemia 1.5 this morning given 2mg IV continue to monitor Hypokalemia resolved 3.7 this morning receiving NS with 20meq of potassium 20meq bid Parkinsons dementia continue sinemet and donepezil Bipolar seroquel restarted per psych continue lamictal will recheck EKG tomorrow HTN increase carvedilol to 12.5 bid hydralazine 2.5 IV prn for systolic >180 Rectal prolapse stable senna and milk of mag Prolonged QT improved with qt of 417 yesterday restart seroquel DVT prophylaxis MIKE, SCD Continued [facility] stay due to: ambulation difficulties, multiple IV medications needed Discharge planning: uncertain Assessment/Plan Resident Physician Supervision Note: I was present with Dr. Vega during the history and exam. I discussed the case with the resident and agree with the findings and plan as documented in the note. Any exceptions or clarifications are listed here. 77 y/o female h/o Parkinson's disease, bipolar d/o and rectal prolapse now presenting with new onset seizure-like activity and delirium. Pt was somnolent today but was easily aroused and persistently nonverbal but more interactive and awake. Examination today revealed an atypical cardiac noise which was concomittant with patient movement and proceded to resolve with cessation of movement and was potentially tendon snapping in the neck. At time of finding, no telemetry abnormality was noted and the finding was absent yesterday, prior and after the noted finding. No sign of pain or complaint. Unable to follow instructions for neurological examination. Seizures w/ change in baseline mental status - neurology and psychiatry consulted. MRI and initial EEG unremarkable, BCx neg. Second EEG w/ slowing resulting in carotid US for further evaluation. Unable to tolerate PO 2/2 waxing /waning mental status, will hold PO medication and continue IV keppra. D/C Unasyn. Prolonged QT - improved - restart seroquel w/ repeat EKG when tolerating PO HTN - holding amlodipine and carvedilol, add hydralazine PRN Rectal prolapse w/ chronic constipation - continue bowel regimen, monitor I/Os Parkinson's dementia - continue sinemet and donepezil Bipolar d/o v. dementia related behavior disturbance - restart lamictal and seroquel when tolerating PO (likely in AM)
--- NOTE | 2017-02-20 14:47 | DIAGNOSTIC IMAGING REPORT ---
CAROTID DOPPLER NECK ART CLINICAL HISTORY: 77 years-old Female presenting with cerebrovascular disease. TECHNIQUE: Real-time grayscale and color and spectral Doppler ultrasound imaging of the bilateral carotid arteries was performed. NASCET criteria was used in evaluating this study. COMPARISON: None. FINDINGS: Right: Common carotid: Patent. Peak systolic velocity 67 cm/s. Internal carotid artery: Patent. Peak systolic velocity 44 cm/s. External carotid artery: Patent. Peak systolic velocity 82 cm/s. Systolic ratio: 0.7. Left: Common carotid: Patent. Peak systolic velocity 50 cm/s. Internal carotid artery: Patent. Peak systolic velocity 52 cm/s. External carotid artery: Patent. Peak systolic velocity 57 cm/s. Systolic ratio: 1.0. Bilateral antegrade flow within the vertebral arteries. Reference ranges: Stenosis measurements are compared to reference velocity parameters. Normal ICA peak systolic velocity less than 125 cm/s. Normal ICA peak systolic velocity to common carotid artery velocity ratio is less than 2: less than 2 equates to less than 50% stenosis, 2-4 equates to 50-69% stenosis, greater than 4 equates to greater than or equal to 70% stenosis. Normal ICA end-diastolic velocity less than 40. Blood pressure Unable to obtain secondary to limb restriction. IMPRESSION: No hemodynamically significant stenosis seen within the carotid arteries. Electronically signed by: Wicho Cheek M.D. 02/20/2017 2:45 PM Dictated Date/Time: 02/20/2017 2:44 PM
[2017-02-20] MEDS: POLYETHYLENE (MIRALAX) 17 GM PACK PO SCH (18:00)
[2017-02-20] MEDS: DONEPEZIL HCL 10 MG TAB PO SCH (20:39)
[2017-02-20] MEDS: BIMATOPROST 0.01% OP SOLN 2.5 ML BTL OPB SCH (20:41)
[2017-02-20] MEDS: QUETIAPINE FUMARATE 100 MG TAB PO SCH (21:00)
[2017-02-20] MEDS: EZETIMIBE 10MG TAB PO SCH (21:00)
[2017-02-20] MEDS: ACETAMINOPHEN IV 100 ML IV PRN (21:25)
[2017-02-21] VITALS (8 sets, daily range): BP systolic 92–173; BP diastolic 52–80; PULSE 48–66; TEMP 36.3–37.7; O2SAT 94–98
[2017-02-21] MEDS: NSS + 20MEQ KCL 1000ML 1,000 ML IV SCH ×2 (06:08→18:54)
[2017-02-21] MEDS ORDERED: AMPICILLIN/SULBACTAM SOD INJ 1,500 MG in SODIUM CHLORIDE 0.9% 100ML 100 ML IV SCH (07:15)
[2017-02-21] MEDS: FERROUS SULFATE 325 MG TAB PO SCH ×2 (07:30→17:30)
--- NOTE | 2017-02-21 07:36 | DIAGNOSTIC IMAGING REPORT ---
CHEST ONE VIEW PORTABLE HISTORY: Fever COMPARISON: Chest 02/19/2017. FINDINGS: S-shaped scoliosis of the thoracolumbar spine. The heart remains mildly enlarged. No pleural effusions. No pneumothorax. No new focal lung consolidations to suggest pneumonia. No evidence for pulmonary edema. Stable linear scarlike density within the left midlung zone. IMPRESSION: Stable mild cardiomegaly. Electronically signed by: Orlando Plunkett M.D. 02/21/2017 7:34 AM Dictated Date/Time: 02/21/2017 7:32 AM
[2017-02-21] MEDS ORDERED: VANCOMYCIN CONSULT ACTIVE PRN (07:45)
[2017-02-21] MEDS ORDERED: CEFEPIME CONSULT ACTIVE PRN ×2 (08:00)
[2017-02-21] MEDS ORDERED: VANCOMYCIN INJ 1,250 MG in SODIUM CHLORIDE 0.9% 250ML 250 ML IV SCH (08:00)
[2017-02-21] MEDS ORDERED: CEFEPIME IV 2,000 MG in DEXTROSE 5% 100ML 100 ML IV SCH (08:00)
[2017-02-21] MEDS ORDERED: CEFEPIME IV 2,000 MG in SYRINGE 7.5 ML IV SCH (08:00)
[2017-02-21] MEDS: BRIMONIDINE TARTRATE 0.1% OPH SOLN OPB SCH ×2 (08:12→20:24)
[2017-02-21] MEDS: ENOXAPARIN 40 MG/0.4 ML SYR SQ SCH (09:00)
[2017-02-21] MEDS: POLYETHYLENE (MIRALAX) 17 GM PACK PO SCH (09:00)
[2017-02-21 09:07] LABS: HEMATOCRIT 36.3 % (37-47); MEAN CELL VOLUME 85.4 fL (80-100); MEAN CORPUSCULAR HEMOGLOBIN 29.4 pg (25-34); MEAN CORPUSCULAR HGB CONC 34.4 g/dl (32-36); MEAN PLATELET VOLUME 8.8 fL (7.4-10.4); PLATELET COUNT 289 K/uL (130-400); RED BLOOD COUNT 4.25 M/uL (4.2-5.4); WHITE BLOOD COUNT 7.11 K/uL (4.8-10.8)
[2017-02-21 09:30] LABS: URINE APPEARANCE CLEAR (CLEAR); URINE BILIRUBIN NEG (NEG); URINE COLOR YELLOW; URINE NITRITE NEG (NEG); URINE PH 8.5 (4.5-7.5); URINE SPECIFIC GRAVITY 1.013 (1.000-1.030); UROBILINOGEN NEG (NEG)
[2017-02-21 09:33] LABS: BUN/CREATININE RATIO 16.1 (10-20); CALCIUM 8.5 mg/dl (8.5-10.1); CREATININE 0.67 mg/dl (0.60-1.20); MAGNESIUM 1.8 mg/dl (1.8-2.4); POTASSIUM 3.4 mmol/L (3.5-5.1)
[2017-02-21 09:35] LABS: MANUAL MICROSCOPIC REQUIRED? NO; REVIEW REQ? NO; ZZURINE CULT IF INDIC CATH NO
[2017-02-21] MEDS: POTASSIUM CHLORIDE 20 MEQ TABCR PO SCH ×2 (11:12→20:26)
[2017-02-21] MEDS: CARVEDILOL 12.5 MG TAB PO SCH ×2 (11:12→21:00)
[2017-02-21] MEDS: AMLODIPINE BESYLATE 5 MG TAB PO SCH (11:13)
[2017-02-21] MEDS: FUROSEMIDE 40 MG TAB PO SCH (11:13)
[2017-02-21] MEDS: CARBIDOPA/LEVODOPA 25/100MG TAB PO SCH ×3 (11:13→20:26)
[2017-02-21] MEDS: SENNA 8.6 MG TAB PO SCH (11:13)
[2017-02-21 11:17] LABS: CSF CHEMISTRY TUBE # 1; CSF TOTAL PROTEIN 37.2 mg/dl (15.0-45.0)
--- NOTE | 2017-02-21 11:41 | DIAGNOSTIC IMAGING REPORT ---
LUMBAR PUNCTURE DIAGNOSTIC CLINICAL HISTORY: 77 years-old Female presenting with Febrile encephalitis. COMPARISON: CT head from 02/17/2017. PROCEDURE: The procedure, risks and benefits were discussed with the patient including the risk of spinal headache, bleeding and infection. The patient agreed to the procedure and informed written consent was obtained. The procedure was performed by Dr. Cheek following a timeout. The L3-4 interspinous space was targeted. Skin overlying the space was prepped and draped in the usual aseptic fashion and local anesthesia was achieved with 1% lidocaine. Under intermittent fluoroscopic guidance, a 20-gauge x 3 1/2 in. Sprotte needle was inserted into the thecal sac. Opening pressure was obtained and prone positioning, which measured 12 cmH2O. Initially cerebral spinal fluid was slightly blood-tinged, however, this cleared with subsequent drainage of fluid. A total of 8 mL of clear, colorless cerebral spinal fluid was obtained and spread amongst 4 vials. The patient tolerated the procedure well. There were no immediate complications. The specimens were sent to the laboratory at the request of the referring physician. Reference range: Normal opening pressure 6-25 cmH2O (95% reference interval for lateral decubitus positioning). Fluoroscopy dosage (mGy): Not available. Fluoroscopy time: 0.2 minutes. Number of fluoroscopic spot images: 0. IMPRESSION: 1. Successful fluoroscopic guided lumbar puncture with removal of 8 mL of clear, colorless cerebral spinal fluid. No immediate complications. 2. Normal opening pressure. Electronically signed by: Wicho Cheek M.D. 02/21/2017 11:40 AM Dictated Date/Time: 02/21/2017 11:38 AM
[2017-02-21 11:42] LABS: CSF APPEARANCE CLEAR; CSF COLOR COLORLESS; CSF XANTHOCHROMIC NO XANTHOCHROMIA
[2017-02-21] MEDS: LEVETIRACETAM IV 1,500 MG in DEXTROSE 5% 100ML 100 ML IV SCH ×2 (11:58→20:24)
--- NOTE | 2017-02-21 11:58 | Pharmacy Progress Note ---
Pharmacy Abx Dose Short Note Date of Service Feb 21, 2017. Assessment & Plan Assessment 77 year old female admitted 02/14/17 adding VANC (for pulmonary source) & Cefepime (r/o meningitis) * Pt previously recieved Unasyn-IV 02/15-02/21. Plan Vancomycin * Estimated p'kinetics: Vd~0.7L/kg, Ke~0.0484hr-1, T1/2~14 hours * LOADING DOSE: Vanc 1250mg IV (23mg/kg) * MAINTENANCE DOSE: VANC 1000mg (~18mg/kg) IV every 18 hours * Goal trough level for 15 - 20 mcg/mL for pulmonary source, closer to 20 mcg/ mL if [employer]PECTOR [employer] penetration needed * VANC Trough level @ Css prior to 02/23 1200 dose Cefepime: target dose (INS[employer] penetration) 2 grams IV every 8 hours. Ordered 2 grams IV q 12h for est GFR 30-60mL/min. Pharmacy will continue to follow and will adjust dose/frequency as necessary. Thank you.
--- NOTE | 2017-02-21 12:49 | Psychiatric Progress Notes ---
Psychiatric Progress Note Date of Service Feb 21, 2017. Notes Patient seen for psychiatric follow-up today for history of bipolar disorder. Complaint: Patient is mute and somnolent, unarousable Interval history: Quetiapine was restarted once her QTC normalized, but she was unable to take it last night due to sedation. She remains altered, sedated at times, nonverbal, or with brief periods of nonsensical speech. She will sometimes follow commands. She had decreased urine output, hypertension and tachycardia, and temperature was elevated yesterday. She has had blood in urine cultures, as well as an LP. She was switched from Unasyn to vancomycin and cefepime for concerns for a pulmonary infection or meningitis. She remains on IV Keppra for her seizures. Today, she was seen in her bed, where she is sleeping and unarousable to voice. Review of systems: Patient unable to participate. Mental status exam: Thin, ill appearing elderly white female lying in bed sleeping, unarousable to voice, mouth open. Diagnoses: 1. Delirium: Due to multiple medical conditions, and her condition appears to be worsening. Delirium confirmed by EEG, and may be due to seizures, infection , electrolyte imbalance. Delirium may take an extended time to resolve given her age and dementia. 2. Bipolar disorder: I do not believe the patient's mood disorders playing a role in her current presentation, as she had an acute mental status change after admission in the context of multiple medical problems and mood was stable prior to that time. She does not have any current mood symptoms, but rather is encephalopathic, somnolent, and nonverbal. For now, psychiatry will sign off, but please contact us if her condition improves and we can be of assistance.
--- NOTE | 2017-02-21 16:04 | Family Medicine Progress Note ---
Progress Note Date of Service Feb 21, 2017.
--- NOTE | 2017-02-21 18:15 | Family Medicine Progress Note ---
Progress Note Date of Service Feb 21, 2017. Subjective Pt evaluation today including: conversation w/ patient, physical exam, chart review, conversation w/ design studio consultant, review of inpatient medication list Pain: none Voiding: no voiding problems Patient was unresponsive to questioning this morning She did spike a fever yesterday evening, was started on broad spectrum antibiotics and had an LP Family was at the bedside this afternoon and said patient has been speaking in small sentences and has been eating a small amount Additional Comments: Unable to obtain Medications Current Inpatient Medications Medications (Trade) Dose Ordered Sig/Naeem Route Start Time Stop Time Status Last Admin Dose Admin Acetaminophen (Tylenol Tab) 650 mg Q4H PRN PO 02/13/17 00:15 03/15/17 00:14 02/14/17 16:03 650 MG Al Hydrox/Mg Hydrox/Simethicone (Maalox Max Susp) 15 ml Q4H PRN PO 02/13/17 00:15 03/15/17 00:14 Magnesium Hydroxide (Milk Of Magnesia Susp) 30 ml Q6H PRN PO 02/13/17 00:15 03/15/17 00:14 Ondansetron HCl (Zofran Inj) 4 mg Q6H PRN IV 02/13/17 00:15 03/15/17 00:14 Amlodipine Besylate (Norvasc Tab) 5 mg QAM PO 02/13/17 09:00 03/15/17 08:59 02/21/17 11:13 5 MG Clonazepam (Klonopin Tab) 0.5 mg HS PRN PO 02/13/17 00:15 03/15/17 00:14 Docusate Sodium (coLACE CAP) 100 mg BID PO 02/13/17 09:00 03/15/17 08:59 Future Hold EZETIMIBE (Zetia Tab) 10 mg HS PO 02/13/17 21:00 03/15/17 20:59 02/19/17 20:30 10 MG Ferrous Sulfate (Feosol Tab) 325 mg BIDM PO 02/13/17 08:00 03/15/17 07:59 02/19/17 13:51 325 MG Furosemide (Lasix Tab) 40 mg DAILY PO 02/13/17 09:00 03/15/17 08:59 02/21/17 11:13 40 MG Lamotrigine (Lamictal Tab) 200 mg DAILY PO 02/13/17 09:00 03/15/17 08:59 02/21/17 11:12 200 MG Carbidopa/Levodopa (Sinemet 25/ 100MG Tab) 1 tab TID PO 02/13/17 09:00 03/15/17 08:59 02/21/17 14:11 1 TAB Quetiapine Fumarate (seroQUEL TAB) 100 mg HS PO 02/13/17 21:00 03/15/17 20:59 Future hold 02/16/17 21:20 100 MG Senna (Senokot Tab) 8.6 mg QAM PO 02/13/17 09:00 03/15/17 08:59 02/21/17 11:13 8.6 MG Bimatoprost (Lumigan 0.01%) 1 drops HS OPB 02/13/17 21:00 03/15/17 20:59 02/20/17 20:41 1 DROPS Brimonidine Tartrate (Alphagan-P 0.1% Oph Solution) 1 drop BID OPB 02/13/17 09:00 03/15/17 08:59 02/21/17 08:12 1 DROP Enoxaparin Sodium (Lovenox Inj) 40 mg QAM SQ 02/16/17 09:00 03/18/17 08:59 02/20/17 08:09 40 MG Potassium Chloride/Sodium Chloride 1,000 ml @ 100 mls/hr Q10H IV 02/16/17 09:00 03/18/17 08:29 02/21/17 06:08 100 MLS/HR Lorazepam (Ativan Inj) 1 mg PRN PRN IV 02/16/17 13:30 03/18/17 13:29 Lorazepam (Ativan Inj) 0.5 mg PRN PRN IV 02/16/17 13:30 03/18/17 13:29 Acetaminophen 100 ml @ 400 mls/hr Q8H PRN IV 02/16/17 15:15 03/18/17 15:14 02/20/17 21:25 400 MLS/HR Lorazepam (Ativan Inj) 2 mg Q15M PRN IV 02/16/17 16:45 03/02/17 16:44 Donepezil HCl (Aricept Tab) 5 mg HS PO 02/17/17 21:00 03/15/17 20:59 02/20/17 20:39 5 MG Levetiracetam 1500 mg/Dextrose 115 ml @ 420 mls/hr Q12 IV 02/17/17 21:00 03/18/17 12:29 02/21/17 11:58 420 MLS/HR Potassium Chloride (Klor-Con Tab) 20 meq BID PO 02/18/17 12:00 03/20/17 11:59 02/21/17 11:12 20 MEQ Carvedilol (Coreg Tab) 12.5 mg BID PO 02/19/17 21:00 03/20/17 20:59 02/21/17 11:12 12.5 MG Hydralazine HCl (HydrALAZINE INJ) 2.5 mg PRN PRN IV. 02/19/17 16:15 03/21/17 16:14 Polyethylene (Miralax Powder Packet) 17 gm DAILY PO 02/20/17 18:00 03/15/17 17:59 Vancomycin HCl 1000 mg/Sodium Chloride 270 ml @ 125 mls/hr Q18H IV 02/22/17 00:00 03/01/17 00:00 Vancomycin HCl (Consult) 1 ea UD PRN N/A 02/21/17 07:45 03/23/17 07:44 Cefepime HCl (Consult) 1 ea UD PRN N/A 02/21/17 08:00 03/23/17 07:59 Cefepime HCl 2000 mg/Syringe 20 ml @ 5 mls/min Q12H IV 02/21/17 20:00 03/03/17 19:59 Objective Vital Signs Date Time Temp Pulse Resp B/P (MAP) Pulse Ox O2 Delivery O2 Flow Rate FiO2 02/21/17 15:17 36.3 53 16 123/68 (86) 96 Room Air 02/21/17 12:00 Room Air 02/21/17 11:11 36.8 57 16 164/80 (108) 98 Room Air 02/21/17 08:00 Room Air 02/21/17 07:34 36.8 59 16 173/74 (107) 97 Room Air 02/21/17 04:00 97 Room Air 02/21/17 03:29 37.4 65 16 151/62 (91) 97 Room Air 02/21/17 00:00 95 Room Air 02/21/17 00:00 37.7 50 149/59 (89) 95 Room Air 02/20/17 20:00 96 Room Air 02/20/17 19:27 38.6 61 16 166/67 (100) 96 Room Air Physical Exam Notes: General Appearance: + pertinent finding (patient sleeping) Respiratory/Chest: lungs clear, no respiratory distress, no accessory muscle use Abdomen: soft, non tender with normal bowel sounds Cardiovascular: regular rate, rhythm, no edema, no murmur Extremities: non-tender, no pedal edema, normal capillary refill Laboratory Results Results Past 24 Hours Test 02/21/17 07:35 02/21/17 08:53 02/21/17 10:35 Range/Units Urine Color YELLOW Urine Appearance CLEAR CLEAR Urine pH 8.5 4.5-7.5 Urine Specific [place] 1.013 1.000-1.030 Urine Protein NEG NEG Urine Glucose (UA) NEG NEG Urine Ketones TRACE NEG Urine Occult Blood NEG NEG Urine Nitrite NEG NEG Urine Bilirubin NEG NEG Urine Urobilinogen NEG NEG Urine Leukocyte Esterase NEG NEG White Blood Count 7.11 4.8-10.8 K/uL Red Blood Count 4.25 4.2-5.4 M/uL Hemoglobin 12.5 12.0-16.0 g/dL Hematocrit 36.3 37-47 % Mean Corpuscular Volume 85.4 80-100 fL Mean Corpuscular Hemoglobin 29.4 25-34 pg Mean Corpuscular Hemoglobin Concent 34.4 32-36 g/dl RDW Standard Deviation 43.4 36.4-46.3 fL RDW Coefficient of Variation 14.1 11.5-14.5 % Platelet Count 289 130-400 K/uL Mean Platelet Volume 8.8 7.4-10.4 fL Sodium Level 134 136-145 mmol/L Potassium Level 3.4 3.5-5.1 mmol/L Chloride Level 102 98-107 mmol/L Carbon Dioxide Level 22 21-32 mmol/L Anion Gap 10.0 3-11 mmol/L Blood Urea Nitrogen 11 7-18 mg/dl Creatinine 0.67 0.60-1.20 mg/dl Est Creatinine Clear Calc Drug Dose 52.9 ml/min Estimated GFR () 96.9 Estimated GFR (Non- 83.6 BUN/Creatinine Ratio 16.1 10-20 Random Glucose 108 70-99 mg/dl Lactic Acid Level 1.0 0.4-2.0 mmol/L Calcium Level 8.5 8.5-10.1 mg/dl Magnesium Level 1.8 1.8-2.4 mg/dl Procalcitonin 0.05 0-0.5 ng/ml CSF Color COLORLESS CSF Appearance CLEAR CSF WBC 1 0-5 /uL CSF RBC 77 0 /uL CSF Xanthrochromic NO XANTHOCHROMIA CSF Cell Count Tube # 3 CSF Chemistry Tube # 1 CSF Glucose 55 40-70 mg/dl CSF Total Protein 37.2 15.0-45.0 mg/dl Microbiology Results 02/21/17 Blood Culture, Received Pending 02/21/17 Blood Culture, Received Pending 02/21/17 Gram Stain - Final, Resulted 02/21/17 CSF Culture, Resulted Pending 02/21/17 Urine Culture, Received Pending Assessment and Plan Assessment: This is a 77 y/o F who presents with recurrent rectal prolapse and chronic constipation. During admission had new onset seizures for which she is being treated with keppra. Patient spike a fever yesterday evening and was started on broad spectrum antibiotics. We did an LP this morning which did not show any sign of infection. Patient has improved this afternoon and has been talking a small amount to family and has started eating. We will be obtaining another EEG tomorrow to evaluate for any further seizure activity Plan: Seizures/Altered mental status neuro and psych on board continue keppra EEG, MRI and CT head normal repeat EEG tomorrow with the hopes to decrease keppra dose carotid ultrasound normal patient spike fever therefore started cefepime and vanc ordered blood cultures, urine cultures and repeat CXR= all within normal limits thus far LP ordered and without any sign of infection = cultures pending prolactin ordered during seizure and wnl ativan prn ordered Decreased urine output improved, increased urine output last night negative bladder scan patient receiving IV fluids 100ml/hr creatinine normal Hypomagnesemia (resolved) 1.8 this morning given 2mg IV yesterday continue to monitor Hypokalemia resolved 3.7 this morning receiving NS with 20meq of potassium 20meq bid 40 meq now Parkinsons dementia continue sinemet and donepezil Bipolar seroquel restarted per psych continue lamictal will recheck EKG qtc of 424 HTN increase carvedilol to 12.5 bid hydralazine 2.5 IV prn for systolic >180 Rectal prolapse stable senna and milk of mag Prolonged QT improved with qt of 424 today restart seroquel DVT prophylaxis MIKE, SCD FULL CODE Continued [facility] stay due to: multiple IV medications needed, home environment unsafe for pt Assessment/Plan Resident Physician Supervision Note: I was present with Dr. Vega during the history and exam. I discussed the case with the resident and agree with the findings and plan as documented in the note. Any exceptions or clarifications are listed here. 77 y/o female h/o Parkinson's disease, bipolar d/o and rectal prolapse now presenting with new onset seizure-like activity and delirium. Fever overnight necessitating reinstating broadened abx coverage and LP, as well as reculture and urine sample w/ CXR. Pt was improved today per family spoke a few short sentences that were contextually appropriate. Nonverbal on examination for physicians today. S1/S2 nl RRR no MCG, CTAB, no abd pain apparent on examination without guarding. Seizures w/ change in baseline mental status - neurology and psychiatry consulted. MRI and initial EEG unremarkable, BCx neg. Second EEG w/ slowing resulting in carotid US for further evaluation. Tolerating PO medications with improved mental status. Repeat EEG in AM, repeat cultures pending. CSF studies pending. Continue IV abx Prolonged QT - improved - restart seroquel w/ repeat EKG HTN - restart amlodipine and carvedilol, hydralazine PRN Rectal prolapse w/ chronic constipation - continue bowel regimen, monitor I/Os Parkinson's dementia - continue sinemet and donepezil Bipolar d/o v. dementia related behavior disturbance - lamictal and seroquel
[2017-02-21] MEDS ORDERED: POTASSIUM CHLORIDE 20 MEQ TABCR PO ONE (19:00)
[2017-02-21] MEDS: CEFEPIME IV 2,000 MG in SYRINGE 7.5 ML IV SCH (20:22)
[2017-02-21] MEDS: BIMATOPROST 0.01% OP SOLN 2.5 ML BTL OPB SCH (20:23)
[2017-02-21] MEDS: EZETIMIBE 10MG TAB PO SCH (20:25)
[2017-02-21] MEDS: DONEPEZIL HCL 10 MG TAB PO SCH (20:25)
[2017-02-21] MEDS: QUETIAPINE FUMARATE 100 MG TAB PO SCH (20:27)
[2017-02-22] VITALS (9 sets, daily range): BP systolic 91–162; BP diastolic 52–72; PULSE 43–55; TEMP 36.3–37.3; O2SAT 94–97
[2017-02-22] MEDS: VANCOMYCIN INJ 1,000 MG in SODIUM CHLORIDE 0.9% 250ML 250 ML IV SCH ×2 (00:10→18:45)
[2017-02-22] MEDS: NSS + 20MEQ KCL 1000ML 1,000 ML IV SCH ×2 (03:42→14:30)
[2017-02-22 06:04] LABS: HEMATOCRIT 34.4 % (37-47); MEAN CORPUSCULAR HEMOGLOBIN 29.8 pg (25-34); MEAN CORPUSCULAR HGB CONC 34.6 g/dl (32-36); MEAN PLATELET VOLUME 8.8 fL (7.4-10.4); PLATELET COUNT 241 K/uL (130-400); WHITE BLOOD COUNT 5.03 K/uL (4.8-10.8)
[2017-02-22 06:59] LABS: CALCIUM 8.4 mg/dl (8.5-10.1); CREATININE 0.74 mg/dl (0.60-1.20); POTASSIUM 4.1 mmol/L (3.5-5.1)
[2017-02-22] MEDS: CARVEDILOL 12.5 MG TAB PO SCH ×2 (08:40→21:00)
[2017-02-22] MEDS: CARBIDOPA/LEVODOPA 25/100MG TAB PO SCH ×3 (08:41→21:51)
[2017-02-22] MEDS: FUROSEMIDE 40 MG TAB PO SCH (08:41)
[2017-02-22] MEDS: FERROUS SULFATE 325 MG TAB PO SCH ×2 (08:41→17:20)
[2017-02-22] MEDS: ENOXAPARIN 40 MG/0.4 ML SYR SQ SCH (08:41)
[2017-02-22] MEDS: AMLODIPINE BESYLATE 5 MG TAB PO SCH (08:42)
[2017-02-22] MEDS: CEFEPIME IV 2,000 MG in SYRINGE 7.5 ML IV SCH ×2 (08:42→20:47)
[2017-02-22] MEDS: SENNA 8.6 MG TAB PO SCH (08:42)
[2017-02-22] MEDS: POLYETHYLENE (MIRALAX) 17 GM PACK PO SCH (08:42)
[2017-02-22] MEDS: BRIMONIDINE TARTRATE 0.1% OPH SOLN OPB SCH ×2 (08:43→21:48)
--- NOTE | 2017-02-22 08:47 | Neurology Progress Notes ---
Neurology Progress Note Date of Service Feb 22, 2017. Subjective Follow-up for seizures, delirium The patient is more alert this morning. Her daughter is at bedside and has been feeding her. The patient does remain confused and is not very interactive, however. Her attention does seem to be a bit improved compared with my prior assessments of her. She has not had any further seizure-like episodes and continues to receive Keppra 1500 mg IV every 12 hours. A lumbar puncture was completed yesterday, CSF unremarkable. She has a history of dementia with parkinsonism and has been receiving her Aricept and Sinemet fairly consistently. She also has a history of bipolar disorder for which she has been receiving Lamictal. History of rectal prolapse with plans for outpatient evaluation and treatment. Objective Date Time Temp Pulse Resp B/P (MAP) Pulse Ox O2 Delivery O2 Flow Rate FiO2 02/22/17 08:22 36.3 45 18 137/72 (93) 96 Room Air 02/22/17 04:00 97 Room Air 02/22/17 03:32 37.3 49 16 107/54 (71) 97 Room Air 02/22/17 00:00 94 Room Air 02/21/17 23:33 36.4 66 17 92/52 (65) 94 Room Air 02/21/17 20:00 Room Air 02/21/17 18:55 36.9 48 20 115/55 (75) 94 Room Air 02/21/17 16:00 Room Air 02/21/17 15:17 36.3 53 16 123/68 (86) 96 Room Air 02/21/17 12:00 Room Air 02/21/17 11:11 36.8 57 16 164/80 (108) 98 Room Air Last 24 Hours Test 02/21/17 08:53 02/21/17 10:35 02/22/17 05:38 White Blood Count 7.11 K/uL 5.03 K/uL Red Blood Count 4.25 M/uL 4.00 M/uL Hemoglobin 12.5 g/dL 11.9 g/dL Hematocrit 36.3 % 34.4 % Mean Corpuscular Volume 85.4 fL 86.0 fL Mean Corpuscular Hemoglobin 29.4 pg 29.8 pg Mean Corpuscular Hemoglobin Concent 34.4 g/dl 34.6 g/dl RDW Standard Deviation 43.4 fL 45.2 fL RDW Coefficient of Variation 14.1 % 14.4 % Platelet Count 289 K/uL 241 K/uL Mean Platelet Volume 8.8 fL 8.8 fL Sodium Level 134 mmol/L 137 mmol/L Potassium Level 3.4 mmol/L 4.1 mmol/L Chloride Level 102 mmol/L 109 mmol/L Carbon Dioxide Level 22 mmol/L 22 mmol/L Anion Gap 10.0 mmol/L 6.0 mmol/L Blood Urea Nitrogen 11 mg/dl 13 mg/dl Creatinine 0.67 mg/dl 0.74 mg/dl Est Creatinine Clear Calc Drug Dose 52.9 ml/min 48.1 ml/min Estimated GFR () 96.9 89.3 Estimated GFR (Non- 83.6 77.1 BUN/Creatinine Ratio 16.1 18.0 Random Glucose 108 mg/dl 92 mg/dl Lactic Acid Level 1.0 mmol/L Calcium Level 8.5 mg/dl 8.4 mg/dl Magnesium Level 1.8 mg/dl Procalcitonin 0.05 ng/ml CSF Color COLORLESS CSF Appearance CLEAR CSF WBC 1 /uL CSF RBC 77 /uL CSF Xanthrochromic NO XANTHOCHROMIA CSF Cell Count Tube # 3 CSF Chemistry Tube # 1 CSF Glucose 55 mg/dl CSF Total Protein 37.2 mg/dl Exam: The patient appears to be alert this morning. Her attention is improved but remains somewhat limited. Concentration impaired. Easily distracted. Daughter at bedside who has been feeding the patient successfully. Patient does not really respond very much to questions and continues to exhibit some difficulty following commands. She looks about spontaneously does not have an obvious gaze preference or problem with ocular motility. She moves her limbs fairly symmetrically as well and does not have an obvious hemiparesis. She does become agitated somewhat easily which limits my examination. Current Inpatient Medications Medications (Trade) Dose Ordered Sig/Naeem Route Start Time Stop Time Status Last Admin Dose Admin Acetaminophen (Tylenol Tab) 650 mg Q4H PRN PO 02/13/17 00:15 03/15/17 00:14 02/14/17 16:03 650 MG Al Hydrox/Mg Hydrox/Simethicone (Maalox Max Susp) 15 ml Q4H PRN PO 02/13/17 00:15 03/15/17 00:14 Magnesium Hydroxide (Milk Of Magnesia Susp) 30 ml Q6H PRN PO 02/13/17 00:15 03/15/17 00:14 Ondansetron HCl (Zofran Inj) 4 mg Q6H PRN IV 02/13/17 00:15 03/15/17 00:14 Amlodipine Besylate (Norvasc Tab) 5 mg QAM PO 02/13/17 09:00 03/15/17 08:59 02/21/17 11:13 5 MG Clonazepam (Klonopin Tab) 0.5 mg HS PRN PO 02/13/17 00:15 03/15/17 00:14 Docusate Sodium (coLACE CAP) 100 mg BID PO 02/13/17 09:00 03/15/17 08:59 Future Hold EZETIMIBE (Zetia Tab) 10 mg HS PO 02/13/17 21:00 03/15/17 20:59 02/21/17 20:25 10 MG Ferrous Sulfate (Feosol Tab) 325 mg BIDM PO 02/13/17 08:00 03/15/17 07:59 02/19/17 13:51 325 MG Furosemide (Lasix Tab) 40 mg DAILY PO 02/13/17 09:00 03/15/17 08:59 02/21/17 11:13 40 MG Lamotrigine (Lamictal Tab) 200 mg DAILY PO 02/13/17 09:00 03/15/17 08:59 02/21/17 11:12 200 MG Carbidopa/Levodopa (Sinemet 25/ 100MG Tab) 1 tab TID PO 02/13/17 09:00 03/15/17 08:59 02/21/17 20:26 1 TAB Quetiapine Fumarate (seroQUEL TAB) 100 mg HS PO 02/13/17 21:00 03/15/17 20:59 Future hold 02/21/17 20:27 100 MG Senna (Senokot Tab) 8.6 mg QAM PO 02/13/17 09:00 03/15/17 08:59 02/21/17 11:13 8.6 MG Bimatoprost (Lumigan 0.01%) 1 drops HS OPB 02/13/17 21:00 03/15/17 20:59 02/21/17 20:23 1 DROPS Brimonidine Tartrate (Alphagan-P 0.1% Oph Solution) 1 drop BID OPB 02/13/17 09:00 11/30/17 08:59 02/21/17 20:24 1 DROP Enoxaparin Sodium (Lovenox Inj) 40 mg QAM SQ 02/16/17 09:00 03/18/17 08:59 02/20/17 08:09 40 MG Potassium Chloride/Sodium Chloride 1,000 ml @ 100 mls/hr Q10H IV 02/16/17 09:00 03/18/17 08:29 02/22/17 03:42 100 MLS/HR Lorazepam (Ativan Inj) 1 mg PRN PRN IV 02/16/17 13:30 03/18/17 13:29 Lorazepam (Ativan Inj) 0.5 mg PRN PRN IV 02/16/17 13:30 03/18/17 13:29 Acetaminophen 100 ml @ 400 mls/hr Q8H PRN IV 02/16/17 15:15 03/18/17 15:14 02/20/17 21:25 400 MLS/HR Lorazepam (Ativan Inj) 2 mg Q15M PRN IV 02/16/17 16:45 03/02/17 16:44 Donepezil HCl (Aricept Tab) 5 mg HS PO 02/17/17 21:00 03/15/17 20:59 02/21/17 20:25 5 MG Levetiracetam 1500 mg/Dextrose 115 ml @ 420 mls/hr Q12 IV 02/17/17 21:00 03/18/17 12:29 02/21/17 20:24 420 MLS/HR Potassium Chloride (Klor-Con Tab) 20 meq BID PO 02/18/17 12:00 03/20/17 11:59 02/21/17 20:26 20 MEQ Carvedilol (Coreg Tab) 12.5 mg BID PO 02/19/17 21:00 03/20/17 20:59 02/21/17 11:12 12.5 MG Hydralazine HCl (HydrALAZINE INJ) 2.5 mg PRN PRN IV. 02/19/17 16:15 03/21/17 16:14 Polyethylene (Miralax Powder Packet) 17 gm DAILY PO 02/20/17 18:00 03/15/17 17:59 Vancomycin HCl 1000 mg/Sodium Chloride 270 ml @ 125 mls/hr Q18H IV 02/22/17 00:00 03/01/17 00:00 02/22/17 00:10 125 MLS/HR Vancomycin HCl (Consult) 1 ea UD PRN N/A 02/21/17 07:45 03/23/17 07:44 Cefepime HCl (Consult) 1 ea UD PRN N/A 02/21/17 08:00 03/23/17 07:59 Cefepime HCl 2000 mg/Syringe 20 ml @ 5 mls/min Q12H IV 02/21/17 20:00 03/03/17 19:59 02/21/17 20:22 5 MLS/MIN Impression Improving delirium in the context of prolonged postictal phase. No evidence of epileptiform abnormalities on EEG. No evidence of acute process on MRI. No evidence of encephalitis, meningitis, or subarachnoid hemorrhage on lumbar puncture. Dementia, parkinsonism, and bipolar disorder at baseline, probably stable. Plan I will reduce her dosage of Keppra to 1000 mg twice daily. This medication may be changed to by mouth she seems to be taking her other medications reliably. Continue with Aricept and Sinemet. This patient may follow-up with Dr. Stark as an outpatient for ongoing management of her seizure disorder and dementia. Please contact me if I may be of further assistance.
[2017-02-22] MEDS: LEVETIRACETAM 500 MG TAB PO SCH ×2 (10:48→21:49)
[2017-02-22] MEDS: POTASSIUM CHLORIDE 20 MEQ TABCR PO SCH ×2 (10:48→21:51)
--- NOTE | 2017-02-22 12:55 | Family Medicine Progress Note ---
Progress Note Date of Service Feb 22, 2017.
--- NOTE | 2017-02-22 13:32 | Family Medicine Progress Note ---
Progress Note Date of Service Feb 22, 2017. Subjective Pt evaluation today including: physical exam, chart review, conversation w/ mental health consultant, review of inpatient medication list Pain: none PO Intake: poor Voiding: vasques catheter in place Patient has improved and is making eye contact with people in the room however she is minimally responsive to questioning She did not have any further fevers overnight and we are continuing to wait for blood cultures Dr. Turner decreased the dose of the patients keppra today Patient will be transferred off of the telemetry unit Additional Comments: unable to obtain ROS as patient has remained non responsive to questioning Medications Current Inpatient Medications Medications (Trade) Dose Ordered Sig/Naeem Route Start Time Stop Time Status Last Admin Dose Admin Acetaminophen (Tylenol Tab) 650 mg Q4H PRN PO 02/13/17 00:15 03/15/17 00:14 02/14/17 16:03 650 MG Al Hydrox/Mg Hydrox/Simethicone (Maalox Max Susp) 15 ml Q4H PRN PO 02/13/17 00:15 03/15/17 00:14 Magnesium Hydroxide (Milk Of Magnesia Susp) 30 ml Q6H PRN PO 02/13/17 00:15 03/15/17 00:14 Ondansetron HCl (Zofran Inj) 4 mg Q6H PRN IV 02/13/17 00:15 03/15/17 00:14 Amlodipine Besylate (Norvasc Tab) 5 mg QAM PO 02/13/17 09:00 03/15/17 08:59 02/22/17 08:42 5 MG Clonazepam (Klonopin Tab) 0.5 mg HS PRN PO 02/13/17 00:15 03/15/17 00:14 Docusate Sodium (coLACE CAP) 100 mg BID PO 02/13/17 09:00 03/15/17 08:59 Future Hold EZETIMIBE (Zetia Tab) 10 mg HS PO 02/13/17 21:00 03/15/17 20:59 02/21/17 20:25 10 MG Ferrous Sulfate (Feosol Tab) 325 mg BIDM PO 02/13/17 08:00 03/15/17 07:59 02/22/17 08:41 325 MG Furosemide (Lasix Tab) 40 mg DAILY PO 02/13/17 09:00 03/15/17 08:59 02/22/17 08:41 40 MG Lamotrigine (Lamictal Tab) 200 mg DAILY PO 02/13/17 09:00 03/15/17 08:59 02/22/17 08:42 200 MG Carbidopa/Levodopa (Sinemet 25/ 100MG Tab) 1 tab TID PO 02/13/17 09:00 03/15/17 08:59 02/22/17 08:41 1 TAB Quetiapine Fumarate (seroQUEL TAB) 100 mg HS PO 02/13/17 21:00 03/15/17 20:59 Future hold 02/21/17 20:27 100 MG Senna (Senokot Tab) 8.6 mg QAM PO 02/13/17 09:00 03/15/17 08:59 02/22/17 08:42 8.6 MG Bimatoprost (Lumigan 0.01%) 1 drops HS OPB 02/13/17 21:00 03/15/17 20:59 02/21/17 20:23 1 DROPS Brimonidine Tartrate (Alphagan-P 0.1% Oph Solution) 1 drop BID OPB 02/13/17 09:00 03/15/17 08:59 02/22/17 08:43 1 DROP Enoxaparin Sodium (Lovenox Inj) 40 mg QAM SQ 02/16/17 09:00 03/18/17 08:59 02/22/17 08:41 40 MG Potassium Chloride/Sodium Chloride 1,000 ml @ 100 mls/hr Q10H IV 02/16/17 09:00 03/18/17 08:29 02/22/17 03:42 100 MLS/HR Lorazepam (Ativan Inj) 1 mg PRN PRN IV 02/16/17 13:30 03/18/17 13:29 Lorazepam (Ativan Inj) 0.5 mg PRN PRN IV 02/16/17 13:30 03/18/17 13:29 Acetaminophen 100 ml @ 400 mls/hr Q8H PRN IV 02/16/17 15:15 03/18/17 15:14 02/20/17 21:25 400 MLS/HR Lorazepam (Ativan Inj) 2 mg Q15M PRN IV 02/16/17 16:45 03/02/17 16:44 Donepezil HCl (Aricept Tab) 5 mg HS PO 02/17/17 21:00 03/15/17 20:59 02/21/17 20:25 5 MG Potassium Chloride (Klor-Con Tab) 20 meq BID PO 02/18/17 12:00 03/20/17 11:59 02/22/17 10:48 20 MEQ Carvedilol (Coreg Tab) 12.5 mg BID PO 02/19/17 21:00 03/20/17 20:59 02/22/17 08:40 12.5 MG Hydralazine HCl (HydrALAZINE INJ) 2.5 mg PRN PRN IV. 02/19/17 16:15 03/21/17 16:14 Polyethylene (Miralax Powder Packet) 17 gm DAILY PO 02/20/17 18:00 03/15/17 17:59 02/22/17 08:42 17 GM Vancomycin HCl 1000 mg/Sodium Chloride 270 ml @ 125 mls/hr Q18H IV 02/22/17 00:00 03/01/17 00:00 02/22/17 00:10 125 MLS/HR Vancomycin HCl (Consult) 1 ea UD PRN N/A 02/21/17 07:45 03/23/17 07:44 Cefepime HCl (Consult) 1 ea UD PRN N/A 02/21/17 08:00 03/23/17 07:59 Cefepime HCl 2000 mg/Syringe 20 ml @ 5 mls/min Q12H IV 02/21/17 20:00 03/03/17 19:59 02/22/17 08:42 5 MLS/MIN Levetiracetam (Keppra Tab) 1,000 mg BID PO 02/22/17 09:00 03/24/17 08:59 02/22/17 10:48 1,000 MG Objective Vital Signs Date Time Temp Pulse Resp B/P (MAP) Pulse Ox O2 Delivery O2 Flow Rate FiO2 02/22/17 12:00 Room Air 02/22/17 11:35 36.7 50 16 99/57 (71) 95 Room Air 02/22/17 08:22 36.3 45 18 137/72 (93) 96 Room Air 02/22/17 08:00 Room Air 02/22/17 04:00 97 Room Air 02/22/17 03:32 37.3 49 16 107/54 (71) 97 Room Air 02/22/17 00:00 94 Room Air 02/21/17 23:33 36.4 66 17 92/52 (65) 94 Room Air 02/21/17 20:00 Room Air 02/21/17 18:55 36.9 48 20 115/55 (75) 94 Room Air 02/21/17 16:00 Room Air 02/21/17 15:17 36.3 53 16 123/68 (86) 96 Room Air Physical Exam Notes: General Appearance: + pertinent finding (patient making eye contact in position but is not answering questions) Respiratory/Chest: lungs clear, no respiratory distress, no accessory muscle use Abdomen: soft, non tender with normal bowel sounds, patient had soiled herself and was being cleaned by nursing Cardiovascular: regular rate, rhythm, no edema, no murmur Extremities: non-tender, no pedal edema, normal capillary refill Laboratory Results Results Past 24 Hours Test 02/22/17 05:38 Range/Units White Blood Count 5.03 4.8-10.8 K/uL Red Blood Count 4.00 4.2-5.4 M/uL Hemoglobin 11.9 12.0-16.0 g/dL Hematocrit 34.4 37-47 % Mean Corpuscular Volume 86.0 80-100 fL Mean Corpuscular Hemoglobin 29.8 25-34 pg Mean Corpuscular Hemoglobin Concent 34.6 32-36 g/dl RDW Standard Deviation 45.2 36.4-46.3 fL RDW Coefficient of Variation 14.4 11.5-14.5 % Platelet Count 241 130-400 K/uL Mean Platelet Volume 8.8 7.4-10.4 fL Sodium Level 137 136-145 mmol/L Potassium Level 4.1 3.5-5.1 mmol/L Chloride Level 109 98-107 mmol/L Carbon Dioxide Level 22 21-32 mmol/L Anion Gap 6.0 3-11 mmol/L Blood Urea Nitrogen 13 7-18 mg/dl Creatinine 0.74 0.60-1.20 mg/dl Est Creatinine Clear Calc Drug Dose 48.1 ml/min Estimated GFR () 89.3 Estimated GFR (Non- 77.1 BUN/Creatinine Ratio 18.0 10-20 Random Glucose 92 70-99 mg/dl Calcium Level 8.4 8.5-10.1 mg/dl Assessment and Plan Assessment: This is a 77 y/o F who presents with recurrent rectal prolapse and chronic constipation. During admission had new onset seizures for which she is being treated with keppra. Patient spike a fever on and was started on broad spectrum antibiotics. We did an LP which did not show any sign of infection. Patient has improved on 02/21 and has been talking a small amount to family and has started eating. Dr. Turner decreased the dose of the patients keppra today. We are still awaiting blood cultures, urine cultures and csf cultures Plan: Seizures/Altered mental status neuro and psych on board decrease keppra to 1000mg bid MRI and CT head with microvascular changes EEG showed diffuse encephalopathy with left sided slowing carotid ultrasound normal prolactin ordered during seizure and wnl ativan prn ordered Fever of unknown origin patient spiked fever therefore started cefepime and vanc ordered blood cultures, urine cultures and repeat CXR= all within normal limits thus far LP ordered and without any sign of infection = cultures pending could possibly be from seizure activity but would expect higher temp Decreased urine output (resolved) improved, increased urine output last night negative bladder scan patient receiving IV fluids 100ml/hr creatinine normal Hypomagnesemia (resolved) 1.8 yesterday given 2mg IV on 02/20 continue to monitor Hypokalemia (resolved) 4.1 this morning receiving NS with 20meq of potassium 20meq bid Parkinsons dementia continue sinemet and donepezil Bipolar seroquel restarted per psych continue lamictal EKG qtc of 424 HTN carvedilol to 12.5 bid hydralazine 2.5 IV prn for systolic >180 Rectal prolapse stable senna and milk of mag follow with GI as outpatient Prolonged QT improved with qt of 424 restart seroquel DVT prophylaxis MIKE, SCD FULL CODE Continued [facility] stay due to: fever, ambulation difficulties, multiple IV medications needed Assessment/Plan Resident Physician Supervision Note: I was present with Dr. Vega during the history and exam. I discussed the case with the resident and agree with the findings and plan as documented in the note. Any exceptions or clarifications are listed here. 77 y/o female h/o Parkinson's disease, bipolar d/o and rectal prolapse now presenting with new onset seizure-like activity and delirium. Afebrile overnight and, though nonverbal on examination, did make affirmative and negative noises during my conversation with her today. S1/S2 nl RRR no MCG, CTAB , no abd pain apparent on examination without guarding. Neurology and psychiatry are consulted. MRI and initial EEG unremarkable, BCx neg. Second EEG w/ slowing resulting in carotid US which was WNL. Tolerating PO medications with improved mental status. Keppra decreased per neurology recommendations. Neurology considers this to be improving delirium in the setting of prolonged post-ictal state and will s/o. Regarding febrile illness, will continue IV abx and consider ID consult should second round of cultures not be illuminating. HTN - continue amlodipine and carvedilol, hydralazine PRN Prolonged QT - improved Rectal prolapse w/ chronic constipation - continue bowel regimen, monitor I/Os Parkinson's dementia - continue sinemet and donepezil Bipolar d/o v. dementia related behavior disturbance - lamictal and seroquel
[2017-02-22] MEDS: BIMATOPROST 0.01% OP SOLN 2.5 ML BTL OPB SCH (21:49)
[2017-02-22] MEDS: DONEPEZIL HCL 10 MG TAB PO SCH (21:50)
[2017-02-22] MEDS: QUETIAPINE FUMARATE 100 MG TAB PO SCH (21:52)
[2017-02-22] MEDS: EZETIMIBE 10MG TAB PO SCH (21:52)
[2017-02-23] MEDS: NSS + 20MEQ KCL 1000ML 1,000 ML IV SCH ×3 (00:15→19:51)
[2017-02-23 07:46] LABS: HEMATOCRIT 36.1 % (37-47); MEAN CELL VOLUME 85.1 fL (80-100); MEAN CORPUSCULAR HEMOGLOBIN 29.5 pg (25-34); MEAN CORPUSCULAR HGB CONC 34.6 g/dl (32-36); MEAN PLATELET VOLUME 9.1 fL (7.4-10.4); PLATELET COUNT 284 K/uL (130-400); RED BLOOD COUNT 4.24 M/uL (4.2-5.4); WHITE BLOOD COUNT 4.85 K/uL (4.8-10.8)
[2017-02-23 08:04] VITALS: BP 155/72; PULSE 48; TEMP 36.4; O2SAT 99
[2017-02-23 08:17] LABS: CALCIUM 8.6 mg/dl (8.5-10.1); CREATININE 0.67 mg/dl (0.60-1.20); POTASSIUM 3.6 mmol/L (3.5-5.1)
[2017-02-23] MEDS: CARBIDOPA/LEVODOPA 25/100MG TAB PO SCH ×3 (08:23→20:50)
[2017-02-23] MEDS: CEFEPIME IV 2,000 MG in SYRINGE 7.5 ML IV SCH (08:23)
[2017-02-23] MEDS: FERROUS SULFATE 325 MG TAB PO SCH ×2 (08:23→16:38)
[2017-02-23] MEDS: CARVEDILOL 12.5 MG TAB PO SCH ×2 (08:24→20:52)
[2017-02-23] MEDS: FUROSEMIDE 40 MG TAB PO SCH (08:24)
[2017-02-23] MEDS: LEVETIRACETAM 500 MG TAB PO SCH ×2 (08:25→20:49)
[2017-02-23] MEDS: POLYETHYLENE (MIRALAX) 17 GM PACK PO SCH (08:25)
[2017-02-23] MEDS: BRIMONIDINE TARTRATE 0.1% OPH SOLN OPB SCH ×2 (08:26→20:52)
[2017-02-23] MEDS: AMLODIPINE BESYLATE 5 MG TAB PO SCH (08:27)
[2017-02-23] MEDS: SENNA 8.6 MG TAB PO SCH (08:27)
[2017-02-23] MEDS: POTASSIUM CHLORIDE 20 MEQ TABCR PO SCH ×2 (08:27→20:51)
[2017-02-23] MEDS: ENOXAPARIN 40 MG/0.4 ML SYR SQ SCH (08:28)
--- NOTE | 2017-02-23 10:42 | Progress Note ---
Progress Note Date of Service Feb 23, 2017. Progress Note ID Consult Dictated #[id number] A/P: 1.Fever - intermittent -No clear infectious etiology, multiple blood cultures negative, CSF culture negative (1wbc), UA/culture negative, CXR negative, Lyme, Flu swab negative -Likely non infectious etiology, consider dopplers, meds (B lactams, anti- seizure, psych), seizure disorder -Can follow off of abx from ID standpoint -thank you
--- NOTE | 2017-02-23 11:05 | INFECT. DISEASE CONSULTATION ---
DATE OF CONSULTATION: 02/23/2017 DATE OF CONSULTATION: 02/23/2017 REQUESTING PHYSICIAN: Dr. Vega. HISTORY OF PRESENT ILLNESS: This is a 77-year-old female who was admitted for rectal bleeding from a known rectal prolapse. She does have a history of confusion and she is unable to provide any review of systems on my examination. Throughout this hospital stay, she has had intermittent fevers. On the , she had a T-max of 38.4, on the she had a T-max of 37.9, on the she had a T-max of 38.6. She has not had any fever since the . She has had extensive workup with multiple urine cultures which have been negative. She initially had a white blood cell count of 12.6; however, it has been normal for several days. Her procalcitonin has been negative. She did have an elevated CPK on admission, but this has improved. She has had a lumbar puncture on the secondary to intermittent fever which had only 1 WBC and CSF cultures are negative. Flu swab and Lyme titer are negative. Blood cultures from the are negative as well as from the . She did have a negative chest x-ray on the for pneumonia. Infectious diseases was consulted for fever. She also has had episodes of seizures during this admission and has been followed by psych as well as neurology. Her antiseizure medications have been adjusted. She initially was on Unasyn from the through the and now was brought broadened to vancomycin and cefepime. She appears to be tolerating these well. However, I am unable to obtain any review of systems from the patient. PAST MEDICAL HISTORY: Significant for bipolar, hemorrhoid disease, hypertension, rectal prolapse. PAST SURGICAL HISTORY: Significant for repair of rectal prolapse and hemorrhoidectomy in 2017. She also has a history of Parkinson's disease and dementia. FAMILY HISTORY: Noncontributory. SOCIAL HISTORY: Negative for tobacco use, alcohol use or drug use. ALLERGIES: SHE HAS ALLERGIES TO LITHIUM. CURRENT MEDICATIONS: Include Keppra, vancomycin, cefepime, MiraLax, Coreg, hydralazine, potassium, Aricept, Ativan, acetaminophen, Lovenox, Zetia, Seroquel, Norvasc, Lasix, Lamictal, Sinemet, Senokot, iron, Tylenol, Maalox, milk of magnesia. PHYSICAL EXAMINATION: VITAL SIGNS: She is currently afebrile and has been for the last 48 hours. Pulse 48, respiratory rate 20, blood pressure 155/72. Oxygen saturation is 99% on room air. GENERAL: She is awake. She does not follow commands. She does not answer questions. HEAD, EYES, EARS, NOSE, AND THROAT: Mucous membranes are dry. HEART: Regular. LUNGS: Clear with decreased breath sounds. ABDOMEN: Soft and nondistended. There is no lower extremity edema. SKIN: Without rash. LABORATORY STUDIES: CBC today reveals a white blood cell count of 4.8, hemoglobin 12.5 and platelets are 284. Chemistry panel reveals a sodium of 137, potassium 3.6, chloride 106, bicarb 21, BUN 9, creatinine 0.67, glucose is 93. LFTs were normal on admission. Procalcitonin is negative. Her most recent urinalysis on the 8th is negative. CSF studies show 1 white blood cell, normal glucose, normal protein. Flu swab and Lyme titers are negative. CSF culture is negative. Blood cultures on the 3rd are final and negative x2 sets. A urine culture on the 8th is negative and final. Blood cultures from the 8th are no growth to date x2 sets. Most recent imaging Chest x-ray on the 8th is negative. A brain MRI on the 4th was negative. ASSESSMENT AND PLAN: Fever likely noninfectious in nature. She has had a negative infectious workup to date. She certainly could have a fever related to seizure disorder. She has been afebrile for several days. If her blood cultures and CSF cultures remain negative for the next 24 hours, I do not see any indication for continued antibiotics. Certainly beta lactam antibiotics could be contributing to fever; however she did not have fevers within the first few days of her admission. Alternative would be lower extremity Dopplers to rule out DVT as cause from an infectious fever. She also has had a chest x-ray recently which was negative for atelectasis or infiltrate. There are no further ID recommendations at this time.
[2017-02-23] MEDS ORDERED: VANCOMYCIN TROUGH ONE (11:30)
--- NOTE | 2017-02-23 14:44 | Family Medicine Progress Note ---
Progress Note Date of Service Feb 23, 2017. Subjective Pt evaluation today including: conversation w/ patient, physical exam, chart review, lab review, conversation w/ [employer] consultant, review of inpatient medication list Pain: none PO Intake: minimal Voiding: vasques catheter in place Patient would not talk this morning when asked questions She did make eye contact occasionally and responded with her head when spoken to She did say goodbye when I was leaving the room today ID saw the patient this morning and said to stop the antibiotics and to monitor for any further fevers Additional Comments: unable to obtain ROS Medications Current Inpatient Medications Medications (Trade) Dose Ordered Sig/Naeem Route Start Time Stop Time Status Last Admin Dose Admin Acetaminophen (Tylenol Tab) 650 mg Q4H PRN PO 02/13/17 00:15 03/15/17 00:14 02/14/17 16:03 650 MG Al Hydrox/Mg Hydrox/Simethicone (Maalox Max Susp) 15 ml Q4H PRN PO 02/13/17 00:15 03/15/17 00:14 Magnesium Hydroxide (Milk Of Magnesia Susp) 30 ml Q6H PRN PO 02/13/17 00:15 03/15/17 00:14 Ondansetron HCl (Zofran Inj) 4 mg Q6H PRN IV 02/13/17 00:15 03/15/17 00:14 Amlodipine Besylate (Norvasc Tab) 5 mg QAM PO 02/13/17 09:00 03/15/17 08:59 02/23/17 08:27 5 MG Clonazepam (Klonopin Tab) 0.5 mg HS PRN PO 02/13/17 00:15 03/15/17 00:14 Docusate Sodium (coLACE CAP) 100 mg BID PO 02/13/17 09:00 03/15/17 08:59 Future Hold EZETIMIBE (Zetia Tab) 10 mg HS PO 02/13/17 21:00 03/15/17 20:59 02/22/17 21:52 10 MG Ferrous Sulfate (Feosol Tab) 325 mg BIDM PO 02/13/17 08:00 03/15/17 07:59 02/23/17 08:23 325 MG Furosemide (Lasix Tab) 40 mg DAILY PO 02/13/17 09:00 03/15/17 08:59 02/23/17 08:24 40 MG Lamotrigine (Lamictal Tab) 200 mg DAILY PO 02/13/17 09:00 03/15/17 08:59 02/23/17 08:26 200 MG Carbidopa/Levodopa (Sinemet 25/ 100MG Tab) 1 tab TID PO 02/13/17 09:00 03/15/17 08:59 02/23/17 14:35 1 TAB Quetiapine Fumarate (seroQUEL TAB) 100 mg HS PO 02/13/17 21:00 03/15/17 20:59 Future hold 02/22/17 21:52 100 MG Senna (Senokot Tab) 8.6 mg QAM PO 02/13/17 09:00 03/15/17 08:59 02/23/17 08:27 8.6 MG Bimatoprost (Lumigan 0.01%) 1 drops HS OPB 02/13/17 21:00 03/15/17 20:59 02/22/17 21:49 1 DROPS Brimonidine Tartrate (Alphagan-P 0.1% Oph Solution) 1 drop BID OPB 02/13/17 09:00 03/15/17 08:59 02/23/17 08:26 1 DROP Enoxaparin Sodium (Lovenox Inj) 40 mg QAM SQ 02/16/17 09:00 03/18/17 08:59 02/23/17 08:28 40 MG Potassium Chloride/Sodium Chloride 1,000 ml @ 100 mls/hr Q10H IV 02/16/17 09:00 03/18/17 08:29 02/23/17 11:07 100 MLS/HR Lorazepam (Ativan Inj) 1 mg PRN PRN IV 02/16/17 13:30 03/18/17 13:29 Lorazepam (Ativan Inj) 0.5 mg PRN PRN IV 02/16/17 13:30 03/18/17 13:29 Acetaminophen 100 ml @ 400 mls/hr Q8H PRN IV 02/16/17 15:15 03/18/17 15:14 02/20/17 21:25 400 MLS/HR Lorazepam (Ativan Inj) 2 mg Q15M PRN IV 02/16/17 16:45 03/02/17 16:44 Donepezil HCl (Aricept Tab) 5 mg HS PO 02/17/17 21:00 03/15/17 20:59 02/22/17 21:50 5 MG Potassium Chloride (Klor-Con Tab) 20 meq BID PO 02/18/17 12:00 03/20/17 11:59 02/23/17 08:27 20 MEQ Carvedilol (Coreg Tab) 12.5 mg BID PO 02/19/17 21:00 03/20/17 20:59 02/22/17 08:40 12.5 MG Hydralazine HCl (HydrALAZINE INJ) 2.5 mg PRN PRN IV. 02/19/17 16:15 03/21/17 16:14 Polyethylene (Miralax Powder Packet) 17 gm DAILY PO 02/20/17 18:00 03/15/17 17:59 02/23/17 08:25 17 GM Levetiracetam (Keppra Tab) 1,000 mg BID PO 02/22/17 09:00 03/24/17 08:59 02/23/17 08:25 1,000 MG Objective Vital Signs Date Time Temp Pulse Resp B/P (MAP) Pulse Ox O2 Delivery O2 Flow Rate FiO2 02/23/17 08:04 36.4 48 20 155/72 (99) 99 02/23/17 08:00 Room Air 02/22/17 23:43 36.5 55 18 91/52 (65) 97 Room Air 02/22/17 23:37 Room Air 02/22/17 21:46 54 162/66 (98) 02/22/17 17:12 47 02/22/17 16:30 Room Air 02/22/17 15:07 36.4 43 16 105/61 (76) 96 Room Air Physical Exam Notes: General Appearance: + pertinent finding (patient making eye contact in position but is not answering questions) Respiratory/Chest: lungs clear, no respiratory distress, no accessory muscle use Abdomen: soft, non tender with normal bowel sounds, patient had soiled herself and was being cleaned by nursing Cardiovascular: regular rate, rhythm, no edema, no murmur Extremities: non-tender, no pedal edema, normal capillary refill Laboratory Results Results Past 24 Hours Test 02/23/17 07:13 02/23/17 11:16 Range/Units White Blood Count 4.85 4.8-10.8 K/uL Red Blood Count 4.24 4.2-5.4 M/uL Hemoglobin 12.5 12.0-16.0 g/dL Hematocrit 36.1 37-47 % Mean Corpuscular Volume 85.1 80-100 fL Mean Corpuscular Hemoglobin 29.5 25-34 pg Mean Corpuscular Hemoglobin Concent 34.6 32-36 g/dl RDW Standard Deviation 44.8 36.4-46.3 fL RDW Coefficient of Variation 14.4 11.5-14.5 % Platelet Count 284 130-400 K/uL Mean Platelet Volume 9.1 7.4-10.4 fL Sodium Level 137 136-145 mmol/L Potassium Level 3.6 3.5-5.1 mmol/L Chloride Level 106 98-107 mmol/L Carbon Dioxide Level 21 21-32 mmol/L Anion Gap 9.0 3-11 mmol/L Blood Urea Nitrogen 9 7-18 mg/dl Creatinine 0.67 0.60-1.20 mg/dl Est Creatinine Clear Calc Drug Dose 53.1 ml/min Estimated GFR () 96.9 Estimated GFR (Non- 83.6 BUN/Creatinine Ratio 13.0 10-20 Random Glucose 93 70-99 mg/dl Calcium Level 8.6 8.5-10.1 mg/dl Vancomycin Level Trough 17.5 SEE COMMENT mcg/ml Microbiology Results 02/22/17 MRSA DNA Surveillance Screen - Final, Complete Specimen Negative for MRSA by DNA Probe Assessment and Plan Assessment: This is a 77 y/o F who presents with recurrent rectal prolapse and chronic constipation. During admission had new onset seizures for which she is being treated with keppra. Patient spike a fever on and was started on broad spectrum antibiotics. We did an LP which did not show any sign of infection. Patient has improved on 02/21 and has been talking a small amount to family and has started eating. Dr. Turner decreased the dose of the patients keppra. CSF, blood and urine cultures have remained negative. Infectious disease were consulted today and they said to stop antibiotics and to monitor the patient for further fevers. It is possible that her fevers were from her seizures Plan: Seizures/Altered mental status neuro and psych on board decrease keppra to 1000mg bid MRI and CT head with microvascular changes EEG showed diffuse encephalopathy with left sided slowing carotid ultrasound normal prolactin ordered during seizure and wnl ativan prn ordered Fever of unknown origin patient spiked fever therefore started cefepime and vanc ordered blood cultures, urine cultures and repeat CXR= all within normal limits thus far LP ordered and without any sign of infection = cultures pending could possibly be from seizure activity but would expect higher temp antibiotics stopped per ID Decreased urine output (resolved) improved, increased urine output last night negative bladder scan patient receiving IV fluids 100ml/hr creatinine normal Hypomagnesemia (resolved) 1.8 yesterday given 2mg IV on 02/20 continue to monitor Hypokalemia (resolved) 3.6 this morning receiving NS with 20meq of potassium 20meq bid Parkinsons dementia continue sinemet and donepezil Bipolar seroquel restarted per psych continue lamictal EKG qtc of 424 HTN carvedilol to 12.5 bid hydralazine 2.5 IV prn for systolic >180 Rectal prolapse stable senna and milk of mag follow with GI as outpatient Prolonged QT improved with qt of 424 restart seroquel DVT prophylaxis MIKE, SCD Dispo: referral made to [facility], patient is a target and therefore will be assessed on Sunday by [facility] FULL [facility] Continued [facility] stay due to: voiding difficulties, ambulation difficulties, multiple IV medications needed Discharge planning: snf facility Assessment/Plan Resident Physician Supervision Note: I was present with Dr. Vega during the history and exam. I discussed the case with the resident and agree with the findings and plan as documented in the note. Any exceptions or clarifications are listed here. 77 y/o female h/o Parkinson's disease, bipolar d/o and rectal prolapse now presenting with new onset seizure-like activity and delirium. Afebrile overnight. Nonverbal on examination still making affirmative and negative noises during our conversation. S1/S2 nl RRR no MCG, CTAB, no abd pain apparent on examination without guarding. Delirium in the setting of prolonged post-ictal state - Neurology and psychiatry are consulted. MRI and initial EEG unremarkable, BCx neg. Second EEG w/ slowing resulting in carotid US which was WNL. Tolerating PO medications with improved mental status. Regarding febrile illness, ID consulted - will d/c IV abx and monitor for fever with repeat culture as needed HTN - continue amlodipine and carvedilol, hydralazine PRN Rectal prolapse w/ chronic constipation - continue bowel regimen, monitor I/Os Parkinson's dementia - continue sinemet and donepezil Bipolar d/o v. dementia related behavior disturbance - lamictal and seroquel Prolonged QT - improved
[2017-02-23 14:58] VITALS: BP 133/56; PULSE 53; TEMP 36.2; O2SAT 97
[2017-02-23] MEDS: BIMATOPROST 0.01% OP SOLN 2.5 ML BTL OPB SCH (20:48)
[2017-02-23] MEDS: EZETIMIBE 10MG TAB PO SCH (20:50)
[2017-02-23] MEDS: QUETIAPINE FUMARATE 100 MG TAB PO SCH (20:50)
[2017-02-23] MEDS: DONEPEZIL HCL 10 MG TAB PO SCH (20:52)
[2017-02-24] VITALS: O2SAT 97
[2017-02-24 00:53] VITALS: BP 114/64; PULSE 53; TEMP 36.9; O2SAT 96
[2017-02-24] MEDS: NSS + 20MEQ KCL 1000ML 1,000 ML IV SCH ×2 (06:06→16:21)
[2017-02-24 07:06] LABS: MEAN CELL VOLUME 85.5 fL (80-100); MEAN CORPUSCULAR HEMOGLOBIN 29.9 pg (25-34); MEAN PLATELET VOLUME 8.7 fL (7.4-10.4); PLATELET COUNT 307 K/uL (130-400); RED BLOOD COUNT 4.21 M/uL (4.2-5.4); WHITE BLOOD COUNT 5.16 K/uL (4.8-10.8)
[2017-02-24 07:32] VITALS: BP 156/81; PULSE 71; TEMP 36.6; O2SAT 95
[2017-02-24 07:45] LABS: CREATININE 0.66 mg/dl (0.60-1.20)
[2017-02-24] MEDS: BRIMONIDINE TARTRATE 0.1% OPH SOLN OPB SCH ×2 (07:56→20:26)
[2017-02-24] MEDS: ENOXAPARIN 40 MG/0.4 ML SYR SQ SCH (07:56)
[2017-02-24] MEDS: SENNA 8.6 MG TAB PO SCH (07:57)
[2017-02-24] MEDS: POLYETHYLENE (MIRALAX) 17 GM PACK PO SCH (07:57)
[2017-02-24] MEDS: FERROUS SULFATE 325 MG TAB PO SCH ×2 (07:57→16:21)
[2017-02-24] MEDS: CARVEDILOL 12.5 MG TAB PO SCH ×2 (07:58→20:29)
[2017-02-24] MEDS: AMLODIPINE BESYLATE 5 MG TAB PO SCH (07:58)
[2017-02-24] MEDS: LEVETIRACETAM 500 MG TAB PO SCH ×2 (07:58→20:27)
[2017-02-24] MEDS: FUROSEMIDE 40 MG TAB PO SCH (07:59)
[2017-02-24] MEDS: CARBIDOPA/LEVODOPA 25/100MG TAB PO SCH ×3 (07:59→20:29)
[2017-02-24] MEDS: POTASSIUM CHLORIDE 20 MEQ TABCR PO SCH ×2 (08:00→20:28)
[2017-02-24 15:07] VITALS: BP 135/63; PULSE 64; TEMP 36.7; O2SAT 96
--- NOTE | 2017-02-24 16:04 | Family Medicine Progress Note ---
Progress Note Date of Service Feb 24, 2017. Subjective Pt evaluation today including: conversation w/ patient, physical exam, chart review, lab review The patient was seen and examined at bedside. No acute overnight events. PT is just swallowing a little bit of her breakfast (must be fed for her). Patient is resting comfortably in bed. Non verbal. Saying "no" to all questions and is eye tracking. Villatoro cath in place. No family in the room. Update: Patient was feeding herself in the evening. Called and spoke with the patient's - patient's baseline is walking and carrying conversations. ROS: Unable to obtain due to patients baseline medical condition. Objective Physical Exam Notes: General Appearance: small, contracted, no apparent distress. Pt is lying in a contracted position. There was no spontaneous movement of the extremities. Neuro: Pt says "No" to most questions regardless of the actual question, she does not say Bye when I say Bye. Respiratory/Chest: lungs clear, no respiratory distress, no accessory muscle use Abdomen: soft, non tender with normal bowel sounds, Extremities: Warm, SCDs are in place. Skin: Could not appreciate any rashes. Cardiovascular: regular rate, rhythm, no edema, no murmur Extremities: non-tender, no pedal edema, normal capillary refill Assessment and Plan 77F who presents with recurrent rectal prolapse and chronic constipation. During admission she had several witness new onset seizures. Pt continues to be on a prolonged post ictal state. LP and EEGx2 showed no acute pathology that better explains the continued confusion. Patient did spike a fever and was started on empiric ABx for several days. Per our Infectious disease team those ABx were stopped. Patient has been talking a small amount to family and has started eating. We are attempting to lower the dose of Keppra. Called and spoke with the patient's - patient's baseline is walking and carrying conversations. Seizures/Altered mental status, 2/2 Seroquel withdrawal? * Patient has a baseline of dementia. Spoke with who states he takes care of her, but the patient is does walk and carry on conversations. * Neurology (signed off) - mental status is likely prolonged post ictal state, c /w Keppra, follow up with Dr. Stark as outpatient. * Patients Seroquel was held for a prolonged period because of QTC prolongation. It has since been restarted and she has received 3 doses. * MRI and CT head with microvascular changes. * EEG showed diffuse encephalopathy with left sided slowing. * Carotid ultrasound normal * Prolactin ordered during seizure and wnl * c/w keppra to 1000mg bid + Ativan PRN ordered. * Will attempt to contact family to assess pt's baseline. Fevers * Last fever 02/21/17, pt received empiric cefepime and vanco (3 days), urine and blood culture cultures negative. * LP negative. * Fever is likely 2/2 to seizure. Decreased urine output (resolved) * Over 100mls/hr yesterday, will decrease IVF from 100mls/hr to 70mls/hr. * Creatinine normal. Hypomagnesemia / Hypokalemia * Will check tomorrow AM. Parkinsons dementia * Continue sinemet and donepezil Bipolar * c/w seroquel restarted per psych * Continue lamictal HTN * c/w carvedilol to 12.5 bid * c/w hydralazine 2.5 IV prn for systolic >180 Rectal prolapse * stable * senna and milk of mag * follow with GI as outpatient DVT prophylaxis * Lovenox 40mg QAM SQ * Venous Dopplers: Radiology got back to me, because the patient is contracted and unable to extend her legs the results will be suboptimal - will wait until patient can extend legs for exam. Dispo: referral made to [facility], patient is a target and therefore will be assessed on Sunday by [facility]. Diet: Regular, will get nutrition consult because patient isn't eating enough. FULL CODE Resident Involvement: Resident Care Provided Care Provided: Adult Hospital Medicine Assessment/Plan Resident Physician Supervision Note: I was present with Dr. Christensen during the history and exam. I discussed the case with the resident and agree with the findings and plan as documented in the note. Any exceptions or clarifications are listed here. 77 y/o female h/o Parkinson's disease, bipolar d/o and rectal prolapse now presenting with new onset seizure-like activity and delirium. Afebrile overnight. Remains nonverbal on examination though more aware and responsive, though with less verbal interaction for me. S1/S2 nl RRR no MCG, CTAB, no abd pain apparent on examination without guarding. Delirium in the setting of prolonged post-ictal state - Neurology and psychiatry are consulted. MRI and initial EEG unremarkable, BCx neg. Second EEG w/ slowing resulting in carotid US which was WNL. Tolerating PO medications with improved mental status. Regarding febrile illness, ID consulted - remains afebrile off abx, fever may have been 2/2 seizure activity, repeat Cx if febrile HTN - continue amlodipine and carvedilol, hydralazine PRN Rectal prolapse w/ chronic constipation - continue bowel regimen, monitor I/Os Parkinson's dementia - continue sinemet and donepezil Bipolar d/o v. dementia related behavior disturbance - lamictal and seroquel Prolonged QT - improved
[2017-02-24] MEDS: DONEPEZIL HCL 10 MG TAB PO SCH (20:26)
[2017-02-24] MEDS: BIMATOPROST 0.01% OP SOLN 2.5 ML BTL OPB SCH (20:26)
[2017-02-24] MEDS: QUETIAPINE FUMARATE 100 MG TAB PO SCH (20:27)
[2017-02-24] MEDS: EZETIMIBE 10MG TAB PO SCH (20:29)
[2017-02-24 20:40] VITALS: BP 154/70; PULSE 64
[2017-02-25] VITALS: O2SAT 97
[2017-02-25 00:46] VITALS: BP 152/85; PULSE 74; TEMP 36.7; O2SAT 97
[2017-02-25] MEDS: NSS + 20MEQ KCL 1000ML 1,000 ML IV SCH ×2 (05:39→19:43)
--- NOTE | 2017-02-25 06:55 | Family Medicine Progress Note ---
Progress Note Date of Service Feb 25, 2017. Subjective Pt evaluation today including: conversation w/ patient, physical exam, chart review, lab review Pt is more alert than the previous day. She is complaining of being in pain and is pointing to her belly, she then denies being in any pain. She is calm and in no distress. On room air. Patient is visibly improved from previous day but is still not answering questions appropriately. Left a voicemail with the and updated him that Shari was doing better today. I also spoke with his yesterday extensively. ROS: Unable to assess accurately because of the patient is not answering questions appropriately. Objective Physical Exam Notes: General Appearance: Well appearing, no acute distress. Legs are still flexed and she does not follow commands. Her vocabulary is now more varied, she is asking more appropriate questions however she isn't not answering questions properly. She is asking if we were [place]. She was not able to tell me her name or the place. she did respond by saying the year was 1969. This is a great improvement from the previous day. She did however shake Dr. Lock's hand on exam. Neuro: Not oriented to person, place or time. Respiratory/Chest: lungs clear, no respiratory distress, no accessory muscle use Abdomen: soft, non tender with normal bowel sounds, Extremities: Warm, SCDs are in place. Skin: Could not appreciate any rashes. Cardiovascular: regular rate, rhythm, no edema, no murmur Extremities: non-tender, no pedal edema, normal capillary refill Assessment and Plan 77F who presents with recurrent rectal prolapse and chronic constipation. During admission she had several witness new onset seizures. Pt continues to be on a prolonged post ictal state. LP and EEGx2 showed no acute pathology that better explains the continued confusion. Patient did spike a fever and was started on empiric ABx for several days. Per our Infectious disease team those ABx were stopped. Patient has been talking a small amount to family and has started eating. Called and spoke with the patient's - patient's baseline is walking and carrying conversations. Seizures/Altered mental status, 2/2 Seroquel withdrawal? * Patient has a baseline of dementia. Spoke with who states he takes care of her, but the patient is does walk and carry on conversations. * Neurology (signed off) - mental status is likely prolonged post ictal state, c /w Tushar follow up with Dr. Stark as outpatient. * Patients Seroquel was held for a prolonged period because of QTC prolongation. It has since been restarted and she has received 4 doses. * MRI and CT head with microvascular changes. * EEG showed diffuse encephalopathy with left sided slowing. * Carotid ultrasound normal * Prolactin ordered during seizure and wnl * c/w keppra to 1000mg bid + Ativan PRN ordered. * Slow but steady clinical improvement. Fevers * Last fever 02/21/17, pt received empiric cefepime and vanco (3 days), urine and blood culture cultures negative. * LP negative. * Fever is likely 2/2 to seizure. No Abx at this time. Decreased urine output (resolved) * Over 100mls/hr yesterday, will decrease IVF from 100mls/hr to 70mls/hr. * Most fluid intake is from IVF. * Creatinine normal. Hypomagnesemia / Hypokalemia * Mag was 1.3, giving 400mg Mag Ox today and 400mg QAM x 3 doses. * K+ WNL. Parkinsons dementia * Continue sinemet and donepezil Bipolar * c/w seroquel restarted per psych * Continue Lamictal HTN * c/w carvedilol to 12.5 bid * c/w hydralazine 2.5 IV prn for systolic >180 Rectal prolapse * stable * senna and milk of mag * follow with GI as outpatient DVT prophylaxis * Lovenox 40mg QAM SQ * Venous Dopplers: Radiology got back to me, because the patient is contracted and unable to extend her legs the results will be suboptimal - will wait until patient can extend legs for exam. Dispo: referral made to [facility], patient is a target and therefore will be assessed on Sunday by [facility]. Diet: Regular, PO intake has improved yet not optimal, f/u Nutrition consult recommendations. FULL CODE Resident Involvement: Resident Care Provided Care Provided: Adult Hospital Medicine Assessment/Plan Resident Physician Supervision Note: I was present with Dr. Christensen during the history and exam. I discussed the case with the resident and agree with the findings and plan as documented in the note. Any exceptions or clarifications are listed here. 77 y/o female h/o Parkinson's disease, bipolar d/o and rectal prolapse now presenting with new onset seizure-like activity and delirium. Afebrile overnight. Mental status continues to improve - minimal focus/memory with some repitition, but able to follow basic commands and answer yes/no questions. S1/ S2 nl RRR no MCG, CTAB, no abd pain apparent on examination without guarding. Basic CNII-XII exam intact. Delirium in the setting of prolonged post-ictal state - Neurology and psychiatry are consulted. MRI and initial EEG unremarkable, BCx neg. Second EEG w/ slowing resulting in carotid US which was WNL. Tolerating PO medications with improved mental status. Regarding febrile illness, ID consulted - remains afebrile off abx, fever may have been 2/2 seizure activity, repeat Cx if febrile HTN - continue amlodipine and carvedilol, hydralazine PRN Rectal prolapse w/ chronic constipation - continue bowel regimen, monitor I/Os Parkinson's dementia - continue sinemet and donepezil Bipolar d/o v. dementia related behavior disturbance - lamictal and seroquel Prolonged QT - improved
[2017-02-25 07:02] LABS: HEMATOCRIT 37.4 % (37-47); MEAN CELL VOLUME 87.4 fL (80-100); MEAN CORPUSCULAR HEMOGLOBIN 29.4 pg (25-34); MEAN CORPUSCULAR HGB CONC 33.7 g/dl (32-36); MEAN PLATELET VOLUME 8.8 fL (7.4-10.4); PLATELET COUNT 327 K/uL (130-400); RED BLOOD COUNT 4.28 M/uL (4.2-5.4)
[2017-02-25 07:41] VITALS: BP 156/76; PULSE 61; TEMP 36.9; O2SAT 97
[2017-02-25 07:48] LABS: BUN/CREATININE RATIO 17.5 (10-20); CALCIUM 8.8 mg/dl (8.5-10.1); CREATININE 0.67 mg/dl (0.60-1.20); MAGNESIUM 1.6 mg/dl (1.8-2.4); POTASSIUM 3.9 mmol/L (3.5-5.1)
[2017-02-25] MEDS: ENOXAPARIN 40 MG/0.4 ML SYR SQ SCH (07:55)
[2017-02-25] MEDS: CARBIDOPA/LEVODOPA 25/100MG TAB PO SCH ×3 (07:56→19:44)
[2017-02-25] MEDS: BRIMONIDINE TARTRATE 0.1% OPH SOLN OPB SCH ×2 (07:56→19:39)
[2017-02-25] MEDS: POTASSIUM CHLORIDE 20 MEQ TABCR PO SCH ×2 (07:57→19:45)
[2017-02-25] MEDS: AMLODIPINE BESYLATE 5 MG TAB PO SCH (07:57)
[2017-02-25] MEDS: SENNA 8.6 MG TAB PO SCH ×2 (07:57→19:43)
[2017-02-25] MEDS: LEVETIRACETAM 500 MG TAB PO SCH ×2 (07:57→19:44)
[2017-02-25] MEDS: FUROSEMIDE 40 MG TAB PO SCH (07:57)
[2017-02-25] MEDS: CARVEDILOL 12.5 MG TAB PO SCH ×2 (07:58→19:53)
[2017-02-25] MEDS: POLYETHYLENE (MIRALAX) 17 GM PACK PO SCH (07:58)
[2017-02-25] MEDS: FERROUS SULFATE 325 MG TAB PO SCH ×2 (07:58→16:56)
[2017-02-25 15:10] VITALS: BP 156/77; PULSE 59; TEMP 36.8; O2SAT 97
[2017-02-25] MEDS ORDERED: MAGNESIUM OXIDE 400 MG TAB PO ONE (16:10)
[2017-02-25] MEDS: BOOST VANILLA PUDDING CUP PO SCH (16:56)
[2017-02-25] MEDS: BIMATOPROST 0.01% OP SOLN 2.5 ML BTL OPB SCH (19:38)
[2017-02-25] MEDS: DONEPEZIL HCL 10 MG TAB PO SCH (19:43)
[2017-02-25] MEDS: EZETIMIBE 10MG TAB PO SCH (19:43)
[2017-02-25] MEDS: QUETIAPINE FUMARATE 100 MG TAB PO SCH (19:44)
[2017-02-26] VITALS (7 sets, daily range): BP systolic 76–156; BP diastolic 41–69; PULSE 54–67; TEMP 36.5–37; O2SAT 95–98
[2017-02-26 06:52] LABS: HEMATOCRIT 36.2 % (37-47); MEAN CELL VOLUME 87.4 fL (80-100); MEAN CORPUSCULAR HEMOGLOBIN 29.5 pg (25-34); MEAN CORPUSCULAR HGB CONC 33.7 g/dl (32-36); MEAN PLATELET VOLUME 8.7 fL (7.4-10.4); PLATELET COUNT 351 K/uL (130-400); RED BLOOD COUNT 4.14 M/uL (4.2-5.4); WHITE BLOOD COUNT 5.97 K/uL (4.8-10.8)
[2017-02-26 07:21] LABS: BUN/CREATININE RATIO 16.1 (10-20); CALCIUM 8.9 mg/dl (8.5-10.1); CREATININE 0.81 mg/dl (0.60-1.20); POTASSIUM 3.9 mmol/L (3.5-5.1)
[2017-02-26] MEDS: FERROUS SULFATE 325 MG TAB PO SCH ×2 (08:37→16:57)
[2017-02-26] MEDS: POLYETHYLENE (MIRALAX) 17 GM PACK PO SCH (08:38)
[2017-02-26] MEDS: AMLODIPINE BESYLATE 5 MG TAB PO SCH (08:38)
[2017-02-26] MEDS: FUROSEMIDE 40 MG TAB PO SCH (08:38)
[2017-02-26] MEDS: CARVEDILOL 12.5 MG TAB PO SCH ×2 (08:38→20:44)
[2017-02-26] MEDS: LEVETIRACETAM 500 MG TAB PO SCH ×2 (08:38→20:45)
[2017-02-26] MEDS: CARBIDOPA/LEVODOPA 25/100MG TAB PO SCH ×3 (08:39→20:45)
[2017-02-26] MEDS: POTASSIUM CHLORIDE 20 MEQ TABCR PO SCH ×2 (08:39→20:46)
[2017-02-26] MEDS: ENOXAPARIN 40 MG/0.4 ML SYR SQ SCH (08:39)
[2017-02-26] MEDS: BRIMONIDINE TARTRATE 0.1% OPH SOLN OPB SCH ×2 (08:40→20:43)
[2017-02-26] MEDS: BOOST VANILLA PUDDING CUP PO SCH ×3 (08:46→16:57)
[2017-02-26] MEDS ORDERED: MAGNESIUM OXIDE 400 MG TAB PO SCH (09:00)
[2017-02-26] MEDS: NSS + 20MEQ KCL 1000ML 1,000 ML IV SCH (10:43)
--- NOTE | 2017-02-26 17:54 | Family Medicine Progress Note ---
Progress Note Date of Service Feb 26, 2017. Subjective Pt evaluation today including: conversation w/ patient, physical exam, chart review, lab review, conversation w/ framing consultant, review of inpatient medication list Pain: none PO Intake: poor Voiding: vasques catheter in place Patient says she doesn't feel well today but is unable to explain further When asked questions she says she is unsure about the answer Additional Comments: unable to obtain ROS as patient is not answering questions appropriately Medications Current Inpatient Medications Medications (Trade) Dose Ordered Sig/Naeem Route Start Time Stop Time Status Last Admin Dose Admin Acetaminophen (Tylenol Tab) 650 mg Q4H PRN PO 02/13/17 00:15 03/15/17 00:14 02/14/17 16:03 650 MG Al Hydrox/Mg Hydrox/Simethicone (Maalox Max Susp) 15 ml Q4H PRN PO 02/13/17 00:15 03/15/17 00:14 Magnesium Hydroxide (Milk Of Magnesia Susp) 30 ml Q6H PRN PO 02/13/17 00:15 03/15/17 00:14 Ondansetron HCl (Zofran Inj) 4 mg Q6H PRN IV 02/13/17 00:15 03/15/17 00:14 Amlodipine Besylate (Norvasc Tab) 5 mg QAM PO 02/13/17 09:00 03/15/17 08:59 02/26/17 08:38 5 MG Clonazepam (Klonopin Tab) 0.5 mg HS PRN PO 02/13/17 00:15 03/15/17 00:14 Docusate Sodium (coLACE CAP) 100 mg BID PO 02/13/17 09:00 03/15/17 08:59 Future Hold EZETIMIBE (Zetia Tab) 10 mg HS PO 02/13/17 21:00 03/15/17 20:59 02/25/17 19:43 10 MG Ferrous Sulfate (Feosol Tab) 325 mg BIDM PO 02/13/17 08:00 03/15/17 07:59 02/26/17 16:57 325 MG Furosemide (Lasix Tab) 40 mg DAILY PO 02/13/17 09:00 03/15/17 08:59 02/26/17 08:38 40 MG Lamotrigine (Lamictal Tab) 200 mg DAILY PO 02/13/17 09:00 03/15/17 08:59 02/26/17 08:39 200 MG Carbidopa/Levodopa (Sinemet 25/ 100MG Tab) 1 tab TID PO 02/13/17 09:00 03/15/17 08:59 02/26/17 13:25 1 TAB Quetiapine Fumarate (seroQUEL TAB) 100 mg HS PO 02/13/17 21:00 03/15/17 20:59 Future hold 02/25/17 19:44 100 MG Senna (Senokot Tab) 8.6 mg QAM PO 02/13/17 09:00 03/15/17 08:59 02/25/17 19:43 8.6 MG Bimatoprost (Lumigan 0.01%) 1 drops HS OPB 02/13/17 21:00 03/15/17 20:59 02/25/17 19:38 1 DROPS Brimonidine Tartrate (Alphagan-P 0.1% Oph Solution) 1 drop BID OPB 02/13/17 09:00 03/15/17 08:59 02/26/17 08:40 1 DROP Enoxaparin Sodium (Lovenox Inj) 40 mg QAM SQ 02/16/17 09:00 03/18/17 08:59 02/26/17 08:39 40 MG Potassium Chloride/Sodium Chloride 1,000 ml @ 70 mls/hr [id number] IV 02/16/17 09:00 03/18/17 08:29 02/26/17 10:43 70 MLS/HR Lorazepam (Ativan Inj) 1 mg PRN PRN IV 02/16/17 13:30 03/18/17 13:29 Lorazepam (Ativan Inj) 0.5 mg PRN PRN IV 02/16/17 13:30 03/18/17 13:29 Acetaminophen 100 ml @ 400 mls/hr Q8H PRN IV 02/16/17 15:15 03/18/17 15:14 02/20/17 21:25 400 MLS/HR Lorazepam (Ativan Inj) 2 mg Q15M PRN IV 02/16/17 16:45 03/02/17 16:44 Donepezil HCl (Aricept Tab) 5 mg HS PO 02/17/17 21:00 03/15/17 20:59 11/12/17 19:43 5 MG Potassium Chloride (Klor-Con Tab) 20 meq BID PO 02/18/17 12:00 03/20/17 11:59 02/26/17 08:39 20 MEQ Carvedilol (Coreg Tab) 12.5 mg BID PO 02/19/17 21:00 03/20/17 20:59 02/26/17 08:38 12.5 MG Hydralazine HCl (HydrALAZINE INJ) 2.5 mg PRN PRN IV. 02/19/17 16:15 03/21/17 16:14 Polyethylene (Miralax Powder Packet) 17 gm DAILY PO 02/20/17 18:00 03/15/17 17:59 02/25/17 07:58 17 GM Levetiracetam (Keppra Tab) 1,000 mg BID PO 02/22/17 09:00 03/24/17 08:59 02/26/17 08:38 1,000 MG Enteral Nutritional Formula (Boost Pudding) 1 cup TIDM PO 02/25/17 17:00 03/27/17 16:59 02/26/17 16:57 1 CUP Magnesium Oxide (Mag-Ox Tab) 400 mg QAM PO 02/26/17 09:00 02/28/17 09:01 02/26/17 08:37 400 MG Objective Vital Signs Date Time Temp Pulse Resp B/P (MAP) Pulse Ox O2 Delivery O2 Flow Rate FiO2 02/26/17 16:00 95 Room Air 02/26/17 15:35 36.9 67 20 122/57 (78) 95 Room Air 02/26/17 08:02 36.5 60 18 156/69 (98) 98 Room Air 02/26/17 08:00 Room Air 02/26/17 00:00 36.5 54 18 105/57 (73) 95 Room Air 02/26/17 00:00 Room Air 02/25/17 20:00 Room Air Physical Exam General Appearance: WD/WN, no apparent distress, + pertinent finding Neck: supple, no JVD, no carotid bruits, trachea midline Respiratory/Chest: lungs clear, no respiratory distress, no accessory muscle use Cardiovascular: regular rate, rhythm, no edema, no murmur Abdomen: normal bowel sounds, non tender, soft Extremities: non-tender, no pedal edema, no calf tenderness, normal capillary refill Neurologic/Psychiatric: + disoriented, + pertinent finding (able to tell me her birthday, but is unsure where we are or what the current date is) Skin: normal color, warm/dry, no rash Laboratory Results Results Past 24 Hours Test 02/26/17 06:19 Range/Units White Blood Count 5.97 4.8-10.8 K/uL Red Blood Count 4.14 4.2-5.4 M/uL Hemoglobin 12.2 12.0-16.0 g/dL Hematocrit 36.2 37-47 % Mean Corpuscular Volume 87.4 80-100 fL Mean Corpuscular Hemoglobin 29.5 25-34 pg Mean Corpuscular Hemoglobin Concent 33.7 32-36 g/dl RDW Standard Deviation 47.4 36.4-46.3 fL RDW Coefficient of Variation 14.8 11.5-14.5 % Platelet Count 351 130-400 K/uL Mean Platelet Volume 8.7 7.4-10.4 fL Sodium Level 140 136-145 mmol/L Potassium Level 3.9 3.5-5.1 mmol/L Chloride Level 105 98-107 mmol/L Carbon Dioxide Level 24 21-32 mmol/L Anion Gap 11.0 3-11 mmol/L Blood Urea Nitrogen 13 7-18 mg/dl Creatinine 0.81 0.60-1.20 mg/dl Est Creatinine Clear Calc Drug Dose 43.9 ml/min Estimated GFR () 80.1 Estimated GFR (Non- 69.1 BUN/Creatinine Ratio 16.1 10-20 Random Glucose 103 70-99 mg/dl Calcium Level 8.9 8.5-10.1 mg/dl Assessment and Plan 77F who presented with recurrent rectal prolapse and chronic constipation. During admission she had several witness new onset seizures. LP and EEGx2 showed no acute pathology that better explains the continued confusion. Patient did spike a fever and was started on empiric ABx for several days. Per our Infectious disease team those ABx were stopped. Patient has been talking a small amount to family and has started eating. Patient is currently medically stable for discharge; however we are pending confirmation to discharge to [facility] per [facility] Seizures followed by Altered mental status sec to post-ictal stage * Now at baseline. * Neurology (signed off) - c/w Keppra PO, follow up with Dr. Stark as outpatient. * MRI and CT head with microvascular changes. * EEG showed diffuse encephalopathy with left sided slowing. * Carotid ultrasound normal * Prolactin ordered during seizure and wnl Fevers * Last fever 02/21/17, pt received empiric cefepime and vanco (3 days), urine and blood culture cultures negative. * LP negative. * Fever likely 2/2 to seizure. No Abx at this time. Decreased urine output (resolved) * Will decrease IVF from 100mls/hr to 70mls/hr. * Most fluid intake is from IVF. * encourage oral intake Hypomagnesemia / Hypokalemia * Mag was 1.3 yesterday and 1.6 today, giving 400mg x3 doses * K+ WNL. Parkinsons dementia * Continue sinemet and donepezil Bipolar * Seroquel resumed. held initially for QTC prolongation. * c/w seroquel restarted per psych * Continue Lamictal HTN/HLD * c/w carvedilol, amlodipine and furosemide * c/w hydralazine 2.5 IV prn for systolic >180 * c/w ezetimibe Rectal prolapse * stable * senna and milk of mag * follow with GI as outpatient DVT prophylaxis * Lovenox 40mg QAM SQ Dispo: referral made to [facility], patient is a target and therefore was assessed by [facility]. Will either be discharged tomorrow or Sunday pending approval Diet: Regular, PO intake has improved yet not optimal, boost supplementation TID FULL CODE Continued [facility] stay due to: home environment unsafe for pt Discharge planning: nursing home facility Reviewed: Pt Seen/Exam by Me History denies any concerns. unable to give any history Constitutional: denies: fever Respiratory: negative: short of breath Cardiovascular: denies chest pain Gastrointestinal/Abdominal: negative: abdominal pain General Appearance: no apparent distress Respiratory: lungs clear, no respiratory distress Cardiovascular: regular rate, rhythm Gastrointestinal: soft Neurologic/Psychiatric: alert, other (pleasantly confused) Skin Characteristics: warm/dry
[2017-02-26] MEDS: MAGNESIUM OXIDE 400 MG TAB PO SCH ×2 (18:31→20:44)
[2017-02-26] MEDS: BIMATOPROST 0.01% OP SOLN 2.5 ML BTL OPB SCH (20:43)
[2017-02-26] MEDS: EZETIMIBE 10MG TAB PO SCH (20:44)
[2017-02-26] MEDS: DONEPEZIL HCL 10 MG TAB PO SCH (20:46)
[2017-02-26] MEDS: QUETIAPINE FUMARATE 100 MG TAB PO SCH (20:47)
[2017-02-27] MEDS: NSS + 20MEQ KCL 1000ML 1,000 ML IV SCH (03:26)
[2017-02-27 05:04] LABS: HEMATOCRIT 36.9 % (37-47); MEAN CELL VOLUME 88.7 fL (80-100); MEAN CORPUSCULAR HEMOGLOBIN 28.8 pg (25-34); MEAN CORPUSCULAR HGB CONC 32.5 g/dl (32-36); MEAN PLATELET VOLUME 8.7 fL (7.4-10.4); PLATELET COUNT 351 K/uL (130-400); RED BLOOD COUNT 4.16 M/uL (4.2-5.4); WHITE BLOOD COUNT 6.11 K/uL (4.8-10.8)
[2017-02-27 05:29] LABS: BUN/CREATININE RATIO 19.8 (10-20); CALCIUM 8.8 mg/dl (8.5-10.1); CREATININE 0.89 mg/dl (0.60-1.20); POTASSIUM 4.1 mmol/L (3.5-5.1)
[2017-02-27 07:32] VITALS: BP 129/65; PULSE 65; TEMP 36.4; O2SAT 94
[2017-02-27 08:00] VITALS: O2SAT 94
[2017-02-27] MEDS: BOOST VANILLA PUDDING CUP PO SCH ×3 (08:00→17:04)
[2017-02-27] MEDS: CARVEDILOL 12.5 MG TAB PO SCH ×2 (08:13→21:38)
[2017-02-27] MEDS: FUROSEMIDE 40 MG TAB PO SCH (08:14)
[2017-02-27] MEDS: CARBIDOPA/LEVODOPA 25/100MG TAB PO SCH ×3 (08:15→21:38)
[2017-02-27] MEDS: MAGNESIUM OXIDE 400 MG TAB PO SCH (08:15)
[2017-02-27] MEDS: FERROUS SULFATE 325 MG TAB PO SCH (08:15)
[2017-02-27] MEDS: SENNA 8.6 MG TAB PO SCH (08:15)
[2017-02-27] MEDS: AMLODIPINE BESYLATE 5 MG TAB PO SCH (08:16)
[2017-02-27] MEDS: POTASSIUM CHLORIDE 20 MEQ TABCR PO SCH ×2 (08:16→21:37)
[2017-02-27] MEDS: LEVETIRACETAM 500 MG TAB PO SCH ×2 (08:16→21:38)
[2017-02-27] MEDS: POLYETHYLENE (MIRALAX) 17 GM PACK PO SCH (08:17)
[2017-02-27] MEDS: ENOXAPARIN 40 MG/0.4 ML SYR SQ SCH (08:17)
[2017-02-27] MEDS: BRIMONIDINE TARTRATE 0.1% OPH SOLN OPB SCH ×2 (08:19→21:00)
--- NOTE | 2017-02-27 09:07 | Family Medicine Progress Note ---
Progress Note Date of Service Feb 27, 2017. Subjective Pt evaluation today including: conversation w/ patient, physical exam, chart review, lab review, conversation w/ technology consultant, review of inpatient medication list Pain: abdominal pain PO Intake: minimal Voiding: vasques catheter in place Patient complaining of abdominal pain and holding lower abdomen She took out her IV and vasques overnight We are waiting for centre or aging Additional Comments: unable to obtain adequate ROS as patient says she is unsure to majority of questions Medications Current Inpatient Medications Medications (Trade) Dose Ordered Sig/Naeem Route Start Time Stop Time Status Last Admin Dose Admin Acetaminophen (Tylenol Tab) 650 mg Q4H PRN PO 02/13/17 00:15 03/15/17 00:14 02/14/17 16:03 650 MG Al Hydrox/Mg Hydrox/Simethicone (Maalox Max Susp) 15 ml Q4H PRN PO 02/13/17 00:15 03/15/17 00:14 Magnesium Hydroxide (Milk Of Magnesia Susp) 30 ml Q6H PRN PO 02/13/17 00:15 03/15/17 00:14 Ondansetron HCl (Zofran Inj) 4 mg Q6H PRN IV 02/13/17 00:15 03/15/17 00:14 Amlodipine Besylate (Norvasc Tab) 5 mg QAM PO 02/13/17 09:00 03/15/17 08:59 02/27/17 08:16 5 MG Clonazepam (Klonopin Tab) 0.5 mg HS PRN PO 02/13/17 00:15 03/15/17 00:14 Docusate Sodium (coLACE CAP) 100 mg BID PO 02/13/17 09:00 03/15/17 08:59 Future Hold EZETIMIBE (Zetia Tab) 10 mg HS PO 02/13/17 21:00 03/15/17 20:59 02/26/17 20:44 10 MG Ferrous Sulfate (Feosol Tab) 325 mg BIDM PO 02/13/17 08:00 03/15/17 07:59 02/27/17 08:15 325 MG Furosemide (Lasix Tab) 40 mg DAILY PO 02/13/17 09:00 03/15/17 08:59 02/27/17 08:14 40 MG Lamotrigine (Lamictal Tab) 200 mg DAILY PO 02/13/17 09:00 03/15/17 08:59 02/27/17 08:14 200 MG Carbidopa/Levodopa (Sinemet 25/ 100MG Tab) 1 tab TID PO 02/13/17 09:00 03/15/17 08:59 02/27/17 08:15 1 TAB Quetiapine Fumarate (seroQUEL TAB) 100 mg HS PO 02/13/17 21:00 03/15/17 20:59 Future hold 02/26/17 20:47 100 MG Senna (Senokot Tab) 8.6 mg QAM PO 02/13/17 09:00 03/15/17 08:59 02/27/17 08:15 8.6 MG Bimatoprost (Lumigan 0.01%) 1 drops HS OPB 02/13/17 21:00 03/15/17 20:59 02/26/17 20:43 1 DROPS Brimonidine Tartrate (Alphagan-P 0.1% Oph Solution) 1 drop BID OPB 02/13/17 09:00 03/15/17 08:59 02/27/17 08:19 1 DROP Enoxaparin Sodium (Lovenox Inj) 40 mg QAM SQ 02/16/17 09:00 03/18/17 08:59 02/27/17 08:17 40 MG Potassium Chloride/Sodium Chloride 1,000 ml @ 70 mls/hr [id number] IV 02/16/17 09:00 03/18/17 08:29 02/27/17 03:26 70 MLS/HR Lorazepam (Ativan Inj) 1 mg PRN PRN IV 02/16/17 13:30 03/18/17 13:29 Lorazepam (Ativan Inj) 0.5 mg PRN PRN IV 02/16/17 13:30 03/18/17 13:29 Acetaminophen 100 ml @ 400 mls/hr Q8H PRN IV 02/16/17 15:15 03/18/17 15:14 02/20/17 21:25 400 MLS/HR Lorazepam (Ativan Inj) 2 mg Q15M PRN IV 02/16/17 16:45 03/02/17 16:44 Donepezil HCl (Aricept Tab) 5 mg HS PO 02/17/17 21:00 03/15/17 20:59 02/26/17 20:46 5 MG Potassium Chloride (Klor-Con Tab) 20 meq BID PO 02/18/17 12:00 03/20/17 11:59 02/27/17 08:16 20 MEQ Carvedilol (Coreg Tab) 12.5 mg BID PO 02/19/17 21:00 03/20/17 20:59 02/27/17 08:13 12.5 MG Hydralazine HCl (HydrALAZINE INJ) 2.5 mg PRN PRN IV. 02/19/17 16:15 03/21/17 16:14 Polyethylene (Miralax Powder Packet) 17 gm DAILY PO 02/20/17 18:00 03/15/17 17:59 02/27/17 08:17 17 GM Levetiracetam (Keppra Tab) 1,000 mg BID PO 02/22/17 09:00 03/24/17 08:59 02/27/17 08:16 1,000 MG Enteral Nutritional Formula (Boost Pudding) 1 cup TIDM PO 02/25/17 17:00 03/27/17 16:59 02/26/17 16:57 1 CUP Magnesium Oxide (Mag-Ox Tab) 400 mg BID PO 02/26/17 18:15 02/27/17 09:01 02/27/17 08:15 400 MG Objective Vital Signs Date Time Temp Pulse Resp B/P (MAP) Pulse Ox O2 Delivery O2 Flow Rate FiO2 02/27/17 07:32 36.4 65 16 129/65 (86) 94 Room Air 02/27/17 00:00 Room Air 02/26/17 23:40 92/54 (67) 02/26/17 23:30 89/41 (57) 02/26/17 23:17 37.0 58 18 76/44 (55) 95 Room Air 76/44 (55) 02/26/17 16:00 95 Room Air 02/26/17 15:35 36.9 67 20 122/57 (78) 95 Room Air Physical Exam General Appearance: WD/WN, no apparent distress Respiratory/Chest: lungs clear, no respiratory distress, no accessory muscle use Cardiovascular: regular rate, rhythm, no edema, no JVD, no murmur Abdomen: normal bowel sounds, soft, + tenderness (generalized tenderness), + pertinent finding (no rebound or guarding) Extremities: non-tender, no pedal edema, no calf tenderness Skin: normal color, warm/dry, no rash Laboratory Results Results Past 24 Hours Test 02/26/17 23:43 02/27/17 04:47 Range/Units Bedside Glucose 126 70-90 mg/dl White Blood Count 6.11 4.8-10.8 K/uL Red Blood Count 4.16 4.2-5.4 M/uL Hemoglobin 12.0 12.0-16.0 g/dL Hematocrit 36.9 37-47 % Mean Corpuscular Volume 88.7 80-100 fL Mean Corpuscular Hemoglobin 28.8 25-34 pg Mean Corpuscular Hemoglobin Concent 32.5 32-36 g/dl RDW Standard Deviation 48.3 36.4-46.3 fL RDW Coefficient of Variation 14.9 11.5-14.5 % Platelet Count 351 130-400 K/uL Mean Platelet Volume 8.7 7.4-10.4 fL Sodium Level 140 136-145 mmol/L Potassium Level 4.1 3.5-5.1 mmol/L Chloride Level 105 98-107 mmol/L Carbon Dioxide Level 29 21-32 mmol/L Anion Gap 6.0 3-11 mmol/L Blood Urea Nitrogen 18 7-18 mg/dl Creatinine 0.89 0.60-1.20 mg/dl Est Creatinine Clear Calc Drug Dose 40.0 ml/min Estimated GFR () 71.4 Estimated GFR (Non- 61.6 BUN/Creatinine Ratio 19.8 10-20 Random Glucose 97 70-99 mg/dl Calcium Level 8.8 8.5-10.1 mg/dl Magnesium Level 2.0 1.8-2.4 mg/dl Assessment and Plan 77F who presented with recurrent rectal prolapse and chronic constipation. During admission she had several witness new onset seizures. LP and EEGx2 showed no acute pathology that better explains the continued confusion. Patient did spike a fever and was started on empiric ABx for several days. Per our Infectious disease team those ABx were stopped. Patient has been talking a small amount to family and has started eating. Patient is currently medically stable for discharge; however we are pending confirmation to discharge to [facility] per office of ageing Seizures followed by Altered mental status sec to post-ictal stage * Now at baseline. * Neurology (signed off) - c/w Keppra PO, follow up with Dr. Stark as outpatient. * MRI and CT head with microvascular changes. * EEG showed diffuse encephalopathy with left sided slowing. * Carotid ultrasound normal New onset Abdominal Pain * generalized abdominal pain * patient afebrile and with normal WCC, unlikely to be infectious * will order KUB to assess for constipation * hx of rectal prolapse * ferrous sulfate stopped and patient on colace and miralax Urine incontinence * Off vasques * supportive care Fevers (resolved) * Last fever 02/21/17, pt received empiric cefepime and vanco (3 days), urine and blood culture cultures negative. * LP negative. * Fever likely 2/2 to seizure. No Abx at this time. Decreased urine output (resolved) * d/c IVF * encourage oral intake Hypomagnesemia / Hypokalemia (resolved) * Mag was 1.6 yesterday and 2.0 today, supplemented wit PO mag yesterday 400mg x3 * K+ WNL. Parkinsons dementia * Continue sinemet and donepezil Bipolar * Seroquel resumed. held initially for QTC prolongation. * c/w seroquel restarted per psych * Continue Lamictal HTN/HLD * c/w carvedilol, amlodipine and furosemide * c/w hydralazine 2.5 IV prn for systolic >180 * c/w ezetimibe Rectal prolapse * stable * senna and milk of mag * follow with GI as outpatient DVT prophylaxis * Lovenox 40mg QAM SQ Dispo: referral made to [facility], patient is a target and therefore was assessed by [place] [facility] aging. awaiting approval for centre of aging Diet: Regular, PO intake has improved yet not optimal, boost supplementation TID FULL CODE Considering the extent of dementia, comorbidities and poor quality of life should be evaluated for Palliative care approach if no improvement at [facility] Continued [facility] stay due to: voiding difficulties, ambulation difficulties, home environment unsafe for pt Discharge planning: snf facility Reviewed: Pt Seen/Exam by Me History unable to give any history. laying in bed. incontinent of urine Constitutional: denies: fever General Appearance: no apparent distress Respiratory: lungs clear, no respiratory distress Cardiovascular: regular rate, rhythm Neurologic/Psychiatric: alert, other (pleasantly confused) Assessment/Plan Resident Physician Supervision Note: I independently interviewed and examined the patient and verified the hammond history and physical, reviewed labs and image studies, discussed the case with the resident Dr. Vega and agree with the findings and care plan.
--- NOTE | 2017-02-27 09:58 | DIAGNOSTIC IMAGING REPORT ---
KUB HISTORY: Generalized abdominal pain. COMPARISON: KUB 02/13/2017. FINDINGS: Gas-filled loop of bowel within the left upper quadrant may represent the stomach. Remaining loops of bowel are normal in caliber. Moderate well-formed stool seen throughout the colon. This remains unchanged. No renal calculi. No ureteral calculi. No pneumoperitoneum or pneumatosis. Calcifications within the abdominal aorta. IMPRESSION: No evidence for bowel obstruction. Moderate well-formed stool seen throughout the colon. Electronically signed by: Orlando Plunkett M.D. 02/27/2017 9:57 AM Dictated Date/Time: 02/27/2017 9:54 AM
[2017-02-27] MEDS ORDERED: MILK AND MOLASSES ENEMA PR ONE (11:45)
[2017-02-27] MEDS: DOCUSATE SODIUM 100 MG CAP PO SCH ×2 (13:08→21:35)
[2017-02-27] MEDS: ACETAMINOPHEN 325 MG TAB PO PRN (15:55)
[2017-02-27 16:00] VITALS: O2SAT 94
[2017-02-27] MEDS: DONEPEZIL HCL 10 MG TAB PO SCH (21:36)
[2017-02-27] MEDS: EZETIMIBE 10MG TAB PO SCH (21:36)
[2017-02-27] MEDS: BIMATOPROST 0.01% OP SOLN 2.5 ML BTL OPB SCH (21:37)
[2017-02-27] MEDS: QUETIAPINE FUMARATE 100 MG TAB PO SCH (21:39)
[2017-02-27 23:04] VITALS: BP_SYST 100; BP_SYST 86; BP_DIAS 37; BP_DIAS 43; PULSE 58; TEMP 36.5; O2SAT 96
[2017-02-28 07:58] VITALS: BP 110/62; PULSE 62; TEMP 36.9; O2SAT 97
[2017-02-28 08:00] VITALS: O2SAT 97
[2017-02-28] MEDS: BOOST VANILLA PUDDING CUP PO SCH ×3 (08:22→17:18)
[2017-02-28] MEDS: AMLODIPINE BESYLATE 5 MG TAB PO SCH (08:23)
[2017-02-28] MEDS: POTASSIUM CHLORIDE 20 MEQ TABCR PO SCH ×2 (08:23→21:03)
[2017-02-28] MEDS: DOCUSATE SODIUM 100 MG CAP PO SCH ×2 (08:23→20:37)
[2017-02-28] MEDS: LEVETIRACETAM 500 MG TAB PO SCH ×2 (08:24→20:36)
[2017-02-28] MEDS: FUROSEMIDE 40 MG TAB PO SCH (08:24)
[2017-02-28] MEDS: CARBIDOPA/LEVODOPA 25/100MG TAB PO SCH ×3 (08:24→20:37)
[2017-02-28] MEDS: CARVEDILOL 12.5 MG TAB PO SCH ×2 (08:25→20:36)
[2017-02-28] MEDS: SENNA 8.6 MG TAB PO SCH (08:25)
[2017-02-28] MEDS: BRIMONIDINE TARTRATE 0.1% OPH SOLN OPB SCH ×2 (08:26→20:35)
[2017-02-28] MEDS: POLYETHYLENE (MIRALAX) 17 GM PACK PO SCH (08:26)
[2017-02-28] MEDS: ENOXAPARIN 40 MG/0.4 ML SYR SQ SCH (08:26)
[2017-02-28 11:24] LABS: BUN/CREATININE RATIO 24.9 (10-20); CALCIUM 9.4 mg/dl (8.5-10.1); CREATININE 0.81 mg/dl (0.60-1.20); MAGNESIUM 2.3 mg/dl (1.8-2.4); POTASSIUM 3.8 mmol/L (3.5-5.1)
[2017-02-28 15:28] VITALS: BP 119/64; PULSE 63; TEMP 37.1; O2SAT 96
[2017-02-28 16:00] VITALS: O2SAT 96
--- NOTE | 2017-02-28 16:26 | Family Medicine Progress Note ---
Progress Note Date of Service Feb 28, 2017. Subjective Pt evaluation today including: conversation w/ patient, physical exam, chart review, lab review, conversation w/ [facility] portal consultant, review of inpatient medication list PO Intake: good Voiding: incontinence Patient had 3 large bowel movements yesterday after receiving enema Patient says she hurts all over, does not specify Does not answer questions appropriately Additional Comments: unable to obtain ROS as patient not answering questions Medications Current Inpatient Medications Medications (Trade) Dose Ordered Sig/Naeem Route Start Time Stop Time Status Last Admin Dose Admin Acetaminophen (Tylenol Tab) 650 mg Q4H PRN PO 02/13/17 00:15 03/15/17 00:14 02/27/17 15:55 650 MG Al Hydrox/Mg Hydrox/Simethicone (Maalox Max Susp) 15 ml Q4H PRN PO 02/13/17 00:15 03/15/17 00:14 Magnesium Hydroxide (Milk Of Magnesia Susp) 30 ml Q6H PRN PO 02/13/17 00:15 03/15/17 00:14 Ondansetron HCl (Zofran Inj) 4 mg Q6H PRN IV 02/13/17 00:15 03/15/17 00:14 Amlodipine Besylate (Norvasc Tab) 5 mg QAM PO 02/13/17 09:00 03/15/17 08:59 02/28/17 08:23 5 MG Clonazepam (Klonopin Tab) 0.5 mg HS PRN PO 02/13/17 00:15 03/15/17 00:14 Docusate Sodium (coLACE CAP) 100 mg BID PO 02/13/17 09:00 03/15/17 08:59 Future hold 02/28/17 08:23 100 MG EZETIMIBE (Zetia Tab) 10 mg HS PO 02/13/17 21:00 03/15/17 20:59 02/27/17 21:36 10 MG Furosemide (Lasix Tab) 40 mg DAILY PO 02/13/17 09:00 03/15/17 08:59 02/28/17 08:24 40 MG Lamotrigine (Lamictal Tab) 200 mg DAILY PO 02/13/17 09:00 03/15/17 08:59 02/28/17 08:23 200 MG Carbidopa/Levodopa (Sinemet 25/ 100MG Tab) 1 tab TID PO 02/13/17 09:00 03/15/17 08:59 02/28/17 14:15 1 TAB Quetiapine Fumarate (seroQUEL TAB) 100 mg HS PO 02/13/17 21:00 03/15/17 20:59 Future hold 02/27/17 21:39 100 MG Senna (Senokot Tab) 8.6 mg QAM PO 02/13/17 09:00 03/15/17 08:59 02/28/17 08:25 8.6 MG Bimatoprost (Lumigan 0.01%) 1 drops HS OPB 02/13/17 21:00 03/15/17 20:59 02/27/17 21:37 1 DROPS Brimonidine Tartrate (Alphagan-P 0.1% Oph Solution) 1 drop BID OPB 02/13/17 09:00 03/15/17 08:59 02/28/17 08:26 1 DROP Enoxaparin Sodium (Lovenox Inj) 40 mg QAM SQ 02/16/17 09:00 03/18/17 08:59 02/28/17 08:26 40 MG Lorazepam (Ativan Inj) 1 mg PRN PRN IV 02/16/17 13:30 03/18/17 13:29 Lorazepam (Ativan Inj) 0.5 mg PRN PRN IV 02/16/17 13:30 03/18/17 13:29 Acetaminophen 100 ml @ 400 mls/hr Q8H PRN IV 02/16/17 15:15 03/18/17 15:14 02/20/17 21:25 400 MLS/HR Lorazepam (Ativan Inj) 2 mg Q15M PRN IV 02/16/17 16:45 03/02/17 16:44 Donepezil HCl (Aricept Tab) 5 mg HS PO 02/17/17 21:00 03/15/17 20:59 02/27/17 21:36 5 MG Potassium Chloride (Klor-Con Tab) 20 meq BID PO 02/18/17 12:00 03/20/17 11:59 02/28/17 08:23 20 MEQ Carvedilol (Coreg Tab) 12.5 mg BID PO 02/19/17 21:00 03/20/17 20:59 02/28/17 08:25 12.5 MG Hydralazine HCl (HydrALAZINE INJ) 2.5 mg PRN PRN IV. 02/19/17 16:15 03/21/17 16:14 Polyethylene (Miralax Powder Packet) 17 gm DAILY PO 02/20/17 18:00 03/15/17 17:59 02/28/17 08:26 17 GM Levetiracetam (Keppra Tab) 1,000 mg BID PO 02/22/17 09:00 03/24/17 08:59 02/28/17 08:24 1,000 MG Enteral Nutritional Formula (Boost Pudding) 1 cup TIDM PO 02/25/17 17:00 03/27/17 16:59 02/28/17 14:15 1 CUP Objective Vital Signs Date Time Temp Pulse Resp B/P (MAP) Pulse Ox O2 Delivery O2 Flow Rate FiO2 02/28/17 15:28 37.1 63 20 119/64 (82) 96 Room Air 02/28/17 08:00 97 Room Air 02/28/17 07:58 36.9 62 18 110/62 (78) 97 Room Air 02/28/17 00:00 Room Air 02/27/17 23:04 36.5 58 18 86/43 (57) 96 Room Air 100/37 (58) Physical Exam Notes: General Appearance: WD/WN, no apparent distress Respiratory/Chest: lungs clear, no respiratory distress, no accessory muscle use Cardiovascular: regular rate, rhythm, no edema, no JVD, no murmur Abdomen: normal bowel sounds, soft, + tenderness (generalized tenderness), + pertinent finding (no rebound or guarding) Extremities: non-tender, no pedal edema, no calf tenderness Skin: normal color, warm/dry, no rash Laboratory Results Results Past 24 Hours Test 02/28/17 10:39 Range/Units Sodium Level 140 136-145 mmol/L Potassium Level 3.8 3.5-5.1 mmol/L Chloride Level 104 98-107 mmol/L Carbon Dioxide Level 31 21-32 mmol/L Anion Gap 5.0 3-11 mmol/L Blood Urea Nitrogen 20 7-18 mg/dl Creatinine 0.81 0.60-1.20 mg/dl Est Creatinine Clear Calc Drug Dose 43.9 ml/min Estimated GFR () 80.1 Estimated GFR (Non- 69.1 BUN/Creatinine Ratio 24.9 10-20 Random Glucose 103 70-99 mg/dl Calcium Level 9.4 8.5-10.1 mg/dl Magnesium Level 2.3 1.8-2.4 mg/dl Assessment and Plan 77F who presented with recurrent rectal prolapse and chronic constipation. During admission she had several witness new onset seizures. LP and EEGx2 showed no acute pathology that better explains the continued confusion. Patient did spike a fever and was started on empiric ABx for several days. Per our Infectious disease team those ABx were stopped. Patient has been talking a small amount to family and has started eating. Patient is currently medically stable for discharge; however we are pending confirmation to discharge to [facility] per office of ageing Seizures followed by Altered mental status sec to post-ictal stage * Now at baseline. * Neurology (signed off) - c/w Keppra PO, follow up with Dr. Stark as outpatient. * MRI and CT head with microvascular changes. * EEG showed diffuse encephalopathy with left sided slowing. * Carotid ultrasound normal Constipation * generalized abdominal pain * KUB showed moderate well formed stool throughout * milk of molasses enema given yesterday * hx of rectal prolapse * ferrous sulfate stopped and patient on colace and miralax Urine incontinence * Off vasques * supportive care Fevers (resolved) * Last fever 02/21/17, pt received empiric cefepime and vanco (3 days), urine and blood culture cultures negative. * LP negative. * Fever likely 2/2 to seizure. No Abx at this time. Decreased urine output (resolved) * d/c IVF * encourage oral intake Hypomagnesemia / Hypokalemia (resolved) * Mag was 2.0 yesterday and 2.3 today, supplemented wit PO mag two days 400mg x3 * K+ WNL. Parkinsons dementia * Continue sinemet and donepezil Bipolar * Seroquel resumed. held initially for QTC prolongation. * c/w seroquel restarted per psych * Continue Lamictal HTN/HLD * c/w carvedilol, amlodipine and furosemide * c/w hydralazine 2.5 IV prn for systolic >180 * c/w ezetimibe Rectal prolapse * stable * senna and milk of mag * follow with GI as outpatient DVT prophylaxis * Lovenox 40mg QAM SQ Dispo: referral made to [facility], patient is a target and therefore was assessed by [place] of aging. awaiting approval for centre of aging Diet: Regular, PO intake has improved yet not optimal, boost supplementation TID FULL CODE Continued [facility] stay due to: other Discharge planning: shelter facility Reviewed: Pt Seen/Exam by Me History no new concerns per nursing has been more continent of urine had bowel movement yesterday after enema unable to give history due to dementia General Appearance: no apparent distress (comfortable in bed. ) Respiratory: lungs clear, no respiratory distress Cardiovascular: regular rate, rhythm Neurologic/Psychiatric: alert, other (pleasantly demented) Skin Characteristics: warm/dry Assessment/Plan Resident Physician Supervision Note: I independently interviewed and examined the patient and verified the hammond history and physical, reviewed labs and image studies, discussed the case with the resident Dr. Vega and agree with the findings and care plan.
[2017-02-28] MEDS: BIMATOPROST 0.01% OP SOLN 2.5 ML BTL OPB SCH (20:35)
[2017-02-28] MEDS: QUETIAPINE FUMARATE 100 MG TAB PO SCH (20:36)
[2017-02-28] MEDS: DONEPEZIL HCL 10 MG TAB PO SCH (20:37)
[2017-02-28] MEDS: EZETIMIBE 10MG TAB PO SCH (20:38)
[2017-02-28] MEDS: ACETAMINOPHEN 325 MG TAB PO PRN (20:40)
[2017-02-28 23:05] VITALS: BP_SYST 79; BP_SYST 96; BP_DIAS 47; BP_DIAS 48; PULSE 52; TEMP 36.4; O2SAT 97
[2017-03-01] MEDS: ACETAMINOPHEN 325 MG TAB PO PRN (05:29)
[2017-03-01 07:03] VITALS: BP 132/73; PULSE 54; TEMP 36.8; O2SAT 96
[2017-03-01 07:37] LABS: BUN/CREATININE RATIO 24.9 (10-20); CREATININE 0.9 mg/dl (0.60-1.20)
[2017-03-01] MEDS: BOOST VANILLA PUDDING CUP PO SCH ×3 (07:56→17:05)
[2017-03-01] MEDS: POLYETHYLENE (MIRALAX) 17 GM PACK PO SCH (07:56)
[2017-03-01] MEDS: DOCUSATE SODIUM 100 MG CAP PO SCH (07:57)
[2017-03-01] MEDS: SENNA 8.6 MG TAB PO SCH (07:57)
[2017-03-01] MEDS: LEVETIRACETAM 500 MG TAB PO SCH (07:58)
[2017-03-01] MEDS: AMLODIPINE BESYLATE 5 MG TAB PO SCH (07:58)
[2017-03-01] MEDS: CARBIDOPA/LEVODOPA 25/100MG TAB PO SCH ×2 (07:58→14:00)
[2017-03-01] MEDS: ENOXAPARIN 40 MG/0.4 ML SYR SQ SCH (07:59)
[2017-03-01] MEDS: CARVEDILOL 12.5 MG TAB PO SCH (07:59)
[2017-03-01] MEDS: BRIMONIDINE TARTRATE 0.1% OPH SOLN OPB SCH (07:59)
[2017-03-01] MEDS: FUROSEMIDE 40 MG TAB PO SCH (07:59)
[2017-03-01 08:00] VITALS: O2SAT 96
[2017-03-01] MEDS: POTASSIUM CHLORIDE 20 MEQ TABCR PO SCH (09:00)
[2017-03-01] MEDS ORDERED: LEVE500T13 PO (12:01)
[2017-03-01] MEDS ORDERED: SENN1TAB80 PO (12:01)
[2017-03-01] MEDS ORDERED: CLC100 PO (12:01)
[2017-03-01] MEDS ORDERED: MRLP17 PO (12:01)
[2017-03-01] MEDS ORDERED: NUTRMIS PO (12:01)
--- NOTE | 2017-03-01 12:07 | Discharge Instructions ---
Discharge Instructions Date of Service Mar 01, 2017. Admission Reason for Admission: Rectal Prolapse Discharge Discharge Diagnosis / Problem: Rectal Prolapse / Seizure Discharge Goals Goal(s): Improve disease control, Improve nutritional status, Diagnostic testing, Prevent Disease Progression Activity Recommendations Activity Level: Assistance Required Therapies: Physical Therapy . Additional Information Patient informed of condition: Yes Advance Directives: No DNR: No Level of Care: Skilled Communicable Disease: No Prognosis: Stable Instructions / Follow-Up Instructions / Follow-Up 77 year old female with Bipolar disorder, parkinsons dementia and rectal prolapse was admitted for rectal prolapse Her rectal prolapse was stable in the hospital and it was decided that herself or her caregivers could manually reinsert rectum if prolapse were to occur. Patient is to follow up with [facility] or [facility] to discuss surgery. Patient will be discharged with a regular bowel regimen to make sure her bowel movements remain stable. Patient had seizures in the hospital and will be discharged with keppra twice daily in order to control these. She will need to have follow up with Dr. Caro ( [facility] neurology) for follow up. Patients mental status has been deteriorating while in hospital. Her dementia is progressing and will need alf facility for further care of ADL's. If she has any fevers >100.4, rectal bleeding, severe abdominal pain or uncontrollable seizures then please bring her back to the emergency department. Current Hospital Diet Patient's current hospital diet: Regular Diet Discharge Diet Recommended Diet: Regular Diet Pending Studies Studies pending at discharge: no Medical Emergencies . Who to Call and When: Medical Emergencies: If at any time you feel your situation is an emergency, please call 911 immediately. . Non-Emergent Contact Non-Emergency issues call your: Primary Care Provider, Tax Accounting Assistant, Neurologist . . "Provider Documentation" section prepared by Rome Vega. . Core Measure Problem Core Measures: None
--- NOTE | 2017-03-01 12:23 | Discharge Summary ---
Discharge Summary Date of Service Mar 01, 2017. (Rome Vega MD) Discharge Summary Admission Date: Feb 14, 2017 at 15:21 Discharge Date: Mar 01, 2017 Discharge Disposition: custodial facility Principal Diagnosis: Rectal Prolapse / Seizure Immunizations: Have You Had Influenza Vaccine: Unknown History of Tetanus Vaccine?: Unknown History of Pneumococcal: Unknown History of Hepatitis B Vaccine: Unknown Consultations: Neurology GI (Rome Vega MD) Medication Reconciliation New Medications: Docusate Sodium (Docusate Sodium) 100 Mg Cap 100 MG PO BID for 30 Days, #60 CAP Levetiracetam (Keppra) 500 Mg Tab 1000 MG PO BID for 15 Days, #60 TAB Nutritional Supplements (Boost Pudding) 1 Mis Mis 1 CUP PO TIDM for 30 Days Polyethylene (Miralax) 17 Gm Pow 17 GM PO DAILY for 30 Days Sennosides (Senna Lax) 8.6 Mg Tab 8.6 MG PO DAILY PRN for Constipation for 30 Days, #30 TAB Continued Medications: Amlodipine Besylate (Norvasc) 5 Mg Tab 5 MG PO QAM, TAB Bimatoprost (Lumigan) 0.01 % Krysta 1 DROP OPB HS, #13 Brimonidine Tartrate (Alphagan P Oph) 0.1 % Krysta 1 DROP OPB BID, #30 Carvedilol (Carvedilol) 3.125 Mg Tab 1 TAB PO BID, #180 Clonazepam (Klonopin) 0.5 Mg Tab 0.5 MG PO AMPM, TAB Ezetimibe (Zetia) 10 Mg Tab 10 MG PO HS, TAB Furosemide (Lasix) 40 Mg Tab 1 TAB PO DAILY for 30 Days, #30 TAB 5 Refills Lamotrigine (Lamictal) 100 Mg Tab 200 MG PO DAILY, TAB Levodopa/Carbidopa (Sinemet 25MG/100MG) 1 Ea Tab 1 TAB PO TID, TAB Potassium Chloride Microencaps (Klor-Con M15) 15 Meq Tab 30 MEQ PO DAILY Quetiapine Fumarate (Seroquel) 100 Mg Tab 100 MG PO HS, TAB Discontinued Medications: Donepezil Hydrochloride (Aricept) 10 Mg Tab 10 MG PO HS, TAB Ferrous Sulfate (Ferrous Sulfate) 325 Mg Tab 325 MG PO BIDM for 30 Days, #60 TAB 11 Refills Discharge Exam Patient without any issues overnight Patient not answering questions appropriately Review of Systems: Constitutional: No fever, No chills, No sweats Respiratory: No cough, No shortness of breath Cardiovascular: No chest pain Abdomen: No pain, No nausea, No vomiting, No diarrhea, No constipation Genitourinary - Female: No dysuria, No urinary frequency Physical Exam: General Appearance: WD/WN, no apparent distress ENT: hearing grossly normal, pharynx normal Neck: supple, no JVD, no carotid bruits Respiratory/Chest: lungs clear, no respiratory distress, no accessory muscle use Cardiovascular: regular rate, rhythm, no murmur, normal peripheral pulses Abdomen / GI: normal bowel sounds, non tender, soft Extremities: no calf tenderness, no pedal edema, non-tender Neurologic/Psychiatric: + disoriented (patient alert to person but not to place or time) (Rome Vega MD) no new concerns overnight no history due to severe dementia Review of Systems: Constitutional: No fever Physical Exam: General Appearance: no apparent distress (comfortable in bed) Respiratory/Chest: lungs clear, no respiratory distress Cardiovascular: regular rate, rhythm Abdomen / GI: normal bowel sounds, non tender, soft Neurologic/Psychiatric: alert, + pertinent finding (pleasantly demented) (Lynne Chao M.D.) Hospital Course 77F who presented with recurrent rectal prolapse and chronic constipation. During admission she had several witness new onset seizures. LP and EEGx2 showed no acute pathology that better explains the continued confusion. Patient did spike a fever and was started on empiric ABx for several days. Per our Infectious disease team those ABx were stopped. Patient has been talking a small amount to family and has started eating. Patient is currently medically stable for discharge. Would strongly consider palliative care consult as outpatient due to patients worsening mental status and several comorbidities Seizures followed by Altered mental status sec to post-ictal stage * Now at baseline. * Neurology (signed off) - c/w Tushar PO, follow up with Dr. Stark as outpatient. * MRI and CT head with microvascular changes. * EEG showed diffuse encephalopathy with left sided slowing. * Carotid ultrasound normal Rectal prolapse * stable * manual resinsertion can be done in [facility] if prolapse occurs. Concerning signs include unable to reinsert, profuse bleeding from prolapse, fever >100.4, continious diarrhea, severe abdominal pain * make sure patient has regular bowel movements to prevent prolapse * follow with [facility] as outpatient if patient and family would like to forego further surgery * patient poor surgical candidate Parkinsons dementia * Continue sinemet and donepezil * Would strongly consider palliative care consult as outpatient due to worsening mental status and several comorbidities Constipation * KUB showed moderate well formed stool throughout * milk of molasses enema given in hospital * regular bowel regimen with colace and miralax, senna prn * hx of rectal prolapse * ferrous sulfate stopped as Hgb normal Urine incontinence * Off vasques * supportive care Fevers (resolved) * Last fever 02/21/17, pt received empiric cefepime and vanco (3 days), urine and blood culture cultures negative. * LP negative. * Fever likely 2/2 to seizure. No Abx at this time. Bipolar * Seroquel resumed. held initially for QTC prolongation. * c/w seroquel restarted per psych * Continue Lamictal HTN/HLD * c/w carvedilol, amlodipine and furosemide * c/w hydralazine 2.5 IV prn for systolic >180 * c/w ezetimibe Total Time Spent: Less than 30 minutes This includes examination of the patient, discharge planning, medication reconciliation, and communication with other providers. (Rome Vega MD) Resident Physician Supervision Note: I independently interviewed and examined the patient and verified the hammond history and physical, reviewed labs and image studies, discussed the case with the resident Dr. Vega and agree with the findings and care plan. Should strongly consider palliative care consult as outpatient due to patients worsening mental status and several comorbidities Total Time Spent: Greater than 30 minutes (Lynne Chao M.D.) Discharge Instructions Please refer to the electronic Patient Visit Report (Discharge Instructions) for additional information. (Rome Vega MD) Additional Copies To Anais Bullard D.O.; Silvana Stark D.O.
[2017-03-01 12:57] VITALS: BP 132/73; PULSE 54; TEMP 36.8; O2SAT 96
[2017-03-01 16:00] VITALS: O2SAT 96
== END 2017-03-01 18:17 | DRG 394 ==
LOC: C.EDB 20:58 → C.MSW 02-13 00:24 → ENRESERV 02-13 01:10 → OBSVTOIN 02-14 15:21 → ENRESERV 02-16 14:04 → C.2T 02-16 14:44 → ENRESERV 02-22 13:10 → C.MS2W 02-22 14:32
PROVIDERS: ADMIT Hospitalist; ATTEND Family Medicine
PROC: 0DSPXZZ Reposition Rectum, External Approach (ICD-10-PCS; principal; 2017-02-14)
PROC: 009U3ZX Drainage of Spinal Canal, Percutaneous Approach, Diagnostic (ICD-10-PCS; 2017-02-21)
DX: K62.3 Rectal prolapse (principal); K62.5 Hemorrhage of anus and rectum; F31.9 Bipolar disorder, unspecified; I10 Essential (primary) hypertension; K59.09 Other constipation; G31.83 Neurocognitive disorder with Lewy bodies; F02.80 Dementia in other diseases classified elsewhere, unspecified severity, without behavioral disturbance, psychotic disturbance, mood disturbance, and anxiety; R56.9 Unspecified convulsions; E83.42 Hypomagnesemia; E87.6 Hypokalemia; R41.0 Disorientation, unspecified; R50.9 Fever, unspecified; Z79.899 Other long term (current) drug therapy

== ENCOUNTER 2017-04-02 12:09 | Emergency (ER) | payer OTHER ==
[~2017-04-02] VITALS: Ht 152.4 cm; Wt 52.0 kg
[~2017-04-02 12:09] MED LIST changes: +CLC100 PO; -DONE10TA12 PO; -FRRS300 PO; +LEVE500T13 PO; +MRLP17 PO; +NUTRMIS PO; +SENN1TAB80 PO
[2017-04-02 12:13] VITALS: TEMP 36.4; Ht 152.4 cm; Wt 52.0 kg
[2017-04-02] MEDS ORDERED: LEVE500T13 PO (13:01)
[2017-04-02] MEDS ORDERED: POTA10CA28 PO (13:01)
--- NOTE | 2017-04-02 13:07 | EMERGENCY ROOM VISIT NOTE ---
History Report prepared by Sarah: Daphney Lr Under the Supervision of: Dr. Mathew Ramey M.D. First contact with patient: 12:36 Chief Complaint: RECTAL BLEEDING Stated Complaint: BLEEDING Nursing Triage Summary: patient with rectal prolapse, who was bleeding profusly this am from the rectum. states that they have an appointment tomorrow but the the toilet was full of blood and brought her to the ER. Patient with dementia. History of Present Illness The patient is a 77 year old white female with a past medical history of anemia , hypertension, hemorrhoids, dementia, seizure disorder, rectal bleeding, rectal prolapse, Parkinson's disease, bipolar, who presents to the ED with a cc of persistent rectal bleeding beginning prior to arrival. Positive abdominal pain. Negative nausea, vomiting. She currently rates her discomfort as a 10/ 10 in severity. The patient states that she takes 81 mg of Aspirin. Per records, the patient was discharged from the hospital one week ago after being evaluated for rectal bleeding. The patient's , notes that he found the patient's rectum was prolapsed this morning and then had experienced rectal bleeding. Source of History: patient, spouse/significant other () Onset: this morning Position: other (rectal) Symptom Intensity: 10/10 Quality: other (bleeding) Timing: other (persistent) Associated Symptoms: + abdominal pain, No nausea, No vomiting Review of Systems See HPI for pertinent positives and negatives. A total of ten systems were reviewed and were otherwise negative. Past Medical & Surgical Medical Problems: (1) Anemia (2) Bipolar 1 disorder (3) Hemorrhoids (4) Hypertension (5) Rectal bleeding (6) Seizure disorder (7) Stomach problems Family History Hypertension Lung disease Social History Smoking Status: Never Smoker Alcohol Use: none Drug Use: none Marital Status: Housing Status: lives with family Occupation Status: retired Current/Historical Medications Scheduled Amlodipine Besylate (Norvasc), 5 MG PO QAM Bimatoprost (Lumigan), 1 DROP OPB HS Brimonidine Tartrate (Alphagan P Oph), 1 DROP OPB BID Carvedilol (Carvedilol), 3.125 MG PO BID Clonazepam (Klonopin), 0.5 MG PO AMPM Docusate Sodium (Docusate Sodium), 100 MG PO BID Ezetimibe (Zetia), 10 MG PO HS Lamotrigine (Lamictal), 200 MG PO DAILY Levetiracetam (Keppra), 250 MG PO BID Levodopa/Carbidopa (Sinemet 25MG/100MG), 1 TAB PO TID Polyethylene (Miralax), 17 GM PO DAILY Potassium Chloride (Micro-K Ext Rel), 30 MEQ PO DAILY Quetiapine Fumarate (Seroquel), 100 MG PO HS Scheduled PRN Sennosides (Senna Lax), 8.6 MG PO DAILY PRN for Constipation Allergies Coded Allergies: [place] (Verified Allergy, Severe, SYSTEM TOXICITY, 02/12/17) Uncoded Allergies: YELLOW SQUASH (Allergy, Severe, ANAPHYLAXIS, 03/13/15) Physical Exam Vital Signs Date Time Temp Pulse Resp B/P (MAP) Pulse Ox O2 Delivery O2 Flow Rate FiO2 04/02/17 15:11 61 18 187/110 97 Room Air 04/02/17 13:34 59 04/02/17 13:24 98 Room Air 04/02/17 12:13 36.4 61 20 113/86 98 Room Air Physical Exam GENERAL: Awake, alert, well-appearing, NAD HENT: Normocephalic, atraumatic. EYES: Normal conjunctiva. Sclera non-icteric. NECK: Supple. No nuchal rigidity. FROM. RESPIRATORY: CTAB, no rhonchi, wheezing, crackles CARDIAC: RRR, no MRG ABDOMEN: Soft, NTND, BS+ RECTAL: No rectal prolapse, no gross blood, Hemoccult negative MSK: No chest wall TTP, no LE edema NEURO: GCS 15, CN 2-12 intact, moves all 4s on command SKIN: No rash or jaundice noted. Medical Decision & Procedures ER Provider Diagnostic Interpretation: X-ray: Per my interpretation, radiologist review. ABDOMEN 2VIEW W/PA CHEST RTN HISTORY: 77 years-old Female ab pain acute generalized abdominal pain with GI bleed COMPARISON: KUB 02/27/2017, chest radiograph 02/21/2017 TECHNIQUE: Frontal view the chest with supine and left lateral decubitus films of the abdomen FINDINGS: Cardiac silhouette is moderately enlarged. There is atherosclerosis and tortuosity of the thoracic aorta. Patient is rotated to the left. Mild pulmonary vascular congestion without pneumothorax or pleural effusion. Subsegmental left basilar opacities. There is a linear line over the left hemithorax projecting of the lungs suggesting a skin fold. Severe degenerative changes of the left shoulder. Sigmoidal scoliosis of the spine. Moderate volume of formed colonic stool noted throughout with a nonobstructive bowel gas pattern. No pneumatosis or pneumoperitoneum identified. No definite urolith or organomegaly. Multilevel degenerative changes of the spine. The bones appear osteopenic. IMPRESSION: 1. Findings suggest constipation with nonobstructive bowel gas pattern. 2. Linear line projecting over the left hemithorax compatible with skinfold. 3. Left basilar subsegmental opacities suggest atelectasis or pneumonitis. 4. Cardiomegaly. Laboratory Results 04/02/17 14:05 Red Blood Count 4.22, Mean Corpuscular Volume 92.7, Mean Corpuscular Hemoglobin 30.8, Mean Corpuscular Hemoglobin Concent 33.2, Mean Platelet Volume 8.7, Neutrophils (%) (Auto) 49.7, Lymphocytes (%) (Auto) 36.8, Monocytes (%) (Auto) 9.5, Eosinophils (%) (Auto) 3.3, Basophils (%) (Auto) 0.5, Neutrophils # (Auto) 2.89, Lymphocytes # (Auto) 2.14, Monocytes # (Auto) 0.55, Eosinophils # (Auto) 0.19, Basophils # (Auto) 0.03 04/02/17 14:05 Test 04/02/17 14:05 White Blood Count 5.81 K/uL (4.8-10.8) Red Blood Count 4.22 M/uL (4.2-5.4) Hemoglobin 13.0 g/dL (12.0-16.0) Hematocrit 39.1 % (37-47) Mean Corpuscular Volume 92.7 fL (80-100) Mean Corpuscular Hemoglobin 30.8 pg (25-34) Mean Corpuscular Hemoglobin Concent 33.2 g/dl (32-36) Platelet Count 282 K/uL (130-400) Mean Platelet Volume 8.7 fL (7.4-10.4) Neutrophils (%) (Auto) 49.7 % Lymphocytes (%) (Auto) 36.8 % Monocytes (%) (Auto) 9.5 % Eosinophils (%) (Auto) 3.3 % Basophils (%) (Auto) 0.5 % Neutrophils # (Auto) 2.89 K/uL (1.4-6.5) Lymphocytes # (Auto) 2.14 K/uL (1.2-3.4) Monocytes # (Auto) 0.55 K/uL (0.11-0.59) Eosinophils # (Auto) 0.19 K/uL (0-0.5) Basophils # (Auto) 0.03 K/uL (0-0.2) RDW Standard Deviation 46.1 fL (36.4-46.3) RDW Coefficient of Variation 13.6 % (11.5-14.5) Immature Granulocyte % (Auto) 0.2 % Immature Granulocyte # (Auto) 0.01 K/uL (0.00-0.02) Prothrombin Time 9.8 SECONDS (9.0-12.0) Prothromb Time International Ratio 0.9 (0.9-1.1) Activated Partial Thromboplast Time 24.0 SECONDS (21.0-31.0) Partial Thromboplastin Ratio 0.9 Anion Gap 7.0 mmol/L (3-11) Est Creatinine Clear Calc Drug Dose 39.0 ml/min Estimated GFR () 76.6 Estimated GFR (Non- 66.1 BUN/Creatinine Ratio 16.2 (10-20) Lactic Acid Level 1.3 mmol/L (0.4-2.0) Calcium Level 9.1 mg/dl (8.5-10.1) Total Bilirubin 0.4 mg/dl (0.2-1) Direct Bilirubin < 0.1 mg/dl (0-0.2) Aspartate Amino Transf (AST/SGOT) 13 U/L (15-37) Alanine Aminotransferase (ALT/SGPT) 8 U/L (12-78) Alkaline Phosphatase 102 U/L (45-117) Total Protein 7.0 gm/dl (6.4-8.2) Albumin 3.5 gm/dl (3.4-5.0) Lipase 108 U/L (73-393) Laboratory results reviewed by me ECG Indication: other (rectal bleeding) Rate (beats per minute): 59 Rhythm: normal sinus Findings: other (normal axis, mildly prolonged MS, no other STS or TWI) ED Course 1257: The patient was evaluated in room B8. A complete history and physical exam was performed. 1500: I reevaluated the patient and she is doing well. I discussed the test results with her and I discussed the treatment plan. She verbalized complete understanding and agreement. She is ready to go home. Medical Decision Differential diagnosis: Etiologies such as diverticulosis, AVM, coagulopathy, colitis, inflammatory bowel disease, malignancy, Martha-Flores tear, esophagitis, peptic ulcer disease , variceal bleed, gastritis, epistaxis, fissure, hemorrhoids, as well as others were entertained. The patient is a 77 year old white female with a past medical history of anemia , hypertension, hemorrhoids, dementia, seizure disorder, rectal bleeding, rectal prolapse, Parkinson's disease, bipolar, who presents to the ED with a cc of persistent rectal bleeding beginning prior to arrival. Patient was seen and evaluated the bedside. Patient was concerned as she noticed a fair amount of blood in the toilet bowl was concerned that she may have had a rectal prolapse. Patient did not have evidence of rectal prolapse when examined at the bedside. Patient did complain of some mild abdominal discomfort. Patient had an unremarkable rectal exam was Hemoccult negative. Patient did have blood work that was completed along with a lactate. Patient's blood counts fairly unremarkable. Coags also normal. Patient lactate less than 2. Given the fact the patient's lactate is fairly normal and the patient has normal blood counts do not expect the patient to have a surgical process. Patient did have films completed which showed a nonobstructive bowel gas pattern. Patient does have a follow-up appointment tomorrow with [facility] gastroenterology. Given the fact the patient has good follow-up think she suitable for outpatient follow-up and discharge. Patient family were informed of all findings.Patient was given strict follow-up, discharge, and return precautions. All questions were answered. Patient was deemed suitable for outpatient follow-up at this time. Patient agreed with the plan of care and was safely discharged home. Medication Reconcilliation Current Medication List: was personally reviewed by me Blood Pressure Screening Patient's blood pressure: Normal blood pressure Blood pressure disposition: Did not require urgent referral Impression Primary Impression: Rectal bleeding Scribe Attestation The scribe's documentation has been prepared under my direction and personally reviewed by me in its entirety. I confirm that the note above accurately reflects all work, treatment, procedures, and medical decision making performed by me. Departure Information Dispostion Home / Self-Care Referrals Juan Miguel,Anais D. D.O. (PCP) Patient Instructions Bleeding Rectal, [facility] Additional Instructions Please return to the emergency department if you have worsening or recurrent symptoms not amenable to at-home treatment. Please call for a follow-up appointment with her primary care physician. Please take your medications as prescribed. If you have other concerns and/or complaints please feel free to also call your primary care physician's office or return the ED for further evaluation, management, and treatment. Avoid NSAIDs consider holding her aspirin until you see the taper and floater tomorrow. Consider a bland diet. Please keep your follow-up appointment with your taper and floater. Take your medications as prescribed. You have been examined and treated today on an emergency basis only. This is not a substitute for, or an effort to provide, complete comprehensive medical care. It is impossible to recognize and treat all injuries or illnesses in a single emergency department visit. It is therefore important that you follow up closely with [facility], your PCP, and/or your specialist(s). Call as soon as possible for an appointment. Thank you for your time and consideration. I look forward to speaking with you again soon. Please don't hesitate to call us if you have any questions.
[2017-04-02 13:24] VITALS: O2SAT 98
[2017-04-02 14:15] LABS: BASO % 0.5 %; BASO ABS # 0.03 K/uL (0-0.2); COMPLETE YES; EOS % 3.3 %; HEMATOCRIT 39.1 % (37-47); IG% 0.2 %; LYMPH % 36.8 %; LYMPH ABS # 2.14 K/uL (1.2-3.4); MEAN CELL VOLUME 92.7 fL (80-100); MEAN CORPUSCULAR HEMOGLOBIN 30.8 pg (25-34); MEAN CORPUSCULAR HGB CONC 33.2 g/dl (32-36); MEAN PLATELET VOLUME 8.7 fL (7.4-10.4); MONO % 9.5 %; NEUT % 49.7 %; PLATELET COUNT 282 K/uL (130-400); RED BLOOD COUNT 4.22 M/uL (4.2-5.4); WHITE BLOOD COUNT 5.81 K/uL (4.8-10.8)
[2017-04-02 14:32] LABS: ALT/SGPT 8 U/L (12-78); AST/SGOT 13 U/L (15-37); BLOOD UREA NITROGEN 14 mg/dl (7-18); BUN/CREATININE RATIO 16.2 (10-20); CALCIUM 9.1 mg/dl (8.5-10.1); CARBON DIOXIDE 25 mmol/L (21-32); CHLORIDE 109 mmol/L (98-107); CREATININE 0.84 mg/dl (0.60-1.20); GLUCOSE 82 mg/dl (70-99); POTASSIUM 4.1 mmol/L (3.5-5.1); SODIUM 141 mmol/L (136-145)
[2017-04-02 14:34] LABS: ALKALINE PHOSPHATASE 102 U/L (45-117)
[2017-04-02 14:37] LABS: INR 0.9 (0.9-1.1); PARTIAL THROMBOPLASTIN RATIO 0.9; PROTHROMBIN TIME (PATIENT) 9.8 SECONDS (9.0-12.0)
--- NOTE | 2017-04-02 14:56 | DIAGNOSTIC IMAGING REPORT ---
ABDOMEN 2VIEW W/PA CHEST RTN HISTORY: 77 years-old Female ab pain acute generalized abdominal pain with GI bleed COMPARISON: KUB 02/27/2017, chest radiograph 02/21/2017 TECHNIQUE: Frontal view the chest with supine and left lateral decubitus films of the abdomen FINDINGS: Cardiac silhouette is moderately enlarged. There is atherosclerosis and tortuosity of the thoracic aorta. Patient is rotated to the left. Mild pulmonary vascular congestion without pneumothorax or pleural effusion. Subsegmental left basilar opacities. There is a linear line over the left hemithorax projecting of the lungs suggesting a skin fold. Severe degenerative changes of the left shoulder. Sigmoidal scoliosis of the spine. Moderate volume of formed colonic stool noted throughout with a nonobstructive bowel gas pattern. No pneumatosis or pneumoperitoneum identified. No definite urolith or organomegaly. Multilevel degenerative changes of the spine. The bones appear osteopenic. IMPRESSION: 1. Findings suggest constipation with nonobstructive bowel gas pattern. 2. Linear line projecting over the left hemithorax compatible with skinfold. 3. Left basilar subsegmental opacities suggest atelectasis or pneumonitis. 4. Cardiomegaly. The above report was generated using voice recognition software. It may contain grammatical, syntax or spelling errors. Electronically signed by: Ray Martinez M.D. 04/02/2017 2:54 PM Dictated Date/Time: 04/02/2017 2:52 PM
[2017-04-02 15:11] VITALS: BP 187/110; PULSE 61; O2SAT 97
== END 2017-04-02 15:40 | disposition home or self-care (01) ==
LOC: C.EDB 12:11
DX: K62.5 Hemorrhage of anus and rectum (principal); I10 Essential (primary) hypertension; G40.909 Epilepsy, unspecified, not intractable, without status epilepticus; F31.9 Bipolar disorder, unspecified; D64.9 Anemia, unspecified; Z87.19 Personal history of other diseases of the digestive system; Z79.899 Other long term (current) drug therapy; Z82.49 Family history of ischemic heart disease and other diseases of the circulatory system; Z88.8 Allergy status to other drugs, medicaments and biological substances

== ENCOUNTER 2017-05-03 08:33 | Inpatient (IN) | payer OTHER ==
[~2017-05-03] VITALS: Ht 152.4 cm; Wt 54.5 kg
[2017-05-03] VITALS (8 sets, daily range): BP systolic 134–157; BP diastolic 71–92; PULSE 50–96; TEMP 36.6–36.9; O2SAT 95–100; Ht 152.4 cm; Wt 54.5 kg
[~2017-05-03 08:33] MED LIST changes: -FURO40TA3 PO; -NUTRMIS PO; +POTA10CA28 PO; -[UNRECOGNIZED DRUG - CODE] PO
--- NOTE | 2017-05-03 08:38 | EMERGENCY ROOM VISIT NOTE ---
History Report prepared by Sarah: Amber Buckner Under the Supervision of: Dr. Marcela Kimble M.D. First contact with patient: 08:33 Chief Complaint: SEIZURE Stated Complaint: SEIZURES History of Present Illness The patient is a 77 year old female who presents to the Emergency Room with seizures occurring this morning. Per EMS, the patient had a seizure in the house before they arrived, and the patient then had 2 more seizures in the ambulance en route. EMS states that the patient was given 2 mg Ativan IV en route. Per EMS, the patient's room air sat was 76% on EMS arrival. She was maintaining >95% sat on 15 L NRB. HPI limited secondary to seizure. Source of History: EMS History Limited By: other (seizure) Onset: this morning Position: other (global) Quality: other (seizure) Review of Systems Limited ROS secondary to seizure. Past Medical & Surgical Medical Problems: (1) Anemia (2) Bipolar 1 disorder (3) Hemorrhoids (4) Hypertension (5) Rectal bleeding (6) Seizure disorder (7) Stomach problems Family History Unable to obtain medical history sheet secondary to seizure. Social History Marital Status: Housing Status: lives with family Occupation Status: retired Unable to obtain medical history sheet secondary to seizure. Current/Historical Medications Scheduled Amlodipine Besylate (Norvasc), 5 MG PO QAM Bimatoprost (Lumigan), 1 DROP OPB HS Brimonidine Tartrate-Timolol M (Combigan), 1 DROP OPB BID Carvedilol (Carvedilol), 3.125 MG PO BID Clonazepam (Klonopin), 0.5 MG PO AMPM Ezetimibe (Zetia), 10 MG PO HS Lamotrigine (Lamictal), 100 MG PO QAM Levodopa/Carbidopa (Sinemet 25MG/100MG), 1 TAB PO TID Polyethylene (Miralax), 17 GM PO DAILY Potassium Ext Rel (Klor-Con), 15 MEQ PO BID Scheduled PRN Furosemide (Lasix), 40 MG PO QAM PRN for WATER RETENTION Allergies Coded Allergies: [place] (Verified Allergy, Severe, SYSTEM TOXICITY, 05/03/17) Uncoded Allergies: [place]LLOW [place] (Allergy, Severe, ANAPHYLAXIS, 03/13/15) Physical Exam Vital Signs Date Time Temp Pulse Resp B/P (MAP) Pulse Ox O2 Delivery O2 Flow Rate FiO2 1/18/18 12:31 133/89 05/03/17 12:30 90 17 100 05/03/17 12:16 135/89 05/03/17 12:15 91 21 100 05/03/17 12:09 93 20 131/85 97 Nasal Cannula 05/03/17 12:01 100 Nasal Cannula 4.0 05/03/17 10:44 112 16 140/86 100 4.0 05/03/17 09:50 103 20 143/95 99 Nasal Cannula 4.0 05/03/17 09:13 118 20 151/89 98 Nasal Cannula 5.0 05/03/17 08:59 113 22 117/84 93 Nasal Cannula 5.0 05/03/17 08:47 93 Nasal Cannula 5.0 05/03/17 08:46 93 Nasal Cannula 5.0 05/03/17 08:41 120 05/03/17 08:39 36.5 121 22 154/93 88 Room Air Physical Exam Vital signs reviewed. General: Obtunded female, in no significant distress. HEENT: No scleral icterus, PERRLA, neck supple. Atraumatic. Cardiovascular: Regular rate and rhythm, no extra sounds. Pulmonary: Clear to auscultation bilaterally, normal work of breathing. Slightly hypoxic on room air, on n/c O2 Abdomen: Soft, nontender, nondistended, positive bowel sounds. Musculoskeletal: Atraumatic, no peripheral edema. Neurologic: Full exam is significantly limited by mental status. Responds to painful stimuli. Unable to follow commands. Skin: Warm, dry, no rash Medical Decision & Procedures ER Provider Diagnostic Interpretation: Radiology results as stated below per my review and radiologist interpretation: HEAD WITHOUT CONTRAST (CT) CLINICAL HISTORY: 77 years-old Female with AMS, seizure. Acute altered mental status with seizure. TECHNIQUE: Multiple axial CT images of the head were obtained without contrast. A dose lowering technique was utilized adhering to the principles of ALARA. CT DOSE: 537.48 mGy.cm COMPARISON: CT head 02/17/2017, MRI brain 02/17/2017. FINDINGS: No acute intracranial hemorrhage, midline shift, intracranial mass, hydrocephalus, territorial ischemia or abnormal extra-axial collection. Mild to moderate atrophy with extensive chronic microvascular ischemic changes. Ex vacuo ventriculomegaly. The calvarium is intact. The paranasal sinuses, mastoid air cells, and middle ear cavities are clear. IMPRESSION: No acute intracranial abnormality. The above report was generated using voice recognition software. It may contain grammatical, syntax or spelling errors. Electronically signed by: Ray Martinez M.D. 05/03/2017 9:01 AM Dictated Date/Time: 05/03/2017 8:58 AM CHEST ONE VIEW PORTABLE CLINICAL HISTORY: Stroke COMPARISON STUDY: 04/02/2017 FINDINGS: There is a thoracolumbar scoliosis. The heart is at the upper limits of normal in size. It is no failure. There is no focal pulmonary consolidation. There are no pleural effusions. A density at the left lung base is felt to represent subsegmental atelectasis.[ IMPRESSION: No active disease in the chest. Electronically signed by: Roman Madrid M.D. 05/03/2017 9:12 AM Dictated Date/Time: 05/03/2017 9:12 AM HEAD ANGIO WITH CONTRAST CLINICAL HISTORY: Stroke Seizure TECHNIQUE: Transaxial acquisition. Multiple axial reformatted images. COMPARISON STUDY: None FINDINGS: All major intracranial vessels are unremarkable. All major structures the anterior middle and posterior cerebral circulation are intact. Vertebral basilar system is unremarkable. There is minimal scattered plaque formation again with no significant stenotic process. IMPRESSION: No significant stenosis. Minimal scattered atherosclerotic change. The above report was generated using voice recognition software. It may contain grammatical, syntax or spelling errors. Electronically signed by: Ronny Jasso M.D. 05/03/2017 10:55 AM Dictated Date/Time: 05/03/2017 10:51 AM Laboratory Results 05/03/17 09:05 Red Blood Count 4.22, Mean Corpuscular Volume 91.2, Mean Corpuscular Hemoglobin 30.3, Mean Corpuscular Hemoglobin Concent 33.2, Mean Platelet Volume 8.9, Neutrophils (%) (Auto) 85.0, Lymphocytes (%) (Auto) 9.6, Monocytes (%) (Auto) 4.4, Eosinophils (%) (Auto) 0.5, Basophils (%) (Auto) 0.2, Neutrophils # (Auto) 12.02, Lymphocytes # (Auto) 1.36, Monocytes # (Auto) 0.62, Eosinophils # (Auto) 0.07, Basophils # (Auto) 0.03 05/03/17 09:05 Test 05/03/17 09:00 05/03/17 09:03 05/03/17 09:05 05/03/17 09:13 Bedside Glucose 149 mg/dl (70-90) Bedside Prothrombin Time INR 1.0 (0.9-1.1) White Blood Count 14.14 K/uL (4.8-10.8) Red Blood Count 4.22 M/uL (4.2-5.4) Hemoglobin 12.8 g/dL (12.0-16.0) Hematocrit 38.5 % (37-47) Mean Corpuscular Volume 91.2 fL (80-100) Mean Corpuscular Hemoglobin 30.3 pg (25-34) Mean Corpuscular Hemoglobin Concent 33.2 g/dl (32-36) Platelet Count 381 K/uL (130-400) Mean Platelet Volume 8.9 fL (7.4-10.4) Neutrophils (%) (Auto) 85.0 % Lymphocytes (%) (Auto) 9.6 % Monocytes (%) (Auto) 4.4 % Eosinophils (%) (Auto) 0.5 % Basophils (%) (Auto) 0.2 % Neutrophils # (Auto) 12.02 K/uL (1.4-6.5) Lymphocytes # (Auto) 1.36 K/uL (1.2-3.4) Monocytes # (Auto) 0.62 K/uL (0.11-0.59) Eosinophils # (Auto) 0.07 K/uL (0-0.5) Basophils # (Auto) 0.03 K/uL (0-0.2) RDW Standard Deviation 42.9 fL (36.4-46.3) RDW Coefficient of Variation 12.8 % (11.5-14.5) Immature Granulocyte % (Auto) 0.3 % Immature Granulocyte # (Auto) 0.04 K/uL (0.00-0.02) Prothrombin Time 10.5 SECONDS (9.0-12.0) Prothromb Time International Ratio 1.0 (0.9-1.1) Activated Partial Thromboplast Time 24.3 SECONDS (21.0-31.0) Partial Thromboplastin Ratio 0.9 Anion Gap 10.0 mmol/L (3-11) Estimated GFR () 64.4 Estimated GFR (Non- 55.5 BUN/Creatinine Ratio 16.9 (10-20) Calcium Level 9.0 mg/dl (8.5-10.1) Magnesium Level 2.1 mg/dl (1.8-2.4) Total Creatine Kinase 109 U/L (26-192) Creatine Kinase MB 3.6 ng/ml (0.5-3.6) Creatine Kinase MB Ratio 3.3 (0-3.0) Troponin I 0.021 ng/ml (0-0.045) Urine Color YELLOW Urine Appearance CLEAR (CLEAR) Urine pH 6.0 (4.5-7.5) Urine Specific [place] 1.012 (1.000-1.030) Urine Protein NEG (NEG) Urine Glucose (UA) NEG (NEG) Urine Ketones NEG (NEG) Urine Occult Blood NEG (NEG) Urine Nitrite NEG (NEG) Urine Bilirubin NEG (NEG) Urine Urobilinogen NEG (NEG) Urine Leukocyte Esterase NEG (NEG) Laboratory results per my review. Medications Administered Medications (Trade) Dose Ordered Sig/Naeem Route Start Time Stop Time Status Last Admin Dose Admin Sodium Chloride 1,000 ml @ 100 mls/hr Q10H IV 05/03/17 08:49 05/03/17 14:28 DC 05/03/17 08:57 100 MLS/HR Levetiracetam 1000 mg/Dextrose 110 ml @ 440 mls/hr ONE ONCE IV 05/03/17 12:00 05/03/17 12:14 DC 05/03/17 12:00 440 MLS/HR ECG Indication: other (seizure) Rate (beats per minute): 118 Rhythm: sinus tachycardia Findings: 1st degree AV block, T-wave inversion (Lateral), other (poor quality baseline for interpretation ) Comparison ECG Date: Patient's Electrocardiogram interpreted by me Change: compared to April 02, 2017: New T-wave abnormality in lateral leads ED Course 0837: Past medical records reviewed. The patient was evaluated in room B1. A complete history and physical examination was performed. 0849: Ordered Sodium Chloride 1,000 ml @ 100 mls/hr IV. 0945: I spoke with the patient's family and updated them. 1138: I reviewed the patient's case with Dr. Kat. He will evaluate the patient for further management. 1200: Ordered Levetiracetam 1,000 mg/Dextrose 110 ml @ 440 mls/hr IV. 1205: Upon reevaluation, the patient is resting comfortably. I discussed laboratory and radiographic results with her family. Her family verbalized agreement of the treatment plan. The patient will be evaluated for further management and care. Medical Decision Differential diagnosis: Etiologies such as infection, hypoglycemia, electrolyte abnormalities, cardiac sources, intracerebral event, trauma, toxicologic, neurologic, as well as others were entertained. This patient was evaluated and appeared to be in no significant distress. The patient is obtunded and is difficult to assess from a neurologic standpoint. There is no focal deficit of an extremity were obvious facial droop. Patient does have a seizure disorder was taken off her medications [address] head without contrast is negative for acute intracranial abnormality. Laboratory work reveals a mild leukocytosis which is likely reactive. The patient was taken off of her Keppra, therefore was given 1 g IV Keppra load. She is maintaining her oxygenation and airway at this time. After discussing the situation with the patient's family, patient was sent for CT angiogram of the head which is also negative. I suspect she is postictal from 3-4 seizures today. Case was discussed with the hospitalist service will evaluate the patient for further management. Patient's family is aware of the plan and agrees. Medication Reconcilliation Current Medication List: was personally reviewed by me Blood Pressure Screening Patient's blood pressure: Elevated blood pressure will be monitored by hospitalist Consults Time Called: 1020 Consulting Physician: Dr. Kat-[facility] Returned Call: [phone] I reviewed the patient's case with Dr. Kat. He will evaluate the patient for further management. Impression Primary Impression: Recurrent seizures Scribe Attestation The scribe's documentation has been prepared under my direction and personally reviewed by me in its entirety. I confirm that the note above accurately reflects all work, treatment, procedures, and medical decision making performed by me. Departure Information Dispostion Being Evaluated By Hospitalist Patient Instructions My [facility]
[2017-05-03] MEDS ORDERED: SODIUM CHLORIDE 0.9% 1000ML 1,000 ML IV SCH (08:49)
--- NOTE | 2017-05-03 09:02 | DIAGNOSTIC IMAGING REPORT ---
HEAD WITHOUT CONTRAST (CT) CLINICAL HISTORY: 77 years-old Female with AMS, seizure. Acute altered mental status with seizure. TECHNIQUE: Multiple axial CT images of the head were obtained without contrast. A dose lowering technique was utilized adhering to the principles of ALARA. CT DOSE: 537.48 mGy.cm COMPARISON: CT head 02/17/2017, MRI brain 02/17/2017. FINDINGS: No acute intracranial hemorrhage, midline shift, intracranial mass, hydrocephalus, territorial ischemia or abnormal extra-axial collection. Mild to moderate atrophy with extensive chronic microvascular ischemic changes. Ex vacuo ventriculomegaly. The calvarium is intact. The paranasal sinuses, mastoid air cells, and middle ear cavities are clear. IMPRESSION: No acute intracranial abnormality. The above report was generated using voice recognition software. It may contain grammatical, syntax or spelling errors. Electronically signed by: Ray Martinez M.D. 05/03/2017 9:01 AM Dictated Date/Time: 05/03/2017 8:58 AM
--- NOTE | 2017-05-03 09:13 | DIAGNOSTIC IMAGING REPORT ---
CHEST ONE VIEW PORTABLE CLINICAL HISTORY: Stroke COMPARISON STUDY: 04/02/2017 FINDINGS: There is a thoracolumbar scoliosis. The heart is at the upper limits of normal in size. It is no failure. There is no focal pulmonary consolidation. There are no pleural effusions. A density at the left lung base is felt to represent subsegmental atelectasis.[ IMPRESSION: No active disease in the chest. Electronically signed by: Roman Madrid M.D. 05/03/2017 9:12 AM Dictated Date/Time: 05/03/2017 9:12 AM
[2017-05-03 09:22] LABS: BASO % 0.2 %; BASO ABS # 0.03 K/uL (0-0.2); EOS % 0.5 %; EOS ABS # 0.07 K/uL (0-0.5); HEMATOCRIT 38.5 % (37-47); HEMOGLOBIN 12.8 g/dL (12.0-16.0); IG# 0.04 K/uL (0.00-0.02); LYMPH % 9.6 %; LYMPH ABS # 1.36 K/uL (1.2-3.4); MEAN CELL VOLUME 91.2 fL (80-100); MEAN CORPUSCULAR HEMOGLOBIN 30.3 pg (25-34); MEAN CORPUSCULAR HGB CONC 33.2 g/dl (32-36); MEAN PLATELET VOLUME 8.9 fL (7.4-10.4); MONO % 4.4 %; MONO ABS # 0.62 K/uL (0.11-0.59); NEUT ABS # 12.02 K/uL (1.4-6.5); PLATELET COUNT 381 K/uL (130-400); RED CELL DISTRIBUTION WIDTH CV 12.8 % (11.5-14.5); RED CELL DISTRIBUTION WIDTH SD 42.9 fL (36.4-46.3); WHITE BLOOD COUNT 14.14 K/uL (4.8-10.8)
[2017-05-03 09:34] LABS: PTT PATIENT 24.3 SECONDS (21.0-31.0)
[2017-05-03 09:38] LABS: BLOOD UREA NITROGEN 17 mg/dl (7-18); CARBON DIOXIDE 24 mmol/L (21-32); CREATININE 0.97 mg/dl (0.60-1.20); GLUCOSE 153 mg/dl (70-99); POTASSIUM 3.7 mmol/L (3.5-5.1); SODIUM 138 mmol/L (136-145)
[2017-05-03 09:44] LABS: CKMB 3.6 ng/ml (0.5-3.6)
[2017-05-03] MEDS ORDERED: FRS/40 PO (10:04)
[2017-05-03] MEDS ORDERED: POTA20TA16 PO (10:04)
[2017-05-03] MEDS ORDERED: BRIM0.2S OPB (10:05)
[2017-05-03] MEDS ORDERED: OPTIRAY 320 IV PRN (10:15)
--- NOTE | 2017-05-03 10:56 | DIAGNOSTIC IMAGING REPORT ---
HEAD ANGIO WITH CONTRAST CLINICAL HISTORY: Stroke Seizure TECHNIQUE: Transaxial acquisition. Multiple axial reformatted images. COMPARISON STUDY: None FINDINGS: All major intracranial vessels are unremarkable. All major structures the anterior middle and posterior cerebral circulation are intact. Vertebral basilar system is unremarkable. There is minimal scattered plaque formation again with no significant stenotic process. IMPRESSION: No significant stenosis. Minimal scattered atherosclerotic change. The above report was generated using voice recognition software. It may contain grammatical, syntax or spelling errors. Electronically signed by: Ronny Jasso M.D. 05/03/2017 10:55 AM Dictated Date/Time: 05/03/2017 10:51 AM
[2017-05-03] MEDS ORDERED: LEVETIRACTAM 1000 MG in DEXTROSE 5% 100ML IV ONE (12:00)
[2017-05-03] MEDS ORDERED: LORAZEPAM 2 MG/ML 1 ML VIAL IV PRN (12:45)
[2017-05-03] MEDS ORDERED: ONDANSETRON INJ 2 MG/ML 2 ML VIAL IV PRN (12:45)
[2017-05-03] MEDS ORDERED: METOPROLOL TARTRATE 1 MG/ML VIAL IV PRN (13:00)
[2017-05-03] MEDS ORDERED: LORAZEPAM INJ 2 MG in SYRINGE 1 ML IV PRN (14:45)
[2017-05-03] MEDS: SODIUM CHLORIDE 0.9% 1000ML 1,000 ML IV SCH (15:50)
[2017-05-03] MEDS: ENOXAPARIN 40 MG/0.4 ML SYR SC SCH (16:43)
--- NOTE | 2017-05-03 18:17 | History and Physical ---
History & Physical Date & Time of Service: May 03, 2017 at 13:53 Chief Complaint: Seizures Primary Care Physician: Anais Bullard D.O. History of Present Illness Source: patient, family, hospital records 77 yo female with recent history of seizures in February 2017 for which she was hospitalized for 2 weeks. The history was obtained from one of her daughters at the bedside as well as reviewing prior neurology consultations and discharge summary. Per the daughter, the patient fell this morning around 645am, her quickly was at her side and the patient was conscious, able to get up. Patient did not complain of anything at that time. called daughters to the house, after they arrived the patient had two separate witnessed seizures where she became stiff and had mild shaking, afterwards she was not talking, decreased responsiveness. EMS called and she was placed in the ambulance. En route to the hospital she reportedly had two further episodes and she was given Ativan 2mg IV and the seizures ceased. In the ED her HR was slightly elevated and she was requiring some oxygen, otherwise she was doing well. CT head and CT angiography was normal. She was given Keppra 1000mg IV and were called to assess for admission. The patient was admitted previously on 02/13 for problems with rectal prolapse that was recurrent after two previous surgeries failed to fix the issue. She was seen by GI and they recommended follow up with colorectal surgery with [facility]. While admitted, the patient experienced her first ever seizure episode , noted to have eyes roll back in her head, stiff arms and legs with brisk shaking. She had an extensive work up. MRI brain normal, LP was normal, EEG with no seizure activity. She was evaluated by both Dr. Alvarez and Dr. Turner over the course of a two week hospitalization. Her situation was complicated further by delirium with decreased responsiveness. History of bipolar disorder on Lamictal previously as well as Seroquel and she has Parkinson's and was taking Sinemet. The delirium eventually resolved and she was discharged to [facility] for rehab, continued on Keppra 1000mg BID for seizure prevention and was continued on Seroquel, Lamictal and Sinemet. She was supposed to follow up with [facility]. There is no record of follow up with neurology with [facility]. The daughter says that she was following with neurology in [place] with [facility]. The daughter says that her Keppra was stopped two days ago. Unclear if she was having side effects or if the neurologist felt it was not needed. However, prior to stopping the Keppra, the patient had had no further seizure activity since February. Would make it appear that seizures due to stopping Keppra. The patient can answer some simple questions, c/o some abdominal discomfort and generalized pain all over. Nothing else can be elicited. Past Medical/Surgical History Seizures Bipolar disorder Parkinson disease Memory loss Rectal prolapse, recurrent, s/p two separate repairs at [facility] HTN Hemorrhoids Family History Hypertension Lung disease Social History Smoking Status: Never Smoker Drug Use: none Marital Status: Housing status: lives with significant other Occupational Status: retired Immunizations History of Influenza Vaccine: Unknown History of Tetanus Vaccine?: Unknown History of Pneumococcal: Unknown History of Hepatitis B Vaccine: Unknown Multi-Drug Resistant Organisms History of MDRO: No Allergies Coded Allergies: [place] (Verified Allergy, Severe, SYSTEM TOXICITY, 05/03/17) Uncoded Allergies: YELLOW SQUASH (Allergy, Severe, ANAPHYLAXIS, 03/13/15) Home Medications Scheduled Amlodipine Besylate (Norvasc), 5 MG PO QAM Bimatoprost (Lumigan), 1 DROP OPB HS Brimonidine Tartrate-Timolol M (Combigan), 1 DROP OPB BID Carvedilol (Carvedilol), 3.125 MG PO BID Clonazepam (Klonopin), 0.5 MG PO AMPM Ezetimibe (Zetia), 10 MG PO HS Lamotrigine (Lamictal), 100 MG PO QAM Levodopa/Carbidopa (Sinemet 25MG/100MG), 1 TAB PO TID Polyethylene (Miralax), 17 GM PO DAILY Potassium Ext Rel (Klor-Con), 15 MEQ PO BID Scheduled PRN Furosemide (Lasix), 40 MG PO QAM PRN for WATER RETENTION Review of Systems complete 10 system review could not be done due to lethargy, admitted to some abdominal pain, generalized pain, could not tell me anything else Abdomen: + pain Musculoskeletal: + joint pain, + muscle pain (diffuse) Physical Exam Vital Signs Date Time Temp Pulse Resp B/P (MAP) Pulse Ox O2 Delivery O2 Flow Rate FiO2 05/03/17 13:16 140/90 05/03/17 13:15 89 17 100 05/03/17 13:00 90 25 143/105 100 05/03/17 12:56 87 05/03/17 12:45 81 24 141/84 100 05/03/17 12:31 133/89 05/03/17 12:30 90 17 100 05/03/17 12:16 135/89 05/03/17 12:15 91 21 100 05/03/17 12:09 93 20 131/85 97 Nasal Cannula 05/03/17 12:01 100 Nasal Cannula 4.0 05/03/17 10:44 112 16 140/86 100 4.0 05/03/17 09:50 103 20 143/95 99 Nasal Cannula 4.0 05/03/17 09:13 118 20 151/89 98 Nasal Cannula 5.0 05/03/17 08:59 113 22 117/84 93 Nasal Cannula 5.0 05/03/17 08:47 93 Nasal Cannula 5.0 05/03/17 08:46 93 Nasal Cannula 5.0 05/03/17 08:41 120 05/03/17 08:39 36.5 121 22 154/93 88 Room Air General Appearance: WD/WN, no apparent distress Head: normocephalic, atraumatic Eyes: PERRL, sclerae normal ENT: normal ENT inspection, hearing grossly normal, pharynx normal Neck: supple, no adenopathy, no JVD, trachea midline Respiratory/Chest: chest non-tender, lungs clear, normal breath sounds, no respiratory distress, no accessory muscle use Cardiovascular: regular rate, rhythm, no edema, no gallop, no JVD, no murmur, normal peripheral pulses Abdomen/GI: normal bowel sounds, non tender, soft, no organomegaly, + distended Extremities/Musculoskelatal: normal inspection, no calf tenderness, normal capillary refill, no pedal edema, normal range of motion 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, normal reflexes, + motor weakness ( right lower and upper extremity weakness), + depressed affect, + disoriented Skin: normal color, warm/dry, no rash Diagnostics Laboratory Results Results Past 24 Hours Test 05/03/17 09:00 05/03/17 09:03 05/03/17 09:05 05/03/17 09:13 Range/Units Bedside Glucose 149 70-90 mg/dl Bedside Prothrombin Time INR 1.0 0.9-1.1 White Blood Count 14.14 4.8-10.8 K/uL Red Blood Count 4.22 4.2-5.4 M/uL Hemoglobin 12.8 12.0-16.0 g/dL Hematocrit 38.5 37-47 % Mean Corpuscular Volume 91.2 80-100 fL Mean Corpuscular Hemoglobin 30.3 25-34 pg Mean Corpuscular Hemoglobin Concent 33.2 32-36 g/dl Platelet Count 381 130-400 K/uL Mean Platelet Volume 8.9 7.4-10.4 fL Neutrophils (%) (Auto) 85.0 % Lymphocytes (%) (Auto) 9.6 % Monocytes (%) (Auto) 4.4 % Eosinophils (%) (Auto) 0.5 % Basophils (%) (Auto) 0.2 % Neutrophils # (Auto) 12.02 1.4-6.5 K/uL Lymphocytes # (Auto) 1.36 1.2-3.4 K/uL Monocytes # (Auto) 0.62 0.11-0.59 K/uL Eosinophils # (Auto) 0.07 0-0.5 K/uL Basophils # (Auto) 0.03 0-0.2 K/uL RDW Standard Deviation 42.9 36.4-46.3 fL RDW Coefficient of Variation 12.8 11.5-14.5 % Immature Granulocyte % (Auto) 0.3 % Immature Granulocyte # (Auto) 0.04 0.00-0.02 K/uL Prothrombin Time 10.5 9.0-12.0 SECONDS Prothromb Time International Ratio 1.0 0.9-1.1 Activated Partial Thromboplast Time 24.3 21.0-31.0 SECONDS Partial Thromboplastin Ratio 0.9 Sodium Level 138 136-145 mmol/L Potassium Level 3.7 3.5-5.1 mmol/L Chloride Level 104 98-107 mmol/L Carbon Dioxide Level 24 21-32 mmol/L Anion Gap 10.0 3-11 mmol/L Blood Urea Nitrogen 17 7-18 mg/dl Creatinine 0.97 0.60-1.20 mg/dl Estimated GFR () 64.4 Estimated GFR (Non- 55.5 BUN/Creatinine Ratio 16.9 10-20 Random Glucose 153 70-99 mg/dl Calcium Level 9.0 8.5-10.1 mg/dl Magnesium Level 2.1 1.8-2.4 mg/dl Total Creatine Kinase 109 26-192 U/L Creatine Kinase MB 3.6 0.5-3.6 ng/ml Creatine Kinase MB Ratio 3.3 0-3.0 Troponin I 0.021 0-0.045 ng/ml Urine Color YELLOW Urine Appearance CLEAR CLEAR Urine pH 6.0 4.5-7.5 Urine Specific [place] 1.012 1.000-1.030 Urine Protein NEG NEG Urine Glucose (UA) NEG NEG Urine Ketones NEG NEG Urine Occult Blood NEG NEG Urine Nitrite NEG NEG Urine Bilirubin NEG NEG Urine Urobilinogen NEG NEG Urine Leukocyte Esterase NEG NEG Diagnostic Radiology CT head: no acute intracranial abnormality CT angiography head: IMPRESSION: No significant stenosis. Minimal scattered atherosclerotic change. EKG sinus tachycardia with 1st degree AV block Impression Assessment and Plan 77 yo female with recurrent seizures after stopping Keppra two days prior to admission - Recurrent seizures: likely iatrogenic from abrupt termination of Keppra however, we need to confirm this, will request records from [facility] neurology no need for extensive work up as she had MRI brain, LP on last admission CT head and angiography normal no signs of infection some right sided weakness and lethargy attributed to either post ictal state or effects of Ativan consult Dr. Caro with neurology, he will see tomorrow he recommended resuming Keppra 1000mg IV BID will check EEG - Acute hypoxia: due to seizures, respiratory suppression from Ativan no distress, saturations high 90's on 4L will place on continuous pulse oximetry - Rectal prolapse: supposed to be on aggressive bowel regimen daughter believes it has been a few days since last BM abdomen distended, patient c/o pain will check CT abdomen/pelvis, may need to wait due to IV contrast already received for angiogram - Parkinson disease: resume Sinemet once taking PO, too lethargic at time of admission - Bipolar type I disorder: resume Lamictal and Seroquel once taking PO Level 1 Level of Care Telemetry Advanced Directives Existing Living Will: No Existing Power of Reporting Consultant: No Resuscitation Status FULL RESUSCITATION VTE Prophylaxis VTE Risk Assessment Done? Y/N: Yes Risk Level: High Given or contraindicated: Enoxaparin (Lovenox)SQ Additional Copies To Juan Miguel,Anais D. D.O.
[2017-05-03] MEDS: LEVETIRACETAM IV 1,000 MG in DEXTROSE 5% 100ML 100 ML IV SCH (20:28)
[2017-05-04] VITALS (11 sets, daily range): BP systolic 134–176; BP diastolic 69–92; PULSE 65–80; TEMP 36.4–37.1; O2SAT 93–99
[2017-05-04] MEDS ORDERED: KETOROLAC TROMETHAMINE 15 MG/ML VIAL IV. STA (01:34)
[2017-05-04] MEDS ORDERED: LORAZEPAM 0.5 MG TAB PO STA (01:56)
[2017-05-04] MEDS: SODIUM CHLORIDE 0.9% 1000ML 1,000 ML IV SCH (05:34)
[2017-05-04 06:11] LABS: BASO % 0.2 %; BASO ABS # 0.02 K/uL (0-0.2); EOS % 0.1 %; EOS ABS # 0.01 K/uL (0-0.5); HEMATOCRIT 33.8 % (37-47); HEMOGLOBIN 11.2 g/dL (12.0-16.0); IG# 0.01 K/uL (0.00-0.02); LYMPH ABS # 1.54 K/uL (1.2-3.4); MEAN CELL VOLUME 90.1 fL (80-100); MEAN CORPUSCULAR HEMOGLOBIN 29.9 pg (25-34); MEAN CORPUSCULAR HGB CONC 33.1 g/dl (32-36); MEAN PLATELET VOLUME 9.1 fL (7.4-10.4); MONO % 10.1 %; MONO ABS # 0.82 K/uL (0.11-0.59); NEUT % 70.5 %; PLATELET COUNT 316 K/uL (130-400); RED CELL DISTRIBUTION WIDTH CV 13.1 % (11.5-14.5); RED CELL DISTRIBUTION WIDTH SD 42.6 fL (36.4-46.3)
[2017-05-04 06:48] LABS: CALCIUM 8.5 mg/dl (8.5-10.1); CREATININE 0.56 mg/dl (0.60-1.20); POTASSIUM 3.1 mmol/L (3.5-5.1)
--- NOTE | 2017-05-04 08:24 | Clinical Documentation Query ---
CLINICAL DOCUMENTATION QUERY 77 year old female who presents to the Emergency Room with seizures. Per EMS patient was hypoxic at 76%. No other VS are available at this time. In your clinical opinion is this patient being managed for: (x ) Acute hypoxic respiratory failure in setting of seizure treated with O2 via NRM at 15L ( ) Not Agree ( ) Other explanation of clinical findings (Please Explain) ( ) Unable to determine (Please Define) ( ) Need to Discuss The medical record reflects the following clinical findings, treatment, and risk factors. Clinical Indicators: As above. Treatment: IV Keppra, O2 via NRM at 15L, Risk Factors: Age, Seizures Please clarify and document your clinical opinion in the progress notes and discharge summary. Terms such as "probable", "suspected", "likely", "questionable", "possible", or "still to be ruled out" are acceptable. IF IN AGREEMENT, YOU MUST DOCUMENT ABOVE DIAGNOSTIC STATEMENT IN DAILY PROGRESS NOTES AND DISCHARGE SUMMARY. This document is not part of the patient's record. Thank You, Mark Pierce, RN [phone]
[2017-05-04] MEDS ORDERED: POTASSIUM CHLORIDE INJ 20 MEQ in SODIUM CHLORIDE 0.9% 1000ML 1,000 ML IV SCH (09:00)
[2017-05-04] MEDS ORDERED: POTASSIUM CHLORIDE 20 MEQ TABCR PO STA (09:12)
[2017-05-04] MEDS: LEVETIRACETAM IV 1,000 MG in DEXTROSE 5% 100ML 100 ML IV SCH ×2 (09:21→20:35)
--- NOTE | 2017-05-04 11:13 | Neurology Consultation ---
Neurology Consultation Date of Consultation: May 04, 2017. Attending Physician: Zoltan Wells MD Primary Care Physician: Anais Bullard D.O. Reason for Consultation: Patient is a 77-year-old, was asked to see at the request of Dr. García Kat, for neurologic consultation regarding seizures History of Present Illness Source: patient, family, caregiver, hospital records I spoke to the patient's daughter who helps add history. This patient carries a diagnosis of Parkinson's disease on low-dose Sinemet, 25/ 100 3 times a day. She sees Dr. Dyer, neurologist in [place]. I have no records regarding her care or history neurologically. Apparently, she also carries a diagnosis of bipolar disorder and has been on Seroquel and Lamictal. This was true even up until this hospitalization. Patient was hospitalized in February at our institution. This was for treatment of rectal prolapse. While in the hospital she had witnessed seizures and had an extensive evaluation. She was seen by both doctors Mi and Yue. MRI of the brain was largely unremarkable for acute changes but she did have a moderate amount of old nonspecific small vessel ischemic disease. Carotid ultrasound was unremarkable and showed no significant stenosis. Lumbar puncture was normal as well and showed no evidence of inflammation or infection. She was initiated on Keppra and had no further seizures. EEG on February 16 was normal during the wakeful state. She developed some confusion and an EEG on February 19 showed some moderate slowing in general with some additional slowing in the left hemisphere. She did well as an outpatient with no seizure activity. Apparently, according to the daughter, the Keppra was tapered off because it was felt that she did need to anticonvulsants. However, Lamictal was not increased in its dose. She stopped Keppra about 2 days prior to admission. On the morning of April the , she ended up falling at about 0645 hours. There was no loss of consciousness or significant injury and she was felt to be fine otherwise. Little later on she had 2 separate generalized seizure events with stiffening and shaking. She was not talking and was somewhat unresponsive following these. EMS arrived and O2 saturation was 76 percent. On route to the hospital her O2 saturation was 95 percent and she ended up having 2 milligrams of Ativan IV because of 2 additional generalized type seizures. She arrived at our ER at 0839 hours with a temperature of 36.5, pulse 121, respiratory rate 22, blood pressure 154/93, and O2 saturation 88 percent. She was described as obtunded although she responded to pain. CT scan of the head was unremarkable. Chest x-ray was unremarkable. CT angiography of the head showed no significant stenosis. She was given 1 gram of levetiracetam IV as a loading dose and is currently on 1000 milligrams twice daily. According to nursing staff she has had no further seizures overnight. The patient complains of "pain all over" and is very nonspecific about where she hurts. When asked specific sites of where she hurts she was not always forthcoming with admitting pain there. She does have some abdominal pain although her belly is soft and and nontender. She has some chest discomfort and feels that her joints and muscles all hurt. She feels that her neck and low back hurt. 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 Mother around age 70 in the father around age 62. History from the chart reveals that 1 daughter had febrile seizures as a child. Social History Patient never used tobacco products or smoke cigarettes and does not use alcohol. 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 Currently, she lives with her . Smoking Status: Never smoker Smokeless Tobacco Use: No Alcohol Use: none Drug Use: none Marital Status: Housing Status: lives with family Occupation Status: retired Allergies Coded Allergies: [place] (Verified Allergy, Severe, SYSTEM TOXICITY, 05/03/17) Uncoded Allergies: YELLOW SQUASH (Allergy, Severe, ANAPHYLAXIS, 03/13/15) Current Inpatient Medications Current Inpatient Medications Medications (Trade) Dose Ordered Sig/Naeem Route Start Time Stop Time Status Last Admin Dose Admin Ioversol (Optiray 320) 100 ml UD PRN IV 05/03/17 10:15 05/07/17 10:14 Enoxaparin Sodium (Lovenox Inj) 40 mg DAILY@1600 SC 05/03/17 16:00 06/02/17 15:59 05/03/17 16:43 40 MG Ondansetron HCl (Zofran Inj) 4 mg Q6H PRN IV 05/03/17 12:45 06/02/17 12:44 Levetiracetam 1000 mg/Dextrose 110 ml @ 440 mls/hr Q12 IV 05/03/17 21:00 06/02/17 20:59 05/04/17 09:21 440 MLS/HR Lorazepam (Ativan Inj) 2 mg Q1H PRN IV 05/03/17 12:45 06/02/17 12:44 Metoprolol Tartrate (Lopressor Iv) 5 mg Q6 PRN IV 05/03/17 13:00 06/02/17 12:59 Lorazepam 2 mg/ Syringe 2 ml @ 1 mls/min Q1H PRN IV 05/03/17 14:45 06/02/17 14:44 Potassium Chloride 20 meq/ Sodium Chloride 1,010 ml @ 80 mls/hr [id number] IV 05/04/17 09:00 06/02/17 08:59 05/04/17 09:30 80 MLS/HR Review of Systems Constitutional: + weakness, + fatigue, No fever Eyes: No worsening of vision, No diplopia ENT: No hearing loss Respiratory: No cough, No shortness of breath Cardiovascular: + chest pain, No palpitations Abdomen: + pain, + constipation Genitourinary - Female: No dysuria, No urinary incontinence Neurologic: + memory loss, + weakness, + vertigo, + balance problems, No numbness/tingling Psychiatric: + depression symptoms, + anxiety Endocrine: + fatigue Hematologic / Lymphatic: No abnormal bleeding/bruising Integumentary: No rash Allergic / Immunologic: No hives Physical Exam Vital Signs (Past 24 Hrs): Date Time Temp Pulse Resp B/P (MAP) Pulse Ox O2 Delivery O2 Flow Rate FiO2 05/04/17 08:00 98 Nasal Cannula 2.0 05/04/17 07:55 36.9 73 20 147/79 (101) 98 05/04/17 05:05 36.8 66 16 138/69 (92) 99 Nasal Cannula 2.0 05/04/17 04:00 Nasal Cannula 2.0 05/04/17 00:00 Nasal Cannula 2.0 05/03/17 23:45 36.9 82 20 134/71 (92) 95 Nasal Cannula 2.0 05/03/17 20:00 100 Nasal Cannula 2.0 05/03/17 19:29 36.6 77 18 155/74 (101) 98 05/03/17 19:17 36.7 50 19 135/79 (97) 98 Nasal Cannula 2.0 05/03/17 16:00 100 Nasal Cannula 2.0 05/03/17 16:00 100 Nasal Cannula 3.0 05/03/17 15:39 36.6 96 18 157/92 (113) 100 Nasal Cannula 3.0 05/03/17 13:40 36.8 93 20 155/89 (111) 96 Nasal Cannula 2.0 05/03/17 13:16 140/90 05/03/17 13:15 89 17 100 05/03/17 13:00 90 25 143/105 100 05/03/17 12:56 87 05/03/17 12:45 81 24 141/84 100 05/03/17 12:31 133/89 05/03/17 12:30 90 17 100 05/03/17 12:16 135/89 05/03/17 12:15 91 21 100 05/03/17 12:09 93 20 131/85 97 Nasal Cannula 05/03/17 12:01 100 Nasal Cannula 4.0 05/03/17 10:44 112 16 140/86 100 4.0 Patient is right-handed. The patient is awake and alert. Speech is normal without aphasia or dysarthria. At times she was resistant to cooperate because of some how much pain and discomfort she was and but other time she was fairly pleasant and cooperative. She knew her name and her date and where she lives. She also knew it was April. She did not know the day, date, or year. She was confused as to where she was today. Her memory short-term is poor. Her memory long-term is off as well. Pupils are 3mm bilaterally and reactive to light. Extraocular eye muscles are intact without nystagmus. Visual acuity and visual diamond seem normal grossly to confrontation. There are no deficits to sensation of the face bilaterally. Corneal reflexes are positive bilaterally. Facial strength and symmetry is normal bilaterally. Hearing seems intact grossly to voice. Palate moves well without asymmetry. There is normal sternocleidomastoid and trapezius strength bilaterally. Tongue is midline with good strength bilaterally. Neck is with full range of motion without discomfort. There are no cervical bruits. There are no cranial or ocular bruits. Heart is without murmur. Cervical, thoracic, and lumbar spine are nontender to palpation. Gait not tested. Stance sitting up in bed with legs dangling the patient was woozy and vertiginous and felt to the left. She did not have nystagmus when sitting upright. Was very difficult for her to maintaining sitting up stance by herself. With outstretched arms there is no drift. There are no resting, postural, or action tremors. There is no ataxia with [id number] testing. There is good facility in the hands. There are no abnormal involuntary movements noted. Motor strength is 5/5 diffusely in the arms bilaterally including deltoids, biceps, brachioradialis, wrist flexors and extensors, welfare investigator, and intrinsic hand muscles. Motor strength is 5/5 diffusely in the legs bilaterally including hip flexors, quadriceps, hamstring, gastrocnemius, tibialis anterior, tibialis posterior, and peroneii muscles bilaterally. Toe extensors are normal and there is good bulk in the extensor digitorum brevis muscle bilaterally. The limbs have good tone without rigidity or spasticity, and there is no atrophy noted. Muscle bulk is normal, there is no tenderness, no myotonia noted to percussion, and no fasciculations seen. Sensory examination is intact to pin and touch throughout all four limbs. Reflexes are 1/4 in the biceps, triceps, brachioradialis, quadriceps, and Achilles tendons bilaterally. Toes are downgoing with plantar stimulation bilaterally. Peripheral pulses are present and of normal quality distally in all four limbs. There is no peripheral edema noted. Laboratory Results Past 24 Hours: 05/04/17 05:34 Red Blood Count 3.75, Mean Corpuscular Volume 90.1, Mean Corpuscular Hemoglobin 29.9, Mean Corpuscular Hemoglobin Concent 33.1, Mean Platelet Volume 9.1, Neutrophils (%) (Auto) 70.5, Lymphocytes (%) (Auto) 19.0, Monocytes (%) (Auto) 10.1, Eosinophils (%) (Auto) 0.1, Basophils (%) (Auto) 0.2, Neutrophils # (Auto ) 5.70, Lymphocytes # (Auto) 1.54, Monocytes # (Auto) 0.82, Eosinophils # (Auto ) 0.01, Basophils # (Auto) 0.02 05/04/17 05:34 Test 05/04/17 05:34 White Blood Count 8.10 K/uL (4.8-10.8) Red Blood Count 3.75 M/uL (4.2-5.4) Hemoglobin 11.2 g/dL (12.0-16.0) Hematocrit 33.8 % (37-47) Mean Corpuscular Volume 90.1 fL (80-100) Mean Corpuscular Hemoglobin 29.9 pg (25-34) Mean Corpuscular Hemoglobin Concent 33.1 g/dl (32-36) Platelet Count 316 K/uL (130-400) Mean Platelet Volume 9.1 fL (7.4-10.4) Neutrophils (%) (Auto) 70.5 % Lymphocytes (%) (Auto) 19.0 % Monocytes (%) (Auto) 10.1 % Eosinophils (%) (Auto) 0.1 % Basophils (%) (Auto) 0.2 % Neutrophils # (Auto) 5.70 K/uL (1.4-6.5) Lymphocytes # (Auto) 1.54 K/uL (1.2-3.4) Monocytes # (Auto) 0.82 K/uL (0.11-0.59) Eosinophils # (Auto) 0.01 K/uL (0-0.5) Basophils # (Auto) 0.02 K/uL (0-0.2) RDW Standard Deviation 42.6 fL (36.4-46.3) RDW Coefficient of Variation 13.1 % (11.5-14.5) Immature Granulocyte % (Auto) 0.1 % Immature Granulocyte # (Auto) 0.01 K/uL (0.00-0.02) Anion Gap 10.0 mmol/L (3-11) Est Creatinine Clear Calc Drug Dose 64.7 ml/min Estimated GFR () 102.8 Estimated GFR (Non- 88.7 BUN/Creatinine Ratio 17.4 (10-20) Calcium Level 8.5 mg/dl (8.5-10.1) Magnesium Level 1.8 mg/dl (1.8-2.4) Imaging HEAD WITHOUT CONTRAST (CT) CLINICAL HISTORY: 77 years-old Female with AMS, seizure. Acute altered mental status with seizure. TECHNIQUE: Multiple axial CT images of the head were obtained without contrast. A dose lowering technique was utilized adhering to the principles of ALARA. CT DOSE: 537.48 mGy.cm COMPARISON: CT head 02/17/2017, MRI brain 02/17/2017. FINDINGS: No acute intracranial hemorrhage, midline shift, intracranial mass, hydrocephalus, territorial ischemia or abnormal extra-axial collection. Mild to moderate atrophy with extensive chronic microvascular ischemic changes. Ex vacuo ventriculomegaly. The calvarium is intact. The paranasal sinuses, mastoid air cells, and middle ear cavities are clear. IMPRESSION: No acute intracranial abnormality. The above report was generated using voice recognition software. It may contain grammatical, syntax or spelling errors. Electronically signed by: Ray Martinez M.D. 05/03/2017 9:01 AM Impression 1. Generalized seizures There really is no specific etiology to the seizures, either back in February or currently. Possible etiologies include history of small vessel ischemic disease that was seen on MRI as a risk factor for stroke. In addition individuals with dementia are at higher risk for seizures. Medications such as Seroquel will lower seizure threshold and put patient is at risk as well. The recent seizures happened after she was taken off Keppra. Unfortunately, although Lamictal is an anticonvulsant (she is on 100 milligrams once daily), the dose was not increased from baseline. Currently, she is stable on levetiracetam 1000 milligrams twice a day. Today she is stable although I believe she has confusion from postictal state and Ativan 2. Acute encephalopathy. This is secondary to postictal state and benzodiazepine usage. She has an underlying dementia and any triggering factors such as above will tend to make a patient like this more confused easier. 3. Dementia This is [id number] and likely multifactorial being vascular as well as medication and age. 4. Parkinson's disease by history. Patient has no resting tremor, bradykinesia, or rigidity of significance today. The patient is on low-dose Sinemet which could be masking these and which case the Parkinson's disease would be quite mild. Alternatively, she has a parkinsonism secondary to Seroquel or multi-infarct disease. 5. Chronic pain. I am uncertain how much chronic pain this patient has as she is very asthenic today and quick to describe pain but is never very specific in spots. This is probably part of her confusional state. 6. Moderate old small vessel ischemic disease seen by MRI in February 2017 Plan 1. Avoid benzodiazepines if possible to allow her mental status to clear. 2. Continue levetiracetam 1000 milligrams twice daily for now. 3. Increase Lamictal to 50 milligrams in the morning and 100 milligrams at night , for 1 week then increase to 100 milligrams twice daily. 4. I am not certain about the patient's Seroquel and carbidopa/levodopa. These medicines would be best adjusted as an outpatient. For now, I would keep them the same as she has been taking. 5. Increase activity as able and consider physical therapy. The patient has not outpatient neurologist that cares for her in [place], Dr. Dyer. I recommend follow up with her. If the patient wants to follow-up with Jennifer Bolton, that she should see Dr. Stark who saw her in February. The overall, I spent a total of 75 minutes with the patient in direct patient care. This includes records review, direct evaluation the patient, discussion with family, and discussion with the patient's physician Dr. Wells.
[2017-05-04] MEDS ORDERED: OPTIRAY 320 IV PRN (11:15)
--- NOTE | 2017-05-04 12:04 | EEG Procedure Note ---
EEG Procedure Note Date of Service May 04, 2017. Start / End Times Start Time: 6:43 AM End Time: 7:03 AM Referring Physician García Kat History This is a 77-year-old female who presents with seizure-like activity. EEG for further evaluation of seizure etiology Home Medication List Scheduled Amlodipine Besylate (Norvasc), 5 MG PO QAM Bimatoprost (Lumigan), 1 DROP OPB HS Brimonidine Tartrate-Timolol M (Combigan), 1 DROP OPB BID Carvedilol (Carvedilol), 3.125 MG PO BID Clonazepam (Klonopin), 0.5 MG PO AMPM Ezetimibe (Zetia), 10 MG PO HS Lamotrigine (Lamictal), 100 MG PO QAM Levodopa/Carbidopa (Sinemet 25MG/100MG), 1 TAB PO TID Polyethylene (Miralax), 17 GM PO DAILY Potassium Ext Rel (Klor-Con), 15 MEQ PO BID Scheduled PRN Furosemide (Lasix), 40 MG PO QAM PRN for WATER RETENTION Inpatient Medication List Current Inpatient Medications Medications (Trade) Dose Ordered Sig/Naeem Route Start Time Stop Time Status Last Admin Dose Admin Ioversol (Optiray 320) 100 ml UD PRN IV 05/03/17 10:15 05/07/17 10:14 Enoxaparin Sodium (Lovenox Inj) 40 mg DAILY@1600 SC 05/03/17 16:00 06/02/17 15:59 05/03/17 16:43 40 MG Ondansetron HCl (Zofran Inj) 4 mg Q6H PRN IV 05/03/17 12:45 06/02/17 12:44 Levetiracetam 1000 mg/Dextrose 110 ml @ 440 mls/hr Q12 IV 05/03/17 21:00 06/02/17 20:59 05/04/17 09:21 440 MLS/HR Lorazepam (Ativan Inj) 2 mg Q1H PRN IV 05/03/17 12:45 06/02/17 12:44 Metoprolol Tartrate (Lopressor Iv) 5 mg Q6 PRN IV 05/03/17 13:00 06/02/17 12:59 Lorazepam 2 mg/ Syringe 2 ml @ 1 mls/min Q1H PRN IV 05/03/17 14:45 2/17/18 14:44 Potassium Chloride 20 meq/ Sodium Chloride 1,010 ml @ 80 mls/hr [id number] IV 05/04/17 09:00 06/02/17 08:59 05/04/17 09:30 80 MLS/HR Ioversol (Optiray 320) 100 ml UD PRN IV 05/04/17 11:15 05/08/17 11:14 Description This is a 21 electrode EEG with a single channel dedicated to limited EKG. The electrodes were placed in accordance with the International 10-20 system. At the start of this recording the patient is an reported altered mental status. Background is poorly organized with no well formed anterior to posterior gradient. Background is composed of symmetric moderate amplitude predominantly 6-7 Hz theta frequencies with intermixed delta and rare alpha frequencies. Hyperventilation was not done. Photic stimulation at various frequencies did not produce any abnormalities. There was no state changes or sleep transients. Interpretation This is an abnormal routine EEG secondary to moderate background disorganization and slowing. There was no electrographic seizures or epileptiform discharges. Clinical Correlation This EEG indicates moderate encephalopathy of nonspecific etiology.
--- NOTE | 2017-05-04 12:44 | DIAGNOSTIC IMAGING REPORT ---
ABDOMEN AND PELVIS CT WITH IV CONTRAST CT DOSE: 357.95 mGy.cm HISTORY: constipation, s/p rectal prolapse repair TECHNIQUE: Multiaxial CT images of the abdomen and pelvis were performed following the use of intravenous contrast. A dose lowering technique was utilized adhering to the principles of ALARA. COMPARISON STUDY: Abdomen and pelvis CT 01/16/2017. FINDINGS: Bibasilar linear densities consistent with subsegmental atelectasis. No pneumoperitoneum. No pneumatosis. Small hiatus hernia. Hyperdense material within the gallbladder favors vicarious excretion of contrast. The liver, spleen, adrenal glands, and pancreas are unremarkable. Bilateral renal hypodense lesions remain stable. The largest is seen within the left kidney and measures 2.2 cm. No hydronephrosis. No retroperitoneal lymphadenopathy. Moderate calcified plaque within the normal caliber abdominal aorta. No evidence for bowel obstruction. Prior midline incision. The uterus is surgically absent. Normal bladder. Small lower midline ventral hernia at the level of the bladder which contains a knuckle of small bowel. This is best seen on image 357. Moderate thickening at the rectum with perirectal fat stranding. No loculated fluid collections to suggest an abscess. Colonic diverticulosis. Large amount well-formed stool seen throughout the colon. IMPRESSION: 1. Large amount of well-formed stool seen throughout the colon consistent with constipation. 2. Moderate thickening of the rectal wall with perirectal fat stranding consistent with a proctitis. 3. Small lower midline ventral hernia which contains a knuckle of small bowel. No evidence for bowel obstruction. 4. Colonic diverticulosis. 5. Additional findings as described above. Electronically signed by: Orlando Plunkett M.D. 05/04/2017 12:43 PM Dictated Date/Time: 05/04/2017 12:29 PM
--- NOTE | 2017-05-04 16:30 | Hospitalist Progress Note ---
Hospitalist Progress Note Date of Service May 04, 2017. (Dixie Pierce PA-C) Subjective Pt evaluation today including: conversation w/ patient, conversation w/ family , physical exam, chart review, lab review, review of studies, review of inpatient medication list Patient seen and evaluated. Admitted yesterday for breakthrough seizures due to cessation of Keppra. No further seizures in-hospital. at bedside and discussed plan. States she was being weaned from Keppra with the plan to increase Lamictal. For some reason the Keppra was weaned but Lamictal was not. Patient cannot contribute to discussion. Only is concerned about her eyes as she has glaucoma according to the and poor vision. She keeps asking repeating questions. Says she feels terrible but cannot elaborate. Constantly says "I don't know" Neurological exam somewhat limited. She does follow commands but during instant print operator and arm strength testing she held on and took a lot of prompting to let go of my hands but instead kept pulling my hands more. No cogwheeling or rigidity noted. Additional Comments: Deferred as patient only says "i dont know" and that she feels bad. Asking about her eye doctor. (Dixie Pierce, FREDERICC) Medications Current Inpatient Medications Medications (Trade) Dose Ordered Sig/Naeem Route Start Time Stop Time Status Last Admin Dose Admin Ioversol (Optiray 320) 100 ml UD PRN IV 05/03/17 10:15 05/07/17 10:14 Enoxaparin Sodium (Lovenox Inj) 40 mg DAILY@1600 SC 05/03/17 16:00 06/02/17 15:59 05/03/17 16:43 40 MG Ondansetron HCl (Zofran Inj) 4 mg Q6H PRN IV 05/03/17 12:45 06/02/17 12:44 Levetiracetam 1000 mg/Dextrose 110 ml @ 440 mls/hr Q12 IV 05/03/17 21:00 06/02/17 20:59 05/04/17 09:21 440 MLS/HR Lorazepam (Ativan Inj) 2 mg Q1H PRN IV 05/03/17 12:45 06/02/17 12:44 Metoprolol Tartrate (Lopressor Iv) 5 mg Q6 PRN IV 05/03/17 13:00 06/02/17 12:59 Lorazepam 2 mg/ Syringe 2 ml @ 1 mls/min Q1H PRN IV 05/03/17 14:45 06/02/17 14:44 Potassium Chloride 20 meq/ Sodium Chloride 1,010 ml @ 80 mls/hr [id number] IV 05/04/17 09:00 06/02/17 08:59 05/04/17 09:30 80 MLS/HR Ioversol (Optiray 320) 100 ml UD PRN IV 05/04/17 11:15 05/08/17 11:14 Amlodipine Besylate (Norvasc Tab) 5 mg QAM PO 05/05/17 09:00 06/04/17 08:59 Carvedilol (Coreg Tab) 3.125 mg BID PO 05/04/17 21:00 06/03/17 20:59 EZETIMIBE (Zetia Tab) 10 mg HS PO 05/04/17 21:00 06/03/17 20:59 Carbidopa/Levodopa (Sinemet 25/ 100MG Tab) 1 tab TID PO 05/04/17 21:00 06/03/17 20:59 Polyethylene (Miralax Powder Packet) 17 gm DAILY PO 05/05/17 09:00 06/04/17 08:59 Bimatoprost (Lumigan 0.01%) 1 drops HS OPB 05/04/17 21:00 06/03/17 20:59 Brimonidine/ Timolol (Combigan Oph Soln) 1 drops BID OPB 05/04/17 21:00 06/03/17 20:59 Lamotrigine (Lamictal Tab) 50 mg QAM PO 05/05/17 09:00 06/04/17 08:59 Lamotrigine (Lamictal Tab) 100 mg HS PO 05/04/17 21:00 06/03/17 20:59 (Dixie Pierce, IMER) Objective Vital Signs Date Time Temp Pulse Resp B/P (MAP) Pulse Ox O2 Delivery O2 Flow Rate FiO2 05/04/17 16:01 37.1 73 18 163/81 (108) 95 05/04/17 15:45 98 Nasal Cannula 2.0 05/04/17 12:15 36.7 69 20 162/73 (102) 98 05/04/17 11:40 98 Nasal Cannula 2.0 05/04/17 08:00 98 Nasal Cannula 2.0 05/04/17 07:55 36.9 73 20 147/79 (101) 98 05/04/17 05:05 36.8 66 16 138/69 (92) 99 Nasal Cannula 2.0 05/04/17 04:00 Nasal Cannula 2.0 05/04/17 00:00 Nasal Cannula 2.0 05/03/17 23:45 36.9 82 20 134/71 (92) 95 Nasal Cannula 2.0 05/03/17 20:00 100 Nasal Cannula 2.0 05/03/17 19:29 36.6 77 18 155/74 (101) 98 05/03/17 19:17 36.7 50 19 135/79 (97) 98 Nasal Cannula 2.0 (Dixie Pierce PA-C) Physical Exam General Appearance: no apparent distress, + thin Eyes: sclerae normal ENT: hearing grossly normal Neck: supple, no JVD, trachea midline Respiratory/Chest: lungs clear, normal breath sounds, no respiratory distress, no accessory muscle use Cardiovascular: regular rate, rhythm, no gallop, no murmur Abdomen: normal bowel sounds, non tender, soft Extremities: no pedal edema, no calf tenderness Neurologic/Psychiatric: alert, + depressed affect, + disoriented, + pertinent finding (difficult with complete neurological exam, no overt one sided deficits ; no cogwheeling or rigidity appreciated) Skin: normal color (Dixie Pierce PA-C) Laboratory Results Last 24 Hours Test 05/04/17 05:34 White Blood Count 8.10 K/uL Red Blood Count 3.75 M/uL Hemoglobin 11.2 g/dL Hematocrit 33.8 % Mean Corpuscular Volume 90.1 fL Mean Corpuscular Hemoglobin 29.9 pg Mean Corpuscular Hemoglobin Concent 33.1 g/dl Platelet Count 316 K/uL Mean Platelet Volume 9.1 fL Neutrophils (%) (Auto) 70.5 % Lymphocytes (%) (Auto) 19.0 % Monocytes (%) (Auto) 10.1 % Eosinophils (%) (Auto) 0.1 % Basophils (%) (Auto) 0.2 % Neutrophils # (Auto) 5.70 K/uL Lymphocytes # (Auto) 1.54 K/uL Monocytes # (Auto) 0.82 K/uL Eosinophils # (Auto) 0.01 K/uL Basophils # (Auto) 0.02 K/uL RDW Standard Deviation 42.6 fL RDW Coefficient of Variation 13.1 % Immature Granulocyte % (Auto) 0.1 % Immature Granulocyte # (Auto) 0.01 K/uL Sodium Level 139 mmol/L Potassium Level 3.1 mmol/L Chloride Level 105 mmol/L Carbon Dioxide Level 24 mmol/L Anion Gap 10.0 mmol/L Blood Urea Nitrogen 10 mg/dl Creatinine 0.56 mg/dl Est Creatinine Clear Calc Drug Dose 64.7 ml/min Estimated GFR () 102.8 Estimated GFR (Non- 88.7 BUN/Creatinine Ratio 17.4 Random Glucose 88 mg/dl Calcium Level 8.5 mg/dl Magnesium Level 1.8 mg/dl (Dixie Pierce, PA-C) Assessment and Plan 77 yo female with recurrent seizures after stopping Keppra two days prior to admission Recurrent Seizures: - Suspect this is iatrogenic given recent cessation of Keppra. Per family, the plan was to increase Lamictal in response to the Keppra taper but this was not completed - EEG - reveals moderate encephalopathy of unspecified etiology - Continue Keppra 1000 mg IV BID - NSS + 20 mEq KCl at 80 mL/hr - Lamictal 50 mg in AM and 100 mg HS x 1 week then increase to Lamictal 100 mg BID - Per neurology note - patient is on Seroquel as well - will need to verify with family - Neurology following - recommendations as above - avoid benzodiazepines when possible Acute Encephalopathy: Mixed Etiology - Suspect mixture of Parkinsons, Dementia, Bipolar Disorder, Hospital-Delirium, Benzodiazepines... - Given visual deficits this could also worsen delirium Acute Hypoxia 2/2 Seizure/Respiratory Suppression from Ativan: - Wean O2 as tolerated - maintain saturations > 90% Parkinsons: STABLE - Sinemet 1 tab TID Bipolar D/O: STABLE - Continue Lamictal - will need to verify Seroquel HTN and HLD: - Amlodipine 5 mg daily and Coreg 3.125 mg BID - Zetia 10 mg daily Glaucoma/Vision Deficits: - Bimatoprost 1 gtt HS and Brimonidine Tartrate-Timolol 1 gtt BID Rectal Prolapse: - CT supports large amounts of stool - continue Miralax daily - may need to get more aggressive if this does not work DVT Prophylaxis: Lovenox 40 mg SC daily Code Status: FULL RESUSCITATION Disposition: - PT/OT evaluations - Increase Lamictal and monitor Continued [facility] stay due to: multiple IV medications needed Discharge planning: uncertain (Dixie Pierce, PATulioC) Attending Attestation: Pt seen/examined, chart reviewed, care plan d/w GERDA Pierce. I agree w/ the hammond components of her documentation. Pt is awake/alert during my visit but quite confused. 2 daughters and a grand-daughter are at bedside. They confirm she has severe memory difficulty and that she is at baseline. She lives with her independently but has 3-4 falls each day. She just "goes out" when she walks and falls to the ground. No seizures per staff. VSS BPs labile however gen - nad, pleasantly confused neck - no JVD heart - RRR lungs - CTA b/l abd - soft, NT, ND, BS+ ext - no edema neuro - strength 5/5 x 4 exts labs - K 3.1 A/P: 1. seizure d/o - recurrent seizures 2nd to coming off keppra. No recurrent seizures since keppra loading. Appreciate neuro consultation. Increase lamictal to 50 qam, 100 pm. 2. thiamine def - in February 2017 she had level <7 - start thiamine 200 BID; could be contributing to memory issues. 3. dementia 4. acute hypoxic resp failure 2nd to #1 - resolved. 5. question of encephalopathy in setting of #3 - resolved. replace K possible d/c tomorrow Zoltan Wells MD (Zoltan Wells MD)
[2017-05-04] MEDS: ENOXAPARIN 40 MG/0.4 ML SYR SC SCH (16:36)
[2017-05-04] MEDS ORDERED: BISACODYL 5 MG TABEC PO ONE (18:30)
[2017-05-04] MEDS: BIMATOPROST 0.01% OP SOLN 2.5 ML BTL OPB SCH (20:38)
[2017-05-04] MEDS: BRIMONIDINE TARTRATE TIMOLOL M OPB SCH (20:40)
[2017-05-04] MEDS: CARVEDILOL 3.125 MG TAB PO SCH (20:41)
[2017-05-04] MEDS: CARBIDOPA/LEVODOPA 25/100MG TAB PO SCH (20:41)
[2017-05-04] MEDS: POLYETHYLENE (MIRALAX) 17 GM PACK PO SCH (20:42)
[2017-05-04] MEDS: EZETIMIBE 10MG TAB PO SCH (20:42)
[2017-05-04] MEDS: THIAMINE HCL 100 MG TAB PO SCH (20:43)
[2017-05-05] VITALS (17 sets, daily range): BP systolic 98–194; BP diastolic 59–114; PULSE 55–95; TEMP 36.3–37.3; O2SAT 92–98
[2017-05-05] MEDS: THIAMINE HCL 100 MG TAB PO SCH ×2 (08:08→21:19)
--- NOTE | 2017-05-05 08:08 | Neurology Progress Notes ---
Neurology Progress Note Date of Service May 05, 2017. Subjective The patient, again, complains of pain in general but cannot be specific to a spot. She feels confused. EEG showed moderate generalized slowing of a nonspecific nature. CT scan of the abdomen and pelvis showed changes consistent with constipation, proctitis, lower midline ventral hernia, and diverticulosis. Nursing reports no further seizures or other events although she was confused last night. Fortunately, she received no Ativan in addition. Objective Date Time Temp Pulse Resp B/P (MAP) Pulse Ox O2 Delivery O2 Flow Rate FiO2 05/05/17 07:36 36.6 67 20 189/87 (121) 95 05/05/17 07:30 98 Room Air 05/05/17 04:00 96 Room Air 05/05/17 03:55 36.8 58 18 161/76 (104) 94 Room Air 05/05/17 00:23 96 Room Air 05/05/17 00:18 36.3 72 20 165/82 (109) 92 Room Air 05/04/17 22:51 36.6 76 18 134/76 (95) 93 05/04/17 20:44 72 148/72 (97) 05/04/17 20:00 96 Room Air 05/04/17 19:51 36.4 65 18 163/78 (106) 96 Room Air 69 155/85 (108) 80 176/92 (120) 05/04/17 16:01 37.1 73 18 163/81 (108) 95 05/04/17 15:45 98 Nasal Cannula 2.0 05/04/17 12:15 36.7 69 20 162/73 (102) 98 05/04/17 11:40 98 Nasal Cannula 2.0 05/04/17 08:00 98 Nasal Cannula 2.0 Exam: Actually, she is calmer than she was yesterday. She has less restless/ agitated. She follows commands well and is cooperative. She has mild dementia as before. Extraocular muscles are intact without nystagmus. There is no facial droop. Motor strength seems symmetrical in all 4 limbs. There are no abnormal involuntary movements seen. Current Inpatient Medications Medications (Trade) Dose Ordered Sig/Naeem Route Start Time Stop Time Status Last Admin Dose Admin Ioversol (Optiray 320) 100 ml UD PRN IV 05/03/17 10:15 05/07/17 10:14 Enoxaparin Sodium (Lovenox Inj) 40 mg DAILY@1600 SC 05/03/17 16:00 06/02/17 15:59 05/04/17 16:36 40 MG Ondansetron HCl (Zofran Inj) 4 mg Q6H PRN IV 05/03/17 12:45 06/02/17 12:44 Levetiracetam 1000 mg/Dextrose 110 ml @ 440 mls/hr Q12 IV 05/03/17 21:00 06/02/17 20:59 05/04/17 20:35 440 MLS/HR Lorazepam (Ativan Inj) 2 mg Q1H PRN IV 05/03/17 12:45 06/02/17 12:44 Metoprolol Tartrate (Lopressor Iv) 5 mg Q6 PRN IV 05/03/17 13:00 06/02/17 12:59 Lorazepam 2 mg/ Syringe 2 ml @ 1 mls/min Q1H PRN IV 05/03/17 14:45 06/02/17 14:44 Ioversol (Optiray 320) 100 ml UD PRN IV 05/04/17 11:15 05/08/17 11:14 Amlodipine Besylate (Norvasc Tab) 5 mg QAM PO 05/05/17 09:00 06/04/17 08:59 Carvedilol (Coreg Tab) 3.125 mg BID PO 05/04/17 21:00 06/03/17 20:59 05/04/17 20:41 3.125 MG EZETIMIBE (Zetia Tab) 10 mg HS PO 05/04/17 21:00 06/03/17 20:59 05/04/17 20:42 10 MG Carbidopa/Levodopa (Sinemet 25/ 100MG Tab) 1 tab TID PO 05/04/17 21:00 06/03/17 20:59 05/04/17 20:41 1 TAB Bimatoprost (Lumigan 0.01%) 1 drops HS OPB 05/04/17 21:00 06/03/17 20:59 05/04/17 20:38 1 DROPS Brimonidine/ Timolol (Combigan Oph Soln) 1 drops BID OPB 05/04/17 21:00 06/03/17 20:59 1/19/18 20:40 1 DROPS Lamotrigine (Lamictal Tab) 50 mg QAM PO 05/05/17 09:00 06/04/17 08:59 Lamotrigine (Lamictal Tab) 100 mg HS PO 05/04/17 21:00 06/03/17 20:59 05/04/17 20:42 100 MG Polyethylene (Miralax Powder Packet) 17 gm BID PO 05/04/17 21:00 06/04/17 08:59 05/04/17 20:42 17 GM Thiamine HCl (Vitamin B-1 Tab) 200 mg BID PO 05/04/17 21:00 06/03/17 20:59 05/04/17 20:43 200 MG Impression 1. Generalized seizures, but none since admission. There really is no specific etiology to the seizures, either back in February or currently, however, possible etiologies include history of small vessel ischemic disease that was seen on MRI as a risk factor for stroke. In addition individuals with dementia are at higher risk for seizures. Medications such as Seroquel will lower seizure threshold and put patient is at risk as well. The recent seizures happened after she was taken off Keppra. Unfortunately, although Lamictal is an anticonvulsant (she is on 100 milligrams once daily), the dose was not increased from baseline. Currently, she is stable on levetiracetam 1000 milligrams twice a day. Today she is stable although I believe she still has some confusion from postictal state and Ativan 2. Acute encephalopathy. This is secondary to postictal state and benzodiazepine usage -this may take a few days to really clear She has an underlying dementia and any triggering factors such as above will tend to make a patient like this more confused easier. 3. Dementia This is [id number] and likely multifactorial being vascular as well as medication and age. 4. Parkinson's disease by history. Patient has no resting tremor, bradykinesia, or rigidity of significance today. The patient is on low-dose Sinemet which could be masking these and which case the Parkinson's disease would be quite mild. Alternatively, she has a parkinsonism secondary to Seroquel or multi-infarct disease. 5. Chronic pain. I am uncertain how much chronic pain this patient has as she is very asthenic today and quick to describe pain but is never very specific in spots. This is probably part of her confusional state. 6. Moderate old small vessel ischemic disease seen by MRI in February 2017 Plan 1. Continue to avoid benzodiazepines, to allow her mental status to clear. 2. Continue levetiracetam 1000 milligrams twice daily for now. 3. Keep Lamictal 50 milligrams in the morning and 100 milligrams at night for 1 week, then increase to 100 milligrams twice daily. 4. I am not certain about the patient's Seroquel and carbidopa/levodopa. These medicines would be best adjusted as an outpatient. For now, I would keep them the same as she has been taking. 5. Increase activity as able and consider physical therapy. The patient has not outpatient neurologist that cares for her in [place], Dr. Dyer. I recommend follow up with her. If the patient wants to follow-up with Jennifer Bolton, that she should see Dr. Stark who saw her in February. I really have no further neurologic testing or treatment recommendations to make on this patient. Please contact me if I can be of further assistance otherwise.
[2017-05-05] MEDS: CARVEDILOL 3.125 MG TAB PO SCH ×2 (08:09→21:19)
[2017-05-05] MEDS: POLYETHYLENE (MIRALAX) 17 GM PACK PO SCH ×2 (08:09→21:18)
[2017-05-05] MEDS: AMLODIPINE BESYLATE 5 MG TAB PO SCH (08:09)
[2017-05-05] MEDS: CARBIDOPA/LEVODOPA 25/100MG TAB PO SCH ×3 (08:10→21:19)
[2017-05-05] MEDS: BRIMONIDINE TARTRATE TIMOLOL M OPB SCH ×2 (08:11→21:10)
[2017-05-05] MEDS: LEVETIRACETAM IV 1,000 MG in DEXTROSE 5% 100ML 100 ML IV SCH ×2 (08:45→21:06)
[2017-05-05] MEDS ORDERED: POLYETHYLENE (MIRALAX) 17 GM PACK PO SCH (09:00)
[2017-05-05 10:11] LABS: CALCIUM 9.5 mg/dl (8.5-10.1); CREATININE 0.66 mg/dl (0.60-1.20); POTASSIUM 3.2 mmol/L (3.5-5.1)
[2017-05-05] MEDS ORDERED: POTASSIUM CHLORIDE 10 MEQ TABCR PO STA (10:49)
[2017-05-05] MEDS: ENOXAPARIN 40 MG/0.4 ML SYR SC SCH (16:35)
[2017-05-05] MEDS ORDERED: MAGNESIUM HYDROXIDE SUSP 30 ML UDC PO ONE (19:15)
[2017-05-05] MEDS: BIMATOPROST 0.01% OP SOLN 2.5 ML BTL OPB SCH (21:09)
[2017-05-05] MEDS: EZETIMIBE 10MG TAB PO SCH (21:19)
[2017-05-06 04:10] VITALS: BP 142/72; PULSE 58; TEMP 36.8; O2SAT 94
--- NOTE | 2017-05-06 07:43 | Progress Note ---
Subjective Date of Service: May 05, 2017. Subjective Pt evaluation today including: conversation w/ patient, physical exam, chart review, lab review, review of inpatient medication list Pain: occasional abd pain PO Intake: fair Voiding: incontinence very confused during my visit telling me that "I knew the [place] during WW [place]" and "I know that you know my great, great, great grandson" unable to give any meaningful history or ROS Problem List Medical Problems: (1) Abdominal pain Status: Acute (2) Bleeding internal hemorrhoids Status: Acute (3) GI bleed Status: Acute (4) Lower GI bleed Status: Acute (5) Microcytic anemia Status: Acute (6) Proctitis Status: Acute (7) Rectal bleed Status: Acute (8) Rectal prolapse Status: Acute (9) Recurrent seizures Status: Acute Objective Vital Signs Date Time Temp Pulse Resp B/P (MAP) Pulse Ox O2 Delivery O2 Flow Rate FiO2 05/05/17 21:16 142/81 (101) 05/05/17 20:00 96 Room Air 05/05/17 19:42 36.8 70 16 137/80 (99) 96 Room Air 2.0 95 172/89 (116) 81 153/85 (107) 05/05/17 19:22 36.8 70 16 137/80 (99) 96 Room Air 05/05/17 17:51 64 151/72 (98) 05/05/17 16:13 36.5 71 20 194/114 (140) 95 Room Air 05/05/17 16:00 96 Room Air 05/05/17 15:35 74 96 05/05/17 13:15 37.3 69 20 164/79 (107) 97 05/05/17 12:00 98 Room Air 05/05/17 07:36 36.6 67 20 189/87 (121) 95 05/05/17 07:30 98 Room Air 05/05/17 04:00 96 Room Air 05/05/17 03:55 36.8 58 18 161/76 (104) 94 Room Air 05/05/17 00:23 96 Room Air 05/05/17 00:18 36.3 72 20 165/82 (109) 92 Room Air 05/04/17 22:51 36.6 76 18 134/76 (95) 93 Physical Exam General Appearance: no apparent distress ENT: pharynx normal Neck: no JVD Respiratory/Chest: lungs clear, no respiratory distress, no accessory muscle use Cardiovascular: regular rate, rhythm, no gallop, no murmur Abdomen: normal bowel sounds, non tender, soft, no organomegaly, + distended ( mild), + pertinent finding (able to feel mesh in the anterior abdominal wall from prior hernia repair) Extremities: no pedal edema Neurologic/Psychiatric: + pertinent finding (awake, alert, but disoriented with tangential speech and sentences that do not make sense) Laboratory Results Last 24 Hours Test 05/05/17 09:22 Sodium Level 137 mmol/L Potassium Level 3.2 mmol/L Chloride Level 103 mmol/L Carbon Dioxide Level 25 mmol/L Anion Gap 8.0 mmol/L Blood Urea Nitrogen 9 mg/dl Creatinine 0.66 mg/dl Est Creatinine Clear Calc Drug Dose 58.6 ml/min Estimated GFR () 97.4 Estimated GFR (Non- 84.0 BUN/Creatinine Ratio 13.2 Random Glucose 177 mg/dl Calcium Level 9.5 mg/dl Assessment and Plan 77yo female - 1. seizure d/o - recurrent seizures 2nd to coming off keppra. No recurrent seizures since keppra loading. Appreciate neuro consultation. Increased lamictal to 50 qam, 100 pm. Cont keppra 1000mg BID - ok to transition to PO from IV. 2. thiamine def - in February 2017 she had level <7 - started thiamine 200 BID ; could be contributing to memory issues. 3. dementia - according to family; risk factors including long-standing bipolar disorder, etc. 4. acute hypoxic resp failure 2nd to #1 - resolved. 5. toxic/metabolic encephalopathy in setting of #3 and dx of bipolar disorder - suspect ongoing, but I am unsure of patient's baseline. Family reports that she has significant memory loss. 6. severe constipation - senna + miralax + prn milk of mag. 7. h/o rectal prolapse - s/p recent repair. 8. parkinson's disease vs parkinsonism - cont sinemet 9. HTN - labile, likely due to agitation. Cont home meds; adjust as needed; check orthostatics 10. DVT proph - lovenox 40mg daily 11. frequent falls at home - unclear of etiology - due to neuropathy? atypical seizures? other? family reports she "just goes out." Carotid u/s 02/2017 wnl. Consider echo. Tele has been normal. 12. hyperglycemia - check hemoglobin a1c, rule out early DM. 13. hypokalemia - replace, repeat level in AM. pt lives with elderly PT, OT evals to me she is not safe to be living independently due to dementia, falls, etc Continued [facility] stay due to: multiple IV medications needed, home environment unsafe for pt Discharge planning: uncertain
[2017-05-06 08:00] VITALS: BP 184/88; PULSE 77; TEMP 36.7; O2SAT 95
[2017-05-06] MEDS: BRIMONIDINE TARTRATE TIMOLOL M OPB SCH ×2 (08:26→20:50)
[2017-05-06] MEDS: CARVEDILOL 3.125 MG TAB PO SCH ×2 (08:26→20:51)
[2017-05-06] MEDS: AMLODIPINE BESYLATE 5 MG TAB PO SCH (08:27)
[2017-05-06] MEDS: POLYETHYLENE (MIRALAX) 17 GM PACK PO SCH ×2 (08:27→22:10)
[2017-05-06] MEDS: THIAMINE HCL 100 MG TAB PO SCH ×2 (08:28→20:53)
[2017-05-06] MEDS: CARBIDOPA/LEVODOPA 25/100MG TAB PO SCH ×3 (08:28→20:52)
[2017-05-06] MEDS: LEVETIRACETAM 500 MG TAB PO SCH ×2 (08:32→20:51)
[2017-05-06 09:01] LABS: CALCIUM 9.3 mg/dl (8.5-10.1); CREATININE 0.64 mg/dl (0.60-1.20)
[2017-05-06] MEDS ORDERED: QUETIAPINE FUMARATE 25 MG TAB PO ONE (09:15)
[2017-05-06 12:00] VITALS: BP 128/67; PULSE 65; TEMP 36.4; O2SAT 94
[2017-05-06 15:22] VITALS: BP 129/67; PULSE 66; TEMP 36.4; O2SAT 97
[2017-05-06] MEDS: ENOXAPARIN 40 MG/0.4 ML SYR SC SCH (15:55)
[2017-05-06 19:22] VITALS: BP 143/74; PULSE 94; TEMP 36.8; O2SAT 95
[2017-05-06] MEDS: BIMATOPROST 0.01% OP SOLN 2.5 ML BTL OPB SCH (20:50)
[2017-05-06] MEDS: FERROUS SULFATE 325 MG TAB PO SCH (20:51)
[2017-05-06] MEDS: EZETIMIBE 10MG TAB PO SCH (20:53)
[2017-05-06] MEDS ORDERED: QUETIAPINE FUMARATE 25 MG TAB PO SCH (21:00)
--- NOTE | 2017-05-06 21:12 | Progress Note ---
Subjective Date of Service: May 06, 2017. Subjective Pt evaluation today including: conversation w/ patient, conversation w/ family ( at bedside), physical exam, chart review, lab review, review of inpatient medication list Pain: none voiced PO Intake: fair/good Voiding: incontinence tele stable overnight no seizures patient much more calm and less agitated following seroquel this AM during my visit the patient's was at bedside he states that when she was hospitalized in February 2017 her mental status did not return to baseline for about 2 weeks after she had had her seizure then he states that at baseline her memory is fairly intact he is agreeable to rehab for her if it is felt necessary Problem List Medical Problems: (1) Abdominal pain Status: Acute (2) Bleeding internal hemorrhoids Status: Acute (3) GI bleed Status: Acute (4) Lower GI bleed Status: Acute (5) Microcytic anemia Status: Acute (6) Proctitis Status: Acute (7) Rectal bleed Status: Acute (8) Rectal prolapse Status: Acute (9) Recurrent seizures Status: Acute Review of Systems Respiratory: No shortness of breath Cardiac: No chest pain Abdomen: No pain Musculoskeletal: + muscle pain ("all over") Objective Vital Signs Date Time Temp Pulse Resp B/P (MAP) Pulse Ox O2 Delivery O2 Flow Rate FiO2 05/06/17 19:22 36.8 94 20 143/74 (97) 95 Room Air 05/06/17 16:00 Room Air 05/06/17 15:22 36.4 66 20 129/67 (87) 97 Room Air 05/06/17 12:00 36.4 65 16 128/67 (87) 94 Room Air 05/06/17 12:00 Room Air 05/06/17 08:00 36.7 77 18 184/88 (120) 95 Room Air 05/06/17 08:00 Room Air 05/06/17 04:10 36.8 58 20 142/72 (95) 94 Room Air 05/06/17 04:00 Room Air 05/06/17 00:00 Room Air 05/05/17 23:14 36.5 55 20 98/59 (72) 93 Room Air 05/05/17 21:16 142/81 (101) Physical Exam General Appearance: no apparent distress, + pertinent finding (more oriented and more calm today) ENT: pharynx normal Neck: no JVD Respiratory/Chest: lungs clear, no respiratory distress, no accessory muscle use Cardiovascular: regular rate, rhythm, no gallop, no murmur Abdomen: normal bowel sounds, non tender, soft, no organomegaly, + pertinent finding (again mesh is palpated in the central abdomen) Extremities: no pedal edema Neurologic/Psychiatric: alert, + pertinent finding (didn't know the year, but knew she was in [place] in the hospital ) Laboratory Results Last 24 Hours Test 05/06/17 07:58 Sodium Level 138 mmol/L Potassium Level 4.0 mmol/L Chloride Level 104 mmol/L Carbon Dioxide Level 26 mmol/L Anion Gap 8.0 mmol/L Blood Urea Nitrogen 15 mg/dl Creatinine 0.64 mg/dl Est Creatinine Clear Calc Drug Dose 58.8 ml/min Estimated GFR () 98.4 Estimated GFR (Non- 84.9 BUN/Creatinine Ratio 23.2 Random Glucose 108 mg/dl Calcium Level 9.3 mg/dl Magnesium Level 2.2 mg/dl Ferritin 17.8 ng/ml Ammonia 19.8 umol/L Assessment and Plan 77yo female - 1. seizure d/o - recurrent seizures 2nd to recent discontinuation of keppra. No recurrent seizures since keppra loading. Appreciate neuro consultation. Increased lamictal to 50 qam, 100 pm. Cont keppra 1000mg BID. 2. thiamine def - in February 2017 she had level <7 - started thiamine 200 BID ; could be contributing to memory issues. 3. ? cognitive impairment or early dementia - according to her mental status, when not delirious, is fairly intact. reports that neuro in [place] has not mentioned dementia. 4. acute hypoxic resp failure 2nd to #1 - resolved. 5. toxic/metabolic encephalopathy in setting of #3 and dx of bipolar disorder - ongoing, but improved. Seroquel was inadvertantly left off of med list. Will restart today with 25mg now, and 50mg at HS. Then increase to 50mg BID tomorrow. 6. severe constipation - senna + miralax + prn milk of mag. 7. h/o rectal prolapse - s/p recent repair in March. 8. parkinson's disease vs parkinsonism - cont sinemet 9. HTN - labile, likely due to agitation, but improved today. 10. DVT proph - lovenox 40mg daily 11. frequent falls at home - unclear of etiology - due to neuropathy? atypical seizures? other? family reports she "just goes out." orthostatics nl. Carotid u/s 02/2017 wnl. Consider echo. Tele has been normal. Thiamine deficiency causing neuropathy? 12. hyperglycemia - check hemoglobin a1c, rule out early DM. 13. hypokalemia - resolved. PT/OT recommending rehab - agree with such ok with her going to rehab will d/w SW tomorrow Continued [facility] stay due to: home environment unsafe for pt Discharge planning: uncertain
[2017-05-06 23:42] VITALS: BP 103/63; PULSE 57; TEMP 36.2; O2SAT 96
[2017-05-07] VITALS (7 sets, daily range): BP systolic 100–156; BP diastolic 58–75; PULSE 52–85; TEMP 36.3–36.6; O2SAT 95–98
[2017-05-07] MEDS: POLYETHYLENE (MIRALAX) 17 GM PACK PO SCH ×2 (07:29→20:34)
[2017-05-07] MEDS: CARVEDILOL 3.125 MG TAB PO SCH ×2 (07:30→20:35)
[2017-05-07] MEDS: LEVETIRACETAM 500 MG TAB PO SCH ×2 (07:33→20:35)
[2017-05-07] MEDS: CARBIDOPA/LEVODOPA 25/100MG TAB PO SCH ×3 (07:33→20:36)
[2017-05-07] MEDS: QUETIAPINE FUMARATE 25 MG TAB PO SCH ×2 (07:34→20:34)
[2017-05-07] MEDS: THIAMINE HCL 100 MG TAB PO SCH ×2 (07:34→20:37)
[2017-05-07] MEDS: AMLODIPINE BESYLATE 5 MG TAB PO SCH (07:34)
[2017-05-07] MEDS: FERROUS SULFATE 325 MG TAB PO SCH ×2 (07:34→20:34)
[2017-05-07] MEDS: BRIMONIDINE TARTRATE TIMOLOL M OPB SCH ×2 (07:35→20:31)
[2017-05-07 07:51] LABS: HEMOGLOBIN A1C 5.1 % (4.5-5.6)
--- NOTE | 2017-05-07 14:55 | Hospitalist Progress Note ---
Hospitalist Progress Note Date of Service May 07, 2017. (Dixie Pierce PA-C) Subjective Pt evaluation today including: conversation w/ patient, conversation w/ family (brother), physical exam, chart review, lab review, review of studies, review of inpatient medication list Patient seen and evaluated. She is more calm today and can contribute to history. States her falls at home she just "blacks out" states this happens a lot and noone can explain this. She doesn't feel that she is weak or that her legs are the problem. States she would like to go home. Explained that the recommendation is for rehab however she feels that she doesn' t have anything to work on due to her falls are from "blacking out" No further seizure activity during admission. Is tolerating anti-seizures at this time. Constitutional: No fever, No chills Respiratory: No shortness of breath Cardiovascular: No chest pain Abdomen: No pain, No nausea, No vomiting Musculoskeletal: No calf pain Female : No dysuria (Dixie Pierce, FREDERICC) Medications Current Inpatient Medications Medications (Trade) Dose Ordered Sig/Naeem Route Start Time Stop Time Status Last Admin Dose Admin Enoxaparin Sodium (Lovenox Inj) 40 mg DAILY@1600 SC 05/03/17 16:00 06/02/17 15:59 05/06/17 15:55 40 MG Ondansetron HCl (Zofran Inj) 4 mg Q6H PRN IV 05/03/17 12:45 06/02/17 12:44 Lorazepam (Ativan Inj) 2 mg Q1H PRN IV 05/03/17 12:45 06/02/17 12:44 Metoprolol Tartrate (Lopressor Iv) 5 mg Q6 PRN IV 05/03/17 13:00 06/02/17 12:59 Lorazepam 2 mg/ Syringe 2 ml @ 1 mls/min Q1H PRN IV 05/03/17 14:45 06/02/17 14:44 Ioversol (Optiray 320) 100 ml UD PRN IV 05/04/17 11:15 05/08/17 11:14 Amlodipine Besylate (Norvasc Tab) 5 mg QAM PO 05/05/17 09:00 06/04/17 08:59 05/07/17 07:34 5 MG Carvedilol (Coreg Tab) 3.125 mg BID PO 05/04/17 21:00 06/03/17 20:59 05/07/17 07:30 3.125 MG EZETIMIBE (Zetia Tab) 10 mg HS PO 05/04/17 21:00 06/03/17 20:59 05/06/17 20:53 10 MG Carbidopa/Levodopa (Sinemet 25/ 100MG Tab) 1 tab TID PO 05/04/17 21:00 06/03/17 20:59 05/07/17 14:18 1 TAB Bimatoprost (Lumigan 0.01%) 1 drops HS OPB 05/04/17 21:00 06/03/17 20:59 05/06/17 20:50 1 DROPS Brimonidine/ Timolol (Combigan Oph Soln) 1 drops BID OPB 05/04/17 21:00 06/03/17 20:59 05/07/17 07:35 1 DROPS Lamotrigine (Lamictal Tab) 50 mg QAM PO 05/05/17 09:00 06/04/17 08:59 05/07/17 07:29 50 MG Lamotrigine (Lamictal Tab) 100 mg HS PO 05/04/17 21:00 06/03/17 20:59 05/06/17 20:52 100 MG Polyethylene (Miralax Powder Packet) 17 gm BID PO 05/04/17 21:00 06/04/17 08:59 05/06/17 08:27 17 GM Thiamine HCl (Vitamin B-1 Tab) 200 mg BID PO 05/04/17 21:00 06/03/17 20:59 05/07/17 07:34 200 MG Levetiracetam (Keppra Tab) 1,000 mg BID PO 05/06/17 09:00 06/05/17 08:59 05/07/17 07:33 1,000 MG Ferrous Sulfate (Feosol Tab) 325 mg BID PO 05/06/17 21:00 06/05/17 20:59 05/07/17 07:34 325 MG Quetiapine Fumarate (seroQUEL TAB) 50 mg BID PO 05/07/17 09:00 06/05/17 20:59 05/07/17 07:34 50 MG (Dixie Pierce PA-C) Objective Vital Signs Date Time Temp Pulse Resp B/P (MAP) Pulse Ox O2 Delivery O2 Flow Rate FiO2 05/07/17 12:00 Room Air 05/07/17 11:22 36.6 54 20 100/58 (72) 95 Room Air 05/07/17 08:00 Room Air 05/07/17 07:12 36.5 65 20 156/73 (100) 95 Room Air 05/07/17 04:00 Room Air 05/07/17 02:56 36.3 52 20 148/75 (99) 98 Room Air 05/07/17 00:00 Room Air 05/06/17 23:42 36.2 57 18 103/63 (76) 96 Room Air 05/06/17 20:00 Room Air 05/06/17 19:22 36.8 94 20 143/74 (97) 95 Room Air 05/06/17 16:00 Room Air 05/06/17 15:22 36.4 66 20 129/67 (87) 97 Room Air (Dixie Pierce PA-C) Physical Exam General Appearance: no apparent distress Neck: supple, no JVD, trachea midline Respiratory/Chest: lungs clear, normal breath sounds, no respiratory distress, no accessory muscle use Cardiovascular: regular rate, rhythm, no gallop, no murmur Abdomen: normal bowel sounds, non tender Neurologic/Psychiatric: alert, + pertinent finding (oriented to person and place) Skin: normal color, warm/dry (Dixie Pierce, GERDA-C) Assessment and Plan 77 yo female with recurrent seizures after stopping Keppra two days prior to admission Recurrent Seizures: Recent Cessation of Keppra without Increased Lamictal - Suspect this is iatrogenic given recent cessation of Keppra. Per family, the plan was to increase Lamictal in response to the Keppra taper but this was not completed - EEG - reveals moderate encephalopathy of unspecified etiology - Continue Keppra 1000 mg BID - Lamictal 50 mg in AM and 100 mg HS x 1 week then increase to Lamictal 100 mg BID - will be increased on 05/12 - Per neurology note - patient is on Seroquel as well - will need to verify with family - Neurology following - recommendations as above - avoid benzodiazepines when possible Acute Encephalopathy: Mixed Etiology - IMPROVING - Per family, took 2 weeks to normalization with mentation Acute Hypoxia 2/2 Seizure/Respiratory Suppression from Ativan: - Wean O2 as tolerated - maintain saturations > 90% Parkinsons: STABLE - Sinemet 1 tab TID Bipolar D/O: STABLE - Continue Lamictal and Seroquel 50 mg BID HTN and HLD: - Amlodipine 5 mg daily and Coreg 3.125 mg BID - Zetia 10 mg daily Glaucoma/Vision Deficits: - Bimatoprost 1 gtt HS and Brimonidine Tartrate-Timolol 1 gtt BID Rectal Prolapse: - CT supports large amounts of stool - continue Miralax daily - may need to get more aggressive if this does not work DVT Prophylaxis: Lovenox 40 mg SC daily Code Status: FULL RESUSCITATION Disposition: - PT recommending acute rehab - patient is unsure about this (Dixie Pierce, PA-C) Attending Attestation: Pt seen/examined, chart reviewed, care plan d/w GERDA Pierce. I agree w/ the hammond components of her documentation. tele stable overnight pt knew she was "in [facility]" during my visit but could not tell me the day of the week knew the year however c/o mild abdominal discomfort CNAs report she is stooling "smears" frequently but no good bowel movement actually VSS no fever gen - NAD heart - RRR lungs - CTA b/l abd - soft, NT, ND, mesh palpable in abdominal wall ext - no edema psych - much more alert, oriented today A/P: 1. seizure d/o - stable on lamictal/keppra. Had recent breakthrough seizures due to cessation of keppra. 2. toxic/metabolic encephalopathy - from ativan for seizures and metabolic from the seizures themselves. much improved. cont supportive care. 3. severe constipation - add senna for bowel maint. mag citrate 150cc x 1 to have a really good clean-out. 4. h/o rectal prolapse s/p repair 04/10/17. Recent CT abd/pelvis with rectal inflammation - this is from recent surgery. 5. thiamine def - replace. 6. gait disturbance, falls, syncope - recurrent - check echo to r/o cardiac cause of falls/syncope. PT, OT recommending rehab, but she has improved to a degree Luis Eduardo FERNANDEZ MD (Zoltan Fernandez MD)
[2017-05-07] MEDS: ENOXAPARIN 40 MG/0.4 ML SYR SC SCH (16:10)
[2017-05-07] MEDS ORDERED: MAGNESIUM CITRATE 296 ML/BTL PO ONE (19:15)
[2017-05-07] MEDS: BIMATOPROST 0.01% OP SOLN 2.5 ML BTL OPB SCH (20:31)
[2017-05-07] MEDS: EZETIMIBE 10MG TAB PO SCH (20:37)
[2017-05-08 03:49] VITALS: BP 168/77; PULSE 64; TEMP 36.7; O2SAT 95
[2017-05-08 06:57] VITALS: BP 204/98; PULSE 72; TEMP 36.2; O2SAT 97
[2017-05-08 08:00] VITALS: O2SAT 97
[2017-05-08] MEDS: FERROUS SULFATE 325 MG TAB PO SCH (08:51)
[2017-05-08] MEDS: THIAMINE HCL 100 MG TAB PO SCH (08:52)
[2017-05-08] MEDS: AMLODIPINE BESYLATE 5 MG TAB PO SCH (08:52)
[2017-05-08] MEDS: CARBIDOPA/LEVODOPA 25/100MG TAB PO SCH ×2 (08:52→13:19)
[2017-05-08] MEDS: LEVETIRACETAM 500 MG TAB PO SCH (08:53)
[2017-05-08] MEDS: POLYETHYLENE (MIRALAX) 17 GM PACK PO SCH (08:53)
[2017-05-08] MEDS: QUETIAPINE FUMARATE 25 MG TAB PO SCH (08:54)
[2017-05-08] MEDS: BRIMONIDINE TARTRATE TIMOLOL M OPB SCH (08:55)
[2017-05-08] MEDS: CARVEDILOL 3.125 MG TAB PO SCH (08:55)
[2017-05-08] MEDS ORDERED: SENNA 8.6 MG TAB PO SCH (09:00)
[2017-05-08 09:28] LABS: CALCIUM 9.4 mg/dl (8.5-10.1); CREATININE 0.84 mg/dl (0.60-1.20); POTASSIUM 3.8 mmol/L (3.5-5.1)
[2017-05-08 12:00] VITALS: O2SAT 97
[2017-05-08 14:53] VITALS: BP 144/68; PULSE 72; TEMP 36.5; O2SAT 96
[2017-05-08] MEDS ORDERED: SRQ25 PO (14:54)
[2017-05-08] MEDS ORDERED: THM100 PO (14:54)
[2017-05-08] MEDS ORDERED: LMC25 PO (14:54)
[2017-05-08] MEDS ORDERED: SENN-61 PO (14:54)
[2017-05-08] MEDS ORDERED: LEVE500T13 PO (14:54)
[2017-05-08] MEDS ORDERED: LAMO100T PO (14:54)
--- NOTE | 2017-05-08 15:04 | Discharge Instructions ---
Discharge Instructions Date of Service May 08, 2017. Admission Reason for Admission: Recurrent Seizures Discharge Discharge Diagnosis / Problem: Seizures Discharge Goals Goal(s): Decrease discomfort, Improve function, Increase independence Activity Recommendations Activity Limitations: resume your previous activity . Instructions / Follow-Up Instructions / Follow-Up Seizures: - It is suspected that this occurred due to coming off of Keppra. You have been placed back on this -- Keppra 1000 mg twice a day and can follow-up with your neurologist in [place] or you can see Dr. Stark here in [place]. Her information will be in this packet - Your Lamictal will be increased. Take Lamictal 50 mg in the morning each day until 05/12/2017 and then increase this to Lamictal 100 mg daily in the morning. You will take this in addition to Lamictal 100 mg daily at night as well. - Continue your home medications as previously prescribed. Would recommend to use Klonopin just as needed as this medication can cause you to get more confused. Talk with your family doctor about this medication. Rectal Prolapse and Constipation: - Continue daily Miralax. Would even recommend to take Miralax twice a day as this is safe to do. A lot of people will take Miralax every day to just stay regular with bowel movements - You will be provided a prescription for Senna. This is a different type of laxative to help keep your bowel regular. - Recommend to stay hydrated and get good fiber in your diet. Thiamine Level and Iron Deficiency Anemia: - Your thiamine level (this is a vitamin B) that can cause neuropathy (numbness/ tingling) of the legs that could cause falls. YOu will be continued on this and would have your family doctor recheck this is several weeks - You will also be sent a prescription for iron supplements to take twice a day. Just be aware that this could cause some constipation. It will be important to continue your bowel regimen to help reduce this. Would recommend to continue home services to help you out at home. Would also recommend to continue thinking about having home PT services come to you. The goal is to keep your strength up and prevent weakness. Current Hospital Diet Patient's current hospital diet: Regular Diet Discharge Diet Recommended Diet: Regular Diet Pending Studies Studies pending at discharge: no Laboratory Results Hemoglobin A1c Test 05/06/17 07:58 Range/Units Estimated Average Glucose 100 mg/dl Hemoglobin A1c 5.1 4.5-5.6 % Medical Emergencies . Who to Call and When: Medical Emergencies: If at any time you feel your situation is an emergency, please call 911 immediately. . Non-Emergent Contact Non-Emergency issues call your: Primary Care Provider Call Non-Emergent contact if: you have a fever, your pain is concerning you, you have any medication questions . . "Provider Documentation" section prepared by Dixie Pierce. . VTE Core Measure Inpt VTE Proph given/why not?: Enoxaparin (Lovenox)SQ
[2017-05-08] MEDS ORDERED: FRRS300 PO (15:20)
[2017-05-08 15:50] VITALS: BP 144/68; PULSE 72; TEMP 36.5; O2SAT 96
--- NOTE | 2017-05-08 16:41 | ECHOCARDIOGRAM REPORT ---
*NOTICE TO RECEIVING REPUBLICAN AGENCY This information is strictly Confidential and protected under [place] law. [place] law prohibits you from making any further disclosure of this information unless further disclosure is expressly permitted by the written consent of the person to whom it pertains or is authorized by law. A general authorization for the release of medical or other information is not sufficient for this purpose. Hospital accepts no responsibility if the information is made available to any other person, INCLUDING THE PATIENT. Interpretation Summary * Name: CASA MOON Study Date: 05/08/2017 02:41 PM BP: 144/68 mmHg * Patient Location: [facility]\S\[id number]\S\2 HR: 72 * : 1940 (M/d/yyyy) Gender: Female Height: 60 in * Age: 77 yrs Ethnicity: [place] Weight: 118 lb * Ordering Physician: Zoltan Wells * Referring Physician: Self, Referred * Performed By: Daphney Renteria RDCS * * Reason For Study: SYNCOPE * BSA: 1.5 m2 * -- Conclusions -- * 1. Normal LV size. Mild concentric LVH. * 2. Normal LV systolic function. LVEF 60-65%. No regional wall motion abnormalities. * 3. Normal RV size and function. * 4. Aortic valve sclerosis. Lohg-fa-[id number] aortic regurgitation * 5. Mild mitral regurgitation * 6. Mild tricuspid regurgitation. Normal estimated PA pressure. * 7. Grade 1 diastolic dysfunction * 8. No prior studies for comparison. Procedure Details * A complete two-dimensional transthoracic echocardiogram was performed (2D, M-mode, Doppler and color flow Doppler). Left Ventricle * The left ventricle is grossly normal size. * There is mild concentric left ventricular hypertrophy. * Ejection Fraction = 60-65%. * No regional wall motion abnormalities noted. Right Ventricle * The right ventricle is grossly normal size. * The right ventricular systolic function is normal as assessed by tricuspid annular plane systolic excursion (TAPSE) (normal >1.5 cm). Atria * The left atrium is moderately dilated. * Right atrial size is normal. * No ASD detected; PFO is not assessed. Mitral Valve * The mitral valve is grossly normal. * There is no mitral valve stenosis. * There is mild mitral regurgitation. Tricuspid Valve * The tricuspid valve is not well visualized, but is grossly normal. * There is mild tricuspid regurgitation. Aortic Valve * Aortic valve sclerosis mild, without significant aortic valvular stenosis. * No hemodynamically significant valvular aortic stenosis. * Mild to moderate aortic regurgitation. Pulmonic Valve * The pulmonary valve is inadequately visualized, but the Doppler data is adequate for interpretation. * There is no pulmonic valvular stenosis. * Trace pulmonic valvular regurgitation. Great Vessels * The aortic root and proximal ascending aorta are normal sized. Pericardium/Pleural * There is no pericardial effusion. Left Ventricular Diastolic Function * Grade I diastolic dysfunction, (abnormal relaxation pattern). MMode 2D Measurements and Calculations IVSd 1.4 cm IVSs 1.6 cm LVIDd 3.8 cm LVIDs 2.5 cm LVPWd 1.5 cm LVPWs 1.7 cm IVS/LVPW 0.92 FS 35.3 % EDV(Teich) 61.8 ml ESV(Teich) 21.4 ml EF(Teich) 65.4 % EDV(cubed) 54.7 ml ESV(cubed) 14.8 ml EF(cubed) 72.9 % % IVS thick 14.6 % % LVPW thick 9.3 % LV mass(C)d 205.5 grams LV mass(C)dI 137.8 grams/m\S\2 LV mass(C)s 143.0 grams LV mass(C)sI 95.8 grams/m\S\2 SV(Teich) 40.4 ml SI(Teich) 27.1 ml/m\S\2 SV(cubed) 39.8 ml SI(cubed) 26.7 ml/m\S\2 Ao root diam 2.9 cm Ao root area 6.7 cm\S\2 LA dimension 3.7 cm LA/Ao 1.3 LVAd ap4 23.9 cm\S\2 LVLd ap4 7.1 cm EDV(MOD-sp4) 67.2 ml EDV(sp4-el) 68.4 ml LVAs ap4 12.7 cm\S\2 LVLs ap4 5.8 cm ESV(MOD-sp4) 23.9 ml ESV(sp4-el) 23.4 ml EF(MOD-sp4) 64.5 % EF(sp4-el) 65.8 % LVAd ap2 23.1 cm\S\2 LVLd ap2 6.7 cm EDV(MOD-sp2) 67.4 ml EDV(sp2-el) 68.1 ml LVAs ap2 12.4 cm\S\2 LVLs ap2 5.5 cm ESV(MOD-sp2) 25.2 ml ESV(sp2-el) 23.5 ml EF(MOD-sp2) 62.6 % EF(sp2-el) 65.5 % LVLd %diff -6.59 % EDV(MOD-bp) 69.8 ml LVLs %diff -5.16 % ESV(MOD-bp) 25.1 ml EF(MOD-bp) 64.1 % SV(MOD-sp4) 43.3 ml SI(MOD-sp4) 29.1 ml/m\S\2 SV(MOD-sp2) 42.2 ml SI(MOD-sp2) 28.3 ml/m\S\2 SV(MOD-bp) 44.7 ml SI(MOD-bp) 30.0 ml/m\S\2 SV(sp4-el) 45.0 ml SI(sp4-el) 30.2 ml/m\S\2 SV(sp2-el) 44.6 ml SI(sp2-el) 29.9 ml/m\S\2 Doppler Measurements and Calculations MV E max loreta 75.0 cm/sec MV A max loreta 94.9 cm/sec MV E/A 0.79 MV dec time 0.19 sec Ao V2 max 175.1 cm/sec Ao max PG 12.3 mmHg Ao max PG (full) 5.2 mmHg Ao V2 mean 117.0 cm/sec Ao mean PG 6.1 mmHg Ao mean PG (full) 2.8 mmHg Ao V2 VTI 37.9 cm AI max loreta 499.5 cm/sec AI max PG 99.8 mmHg AI dec slope 242.1 cm/sec\S\2 AI P1/2t 604.4 msec LV V1 max PG 7.1 mmHg LV V1 mean PG 3.3 mmHg LV V1 max 133.3 cm/sec LV V1 mean 83.5 cm/sec LV V1 VTI 28.2 cm MR max loreta 562.3 cm/sec MR max PG 126.5 mmHg SV(Ao) 252.3 ml SI(Ao) 169.1 ml/m\S\2 TR max loreta 255.4 cm/sec
--- NOTE | 2017-05-08 18:02 | Discharge Summary ---
Discharge Summary Date of Service May 08, 2017. Discharge Summary Admission Date: May 03, 2017 at 12:43 Discharge Date: May 08, 2017 Discharge Disposition: Home with services Principal Diagnosis: Seizure Problems/Secondary Diagnoses: 1. Seizure Disorder 2. 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 Rectal Prolapse 4. Chronic Constipation 5. Frequent Falls 6. Syncopal Episodes? 7. Thiamine deficiency 8. metabolic/toxic encephalopathy - resolved 9. Bipolar disorder 10. Iron Deficiency 11. HTN 12. acute hypoxic respiratory failure - resolved Immunizations: Have You Had Influenza Vaccine: Unknown History of Tetanus Vaccine?: Unknown History of Pneumococcal: Unknown History of Hepatitis B Vaccine: Unknown Procedures: HEAD WITHOUT CONTRAST (CT) FINDINGS: No acute intracranial hemorrhage, midline shift, intracranial mass, hydrocephalus, territorial ischemia or abnormal extra-axial collection. Mild to moderate atrophy with extensive chronic microvascular ischemic changes. Ex vacuo ventriculomegaly. The calvarium is intact. The paranasal sinuses, mastoid air cells, and middle ear cavities are clear. IMPRESSION: No acute intracranial abnormality. HEAD ANGIO WITH CONTRAST FINDINGS: All major intracranial vessels are unremarkable. All major structures the anterior middle and posterior cerebral circulation are intact. Vertebral basilar system is unremarkable. There is minimal scattered plaque formation again with no significant stenotic process. IMPRESSION: No significant stenosis. Minimal scattered atherosclerotic change. ABDOMEN AND PELVIS CT WITH IV CONTRAST FINDINGS: Bibasilar linear densities consistent with subsegmental atelectasis. No pneumoperitoneum. No pneumatosis. Small hiatus hernia. Hyperdense material within the gallbladder favors vicarious excretion of contrast. The liver, spleen, adrenal glands, and pancreas are unremarkable. Bilateral renal hypodense lesions remain stable. The largest is seen within the left kidney and measures 2.2 cm. No hydronephrosis. No retroperitoneal lymphadenopathy. Moderate calcified plaque within the normal caliber abdominal aorta. No evidence for bowel obstruction. Prior midline incision. The uterus is surgically absent. Normal bladder. Small lower midline ventral hernia at the level of the bladder which contains a knuckle of small bowel. This is best seen on image 357. Moderate thickening at the rectum with perirectal fat stranding. No loculated fluid collections to suggest an abscess. Colonic diverticulosis. Large amount well-formed stool seen throughout the colon. IMPRESSION: 1. Large amount of well-formed stool seen throughout the colon consistent with constipation. 2. Moderate thickening of the rectal wall with perirectal fat stranding consistent with a proctitis. 3. Small lower midline ventral hernia which contains a knuckle of small bowel. No evidence for bowel obstruction. 4. Colonic diverticulosis. 5. Additional findings as described above. Echocardiogram: -- Conclusions -- * 1. Normal LV size. Mild concentric LVH. * 2. Normal LV systolic function. LVEF 60-65%. No regional wall motion abnormalities. * 3. Normal RV size and function. * 4. Aortic valve sclerosis. [id number] aortic regurgitation * 5. Mild mitral regurgitation * 6. Mild tricuspid regurgitation. Normal estimated PA pressure. * 7. Grade 1 diastolic dysfunction * 8. No prior studies for comparison. Consultations: 1. Neurology 2. PT/OT Medication Reconciliation New Medications: Ferrous Sulfate (Ferrous Sulfate) 325 Mg Tab 325 MG PO BID for 30 Days, #60 TAB Lamotrigine (Lamotrigine) 25 Mg Tab 50 MG PO UD for 30 Days, #120 TAB Take 50 mg daily in the morning until 05/12 then take 100 mg in AM. This is in addition to Lamictal 100 mg daily HS. Levetiracetam (Keppra) 500 Mg Tab 1000 MG PO BID for 30 Days, #120 TAB Quetiapine Fumarate (Quetiapine Fumarate) 25 Mg Tab 50 MG PO BID for 30 Days, #120 TAB Senna (Senokot) 8.6 Mg Tab 17.2 MG PO QAM for 30 Days, #60 TAB Thiamine HCl (Vitamin B-1) 100 Mg Tab 200 MG PO BID for 30 Days, #120 TAB Changed Medications: Lamotrigine (Lamictal) 100 Mg Tab 100 MG PO HS for 30 Days, #30 TAB (Changed from: QAM) Continued Medications: Amlodipine Besylate (Norvasc) 5 Mg Tab 5 MG PO QAM Bimatoprost (Lumigan) 0.01 % Krysta 1 DROP OPB HS Brimonidine Tartrate-Timolol M (Combigan) 1 Krysta Krysta 1 DROP OPB BID Carvedilol (Carvedilol) 3.125 Mg Tab 3.125 MG PO BID Clonazepam (Klonopin) 0.5 Mg Tab 0.5 MG PO AMPM Ezetimibe (Zetia) 10 Mg Tab 10 MG PO HS Furosemide (Lasix) 40 Mg Tab 40 MG PO QAM PRN for WATER RETENTION Levodopa/Carbidopa (Sinemet 25MG/100MG) 1 Ea Tab 1 TAB PO TID Polyethylene (Miralax) 17 Gm Pow 17 GM PO DAILY for 30 Days Potassium Ext Rel (Klor-Con) 20 Meq Tabcr 15 MEQ PO BID Discharge Exam Review of Systems: Constitutional: No fever, No chills ENT: No nasal symptoms, No sore throat Respiratory: No cough, No shortness of breath Cardiovascular: No chest pain, No palpitations Abdomen: + constipation, No pain, No nausea, No vomiting, No diarrhea, No GI bleeding Musculoskeletal: No swelling, No calf pain Genitourinary - Female: No dysuria Hematologic / Lymphatic: No abnormal bleeding/bruising Physical Exam: General Appearance: WD/WN, no apparent distress Neck: supple, no JVD, trachea midline Respiratory/Chest: lungs clear, normal breath sounds, no respiratory distress, no accessory muscle use Cardiovascular: regular rate, rhythm, no gallop, no murmur Abdomen / GI: normal bowel sounds, non tender, soft Extremities: no pedal edema Neurologic/Psychiatric: no motor/sensory deficits, alert Skin: normal color, warm/dry Hospital Course ADMISSION: 77 yo female with recent history of seizures in February 2017 for which she was hospitalized for 2 weeks. The history was obtained from one of her daughters at the bedside as well as reviewing prior neurology consultations and discharge summary. Per the daughter, the patient fell this morning around 645am, her quickly was at her side and the patient was conscious, able to get up. Patient did not complain of anything at that time. called daughters to the house, after they arrived the patient had two separate witnessed seizures where she became stiff and had mild shaking, afterwards she was not talking, decreased responsiveness. EMS called and she was placed in the ambulance. En route to the hospital she reportedly had two further episodes and she was given Ativan 2mg IV and the seizures ceased. In the ED her HR was slightly elevated and she was requiring some oxygen, otherwise she was doing well. CT head and CT angiography was normal. She was given Keppra 1000mg IV and were called to assess for admission. The patient was admitted previously on 02/13 for problems with rectal prolapse that was recurrent after two previous surgeries failed to fix the issue. She was seen by GI and they recommended follow up with colorectal surgery with [place]. While admitted, the patient experienced her first ever seizure episode , noted to have eyes roll back in her head, stiff arms and legs with brisk shaking. She had an extensive work up. MRI brain normal, LP was normal, EEG with no seizure activity. She was evaluated by both Dr. Alvarez and Dr. Turner over the course of a two week hospitalization. Her situation was complicated further by delirium with decreased responsiveness. History of bipolar disorder on Lamictal previously as well as Seroquel and she has Parkinson's and was taking Sinemet. The delirium eventually resolved and she was discharged to [facility] for rehab, continued on Keppra 1000mg BID for seizure prevention and was continued on Seroquel, Lamictal and Sinemet. She was supposed to follow up with [facility] Neurology. There is no record of follow up with neurology with [facility]. The daughter says that she was following with neurology in [place] with [facility]. The daughter says that her Keppra was stopped two days ago. Unclear if she was having side effects or if the neurologist felt it was not needed. However, prior to stopping the Keppra, the patient had had no further seizure activity since February. Would make it appear that seizures due to stopping Keppra. The patient can answer some simple questions, c/o some abdominal discomfort and generalized pain all over. Nothing else can be elicited. HOSPITAL COURSE: Ms. Urbina was admitted for breakthrough seizures after recent cessation of Keppra. Initially presented with some mild encephalopathy which is likely some mild dementia superimposed on bipolar disorder, benzodiazepine use, and hospital delirium. Recurrent Seizures: Recent Cessation of Keppra without Increased Lamictal - Suspect this is iatrogenic given recent cessation of Keppra. Per family, the plan was to increase Lamictal in response to the Keppra taper but this was not completed - EEG - reveals moderate encephalopathy of unspecified etiology - this was present when patient was more confused and encephalopathic - Continue Keppra 1000 mg po BID - Lamictal 50 mg in AM and 100 mg HS x 1 week then increase to Lamictal 100 mg BID - dose will be increased on 05/12 - Neurology followed - recommendations as above - avoid benzodiazepines when possible -- Discussed to talk with her PCP about Klonopin and possible wean vs PRN usage - Family is considering following up with [facility] Neurology Acute Encephalopathy: Mixed Etiology - RESOLVED Acute Hypoxia 2/2 Seizure/Respiratory Suppression from Ativan: RESOLVED Parkinsons vs Parkinsonism: STABLE - Sinemet 1 tab TID - appears to have minimal symptoms of this at this time Bipolar D/O: STABLE - Continue Lamictal and Seroquel 50 mg BID Rectal Prolapse and Chronic Constipation: - CT supports large amounts of stool - Continue daily Miralax and discussed can continue twice a day; Rx given for Senna - states she was on Linzess approx. one year ago and was having too many bowel movements - could consider GI F/U to address further options Disposition: - PT recommending acute rehab - when patient was more confused family was in agreement - At this time they would like to get patient home and feel she would be better served there with strong family support - Patient states her frequent falls are from just "blacking out" but did express that even home PT services can help with some of the multifactorial issues and did ask her to think about this - Her thiamine level was undetectable and she was started on Thiamine supplementation - this can be rechecked Attending Attestation & Discharge Note: Pt seen/examined, chart reviewed, discharge care plan d/w GERDA Pierce. I agree w/ the hammond components of her discharge summary. 77yo female with long-standing bipolar d/o, parkinsonism vs parkinson's disease , constipation, rectal prolapse requiring repair, and recently dx seizure d/o in 2017 who presented with multiple seizures. Sometime in the week prior to admission her keppra had been weaned off. Following reinstitution of keppra she had no further seizures. It was felt that the stoppage of the keppra was the culprit for her breakthrough seizures. She was seen in consult by [facility]y who recommended keppra 1000mg BID and titration upwards of her lamictal (ultimately 100mg BID). Due to ativan usage for the seizures as well as the post-ictal state the patient had significant metabolic/toxic encephalopathy lasting several days. Fortunately her mentation improved and returned to baseline prior to discharge. Other issues addressed - 1. constipation - aggressive bowel regimen discussed w/ pt & her 2. thiamine def - level in 02/2017 was undetectable; started on 200mg BID of thiamine while here; advised 1-2 months of Rx 3. iron deficiency - iron replacement advised w/ ferrous sulfate 325mg BID 4. deconditioning - received PT, OT - improved well enough to return home w/ her ; she will receive home PT/OT however discharge exam - gen - nad heart - RRR lungs - CTA b/l abd - soft, NT, ND, BS+, mesh palpable in abdominal wall ext - no edema neuro - strength 5/5 x 4 exts psych - a/o x 2 Of note - the patient plans to change her seizure d/o care to Dr. Eric Caro with the [facility] Neurology division. Zoltan Wells MD Total Time Spent: Greater than 30 minutes This includes examination of the patient, discharge planning, medication reconciliation, and communication with other providers. Discharge Instructions Please refer to the electronic Patient Visit Report (Discharge Instructions) for additional information. Follow-Up 1. see Dr. Eric Caro, neurology at [facility], within 2-3 weeks 2. see PCP within 1 week Additional Copies To Anais Bullard D.O.; Papi Caro M.D.
== END 2017-05-08 16:11 | disposition home or self-care (01) | DRG 100 ==
LOC: EDBD 08:33 → C.EDB 08:36 → C.MED 12:43 → EDBEDREQ 12:45 → ENRESERV 13:03 → CANRESERV 13:03 → ENRESERV 13:05 → C.MED 05-06 19:38
PROVIDERS: ADMIT Internal Medicine; ATTEND Internal Medicine
DX: G40.89 Other seizures (principal); G92 Toxic encephalopathy; J96.01 Acute respiratory failure with hypoxia; E51.9 Thiamine deficiency, unspecified; T42.6X5A Adverse effect of other antiepileptic and sedative-hypnotic drugs, initial encounter; T42.4X5A Adverse effect of benzodiazepines, initial encounter; G40.909 Epilepsy, unspecified, not intractable, without status epilepticus; F31.9 Bipolar disorder, unspecified; I10 Essential (primary) hypertension; G20 Parkinson's disease; K62.3 Rectal prolapse; F03.90 Unspecified dementia, unspecified severity, without behavioral disturbance, psychotic disturbance, mood disturbance, and anxiety; K59.09 Other constipation; Y92.009 Unspecified place in unspecified non-institutional (private) residence as the place of occurrence of the external cause

== ENCOUNTER → 2017-06-15 | Outpatient (CLI) | payer OTHER ==
[~2017-06-15] MED LIST changes: -BRIM0.1S OPB; +BRIM0.2S OPB; -CLC100 PO; +FRRS300 PO; +FRS/40 PO; +LMC25 PO; -POTA10CA28 PO; +POTA20TA16 PO; +SENN-61 PO; -SENN1TAB80 PO; -SRQ/100 PO; +SRQ25 PO; +THM100 PO
--- NOTE | 2017-06-15 12:35 | DIAGNOSTIC IMAGING REPORT ---
ABD/PELVIS NO IV OR ORAL CONT CT DOSE: 300.54 mGy.cm HISTORY: Pain ACUTE CONSTIPATION TECHNIQUE: Multiaxial CT images of the abdomen and pelvis were performed without contrast. A dose lowering technique was utilized adhering to the principles of ALARA. COMPARISON STUDY: 05/04/2017 FINDINGS: Lung bases are generally clear. Minimal dependent atelectasis. Configuration of the liver is unremarkable. Left renal cyst unchanged from the prior study. No evidence for renal hydronephrosis. Moderate increase in fecal material throughout the colon. This is somewhat diminished as compared to the prior study with a slight increase in the region of the cecum. Moderate wall thickening of the sigmoid with persistent perirectal infiltrative change. No evidence for abscess or collection. IMPRESSION: 1. Findings consistent with a nonspecific rectosigmoid colitis and/or diverticulitis. 2. No evidence for abscess collection or obstruction. 3. Mild superimposed proctitis slightly progressive from the prior study. 4. Fecal stasis generally slightly improved from the prior exam. The above report was generated using voice recognition software. It may contain grammatical, syntax or spelling errors. Electronically signed by: Ronny Jasso M.D. 06/15/2017 12:33 PM Dictated Date/Time: 06/15/2017 12:22 PM
== END | disposition home or self-care (01) ==
LOC: C.CTS 12:06
PROVIDERS: ATTEND Colon & Rectal Surgery
DX: K59.00 Constipation, unspecified (principal)

== ENCOUNTER 2017-07-15 17:01 | Emergency (ER) | payer OTHER ==
[~2017-07-15] VITALS: Ht 152.4 cm; Wt 57.1 kg
[2017-07-15 17:03] VITALS: Ht 152.4 cm; Wt 57.1 kg
--- NOTE | 2017-07-15 17:15 | EMERGENCY ROOM VISIT NOTE ---
History Report prepared by Sarah: Esteban Daniels Under the Supervision of: Dr. Rome Pathak M.D. 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 She complains that she wants her colostomy bag out and reports urinary retention. Her daughter notes that her colostomy bag was emptied this morning and is normally full at this time. Per daughter, she has had a depressed mood; patient notes she does not like her psychiatrist. She is on Lamictal, Klonopin (anxiety) , and [place] (bipolar disorder). She is no longer on Keppra. She refuses to take pain medications. Per the daughter, after taking her medications, the patient rests. She had a rectal prolapse twice and a colectomy at [place] with her current symptoms similar to previous episodes. She denies vomiting, syncope , SOB, chest pain, and dysuria. 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 She denies dysuria. Review of Systems See HPI for pertinent positives & negatives. A total of 10 systems reviewed and were otherwise negative. Past Medical & Surgical Medical Problems: (1) Anemia (2) Bipolar 1 disorder (3) Hemorrhoids (4) Hypertension (5) Rectal bleeding (6) Seizure disorder (7) Stomach problems Family History Hypertension Lung disease Social History Smoking Status: Never Smoker Alcohol Use: none Drug Use: none Marital Status: Housing Status: lives with family Occupation Status: retired Current/Historical Medications Scheduled Amlodipine Besylate (Norvasc), 5 MG PO QAM Aspirin (Aspirin Ec), 81 MG PO DAILY Bimatoprost (Lumigan), 1 DROP OPB HS Brimonidine Tartrate-Timolol M (Combigan), 1 DROP OPB BID Carvedilol (Carvedilol), 3.125 MG PO BID Clonazepam (Klonopin), 0.5 MG PO AMPM Donepezil HCl (Aricept), 5 MG PO HS Ezetimibe (Zetia), 10 MG PO HS Ferrous Sulfate (Kp Ferrous Sulfate), 325 MG PO DAILY Lamotrigine (Lamictal), 150 MG PO BID Levetiracetam (Keppra), 250 MG PO DAILY Nutritional Supplements (Boost), 1 CAN PO DIRECTED Polyethylene Glycol 3350 (Miralax), 17 GM PO DAILY Quetiapine Fumarate (Seroquel), 100 MG PO HS Senna (Senokot), 1 TAB PO DIRECTED Thiamine Hcl (Vitamin B1), 100 MG PO DAILY [Klor-Con M15], 30 MEQ PO DAILY Allergies Coded Allergies: [place] (Verified Allergy, Severe, SYSTEM TOXICITY, 07/15/17) Squash (Verified Allergy, Severe, ANAPHYLAXIS - YELLOW SQUASH, 07/15/17) Physical Exam Vital Signs Date Time Temp Pulse Resp B/P (MAP) Pulse Ox O2 Delivery O2 Flow Rate FiO2 07/15/17 19:49 36.5 68 16 186/95 99 07/15/17 19:37 68 16 173/111 99 Room Air 186/95 07/15/17 17:03 36.5 64 18 199/85 99 Room Air Physical Exam GENERAL: Patient is upset she is in the ED, mildly tangential, and in minimal distress. EYES: No scleral icterus, unremarkable pupils. ENT: Dry mucous membranes, no nasal congestion. NECK: No masses appreciated, no meningismus, trachea is midline. RESPIRATORY: No dyspnea. Clear to auscultation and equal bilaterally. No wheeze , no rhonchi. CARDIOVASCULAR: Regular rate and rhythm. No murmurs, rubs, gallops appreciated. GASTROINTESTINAL: Ostomy placed in mid left abdomen. No abdominal tenderness to palpation. Scant stool in ostomy. Abdomen soft, no peritonitis. Normal active bowel sounds. No masses appreciated. BACK: No midline tenderness, no CVA tenderness EXTREMITIES: Normal motion all extremities, no cyanosis, no edema. NEUROLOGIC: Alert and oriented, no acute motor or sensory deficits, no focal weakness, cranial nerves grossly intact. SKIN: No rash, no jaundice, no diaphoresis. PSYCH: She denies suicidal and homicidal ideation. Medical Decision & Procedures ER Provider Diagnostic Interpretation: Radiology results and stated below per my review and radiologist interpretation: CT SCAN OF THE ABDOMEN AND PELVIS WITH IV CONTRAST CLINICAL HISTORY: Generalized abdominal pain. COMPARISON STUDY: Abdominal CT dated 06/15/2017. TECHNIQUE: Following the IV administration of 117 cc of Optiray 320, CT scan of the abdomen and pelvis is performed from the lung bases to the proximal femora. Images are reviewed in the axial, sagittal, and coronal planes. IV contrast was administered without complication. A dose lowering technique was utilized adhering to the principles of ALARA. The examination is degraded by motion artifact. CT DOSE: 240.86 mGy.cm FINDINGS: Lung bases: The heart is top normal in size and without pericardial effusion. Linear atelectasis is noted at the left lung base. The lung bases are otherwise clear. Liver: The contrast-enhanced liver is normal in size, contour, and attenuation. There is no intrahepatic biliary ductal dilatation. The hepatic veins and portal veins are patent. Gallbladder: Unremarkable. Spleen: Normal in size and attenuation. Pancreas: Atrophic and grossly unremarkable. Adrenal glands: Unremarkable. Kidneys: The contrast enhanced kidneys demonstrate cortical atrophy and are without hydronephrosis. The kidneys enhance symmetrically. 2.2 cm cyst is noted in the interpolar left kidney. Abdominal vasculature: The abdominal aorta is normal in course and caliber noting moderate to advanced atherosclerotic calcification. Bowel: There are postoperative changes from partial colon resection with double barrel colostomy in the left lower quadrant. No bowel obstruction is seen. Moderate fecal retention is identified in the right colon. The appendix is normal in appearance. There is moderate diverticulosis of the sigmoid colon without CT evidence of acute diverticulitis. Peritoneum: There is no intraperitoneal free air or abdominal ascites. Lymphadenopathy: None. Pelvic viscera: The bladder is normal as visualized. The uterus is surgically absent. No adnexal lesion is seen. Skeletal structures: The skeletal structures are osteopenic. There is moderate lumbosacral spondylosis and scoliosis. No lytic or blastic lesions are seen. 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 There are mild superior endplate compression deformities of L1 and L3. IMPRESSION: 1. There are no acute infectious or inflammatory findings in the abdomen or pelvis. 2. There are postoperative changes from colon resection with double barrel colostomy in the left lower quadrant. No bowel obstruction is seen. 3. Moderate fecal retention is noted in the right colon. 4. There is moderate sigmoid diverticulosis without CT evidence of acute diverticulitis. 5. Additional findings as above. Electronically signed by: Sreedhar Goff M.D. 07/15/2017 7:13 PM Dictated Date/Time: 07/15/2017 7:04 PM Laboratory Results 07/15/17 18:00 Red Blood Count 4.97, Mean Corpuscular Volume 89.9, Mean Corpuscular Hemoglobin 30.8, Mean Corpuscular Hemoglobin Concent 34.2, Mean Platelet Volume 8.7, Neutrophils (%) (Auto) 53.8, Lymphocytes (%) (Auto) 34.3, Monocytes (%) (Auto) 7.2, Eosinophils (%) (Auto) 4.2, Basophils (%) (Auto) 0.4, Neutrophils # (Auto) 3.87, Lymphocytes # (Auto) 2.47, Monocytes # (Auto) 0.52, Eosinophils # (Auto) 0.30, Basophils # (Auto) 0.03 07/15/17 18:00 Test 07/15/17 18:00 07/15/17 18:09 White Blood Count 7.20 K/uL (4.8-10.8) Red Blood Count 4.97 M/uL (4.2-5.4) Hemoglobin 15.3 g/dL (12.0-16.0) Hematocrit 44.7 % (37-47) Mean Corpuscular Volume 89.9 fL (80-100) Mean Corpuscular Hemoglobin 30.8 pg (25-34) Mean Corpuscular Hemoglobin Concent 34.2 g/dl (32-36) Platelet Count 327 K/uL (130-400) Mean Platelet Volume 8.7 fL (7.4-10.4) Neutrophils (%) (Auto) 53.8 % Lymphocytes (%) (Auto) 34.3 % Monocytes (%) (Auto) 7.2 % Eosinophils (%) (Auto) 4.2 % Basophils (%) (Auto) 0.4 % Neutrophils # (Auto) 3.87 K/uL (1.4-6.5) Lymphocytes # (Auto) 2.47 K/uL (1.2-3.4) Monocytes # (Auto) 0.52 K/uL (0.11-0.59) Eosinophils # (Auto) 0.30 K/uL (0-0.5) Basophils # (Auto) 0.03 K/uL (0-0.2) RDW Standard Deviation 44.6 fL (36.4-46.3) RDW Coefficient of Variation 13.5 % (11.5-14.5) Immature Granulocyte % (Auto) 0.1 % Immature Granulocyte # (Auto) 0.01 K/uL (0.00-0.02) Est Creatinine Clear Calc Drug Dose 37.6 ml/min Estimated GFR () 65.2 Estimated GFR (Non- 56.2 BUN/Creatinine Ratio 16.7 (10-20) Calcium Level 9.4 mg/dl (8.5-10.1) Bedside Hemoglobin 15.6 g/dl (12.0-16.0) Bedside Hematocrit 46 % (37-47) Bedside Sodium 140 mEq/L (135-144) Bedside Potassium 4.2 mEq/L (3.3-5.0) Bedside Chloride 105 mEq/L (101-112) Bedside Total CO2 27 mEq/l (24-31) Anion Gap 13.0 mmol/L (16-25) Bedside Blood Urea Nitrogen 16 mg/dl (7-18) Bedside Creatinine 0.9 mg/dl (0.6-1.3) Bedside Glucose (other) 81 mg/dl (70-99) Bedside Ionized Calcium (Kj) 1.22 mmol/l (1.12-1.32) Laboratory results as reviewed by me. Medications Administered Medications (Trade) Dose Ordered Sig/Naeem Route Start Time Stop Time Status Last Admin Dose Admin Sodium Chloride 1,000 ml @ 999 mls/hr Q1H1M STAT IV 07/15/17 17:31 07/15/17 18:31 DC 07/15/17 18:24 999 MLS/HR ED Course 171: The patient was evaluated in room C10. A complete history and physical exam was performed. 1929: I checked on the patient and she is feeling better. Family notes that the patient is doing much better. She denies further pain. Family and patient feel comfortable going home. 1934: Reevaluated the patient. Discussed results and discharge instructions: She verbalized understanding and agreement. The patient is ready for discharge. Medical Decision Differential: SBO, Post op infection, dehydration, PUD/Gastritis, Biliary Pathology, UTI, amongst other pathologies entertained. 77 yr old bipolar patient with recent colectomy who clearly is not pleased that she now has ostomy. She is complaining it is very sore though she is adamantly refusing any pain medications. She is easily distracted though herself gets quite tangential. With amount of pain she and family state she is having and recent surgery felt that imaging was indicated and fortunately had no acute findings. Labs look OK. After IV fluids patient vastly improved, looks comfortable and is even calmer than on arrival. Family note she looks much better as well. Vitals with moderate HTN though didn't have evening meds and with agitation she had earlier this is not surprising. Family feels comfortable with her at home and patient is very clear about wanting to be discharged. Family feels she is safe at home and patient agrees with this as well. Reviewed symptoms requiring RTED. Medication Reconcilliation Current Medication List: was personally reviewed by me Blood Pressure Screening Patient's blood pressure: Elevated blood pressure Blood pressure disposition: Elevated BP felt to be situational Impression Primary Impression: Dehydration Additional Impressions: Anxiety Postoperative abdominal pain Scribe Attestation The scribe's documentation has been prepared under my direction and personally reviewed by me in its entirety. I confirm that the note above accurately reflects all work, treatment, procedures, and medical decision making performed by me. Departure Information Dispostion Home / Self-Care Referrals Anais Bullard D.O. (PCP) Patient Instructions My [facility] Additional Instructions Continue to keep well hydrated. It may be beneficial to take Clonazepam twice daily rather than both doses at night. Return if fevers, vomiting, passing out, worsening pain, no stool in ostomy for prolonged time or other concerns. Problem Qualifiers
[2017-07-15] MEDS ORDERED: SODIUM CHLORIDE 0.9% 1000ML 1,000 ML IV STA (17:31)
[2017-07-15] MEDS ORDERED: FERR1TAB13 PO (17:56)
[2017-07-15] MEDS ORDERED: LEVE250T PO (17:56)
[2017-07-15] MEDS ORDERED: THIA100T46 PO (17:56)
[2017-07-15] MEDS ORDERED: SENN-61 PO (17:56)
[2017-07-15] MEDS ORDERED: ASPI81TA28 PO (17:56)
[2017-07-15] MEDS ORDERED: KLOR-CON M15 PO (17:56)
[2017-07-15] MEDS ORDERED: QUET1TAB34 PO (17:56)
[2017-07-15] MEDS ORDERED: NUTR-7 PO (17:56)
[2017-07-15] MEDS ORDERED: LAMO150T PO (17:56)
[2017-07-15] MEDS ORDERED: POLY335019 PO (17:56)
[2017-07-15] MEDS ORDERED: DONE5TAB9 PO (17:56)
[2017-07-15 18:14] LABS: BASO % 0.4 %; BASO ABS # 0.03 K/uL (0-0.2); EOS % 4.2 %; HEMATOCRIT 44.7 % (37-47); HEMOGLOBIN 15.3 g/dL (12.0-16.0); IG# 0.01 K/uL (0.00-0.02); LYMPH % 34.3 %; LYMPH ABS # 2.47 K/uL (1.2-3.4); MEAN CELL VOLUME 89.9 fL (80-100); MEAN CORPUSCULAR HEMOGLOBIN 30.8 pg (25-34); MEAN CORPUSCULAR HGB CONC 34.2 g/dl (32-36); MEAN PLATELET VOLUME 8.7 fL (7.4-10.4); MONO % 7.2 %; MONO ABS # 0.52 K/uL (0.11-0.59); NEUT % 53.8 %; NEUT ABS # 3.87 K/uL (1.4-6.5); PLATELET COUNT 327 K/uL (130-400); RED CELL DISTRIBUTION WIDTH CV 13.5 % (11.5-14.5); RED CELL DISTRIBUTION WIDTH SD 44.6 fL (36.4-46.3)
[2017-07-15 18:21] LABS: ISTAT CREATININE 0.9 mg/dl (0.6-1.3); ISTAT IONIZED CALCIUM 1.22 mmol/l (1.12-1.32); ISTAT POTASSIUM 4.2 mEq/L (3.3-5.0)
[2017-07-15 18:37] LABS: CALCIUM 9.4 mg/dl (8.5-10.1); CREATININE 0.96 mg/dl (0.60-1.20)
--- NOTE | 2017-07-15 19:14 | DIAGNOSTIC IMAGING REPORT ---
CT SCAN OF THE ABDOMEN AND PELVIS WITH IV CONTRAST CLINICAL HISTORY: Generalized abdominal pain. COMPARISON STUDY: Abdominal CT dated 06/15/2017. TECHNIQUE: Following the IV administration of 117 cc of Optiray 320, CT scan of the abdomen and pelvis is performed from the lung bases to the proximal femora. Images are reviewed in the axial, sagittal, and coronal planes. IV contrast was administered without complication. A dose lowering technique was utilized adhering to the principles of ALARA. The examination is degraded by motion artifact. CT DOSE: 240.86 mGy.cm FINDINGS: Lung bases: The heart is top normal in size and without pericardial effusion. Linear atelectasis is noted at the left lung base. The lung bases are otherwise clear. Liver: The contrast-enhanced liver is normal in size, contour, and attenuation. There is no intrahepatic biliary ductal dilatation. The hepatic veins and portal veins are patent. Gallbladder: Unremarkable. Spleen: Normal in size and attenuation. Pancreas: Atrophic and grossly unremarkable. Adrenal glands: Unremarkable. Kidneys: The contrast enhanced kidneys demonstrate cortical atrophy and are without hydronephrosis. The kidneys enhance symmetrically. 2.2 cm cyst is noted in the interpolar left kidney. Abdominal vasculature: The abdominal aorta is normal in course and caliber noting moderate to advanced atherosclerotic calcification. Bowel: There are postoperative changes from partial colon resection with double barrel colostomy in the left lower quadrant. No bowel obstruction is seen. Moderate fecal retention is identified in the right colon. The appendix is normal in appearance. There is moderate diverticulosis of the sigmoid colon without CT evidence of acute diverticulitis. Peritoneum: There is no intraperitoneal free air or abdominal ascites. Lymphadenopathy: None. Pelvic viscera: The bladder is normal as visualized. The uterus is surgically absent. No adnexal lesion is seen. Skeletal structures: The skeletal structures are osteopenic. There is moderate lumbosacral spondylosis and scoliosis. No lytic or blastic lesions are seen. 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 There are mild superior endplate compression deformities of L1 and L3. IMPRESSION: 1. There are no acute infectious or inflammatory findings in the abdomen or pelvis. 2. There are postoperative changes from colon resection with double barrel colostomy in the left lower quadrant. No bowel obstruction is seen. 3. Moderate fecal retention is noted in the right colon. 4. There is moderate sigmoid diverticulosis without CT evidence of acute diverticulitis. 5. Additional findings as above. Electronically signed by: Sreedhar Goff M.D. 07/15/2017 7:13 PM Dictated Date/Time: 07/15/2017 7:04 PM
[2017-07-15] MEDS ORDERED: OPTIRAY 320 IV PRN (19:15)
[2017-07-15 19:49] VITALS: BP 186/95; PULSE 68; TEMP 36.5; O2SAT 99
== END 2017-07-15 19:50 | disposition home or self-care (01) ==
LOC: C.EDB 17:02 → C.EDC 19:50
DX: E86.0 Dehydration (principal); F41.9 Anxiety disorder, unspecified; G89.18 Other acute postprocedural pain; F31.9 Bipolar disorder, unspecified; D64.9 Anemia, unspecified; G40.909 Epilepsy, unspecified, not intractable, without status epilepticus; I10 Essential (primary) hypertension; Z79.82 Long term (current) use of aspirin; Z90.49 Acquired absence of other specified parts of digestive tract; Z87.19 Personal history of other diseases of the digestive system; Z88.8 Allergy status to other drugs, medicaments and biological substances; Z91.018 Allergy to other foods

== ENCOUNTER 2018-04-03 23:47 | Observation (INO) ==
[2018-04-04 00:18] LABS: Basophils # (auto) 0.04 K/uL (0-0.2); Basophils % (auto) 0.4 %; Eosinophils # (auto) 0.17 K/uL (0-0.5); Eosinophils % (auto) 1.9 %; Hematocrit (blood only) 39.8 % (37-47); Hemoglobin 13.8 g/dL (12.0-16.0); Immature Granulocytes # (auto) 0.03 K/uL (0.00-0.02); Immature Granulocytes % (auto) 0.3 %; Lymphocytes # (auto) 1.38 K/uL (1.2-3.4); Mean Corpuscular Hgb Conc 34.7 g/dL (32-36); Mean Corpuscular Volume 92.6 fL (80-100); Mean Platelet Volume 8.3 fL (7.4-10.4); Monocytes % (auto) 5.4 %; Neutrophils # (auto) 7.06 K/uL (1.4-6.5); Platelet Count 339 K/uL (130-400); RDW Coefficient of Variation 13.8 % (11.5-14.5); RDW Standard Deviation 46.5 fL (36.4-46.3); White Blood Count 9.18 K/uL (4.8-10.8)
[2018-04-04 00:37] LABS: Alanine Aminotransferase 9 U/L (12-78); Albumin Level 3.3 gm/dl (3.4-5.0); Aspartate Aminotransferase 13 U/L (15-37); BUN Creatinine Ratio 17.8 (10-20); Blood Urea Nitrogen 14 mg/dl (7-18); Calcium 9.2 mg/dl (8.5-10.1); Carbon Dioxide 25 mmol/L (21-32); Chloride 102 mmol/L (98-107); Creatinine Clr Calc Pharmacy 44.8 ml/min; Est GFR (African American) 83.2; Est GFR (Non-African American) 71.8; Glucose 108 mg/dl (70-99); Magnesium 1.7 mg/dl (1.8-2.4); Potassium 4.5 mmol/L (3.5-5.1); Sodium 134 mmol/L (136-145)
[2018-04-04] MEDS ORDERED: LORazepam 2 MG/4 ML VIAL ONE (00:45)
[2018-04-04] MEDS ORDERED: LORazepam 1 MG/2 ML VIAL IV STA (00:45)
[2018-04-04] MEDS ORDERED: MAGNESIUM SULFATE / D5W 1 GM/100 ML BAG IV ONE ×2 (00:46→08:45)
[2018-04-04 00:48] LABS: Albumin Globulin Ratio 0.9 (0.9-2); Alkaline Phosphatase 111 U/L (45-117); Bilirubin,Total 0.2 mg/dl (0.1-1); Globulin 3.6 gm/dl (2.5-4.0); Total Protein 6.9 gm/dl (6.4-8.2); Troponin I < 0.015 ng/ml (0-0.045)
[2018-04-04 01:16] LABS: Appearance Urine Clear (Clear); Bilirubin Urine Negative (Negative); Color Urine Yellow; Glucose Urine UA Negative (Negative); Ketones Urine Negative (Negative); Leukocyte Esterase Urine Negative (Negative); Nitrite Urine Negative (Negative); Protein Urine Negative (Negative); Specific Gravity Urine 1.014 (1.000-1.030); Urobilinogen Urine Negative (Negative)
[2018-04-04] MEDS ORDERED: OPTIRAY 320 125ml IV PRN (01:34)
--- NOTE | 2018-04-04 04:53 | History & Physical Report ---
Date of Service April 04, 2018 Assessment & Plan (1) Seizure: Ms. Urbina is an 78-year-old female with a history of seizures, hyperlipidemia, iron deficiency anemia, bipolar disorder, hypertension and Parkinson's disease who presents to the emergency department after a seizure. She has had multiple admissions for the same. She had a seizure in the emergency department that was treated with 1 mg of IV Ativan. She has been somnolent since. She also received 1g of magnesium sulfate in the emergency department -Admit to telemetry for monitoring -Seizure precautions -1 mg IV Ativan prn seizure -Unsure of cause of seizure at this time. Per family, patient has been compliant with medication and has has not missed a dose. -No concerning electrolyte abnormalities, urinalysis is normal. No elevation of white cell count. Will check phosphorus level -CT brain and CT abdomen and pelvis without any abnormalities -Will order 2 view chest x-ray given family has reported a cough at home -Lamictal level drawn and pending -Neurology consult -Continue home antiseizure medications including Lamictal and lacosamide (2) Altered mental status: -likely secondary to postictal state -Consider EEG if does not improve -N.p.o. while somnolent -Maintenance fluids with normal saline at 90 mls/hour (3) Hypertension: -Continue home amlodipine, furosemide, lisinopril (4) Bipolar 1 disorder: -Continue home medications (5) Parkinson disease: -Continue home Sinemet (6) Dementia: -Continue home medications (7) Iron deficiency anemia: -Continue home iron supplementation (8) Hyperlipidemia: -continue home ezetimibe (9) Glaucoma: -Continue home eyedrops (10) History of recurrent UTIs: -Continue prophylactic Macrobid (11) DVT prophylaxis: -Heparin 5000 units subcutaneous twice daily CODE STATUS: DNR as discussed with family Disposition: Admit to telemetry F/E/N: N.p.o. while somnolent. Check phosphorus level, and replace electrolytes as needed History of Present Illness Primary Care Provider: Tera Paredes DO Ms. Urbina is an 78-year-old female with a history of seizures, hyperlipidemia, iron deficiency anemia, bipolar disorder, hypertension and Parkinson's disease who presents to the emergency department after a seizure. She is accompanied by her daughter and who are providing the history given Ms. Urbina's altered mental status. Per her , her colostomy bag came off earlier tonight and as he was cleaning it,he noticed that she had a 3-4 -minute episode where she turned her head to the left, and was unresponsive. He also noted that she was twitching her arms and legs.Her family states that she was discharged from the hospital on March 30. She has had 2 hospitalizations in the last month. The first was for seizure that was felt to be secondary to UTI. The second was for a seizure that was felt to be secondary to low Lamictal levels, as she had not been receiving her medication at home. At this time, the family is unsure of what triggered the seizure. She has been taking her daily Macrobid as prophylaxis for UTI. She has also been taking her antiseizure medication medications as prescribed, and has not missed any doseBetween her discharge from the hospital and today, she was well. She has been complaining of occasional abdominal pain, but had no change in her stool output. Her also noted that she has been coughing occasionally, but denies any fever or chills. Her seizures began in 2017. She has had extensive neurological workup, including imaging of her brain, EEGs, lab work, and a lumbar puncture with no cause found. She sees Dr. Stark in the outpatient setting. Her family denies alcohol or recreational drug use. Of note, she had a seizure in the emergency department that responded to IV Ativan, has been somnolent since. Her family states that her postictal state varies in length, and can be anywhere from a few minutes to a number of hours. Allergies Allergy/AdvReac Type Severity Reaction Status Date / Time squash Allergy Severe ANAPHYLAXIS Verified 04/04/18 00:27 - YELLOW SQUASH haloperidol AdvReac Severe DELIRIUM Verified 04/04/18 00:27 lithium AdvReac Severe SYSTEM Verified 04/04/18 00:27 TOXICITY levetiracetam [From Keppra] AdvReac Unknown Unknown Verified 04/04/18 00:27 Home Medications Home Medications Medication Instructions Recorded Confirmed Type aspirin [Aspirin Low Dose] 81 mg PO QAM 01/11/18 04/04/18 History bimatoprost 1 drp OPB HS 01/11/18 04/04/18 History brimonidine-timolol 1 drp OPB AMHS 01/11/18 04/04/18 History ezetimibe 10 mg PO QPM 01/11/18 04/04/18 History ferrous fumarate 325 mg PO AMPM 01/11/18 04/04/18 History furosemide [Lasix] 40 mg PO DAILY PRN 01/11/18 04/04/18 History polyethylene glycol 3350 [Miralax] 17 g PO DAILY PRN 01/11/18 04/04/18 History potassium chloride 15 meq PO AMPM 01/11/18 04/04/18 History sennosides 8.6 mg PO AMPM 01/11/18 04/04/18 History thiamine mononitrate (vit B1) 100 mg PO QAM 01/11/18 04/04/18 History lacosamide [Vimpat] 100 mg PO AMPM 01/24/18 04/04/18 History amlodipine 10 mg PO QAM 02/14/18 04/04/18 History carbidopa-levodopa [Sinemet] 1 tab PO TID 03/26/18 04/04/18 History cranberry 400 mg PO DAILY 03/26/18 04/04/18 History diclofenac sodium [Voltaren] 2 g TOPICAL QID PRN 03/26/18 04/04/18 History cholecalciferol (vitamin D3) 2,000 unit PO QAM 04/04/18 04/04/18 History [Vitamin D3] lamotrigine [Lamictal XR] 500 mg PO QPM 04/04/18 04/04/18 History lisinopril 5 mg PO QPM 04/04/18 04/04/18 History nitrofurantoin monohyd/m-cryst 100 mg PO QAM 04/04/18 04/04/18 History [Macrobid] Past Med/Surg History Medical History Constipation Hypertension (Chronic) Bipolar 1 disorder (Chronic) Dementia (Chronic) Anemia Parkinsons disease (Chronic) Seizure disorder (Chronic) GI bleed Hemorrhoids History of hysterectomy Rectal bleeding Rectal prolapse Stomach problems Syncope UTI (urinary tract infection) Surgical History History of creation of ostomy History of hernia repair History of tonsillectomy Family History Father Hypertension Other No pertinent family history Social History marital status: Current Living Situation: Spouse and Family Current Living Situation Comment: 2 story house, lives on 1st floor Feels Safe at Home: Yes Smoking Status: Never smoker Second Hand Exposure: No Hx Alcohol Use: No Hx Substance Use: No Beliefs That Will Affect Care: None Preferred Language: Panamanian Review of Systems Per family's recollection, as pt is somnolent and unable to answer. Constitutional: no fever and no chills Respiratory: + cough; no dyspnea and no wheezing Cardiovascular: no chest pain, no dyspnea and no syncope Gastrointestinal: + abdominal pain; no vomiting Physical Exam 2 Vital Signs (Past 24 Hours): Last Vital Signs Temp 36.6 C 04/04/18 00:15 Pulse 69 04/04/18 04:20 Resp 25 H 04/04/18 04:20 BP 175/86 H 04/04/18 04:00 Pulse Ox 100 04/04/18 04:20 Constitutional: + thin; no acute distress Patient is somnolent and unresponsive Eyes: PERRL, conjunctivae normal, anicteric sclerae ENMT: Small laceration noted over right side of tongue. Small amount of dried blood present at right side of lip Respiratory: normal respiratory effort, lungs clear to auscultation Cardiovascular: RRR, no murmur, no edema Gastrointestinal (Abdomen): Percussion/Palpation: abdomen soft; abdomen not rigid and no abdominal mass Colostomy bag present Skin: no rashes, warm and dry Results & Data Laboratory Results Laboratory Results - last 24 hr 04/04/18 04/04/18 04/04/18 00:09 00:09 00:45 WBC 9.18 RBC 4.30 Hgb 13.8 Hct 39.8 MCV 92.6 MCH 32.1 MCHC 34.7 RDW Std Deviation 46.5 H RDW Coeff of Rinku 13.8 Plt Count 339 MPV 8.3 Immature Gran % (Auto) 0.3 Neut % (Auto) 77.0 Lymph % (Auto) 15.0 [place] % (Auto) 5.4 Eos % (Auto) 1.9 Baso % (Auto) 0.4 Immature Gran # (Auto) 0.03 H Neut # (Auto) 7.06 H Lymph # (Auto) 1.38 [place] # (Auto) 0.50 Eos # (Auto) 0.17 Baso # (Auto) 0.04 Sodium 134 L Potassium 4.5 Chloride 102 Carbon Dioxide 25 Anion Gap 7.0 BUN 14 Creatinine 0.78 Est Cr Clr Drug Dosing 44.8 Est GFR ( Amer) 83.2 Est GFR (Non-Af Amer) 71.8 BUN/Creatinine Ratio 17.8 Glucose 108 H Calcium 9.2 Magnesium 1.7 L Total Bilirubin 0.2 AST 13 L ALT 9 L Alkaline Phosphatase 111 Troponin I < 0.015 Total Protein 6.9 Albumin 3.3 L Globulin 3.6 Albumin/Globulin Ratio 0.9 Lipase 153 TSH 1.800 Urine Color Yellow Urine Appearance Clear Urine pH 6.0 Ur Specific [place] 1.014 Urine Protein Negative Urine Glucose (UA) Negative Urine Ketones Negative Urine Blood Negative Urine Nitrite Negative Urine Bilirubin Negative Urine Urobilinogen Negative Ur Leukocyte Esterase Negative Supervising Physician Co-Signing Physician Notes Patient seen and examined, chart reviewed, case discussed with Dr. March and I agree with her assessment and plan as documented above. Briefly, patient is an 78-year-old female with history of known seizure disorder first diagnosed in 2017, Parkinson's, dementia, hypertension, bipolar. Recent admissions for UTI with seizure. Patient returns to the ER today with prolonged witnessed seizure, reported to be similar to prior episodes. She had a second seizure in ER and was given Ativan x 1mg which resolved. Presently she is post-ictal, does not answer questions or follow commands. Patient does not drink. Does not use Benzos at home. No fever/chills/neck pain or stiffness per family. On exam she is afebrile, hypertensive, post-ictal Neck supple, PERRL, anicteric sclera Heart - +S1, S2, regular, no m/r/g Lungs - CTA, no rales/rhonchi/wheezes Abd - +BS, soft, NT/ND Ext - warm, 2+ pulses, no edema Neuro - withdraws extremities from painful stimuli Labs and images reviewed. CT head negative. Lamictal level pending. Electrolytes WNL. Assessment/Plan: Will admit to telemetry, seizure precautions, neuro checks. Continue Lamictal and Vimpat, Ativan PRN. Neurology consult - appreciate assistance. Will defer additional testing to Neuro. Remainder of plan as above. Resident Activity Tracking Resident Involvement: Resident Care Provided Care Provided: [facility] Medicine _ (1) Dementia Alzheimer's disease onset: Dementia behavioral disturbance: without behavioral disturbance Dementia type: Parkinson's disease Qualified Code(s): G20 - Parkinson's disease; F02.80 - Dementia in other diseases classified elsewhere without behavioral disturbance (2) Altered mental status Altered mental status type: unspecified Coma depth: Coma timing: Qualified Code(s): R41.82 - Altered mental status, unspecified (3) Hypertension Hypertension type: essential hypertension Qualified Code(s): I10 - Essential (primary) hypertension
[2018-04-04] MEDS ORDERED: FUROSEMIDE 40 MG TAB PO PRN (05:06)
[2018-04-04] MEDS ORDERED: LORazepam 1 MG/2 ML VIAL IV PRN (05:06)
[2018-04-04] MEDS ORDERED: DICLOFENAC SOD 1% GEL 100 GM TUBE EXT PRN (05:06)
[2018-04-04] MEDS ORDERED: POLYETHYLENE (MIRALAX) 17 GM PACK PO PRN (05:06)
[2018-04-04] MEDS ORDERED: ACETAMINOPHEN 325 MG TAB PO PRN (05:06)
--- NOTE | 2018-04-04 05:14 | Emergency Department Note ---
Entered by Harini Lundy acting as a scribe for Indu Gil DO History of Present Illness General Chief complaint: Seizure Time Seen by Provider: 04/03/18 23:55 Source: family and EMS Mode of arrival: EMS Limitations: altered mental status History of Present Illness Provider complaint: Seizure Onset (ago): hour(s) (1.5) Radiation: non-radiation Severity: moderate Associated symptoms: + denies other symptoms Patient is an 78 year old female presenting to the ED with seizure that occurred 1.5 hours ago. Per EMS, patient has a history of focal seizures and possibly had one tonight. They notes family found patient and notes she was not alert and oriented. Family describes seizure history as normal focal with staring off, but she returns to baseline and answering questions appropriately. EMS notes patient noticed has slight left sided facial droop and was answering all questions with I dont know. EMS also includes that patient was seen in the ED recently for UTI, noting she missed 2 doses of her Lamictal medication and returned to the ED later for seizure. Patient has a history of Parkinsons, Bipolar disorder, Dementia, HTN and HLD. HPI limited due to patients AMS. Home Medications Home Medications Medication Instructions Recorded Confirmed Type aspirin [Aspirin Low Dose] 81 mg PO QAM 01/11/18 04/04/18 History bimatoprost 1 drp OPB HS 01/11/18 04/04/18 History brimonidine-timolol 1 drp OPB AMHS 01/11/18 04/04/18 History ezetimibe 10 mg PO QPM 01/11/18 04/04/18 History ferrous fumarate 325 mg PO AMPM 01/11/18 04/04/18 History furosemide [Lasix] 40 mg PO DAILY PRN 01/11/18 04/04/18 History polyethylene glycol 3350 [Miralax] 17 g PO DAILY PRN 01/11/18 04/04/18 History potassium chloride 15 meq PO AMPM 01/11/18 04/04/18 History sennosides 8.6 mg PO AMPM 01/11/18 04/04/18 History thiamine mononitrate (vit B1) 100 mg PO QAM 01/11/18 04/04/18 History lacosamide [Vimpat] 100 mg PO AMPM 01/24/18 04/04/18 History amlodipine 10 mg PO QAM 02/14/18 04/04/18 History carbidopa-levodopa [Sinemet] 1 tab PO TID 03/26/18 04/04/18 History cranberry 400 mg PO DAILY 03/26/18 04/04/18 History diclofenac sodium [Voltaren] 2 g TOPICAL QID PRN 03/26/18 04/04/18 History cholecalciferol (vitamin D3) 2,000 unit PO QAM 04/04/18 04/04/18 History [Vitamin D3] lamotrigine [Lamictal XR] 500 mg PO QPM 04/04/18 04/04/18 History lisinopril 5 mg PO QPM 04/04/18 04/04/18 History nitrofurantoin monohyd/m-cryst 100 mg PO QAM 04/04/18 04/04/18 History [Macrobid] Allergies Allergy/AdvReac Type Severity Reaction Status Date / Time squash Allergy Severe ANAPHYLAXIS Verified 04/04/18 00:27 - YELLOW SQUASH haloperidol AdvReac Severe DELIRIUM Verified 04/04/18 00:27 lithium AdvReac Severe SYSTEM Verified 04/04/18 00:27 TOXICITY levetiracetam [From Keppra] AdvReac Unknown Unknown Verified 04/04/18 00:27 Past Med/Surg History Medical History Constipation Hypertension (Chronic) Bipolar 1 disorder (Chronic) Dementia (Chronic) Anemia Parkinsons disease (Chronic) Seizure disorder (Chronic) GI bleed Hemorrhoids History of hysterectomy Rectal bleeding Rectal prolapse Stomach problems Syncope UTI (urinary tract infection) Surgical History History of creation of ostomy History of hernia repair History of tonsillectomy Family History Father Hypertension Other No pertinent family history Social History marital status: Current Living Situation: Spouse and Family Current Living Situation Comment: 2 story house, lives on 1st floor Feels Safe at Home: Yes Smoking Status: Never smoker Second Hand Exposure: No Hx Alcohol Use: No Hx Substance Use: No Beliefs That Will Affect Care: None Preferred Language: Latvian Review of Systems See HPI for pertinent positives & negatives. Unobtainable due to cognitive status Physical Exam Vital Signs Vital Signs - 24 hr 04/03/18 23:54 04/03/18 23:56 04/04/18 00:00 Temperature Temperature Source Sepsis Recent Fever Within 48 Hours Sepsis Action Taken by Nursing Pulse Rate 77 74 76 Respiratory Rate 21 21 22 Blood Pressure 169/82 H Blood Pressure Mean 111 Pulse Oximetry 98 97 97 Oxygen Delivery Method Room Air Oxygen Flow Rate 04/04/18 00:15 04/04/18 00:20 04/04/18 00:37 Temperature 36.6 C Temperature Source Oral Sepsis Recent Fever Within 48 Hours No Sepsis Action Taken by Nursing No Action Required Pulse Rate 72 76 Respiratory Rate 14 20 Blood Pressure 169/82 H Blood Pressure Mean 111 Pulse Oximetry 98 89 L Oxygen Delivery Method Room Air Room Air Oxygen Flow Rate 0 04/04/18 00:40 04/04/18 00:53 04/04/18 00:54 Temperature Temperature Source Sepsis Recent Fever Within 48 Hours Sepsis Action Taken by Nursing Pulse Rate 66 82 90 Respiratory Rate 26 H 25 H 22 Blood Pressure 155/78 H Blood Pressure Mean 103 Pulse Oximetry 98 100 99 Oxygen Delivery Method Nasal Cannula Oxygen Flow Rate 04/04/18 01:00 04/04/18 01:37 04/04/18 01:38 Temperature Temperature Source Sepsis Recent Fever Within 48 Hours Sepsis Action Taken by Nursing Pulse Rate 78 99 H 76 Respiratory Rate 17 14 22 Blood Pressure 151/86 H 155/77 H Blood Pressure Mean 107 103 Pulse Oximetry 98 99 100 Oxygen Delivery Method Oxygen Flow Rate 04/04/18 01:40 04/04/18 02:00 04/04/18 02:20 Temperature Temperature Source Sepsis Recent Fever Within 48 Hours Sepsis Action Taken by Nursing Pulse Rate 75 79 82 Respiratory Rate 16 20 18 Blood Pressure 129/82 Blood Pressure Mean 97 Pulse Oximetry 100 100 100 Oxygen Delivery Method Nasal Cannula Oxygen Flow Rate 04/04/18 02:30 04/04/18 02:40 04/04/18 03:00 Temperature Temperature Source Sepsis Recent Fever Within 48 Hours Sepsis Action Taken by Nursing Pulse Rate 82 76 75 Respiratory Rate 19 20 19 Blood Pressure 159/88 H Blood Pressure Mean 111 Pulse Oximetry 100 100 99 Oxygen Delivery Method Oxygen Flow Rate 04/04/18 03:01 04/04/18 03:02 04/04/18 03:20 Temperature Temperature Source Sepsis Recent Fever Within 48 Hours Sepsis Action Taken by Nursing Pulse Rate 71 71 66 Respiratory Rate 18 21 17 Blood Pressure 196/86 H Blood Pressure Mean 122 Pulse Oximetry 100 100 100 Oxygen Delivery Method Oxygen Flow Rate 04/04/18 03:30 04/04/18 03:40 04/04/18 04:00 Temperature Temperature Source Sepsis Recent Fever Within 48 Hours Sepsis Action Taken by Nursing Pulse Rate 70 69 69 Respiratory Rate 23 29 H Blood Pressure 144/74 H 175/86 H Blood Pressure Mean 97 115 Pulse Oximetry 100 100 100 Oxygen Delivery Method Oxygen Flow Rate 04/04/18 04:20 Temperature Temperature Source Sepsis Recent Fever Within 48 Hours Sepsis Action Taken by Nursing Pulse Rate 69 Respiratory Rate 25 H Blood Pressure Blood Pressure Mean Pulse Oximetry 100 Oxygen Delivery Method Oxygen Flow Rate GENERAL: alert, well appearing, well nourished, no distress, non-toxic EYE EXAM: normal conjunctiva, PERRL and EOM's grossly intact OROPHARYNX: no exudate, no erythema, buccal mucosa, and mucous membranes are moist. Contusion to right tongue. Contusion noted at central lower lip. NECK: supple, no nuchal rigidity, no adenopathy, non-tender LUNGS: Clear to auscultation. Normal chest wall mechanics HEART: no murmurs, S1 normal and S2 normal ABDOMEN: abdomen soft, non-tender, normo-active bowel sounds, no masses, no rebound or guarding. BACK: Back is symmetrical on inspection and there is no deformity, no midline tenderness, no CVA tenderness. SKIN: no rashes and no bruising UPPER EXTREMITIES: upper extremities are grossly normal. LOWER EXTREMITIES: No pitting edema. NEURO EXAM: Patient awake and moving extremities spontaneously. Answered questions with "I don't know". Otherwise does not follow commands and unable to perform complete neuro exam. Course 2348: Past medical records reviewed. The patient was evaluated in room B07, and a complete history and physical examination were performed. 0048: Called into the room due to seizure activity. Seizure stopped. Discussed with family who is now at bedside, noted that seziure this evening was longer than normal and patient was not coming back to baseline as quickly as usual. Family noted that UTI history has triggered more seizures in the past. Family shared patients primary neurologist is Dr. Stark. Patient also had history of intermittent facial droop and increasing abd pain due to recent constipation. 0230 Updated patient and family on unremarkable results. 0240: Cathleen Angeles paged [phone]: Discussed patient case with Cathleen Angeles, who accepts patient for evaluation. Administered Medications Discontinued Medications Lorazepam (Ativan) 1 mg in 2 mls @ 2 mls/min IV NOW STA Stop: 04/04/18 00:46 Last Admin: 04/04/18 01:26 Dose: 2 mls/min Magnesium Sulfate/Dextrose (Magnesium Sulfate / D5w) 1 gm in 100 mls @ 100 mls/ hr IV ONE ONE Stop: 04/04/18 01:45 Last Infusion: 04/04/18 01:55 Dose: 0 mls/hr Admin: 04/04/18 00:56 Dose: 100 mls/hr Ioversol (Optiray 320 125ml) 93 ml IV ONCE PRN PRN Reason: Interaction Checking Stop: 04/08/18 01:33 Last Admin: 04/04/18 01:35 Dose: 93 ml Lorazepam (Ativan) Confirm Administered Dose 2 mg .ROUTE .STK-MED ONE Stop: 04/04/18 00:46 Last Admin: 04/04/18 01:27 Dose: Not Given Medical Decision Making Differential Diagnosis Differential diagnosis: Etiologies such as infection, hypoglycemia, electrolyte abnormalities, cardiac sources, intracerebral event, trauma, toxicologic, neurologic, as well as others were entertained. Medical Records Attestation: I reviewed the patient's medical records. Home Medications Current Medication List: was personally reviewed by me Laboratory Data Attestation: I reviewed the patient's lab results. Result diagrams: 04/04/18 00:09 04/04/18 00:09 Lab Results 04/04/18 04/04/18 04/04/18 Range/Units 00:09 00:09 00:45 WBC 9.18 (4.8-10.8) K/uL RBC 4.30 (4.2-5.4) M/uL Hgb 13.8 (12.0-16.0) g/dL Hct 39.8 (37-47) % MCV 92.6 (80-100) fL MCH 32.1 (25-34) pg MCHC 34.7 (32-36) g/dL RDW Std Deviation 46.5 H (36.4-46.3) fL RDW Coeff of Rinku 13.8 (11.5-14.5) % Plt Count 339 (130-400) K/uL MPV 8.3 (7.4-10.4) fL Immature Gran % (Auto) 0.3 % Neut % (Auto) 77.0 % Lymph % (Auto) 15.0 % Harlan % (Auto) 5.4 % Eos % (Auto) 1.9 % Baso % (Auto) 0.4 % Immature Gran # (Auto) 0.03 H (0.00-0.02) K/uL Neut # (Auto) 7.06 H (1.4-6.5) K/uL Lymph # (Auto) 1.38 (1.2-3.4) K/uL Harlan # (Auto) 0.50 (0.11-0.59) K/uL Eos # (Auto) 0.17 (0-0.5) K/uL Baso # (Auto) 0.04 (0-0.2) K/uL Sodium 134 L (136-145) mmol/L Potassium 4.5 (3.5-5.1) mmol/L Chloride 102 (98-107) mmol/L Carbon Dioxide 25 (21-32) mmol/L Anion Gap 7.0 (3-11) BUN 14 (7-18) mg/dl Creatinine 0.78 (0.6-1.2) mg/dl Est Cr Clr Drug Dosing 44.8 ml/min Est GFR ( Amer) 83.2 Est GFR (Non-Af Amer) 71.8 BUN/Creatinine Ratio 17.8 (10-20) Glucose 108 H (70-99) mg/dl Calcium 9.2 (8.5-10.1) mg/dl Magnesium 1.7 L (1.8-2.4) mg/dl Total Bilirubin 0.2 (0.1-1) mg/dl AST 13 L (15-37) U/L ALT 9 L (12-78) U/L Alkaline Phosphatase 111 (45-117) U/L Troponin I < 0.015 (0-0.045) ng/ml Total Protein 6.9 (6.4-8.2) gm/dl Albumin 3.3 L (3.4-5.0) gm/dl Globulin 3.6 (2.5-4.0) gm/dl Albumin/Globulin Ratio 0.9 (0.9-2) Lipase 153 (73-393) U/L TSH 1.800 (0.300-4.500) uIu/ml Urine Color Yellow Urine Appearance Clear (Clear) Urine pH 6.0 (4.5-7.5) Ur Specific Johnston 1.014 (1.000-1.030) Urine Protein Negative (Negative) Urine Glucose (UA) Negative (Negative) Urine Ketones Negative (Negative) Urine Blood Negative (Negative) Urine Nitrite Negative (Negative) Urine Bilirubin Negative (Negative) Urine Urobilinogen Negative (Negative) Ur Leukocyte Esterase Negative (Negative) Imaging Data My Impression: Single view of chest: no cardiomegaly, no effusion, no wide mediastinum, no focal consolidation, no pulmonary edema. Prominant aortic nob. Radiologist's Impression: CT Head Negative Radiologist: Narayan Hayward MD Study ready [id number] and initial results transmitted at 00:43 CT ABDOMEN & PELVIS With contrast Comparison 03/26/2018 Left lower quarant colostomy. No evidence of bowel obstruction. Colonic diverticulosis is present without CT findings to suggest acute diverticulitis at this time. The small bowel has a normal caliber. No free air or significant free fluid identified currently. Left renal cyst. No hydronephorsis. Heterogenitiy of the kidneys likely related to motion artifact. Urinary bladder wall thickening likely related to minimal distention. Athrosclerosis. Degenerative joint/disc changes and scholiosis. Radiologist: Orlando Mays MD Study ready at 01:46 and initial results transmitted at 02:11. ECG Data Attestation: I personally reviewed and interpreted this ECG as follows: Indication: other (seizure) Rate (beats per minute): 77 Rhythm: sinus rhythm Findings: + other (normal QTC, QRS), + 1st degree AV block and + left axis deviation; no acute ischemic change Blood Pressure Blood Pressure Findings: Elevated blood pressure MDM Narrative Patient presented after prolonged atypical seizure at home with prolonged postictal period and then had a recurrent seizure while in the emergency room. Patient was given 1 mg of Ativan. On review of patient's EMR, patient has had more frequent and atypical seizures more recently, initially thought to be related to a recurrent urinary tract infection. Patient's UA tonight was unremarkable, other labs and imaging are reassuring. Patient had complained recently of abdominal pain to family however had been constipated for several days before having multiple loose stools following use of MiraLAX at home. Patient with known underlying seizure disorder, Parkinson's disease, as well as dementia, making assessment of baseline mental status difficult. Family provides significant history as patient was unable to answer questions here, simply stating "I do not know" to all questions asked. Patient hypertensive here however otherwise hemodynamically stable and afebrile. Concern for recurrent atypical seizures and prolonged postictal period with no return to cognitive baseline. Case discussed with hospitalist for additional evaluation and management. I do not suspect recurrent seizures are related to the prior missed Lamictal doses several weeks ago. Lamictal level was sent as a precaution, however is a send out lab and is not quickly resulted. No evidence of new [employer]NAL [employer] pathology contributing to recurrent seizures. Impression & Plan Recurrent seizures, Altered mental status, Abdominal pain, Dementia, Parkinson' s disease Discharge Plan Visit Data *Final* Discharge Date/Time: 04/04/18 04:25 Chief Complaint: Seizure Other Complaint: Altered Mental Status ED Provider: Indu Gil Discharge Problem: Recurrent seizures, Altered mental status, Abdominal pain, Dementia, Parkinson' s disease Patient Disposition: Admitted As Inpatient Condition: Fair Discharge Instructions Interventions: ED Discharge Assessment Last Done: 04/04/18 04:25 The scribe's documentation has been prepared under my direction and personally reviewed by me in its entirety. I confirm that the note above accurately reflects all work, treatment, procedures, and medical decision making performed by me.
[2018-04-04] MEDS: SODIUM CHLORIDE 0.9% 1000ML 1,000 ML IV SCH ×2 (06:05→17:54)
[2018-04-04 06:48] LABS: INR 0.9 (0.9-1.1); Prothrombin Time 9.6 Seconds (9.0-12.0)
--- NOTE | 2018-04-04 06:48 | CT Scan Report ---
CT OF THE ABDOMEN AND PELVIS WITH CONTRAST CLINICAL HISTORY: Abdominal pain and diarrhea. COMPARISON STUDY: CT of the abdomen and pelvis March 26, 2018. TECHNIQUE: Following IV administration of 93 mL of Optiray-320, axial images of the abdomen and pelvi s were obtained from the lung bases to the proximal femurs. Images were reviewed in the axial, sagitt al, and coronal planes. IV contrast was administered without complication. Automated exposure contro l was utilized for the study. A dose lowering technique was utilized adhering to the principles of A NATHAN. CT DOSE: 374.99 mGy.cm FINDINGS: Exam is compromised motion artifact. There is moderate cardiomegaly. The liver, spleen, adr enal glands, right kidney and pancreas are unremarkable. Note is made of a 2.1 cm left renal cyst. Th ere is no hydronephrosis or hydroureter. There is no peripancreatic or pericholecystic infiltration. A descending colostomy is noted. There is no evidence for a bowel obstruction. A short segment small bowel to small bowel intussusception within the left lower quadrant is of doubtful significance. No p neumatosis, free air or portal venous gas is present. Colonic diverticulosis is noted without evidenc e for acute diverticulitis. There is no abscess or free fluid. There is no lymphadenopathy. There is moderate plaque of the abdominal aorta which is normal in caliber. No suspicious osseous lesion is id entified. The appendix is normal. IMPRESSION: 1. No acute process within the abdomen or pelvis. Study compromised by motion artifact. 2. Descending colostomy. No bowel obstruction. 3. Colonic diverticulosis without evidence for acute diverticulitis. Electronically signed by: Lazaro Stover M.D. 04/04/2018 6:47 AM
--- NOTE | 2018-04-04 07:07 | CT Scan Report ---
CT SCAN OF THE BRAIN WITHOUT IV CONTRAST CLINICAL HISTORY: Seizure. Facial droop. COMPARISON STUDY: CT of the brain dated 03/26/2018. TECHNIQUE: Unenhanced axial CT scan of the brain is performed from the vertex to the skull base. A do se lowering technique was utilized adhering to the principles of ALARA. CT DOSE: 537.48 mGy.cm FINDINGS: Brain parenchyma: There are age-related involutional changes noting moderate to advanced subcortical and periventricular microangiopathic change. There is no hemorrhage, mass effect, or evidence of acu te territorial ischemia by CT criteria. Huerta-white matter differentiation is preserved. No extra-axia l fluid collection is seen. Ventricles, sulci, cisterns: Prominent secondary to involutional change. Intracranial vasculature: There is atherosclerotic calcification of the cavernous carotid and vertebr al arteries. Calvarium: Unremarkable. Sinuses and mastoids: The visualized paranasal sinuses are clear. The mastoid air cells are well pneu matized. Orbits: A healing fracture of the left lateral orbital wall is again noted. IMPRESSION: There is no hemorrhage, mass effect, or evidence of acute territorial ischemia by CT louisa foy. Electronically signed by: Sreedhar Goff M.D. 04/04/2018 7:05 AM
--- NOTE | 2018-04-04 07:17 | XRay Report ---
SINGLE VIEW CHEST CLINICAL HISTORY: Change in mental status. Seizure. FINDINGS: An AP, portable, upright chest radiograph is compared to study dated 03/28/2018. The examin ation is degraded by portable technique and patient rotation. The heart is enlarged and there is ath erosclerotic calcification of the thoracic aorta. The pulmonary vasculature is noncongested. Chronic interstitial thickening is similar to previous. No airspace consolidation or large pleural effusion i s identified. There is bibasilar atelectasis. No pneumothorax is seen. The bony thorax is grossly int act skeletal structures are osteopenic. Degenerative change and scoliosis are noted in the thoracic s pine. Advanced arthritic change is seen in the left shoulder. There is an acute appearing right later al ninth rib fracture. IMPRESSION: 1. Cardiomegaly with no acute cardiopulmonary abnormality. 2. There is an acute appearing right lateral 9th rib fracture. Correlate for point tenderness. Electronically signed by: Sreedhar Goff M.D. 04/04/2018 7:15 AM
[2018-04-04] MEDS: CHOLECALCIFEROL 1,000 UNITS TAB PO SCH (08:48)
[2018-04-04] MEDS: FERROUS SULFATE 325 MG TAB PO SCH ×2 (08:48→16:46)
[2018-04-04] MEDS: NITROFURANTOIN MONOHYDRATE 100 MG CAP PO SCH (08:48)
[2018-04-04] MEDS: AMLODIPINE BESYLATE 5 MG TAB PO SCH (08:48)
[2018-04-04] MEDS: ASPIRIN 81 MG ECTAB PO SCH (08:49)
[2018-04-04] MEDS: CARBIDOPA/LEVODOPA 25/100MG TAB PO SCH ×3 (08:49→21:44)
[2018-04-04] MEDS: THIAMINE HCL 100 MG TAB PO SCH (08:51)
[2018-04-04] MEDS: POTASSIUM CHLORIDE 10 MEQ TABCR PO SCH ×2 (08:51→16:46)
[2018-04-04] MEDS: SENNA 8.6 MG TAB PO SCH ×2 (08:51→21:44)
[2018-04-04] MEDS: BRIMONIDINE TARTRATE/TIMOLOL OPB SCH ×2 (08:52→21:46)
[2018-04-04] MEDS: HEPARIN SOD 5,000 UNIT/0.5 ML VIAL SQ SCH ×2 (08:56→21:45)
[2018-04-04] MEDS ORDERED: NON-FORMULARY MEDICATION (Cranberry [Cranberry] 400 MG) PO SCH (09:00)
[2018-04-04] MEDS ORDERED: LACOSAMIDE 50 MG TABLET PO SCH ×4 (09:00→21:00)
[2018-04-04] MEDS ORDERED: POTASSIUM CHLORIDE 10 MEQ TABCR PO SCH (09:00)
--- NOTE | 2018-04-04 09:54 | Neurology Consultation ---
Date of Consultation April 04, 2018 Assessment & Plan (1) Recurrent seizures: Patient has had partial seizures with secondary generalization intermittently for over 1 year now. These tend to occur mostly when she is not taking p.o. well (confused with UTIs). However, this particular seizure recently was not associated with acute confusion or urinary tract infection. The etiology of her seizures is likely secondary to her neuro degenerative disease. She has old small vessel ischemia which could put her at risk as well. UTIs and other infections can trigger seizures as well as antidepressant medication. All of her antidepressant medication, however, has been discontinued. Patient has been on Lamictal XR 500 milligrams once daily and Vimpat 100 milligrams twice a day. More recently the states she has been getting these doses regularly. A Lamictal level is pending. She has had no seizures since admission. (2) Parkinson's disease: The patient has mild parkinsonism. I believe this is secondary to her neuro degenerative disease and not a primary Parkinson's disease. She is on low -dose Sinemet and does not have significant rigidity or bradykinesia. I am concerned, however, that the carbidopa/levodopa can be making her more confused. In addition, the patient's tells me that this time the carbidopa/levodopa has not made any significant improvement in her gait or function. (3) Dementia: Patient has a progressive dementia which is likely mixed. She has a vascular component (chronic small vessel ischemic disease) and aging/ degenerative component. She really has progressed significantly over the last 12 months. She has been off medications for memory since the earlier this fall. Recommendations: 1. Increase Vimpat to 200 milligrams in the morning and 100 milligrams in the evening. This can be kept for the next 2-3 weeks and then a decision can be made to increase further to 200 milligrams twice daily (which would be the maximum dosage). 2. Keep Lamictal at current dose of 500 milligrams XR daily. A level is pending and dose could be adjusted after this comes back in 2-3 days. 3. Consider physical occupational therapy, increasing activity as able. 4. I had a long discussion with the and I believe a social service consult is necessary to consider long-term placement for this patient. I am not sure who can care for on a daily basis, no matter how well and tended he is. 5. Consider discontinuing carbidopa/levodopa as I am not sure what this is actually helping at this time. It may help reduce some of her rigidity, but she is not ambulating well anyway. Overall, I spent a total of 160 minutes with this case including review of records, review of CT films, direct evaluation the patient at bedside, and discussion of the case with the patient and her who was at bedside, clinical staff, and Dr. Wells including differential diagnosis and treatment options.. Greater than 50 percent of this visit (90 minutes) was spent in counseling and discussion with the patient and her at bedside regarding diagnoses and treatment options. History of Present Illness Reason for Consultation: Patient is an 78-year-old, was hi asked to see the request of Dr. March, for neurologic evaluation regarding seizures and other issues. Requesting Physician: Dr. Maurer Attending Physician: Zoltan Wells History of Present Illness Patient has the 5-6 year history of progressive memory dysfunction. At 1st she started out insidiously with short-term memory loss but has been progressing particularly over the last year to the point she is not functioning at all for herself. She has been cared for by her spouse on a daily basis and requires total care for bathing and dressing. At time she can eat on her own but mostly needs help. Patient has a longstanding history of bipolar disorder and mood issues. She has been followed by Psychiatry and has been on multiple medications. Patient had rectal prolapse surgery twice at [facility] and at the 3rd time , in May of 2017, instead of surgery, they put in the colostomy. She is really never gotten used to this and will occasionally pull it off. She has frequent urinary tract infections over the last 6 months as well. Patient has a history Parkinson's which is either a mild primary parkinsonism, or more likely, a secondary parkinsonism to condition and/or neuroleptics. She had been on carbidopa/levodopa 25/100 3 times a day which helped her balance. The patient started getting seizures in February of 2017. At that time, MRI of the brain showed moderate diffuse, nonspecific old small vessel ischemic changes. She has a longstanding history of hypertension and has some dyslipidemia. An EEG showed left hemispheric slowing and she was initiated on Lamictal. She was followed by Dr. Stark. In October of 2017 she had 2 additional seizures. She was initiated on Keppra but had sedation to this and was taken off. Since the late summer she has been on Lamictal and Vimpat. I saw the patient late December 2017 with another seizure. At that time I increase Vimpat to 100 milligrams twice daily and kept Lamictal at 250 milligrams twice daily. I held carbidopa/levodopa because I was concerned about confusion. On January 24, the patient fell in her bedroom landing on her face. She had a left subdural hematoma was spread of blood across the tentorium and had orbital fractures on the left. She was transferred to [facility] and taken off aspirin. She recovered from this and by a month later the blood had resorbed on repeat CT scans. In early February she was admitted with altered mental status and a UTI. She had nausea vomiting and was not able to take her p.o. meds. She came to the emergency room and had a seizure. While NPO she was bridged with IV phenytoin but discharged on her usual medications. An LP at that time showed 1 white cell and a protein of 37. There was no CSF bacterial growth. By late February she saw Dr. Stark as an outpatient again. She had been put back on Sinemet 25/100, 1 tablet 3 times a day, which the currently does not believe has helped the balance like it did the last time. Patient was switched from immediate release Lamictal to long-acting once daily Lamictal 500 milligrams. This has helped decrease some confusion/sleepiness. Her Vimpat dose has been the same at 100 milligrams twice daily. On March 27 she came to the emergency room with confusion and frequent urination. She had a urinary tract infection was discharged the next day. She returned on March 29 with a seizure. She was discharged and was doing well for the last 4 5 days until yesterday. On April 03, at approximately 2150 hours, patient's saw that the patient had pulled her colostomy bag off. While cleaning her up, he noted the sudden onset of her turning her head to the right and up and staring up in that direction lasting a minute or 2. She had some twisting of her mouth and some shaking and stiffening of her limbs lasting a few more minutes. Following this she was quite sleepy. She arrived to the emergency room at 2354 hours with a pulse of 77, respiratory rate 21, temperature 36.6, blood pressure 169/82, and O2 saturation 98 percent. She was not alert or oriented at the time and would answer questions with I do not know. There was a questionable left facial droop. She was given 1 milligram IV Ativan and 1 milligram of IV magnesium in the ER. CBC was unremarkable. Sodium was 134 the Chem profile was unremarkable otherwise. Magnesium was 1.7. TSH was 1.8 and liver profile was normal. Urinalysis was unremarkable. Chest x-ray was remarkable for some cardiomegaly and right lateral 9th rib fracture of undetermined age CT scan of the head showed no acute changes. CT scan of the abdomen and pelvis showed did not show any acute changes either. She was admitted and overnight has had no seizures. Nursing reports variable responsiveness but mostly sleepy following some commands. The patient complains of central abdominal pain intermittently. Allergies Allergy/AdvReac Type Severity Reaction Status Date / Time squash Allergy Severe ANAPHYLAXIS Verified 04/04/18 00:27 - YELLOW SQUASH haloperidol AdvReac Severe DELIRIUM Verified 04/04/18 00:27 lithium AdvReac Severe SYSTEM Verified 04/04/18 00:27 TOXICITY levetiracetam [From Kera] AdvReac Unknown Unknown Verified 04/04/18 00:27 Home Medications Home Medications Medication Instructions Recorded Confirmed Type aspirin [Aspirin Low Dose] 81 mg PO QAM 01/11/18 04/04/18 History bimatoprost 1 drp OPB HS 01/11/18 04/04/18 History brimonidine-timolol 1 drp OPB AMHS 01/11/18 04/04/18 History ezetimibe 10 mg PO QPM 01/11/18 04/04/18 History ferrous fumarate 325 mg PO AMPM 01/11/18 04/04/18 History furosemide [Lasix] 40 mg PO DAILY PRN 01/11/18 04/04/18 History polyethylene glycol 3350 [Miralax] 17 g PO DAILY PRN 01/11/18 04/04/18 History potassium chloride 15 meq PO AMPM 01/11/18 04/04/18 History sennosides 8.6 mg PO AMPM 01/11/18 04/04/18 History thiamine mononitrate (vit B1) 100 mg PO QAM 01/11/18 04/04/18 History lacosamide [Vimpat] 100 mg PO AMPM 01/24/18 04/04/18 History amlodipine 10 mg PO QAM 02/14/18 04/04/18 History carbidopa-levodopa [Sinemet] 1 tab PO TID 03/26/18 04/04/18 History cranberry 400 mg PO DAILY 03/26/18 04/04/18 History diclofenac sodium [Voltaren] 2 g TOPICAL QID PRN 03/26/18 04/04/18 History cholecalciferol (vitamin D3) 2,000 unit PO QAM 04/04/18 04/04/18 History [Vitamin D3] lamotrigine [Lamictal XR] 500 mg PO QPM 04/04/18 04/04/18 History lisinopril 5 mg PO QPM 04/04/18 04/04/18 History nitrofurantoin monohyd/m-cryst 100 mg PO QAM 04/04/18 04/04/18 History [Macrobid] Patient History Medical History Constipation Hypertension (Chronic) Bipolar 1 disorder (Chronic) Dementia (Chronic) Anemia Parkinsons disease (Chronic) Seizure disorder (Chronic) GI bleed Hemorrhoids History of hysterectomy Rectal bleeding Rectal prolapse Stomach problems Syncope UTI (urinary tract infection) Surgical History History of creation of ostomy History of hernia repair History of tonsillectomy Family History Father Hypertension Mother Stroke Other No pertinent family history Social History marital status: Current Living Situation: Spouse and Family Current Living Situation Comment: 2 story house, lives on 1st floor Other Information That Helps Us Care for You: No Feels Safe at Home: Yes Safety Concerns: Feels Safe At This Time Smoking Status: Never smoker Second Hand Exposure: No Hx Alcohol Use: No Hx Substance Use: No Beliefs That Will Affect Care: None Preferred Language: Brazilian Communication Ability: Effective Railway Switchman Required: No Review of Systems Review of systems is difficult because of patient's sleepiness and dementia. Eyes: + problem reported (Blurry); no diplopia Ear, Nose, Mouth, Throat: no ear pain and no dizziness Respiratory: + cough; no pain on inspiration Cardiovascular: no chest pain and no palpitations Gastrointestinal: + abdominal pain; no vomiting Genitourinary (Female): + urinary urgency and + urinary incontinence Musculoskeletal: no back pain and no neck pain Integumentary: no rash and no lesions Neurologic: + generalized weakness and + dizziness; no numbness, no tremor(s) and no headache(s) Psychiatric: + irritability and + confusion Endocrine: no fatigue and no flushing Hematologic / Lymphatic: + easy bruising; no easy bleeding Allergy / Immunological: no urticaria and no rash Physical Exam 2 Vital Signs (Past 24 Hours): Last Vital Signs Temp 36.8 C 04/04/18 07:35 Pulse 84 04/04/18 07:35 Resp 24 04/04/18 07:35 BP 114/64 04/04/18 07:35 Pulse Ox 97 04/04/18 07:35 Physical Exam: The patient is right-handed. The patient is sleepy when left alone. She is easily aroused with loud voice or gentle shaking. She will drift back to sleep if not stimulated. Speech is without any obvious aphasia or dysarthria. She is oriented to her 1st name and the fact that she is in a hospital. She did not know anything about time, her date, and she could not recognize her or say his name. She could follow some one-step commands but did not follow others. At time she was pleasant and cooperative and other time she was somewhat irritable. The discs are sharp with positive venous pulsations bilaterally. Pupils are 3 mm bilaterally and reactive to light. Extraocular eye muscles are intact without nystagmus. Visual acuity and visual diamond seem normal grossly to confrontation. There are no deficits to sensation in the face in all 3 distributions of the fifth cranial nerve bilaterally. Corneal reflexes are positive bilaterally. Facial strength and symmetry was normal bilaterally. Hearing seems intact grossly to voice and finger rub bilaterally. Palate moves well without asymmetry. There is normal sternocleidomastoid and trapezius (shoulder shrug) strength bilaterally. Tongue is midline with good strength bilaterally. Neck has a full range of motion without discomfort. There are no cervical bruits bilaterally. There are no cranial or ocular bruits. Heart is without murmur. There is a regular rhythm and rate. Cervical, thoracic, and lumbar spine are nontender to palpation. Gait was not tested and stance sitting up in bed is poor. With outstretched arms there is no drift. There are no obvious resting, postural , or action tremors. There is no ataxia with finger to nose testing, but this is difficult for her to do. There is good facility in the hands. No other abnormal involuntary movements are noted. Motor strength examination is difficult because of lack of cooperation but strength seemed 5/5 diffusely in the arms bilaterally including deltoids, biceps , triceps, brachioradialis, wrist flexors and extensors, solution analyst, and intrinsic hand muscles. Motor strength was 4/5 diffusely in the legs bilaterally including hip flexors, quadriceps, hamstrings, gastrocnemius, tibialis anterior , tibialis posterior, and Peroneii muscles bilaterally. The limbs have good tone until the last 20 degrees of extension where there is cogwheeling in the arms bilaterally. There is some mild rigidity only in the legs. Patient has mild generalized bradykinesia but no specific masklike face. Sensory examination is intact to touch and pin throughout all 4 limbs diffusely. Reflexes are 2/4 in the biceps, triceps, brachioradialis, and quadriceps tendons bilaterally. Achilles tendon reflexes are 1/4 bilaterally. Toes are downgoing with plantar stimulation bilaterally. Peripheral pulses are present and of normal quality distally in all 4 limbs. There is no peripheral edema noted in the limbs. _ (1) Dementia Alzheimer's disease onset: Dementia behavioral disturbance: without behavioral disturbance Dementia type: Parkinson's disease Qualified Code(s): G20 - Parkinson's disease; F02.80 - Dementia in other diseases classified elsewhere without behavioral disturbance
[2018-04-04] MEDS ORDERED: LACOSAMIDE 50 MG TABLET PO STA (14:30)
--- NOTE | 2018-04-04 16:41 | XRay Report ---
XR chest 1V portable CLINICAL HISTORY: 78 years-old Female presenting with SEIZURE. TECHNIQUE: Portable upright AP view of the chest was obtained. COMPARISON: 04/03/2018. FINDINGS: Atherosclerosis of the aortic arch. Cardiac silhouette enlarged. No focal opacity. No large effusion or pneumothorax. Dextroscoliosis. Degenerative changes of the thoracic spine. Advanced degenerative c hanges of the left glenohumeral joint. Upper abdomen normal. Numerous leads project over the lower me diastinum. IMPRESSION: 1. Cardiomegaly. No other convincing evidence of acute cardiopulmonary disease. Electronically signed by: Wicho Cheek M.D. 04/04/2018 4:40 PM
--- NOTE | 2018-04-04 16:46 | XRay Report ---
XR KUB CLINICAL HISTORY: 78 years-old Female presenting with constipation/impaction?. TECHNIQUE: Single supine view of the abdomen was obtained. COMPARISON: 02/14/[address] from 04/04/2018. FINDINGS: Colostomy noted in the left mid abdomen. Nonobstructive bowel gas pattern. Mild diffuse stool burden. No gross pneumoperitoneum allowing for supine technique. Allowing for bowel gas and stool, no calcifications to suggest nephrolithiasis. Atherosclerotic calci fications. Levoscoliotic curvature of the lumbar spine. Suspected underlying osteopenia. Extensive multilevel de generative changes. Degenerative changes of the right sacroiliac joint and pubic symphysis also noted . IMPRESSION: 1. Stool burden could be consistent with constipation. No bowel obstruction or gross free air. Electronically signed by: Wicho Cheek M.D. 04/04/2018 4:45 PM
[2018-04-04] MEDS ORDERED: BISACODYL 5 MG TABEC PO ONE (17:22)
[2018-04-04] MEDS: POLYETHYLENE (MIRALAX) 17 GM PACK PO SCH (17:56)
--- NOTE | 2018-04-04 20:21 | History & Physical Bridge Note ---
Date of Service April 04, 2018 History & Physical Bridge Note Pt seen/examined, chart reviewed. Patient w/o any additional seizures since admission to tele unit. Staff report that her speech is clear but her sentences do not make any sense. She occasionally complaints of mild abd discomfort. No stool output via ostomy today. She is incontinent of urine. Exam - gen - demented elderly female in NAD mouth - MMM neck - no JVD heart - RRR, s1, s2, 1/6 SERGIO LLSB lungs - CTA b/l abd - soft, NT, ND, BS+, no flank tenderness; ostomy bag in place, no stool in bag ext - no edema A/P: Breakthrough seizures in the setting of known seizure disorder. Recent UTI. Advanced dementia. Mild abdominal pain with negative CT abd/pelvis for acute findings. Mild hypomagnesemia. Minimal hyponatremia. Appreciate neuro consultation and recommendations; will increase vimpat to 200mg qam; leave PM dose at 100mg. U/a overnight not suggestive of UTI; cont macrobid prophylaxis. Replace low mag, repeat BMP and mag in am. Allow diet as tolerated. Stop IV fluids. KUB x-ray obtained today due to intermittent abdominal discomfort - suspect her pain is constipation related; gave dulcolax & miralax. PT, OT evals requested. Family desires for her to return home at d/c rather than SNF. Zoltan Wells MD
[2018-04-04] MEDS ORDERED: EZETIMIBE 10 MG TABLET PO SCH (21:00)
[2018-04-04] MEDS ORDERED: LISINOPRIL 5 MG TAB PO SCH (21:00)
[2018-04-04] MEDS ORDERED: BIMATOPROST 0.01% OP SOLN 2.5 ML BTL OPB SCH (21:00)
[2018-04-04] MEDS ORDERED: LAMICTAL PO SCH (21:00)
[2018-04-05 07:24] LABS: BUN Creatinine Ratio 13.4 (10-20); Calcium 9.5 mg/dl (8.5-10.1); Creatinine Clr Calc Pharmacy 37.5 ml/min; Est GFR (African American) 73.9; Est GFR (Non-African American) 63.8; Magnesium 2.2 mg/dl (1.8-2.4); Potassium 4.5 mmol/L (3.5-5.1)
[2018-04-05] MEDS: AMLODIPINE BESYLATE 5 MG TAB PO SCH (07:33)
[2018-04-05] MEDS: CHOLECALCIFEROL 1,000 UNITS TAB PO SCH (07:33)
[2018-04-05] MEDS: POTASSIUM CHLORIDE 10 MEQ TABCR PO SCH (07:34)
[2018-04-05] MEDS: NITROFURANTOIN MONOHYDRATE 100 MG CAP PO SCH (07:34)
[2018-04-05] MEDS: FERROUS SULFATE 325 MG TAB PO SCH (07:34)
[2018-04-05] MEDS: ASPIRIN 81 MG ECTAB PO SCH (07:34)
[2018-04-05] MEDS: THIAMINE HCL 100 MG TAB PO SCH (07:34)
[2018-04-05] MEDS: SENNA 8.6 MG TAB PO SCH (07:35)
[2018-04-05] MEDS: POLYETHYLENE (MIRALAX) 17 GM PACK PO SCH (07:35)
[2018-04-05] MEDS: CARBIDOPA/LEVODOPA 25/100MG TAB PO SCH ×2 (07:35→15:37)
[2018-04-05] MEDS: BRIMONIDINE TARTRATE/TIMOLOL OPB SCH (07:36)
[2018-04-05] MEDS: HEPARIN SOD 5,000 UNIT/0.5 ML VIAL SQ SCH (07:36)
[2018-04-05] MEDS ORDERED: LACOSAMIDE 50 MG TABLET PO SCH (09:00)
--- NOTE | 2018-04-05 10:44 | Neurology Progress Note ---
Date of Service April 05, 2018 Assessment & Plan (1) Recurrent seizures: Patient has had partial seizures with secondary generalization intermittently for over 1 year now. These tend to occur mostly when she is not taking p.o. well (confused with UTIs). However, this particular seizure recently was not associated with acute confusion or urinary tract infection. She has had no seizures since admission. The etiology of her seizures is likely secondary to her neuro degenerative disease. She has old small vessel ischemia which could put her at risk as well. UTIs and other infections can trigger seizures as well as antidepressant medication. All of her antidepressant medication, however, has been discontinued. Patient has been on Lamictal XR 500 milligrams once daily and Vimpat 100 milligrams twice a day. More recently the states she has been getting these doses regularly. A Lamictal level is pending. (2) Parkinson's disease: The patient has mild parkinsonism. I believe this is secondary to her neuro degenerative disease and not a primary Parkinson's disease. She is on low -dose Sinemet and does not have significant rigidity or bradykinesia. I am concerned, however, that the carbidopa/levodopa can be making her more confused. In addition, the patient's tells me that this time the carbidopa/levodopa has not made any significant improvement in her gait or function. (3) Dementia: Patient has a progressive dementia which is likely mixed. She has a vascular component (chronic small vessel ischemic disease) and aging/ degenerative component. She really has progressed significantly over the last 12 months. She has been off medications for memory since the earlier this fall. Recommendations: 1. Continue Vimpat to 200 milligrams in the morning and 100 milligrams in the evening. This can be kept for the next 2-3 weeks and then a decision can be made to increase further to 200 milligrams twice daily (which would be the maximum dosage). 2. Keep Lamictal at current dose of 500 milligrams XR daily. A level is pending and dose could be adjusted after this comes back in 2-3 days. 3. Consider physical occupational therapy, increasing activity as able. 4. social service consult to consider long-term placement for this patient. I am not sure michael can care for her on a daily basis, no matter how well intentioned he is. 5. Consider discontinuing carbidopa/levodopa as I am not sure what this is actually helping at this time. It may help reduce some of her rigidity, but she is not ambulating well anyway. Overall, I spent a total of 35 minutes with this case including direct evaluation the patient and discussion of the case with the patient, her , and clinical staff at bedside. Subjective Patient is more alert today than yesterday. She is somewhat belligerent and not overly cooperative with staff. Nursing reports no further seizures overnight. Physical Exam 2 Vital Signs (Past 24 Hours): Last Vital Signs Temp 36.4 C L 04/05/18 07:51 Pulse 75 04/05/18 07:51 Resp 22 04/05/18 07:51 BP 158/96 H 04/05/18 07:51 Pulse Ox 96 04/05/18 07:51 Physical Exam: She is awake and alert. Speech is without significant aphasia or dysarthria. Mood is reasonable and she is somewhat belligerent and defiant with her conversations with me. Memory is poor. Extraocular eye muscles are intact without nystagmus. There is no facial droop. Coordination seems reasonable in the arms although she is not very cooperative. Strength is symmetrical in the arms. There is no obvious tremor. _ (1) Dementia Alzheimer's disease onset: Dementia behavioral disturbance: without behavioral disturbance Dementia type: Parkinson's disease Qualified Code(s): G20 - Parkinson's disease; F02.80 - Dementia in other diseases classified elsewhere without behavioral disturbance
--- NOTE | 2018-04-13 11:15 | Discharge Summary ---
Date of Service date of admission - April 04, 2018 date of discharge - April 05, 2018 Admission HPI Per Admitting Provider Ms. Urbina is an 78-year-old female with a history of seizures, hyperlipidemia, iron deficiency anemia, bipolar disorder, hypertension, dementia , and Parkinson's disease who presents to the emergency department after a seizure. She is accompanied by her daughter and who are providing the history given Ms. Urbina's altered mental status. Per her , her colostomy bag came off earlier tonight and while he was cleaning it he noticed that she had a 3-4-minute episode where she turned her head to the left and was unresponsive. He also noted that she was twitching her arms and legs. Her family states that she was discharged from the hospital on March 30 for seizures. She has had 2 hospitalizations in the last month. The first was for seizure that was felt to be secondary to UTI. The second was for a seizure that was felt to be secondary to low Lamictal levels, as she had not been receiving her medication at home. At this time, the family is unsure of what triggered the seizure. She has been taking her daily Macrobid as prophylaxis for UTI. She has also been taking her antiseizure medications as prescribed and has not missed any doses. Between her discharge from the hospital on March 30 and today she has otherwise been well. She has been complaining of occasional abdominal pain, but had no change in her stool output. Her also noted that she has been coughing occasionally, but denies any fever or chills. Her seizures began in 2017. She has had extensive neurological workup, including imaging of her brain, EEGs, lab work, and a lumbar puncture with no cause found. She sees Dr. Stark in the outpatient setting from [facility]. Upon ER presentation she had a seizure in the emergency department that responded to IV Ativan. She subsequently was somnolent since then. Her family states that her postictal state varies in length, and can be anywhere from a few minutes to a number of hours. Principal Diagnosis breakthrough seizures in the setting of chronic seizure disorder Discharge Exam Constitutional well developed, well nourished and average body habitus; no acute distress and not disheveled ENMT external ear and nose normal, oropharynx normal Respiratory normal respiratory effort, lungs clear to auscultation Cardiovascular RRR, no murmur, no edema Heart Sounds: normal S1 and normal S2 Vessels: posterior tibial pulses present and dorsalis pedis pulses present; no JVD Gastrointestinal (Abdomen) normal bowel sounds, soft, nontender, no hepatosplenomegaly colostomy bag in place with stool in bag Neurologic no focal motor deficits Psychiatric Orientation: alert and oriented to person; + not oriented to place, + not oriented to time and + uncooperative Discharge Data Allergies Allergy/AdvReac Type Severity Reaction Status Date / Time squash Allergy Severe ANAPHYLAXIS Verified 04/04/18: - YELLOW SQUASH haloperidol AdvReac Severe DELIRIUM Verified 04/04/18: lithium AdvReac Severe SYSTEM Verified 04/04/18: TOXICITY levetiracetam [From Kera] AdvReac Unknown Unknown Verified 04/04/18: Consultations [facility] PT, OT Ordered Studies 1. CT head - IMPRESSION: There is no hemorrhage, mass effect, or evidence of acute territorial ischemia by CT criteria. 2. CT abd/pelvis - IMPRESSION: 1. No acute process within the abdomen or pelvis. Study compromised by motion artifact. 2. Descending colostomy. No bowel obstruction. 3. Colonic diverticulosis without evidence for acute diverticulitis. Hospital Course (1) Recurrent seizures: The patient's head CT was unchanged from prior head imaging. She had no infectious or metabolic issue that would have lowered her seizure threshold. She was seen in consult by [facility] and it was felt that her recurrent seizures were simply due to advanced neurodegenerative disease. Noncompliance with medication was not suspected during this hospitalization. Dr. Eric Caro advised the following - * INCREASE in vimpat to 200mg qam and leave her PM dose as is at 100mg * leave lamictal xr dose at 500mg daily * follow-up with her primary neurologist, Dr. Silvana Stark, in about 2 weeks post-discharge She was observed for about 36 hours and had no recurrent seizures thereafter on the telemetry floor. (2) Seizure disorder: See discussion above in "recurrent seizures" (3) Parkinson disease: (4) Dementia: advanced (5) Metabolic encephalopathy: due to recurrent seizures. her mental status returned to baseline (a/o x 1) at time of discharge. (6) History of recurrent UTIs: no evidence of active UTI during this stay. (7) Constipation: Likely the cause of her mild abdominal pain. reported that there were days at home when she would not pass stool via her ostomy. With multiple bowel agents the patient did pass stool and her abdominal complaints resolved. She will continue on a bowel regimen after discharge. 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 (9) Discharge planning issues: During this brief stay the patient's , who is her primary zipper setter lockstitch , was noted to be yelling at the patient. This happened on several occasions. This behavior was witnessed by the nursing staff as well as physician. Typically the yelling was in the context of the patient trying to stand up and walk or when she was displaying other impulsive behaviors. The patient's daughter was notified of our concerns regarding the 's yelling. The patient's daughter did not express any concerns about her mother's physical or mental well-being despite what we observed. She did acknowledge that her father at times has showed signs of caregiver burn- out. The patient's daughter reassured our social work staff that she assists tremendously in her mother's day to day care. (the patient's daughter has healthcare POA) We did tell the patient's daughter that we would likely file a report with the Office of Aging given our concerns. Our social work staff did indeed file a report with the Office of Aging. The patient's home health nursing company was also made aware of some of the 's verbal behavior that was witnessed. Total Time Total Time Spent Total Time Spent (In Minutes): 60 Total Time Includes: Examination of the Patient, Discharge Planning, Medication Reconciliation and Communication With Other Providers Discharge Plan Discharge Items Patient Disposition: Home - Home Health Services Reason For Visit: SEIZURE Discharge Diagnosis: seizure Discharge Goals: Diagnostic testing and Therapeutic intervention Activity: Resume your previous activity Non-emergency contact: Primary Care Provider and Neurologist Call non-emergency contact if: you have any medication questions and your temperature is above 100.5 Follow-up/Referrals: Silvana Stark DO [Physician] - 05/02/18 11:40 am (Please, follow up at [facility] Office with Dr. Stark on May 02 at 11:40 am. *The nurse will put your name on the "wait list" and she will call you if something becomes available before the . This office is located at [address] in [place]. If you need to change this appointment, call the office at [phone].) Tera Paredes, DO [Primary Care Provider] - (Please, follow up with Dr. Paredes - the nurse will call you regarding this appointment. *If you have any questions, call the office at [phone].) Diet: Regular Addtl Provider Instructions: From Dr. Wells - Hospitalist - You were admitted for additional seizures despite having had all of your normal seizure medications at home. You were seen by Dr. Eric Caro, [facility], who recommended we INCREASE your vimpat (lacosamide) to - 200mg EVERY MORNING 100mg EVERY EVENING I have given you a new prescription for the vimpat. We did NOT find any new infections (no UTI, no pneumonia, etc) or other derangements in the blood that would have caused a seizure. Dr. Caro is recommending follow-up with Dr. Stark in about 2-3 weeks to check on your seizures. We may have to increase the seizure medications again in the future if there are additional seizures. Follow-up - see separate section for details. Return to [facility] if - * you have fever over 100.5 degrees * you have seizures * you have shortness of breath, abdominal pain or chest pain * you have severe agitation, aggressive behavior, etc * any other concerns Prescriptions: New lacosamide 100 mg tablet 100 mg PO DIRECTED Qty: 90 RF: 2 Continue sennosides 8.6 mg tablet 8.6 mg PO AMPM RF: 0 aspirin [Aspirin Low Dose] 81 mg Tablet,Delayed Release (Dr/Ec) 81 mg PO QAM RF: 0 ezetimibe 10 mg tablet 10 mg PO QPM RF: 0 potassium chloride 15 mEq tablet,ER particles/crystals 15 meq PO AMPM RF: 0 ferrous fumarate 325 mg (106 mg iron) Tablet 325 mg PO AMPM RF: 0 thiamine mononitrate (vit B1) 100 mg tablet 100 mg PO QAM RF: 0 furosemide [Lasix] 40 mg Tablet 40 mg PO DAILY PRN (Reason: Edema) RF: 0 polyethylene glycol 3350 [Miralax] 17 gram Powder In Packet 17 g PO DAILY PRN (Reason: Constipation) RF: 0 brimonidine-timolol 0.2-0.5 % drops 1 drp OPB AMHS RF: 0 bimatoprost 0.01 % drops 1 drp OPB HS RF: 0 amlodipine 10 mg Tablet 10 mg PO QAM RF: 0 cranberry 400 mg Capsule 400 mg PO DAILY RF: 0 carbidopa-levodopa [Sinemet] 25-100 mg tablet 1 tab PO TID RF: 0 diclofenac sodium [Voltaren] 1 % gel 2 g Topical QID PRN (Reason: AFFECTED JOINTS) RF: 0 cholecalciferol (vitamin D3) [Vitamin D3] 2,000 unit Capsule 2,000 unit PO QAM RF: 0 lisinopril 5 mg tablet 5 mg PO QPM RF: 0 nitrofurantoin monohyd/m-cryst [Macrobid] 100 mg capsule 100 mg PO QAM RF: 0 lamotrigine [Lamictal XR] 250 mg tablet extended release 24 hr 500 mg PO QPM RF: 0 Stand-Alone Forms: [facility] Discharge Orders: Discharge Order (Routine); Ordered 04/05/18 Ordered By: Zoltan Wells Admission Data Admit Date/Time: 04/04/18 03:57 Attending Provider: Zoltan Wells Admit Provider: Trish March Primary Care Provider: Tera Paredes Other Providers: Daphney Angeles ; Jorge Turner ; Aroldo Caro III ; Silvana Stark ; Conchita Chilel ; Rodney Daly Service: Telemetry Other Interventions: Discharge Summary Assessment (RN) Last Done: 04/05/18 16:27 DC Date/Time DO NOT enter until pt leaves facility: 04/05/18 17:00
== END 2018-04-05 17:00 | disposition home health service (06) ==
LOC: ED 23:47 → 2E 23:47 → SUATTDRO 04-04 03:57 → 2E 04-04 04:25